=== PATIENT | male | born 1965 | race Caucasian/White ===

== ENCOUNTER → 2018-03-06 | Outpatient (CLI) | payer MEDICARE, MEDICAID ==
--- NOTE | 2018-03-06 10:40 | Diagnostic Imaging Report ---
INDICATION: Cirrhosis, history of hepatitis C. TECHNIQUE: Multiple grayscale sonographic images were obtained of the right upper quadrant of the abdomen. CORRELATION STUDY: None FINDINGS: LIVER: There is heterogeneous echotexture about the liver parenchyma. There are rather nodular, scalloped margins suggested. Imaging features favor probable chronic liver disease. There is normal, hepatopedal direction of flow within the main portal vein. Liver size at 14 cm. There is note made of a TIPS stent within the liver. GALLBLADDER: Appearing somewhat contracted. No definitive shadowing gallstones. There is presence of gallbladder wall thickening at 3-4 mm. COMMON BILE DUCT: Not able to be visualized. Overt bile duct dilatation does not appear be suggested. PANCREAS: Largely obscured. RIGHT KIDNEY: Measures 10.3 cm. No hydronephrosis. AORTA/IVC: Not well visualized. OTHER: None. IMPRESSION: 1. Findings suggestive of chronic liver disease/cirrhosis. Presence of a TIPS. Doppler interrogation/patency not performed. 2. Gallbladder wall thickening without definitive shadowing gallstones. This may be owing to chronic liver disease. Biliary tree unable to visualize but does not appear to be abnormally dilated. Dictated by: Dictated on workstation # [id number]
== END ==
LOC: RAD 08:05
PROVIDERS: ATTEND Internal Medicine
DX: K74.60 Unspecified cirrhosis of liver (principal); K82.8 Other specified diseases of gallbladder; Z86.19 Personal history of other infectious and parasitic diseases; Z96.89 Presence of other specified functional implants
CPT/HCPCS: 76705

== ENCOUNTER 2019-11-28 16:32 | Emergency (ER) | payer MEDICARE, MEDICAID ==
[~2019-11-28] VITALS: Ht 175.3 cm; Wt 83.9 kg
[2019-11-28] MEDS ORDERED: PANTOPRAZOLE 40 MG (PROTONIX) VIAL IV ONE (16:45)
[2019-11-28 16:47] LABS: BASOPHILS % (AUTO) 0 % (0-10); EOSINOPHILS # (AUTO) 0.2 10^3/uL (0.0-0.3); EOSINOPHILS % (AUTO) 4 % (0-10); HEMATOCRIT 35 % (40-54); HEMOGLOBIN 11.7 G/DL (13.3-17.7); LYMPHOCYTES # (AUTO) 1.2 X 10^3 (1.0-4.0); LYMPHOCYTES % (AUTO) 33 % (12-44); MEAN CORPUSCULAR HEMOGLOBIN 31 PG (25-34); MEAN CORPUSCULAR HGB CONC 33 G/DL (32-36); MEAN CORPUSCULAR VOLUME 94 FL (80-99); MEAN PLATELET VOLUME 9.1 FL (7.4-10.4); MONOCYTES # (AUTO) 0.3 X 10^3 (0.0-1.0); MONOCYTES % (AUTO) 8 % (0-12); NEUTROPHILS % (AUTO) 54 % (42-75); PLATELET COUNT 144 10^3/uL (130-400); RED CELL DISTRIBUTION WIDTH 14.6 % (10.0-14.5); WHITE BLOOD COUNT 3.7 10^3/uL (4.3-11.0)
[2019-11-28 16:53] LABS: ALBUMIN 3.4 GM/DL (3.2-4.5)
[2019-11-28 16:54] LABS: CHLORIDE 114 MMOL/L (98-107); POTASSIUM 3.5 MMOL/L (3.6-5.0); SODIUM 145 MMOL/L (135-145)
[2019-11-28 16:55] LABS: CALCIUM 7.9 MG/DL (8.5-10.1)
[2019-11-28 16:56] LABS: GLUCOSE 89 MG/DL (70-105); TOTAL PROTEIN 6.5 GM/DL (6.4-8.2)
[2019-11-28 16:57] LABS: CARBON DIOXIDE 23 MMOL/L (21-32); INR 1.3 (0.8-1.4); PROTHROMBIN TIME PATIENT 16.7 SEC (12.2-14.7)
[2019-11-28 16:58] LABS: BILIRUBIN,TOTAL 0.9 MG/DL (0.1-1.0)
[2019-11-28 16:59] LABS: ALKALINE PHOSPHATASE 111 U/L (40-136)
[2019-11-28 17:00] LABS: CREATININE SERUM 0.79 MG/DL (0.60-1.30); GFR ESTIMATED > 60
[2019-11-28] MEDS ORDERED: ONDANSETRON 4 MG/2 ML (SDV) Z0FRAN IVP ONE (17:00)
[2019-11-28 17:01] LABS: BUN/CREATININE RATIO 10
[2019-11-28 17:03] LABS: ALANINE AMINOTRANSFERASE 17 U/L (0-55)
--- NOTE | 2019-11-28 17:12 | Diagnostic Imaging Report ---
PATIENT HISTORY: Hematemesis. History of esophageal stent. TECHNIQUE: Frontal view of the chest. COMPARISON: None. FINDINGS: The lung volumes are normal. No focal consolidation is seen. No large pleural effusion or pneumothorax is seen. The cardiomediastinal silhouette is normal in size and contour. No acute osseous abnormality is seen. There are hyperdensities in the upper abdomen which are likely from postsurgical changes. No radiopaque stents are seen in the region of the esophagus. IMPRESSION: No acute pulmonary abnormality seen. Dictated by: Dictated on workstation # [id number]
--- NOTE | 2019-11-28 17:20 | ED GI ---
General Chief Complaint: Abdominal/GI Problems Stated Complaint: VOMITING Nursing Triage Note: PT TO ROOM 06 VIA EMS WITH C/O BLOOD TINGED VOMITUS X1 TODAY. PT STATES HE HAS TWO ESOPHAGEAL STENTS. Sepsis Screen: No Definite Risk History of Present Illness Date Seen by Provider: Nov 28, 2019 Time Seen by Provider: 16:45 Initial Comments 54-year-old male presents with vomiting times one today. Patient is by my EMS. Patient came in just because he was concerned. Patient had some slight bluish tinge to his vomit. Patient is concerned because he has liver cirrhosis and esophageal varices. He has to esophageal stents. These were done approximately 3 years ago at . Patient is not nauseated at this time. He does not have any abdominal pain. He does not have any other symptoms. He denies any dark tarry stool or bloody stool. Allergies and Home Medications Allergies Coded Allergies: NSAIDS (Non-Steroidal Anti-Inflamma (Verified Allergy, Unknown, 11/28/19) Home Medications Ondansetron 4 Mg Tab.rapdis, 4 MG PO Q6H PRN for NAUSEA/VOMITING Prescribed by: BRENDAN ELLIS on 11/28/19 1721 Patient Home Medication List Home Medication List Reviewed: Yes Review of Systems Review of Systems Constitutional: No chills, No fever Respiratory: Denies Cough, Denies Shortness of Air Cardiovascular: Denies Chest Pain Gastrointestinal: Denies Blood Streaked Stools, Denies Rectal Bleeding; Vomiting Musculoskeletal: no symptoms reported Skin: no symptoms reported Psychiatric/Neurological: No Symptoms Reported Past Upovmud-Crwhjx-Mdabba Hx Past Med/Social Hx: Reviewed Nursing Past Med/Soc Hx Patient Social History Alcohol Use: Past History Recreational Drug Use: No Smoking Status: Never a Smoker 2nd Hand Smoke Exposure: No Recent Foreign Travel: No Contact w/Someone Who Travel: No Recent Infectious Disease Expo: No Recent Hopitalizations: No Physical Abuse: No Sexual Abuse: No Mistreated: No Fear: No Seasonal Allergies Seasonal Allergies: Yes Past Medical History Surgeries: Yes (R ANKLE, L KNEE, BILAT SHOULDER, ESOPHAGUS) Adenoidectomy, Orthopedic, Tonsillectomy Respiratory: No Cardiac: No Neurological: Yes (SEIZURES DUE TO LIVER DISEASE) Genitourinary: No Gastrointestinal: Yes (HX OF HEP C) Hepatitis Chronic Back Pain, Fractures Endocrine: No HEENT: Yes Loss of Vision: Denies Hearing Impairment: Denies Cancer: No Psychosocial: Yes ADD/ADHD Integumentary: No Blood Disorders: No Physical Exam Vital Signs Vital Signs - First Documented 11/28/19 16:38 Temp 36.7 Pulse 77 Resp 17 B/P (MAP) 141/82 (101) O2 Delivery Room Air Capillary Refill : Less Than 3 Seconds Height/Weight/BMI Height: '" Weight: lbs. oz. 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, no motor/sensory deficits, normal mood/affect, oriented x 3 Skin: normal color, warm/dry Progress/Results/Core Measures Results/Orders Lab Results Laboratory Tests Test 11/28/19 16:37 Range/Units White Blood Count 3.7 L 4.3-11.0 10^3/uL Red Blood Count 3.75 L 4.35-5.85 10^6/uL Hemoglobin 11.7 L 13.3-17.7 G/DL Hematocrit 35 L 40-54 % Mean Corpuscular Volume 94 80-99 FL Mean Corpuscular Hemoglobin 31 25-34 PG Mean Corpuscular Hemoglobin Concent 33 32-36 G/DL Red Cell Distribution Width 14.6 H 10.0-14.5 % Platelet Count 144 130-400 10^3/uL Mean Platelet Volume 9.1 7.4-10.4 FL Neutrophils (%) (Auto) 54 42-75 % Lymphocytes (%) (Auto) 33 12-44 % Monocytes (%) (Auto) 8 0-12 % Eosinophils (%) (Auto) 4 0-10 % Basophils (%) (Auto) 0 0-10 % Neutrophils # (Auto) 2.0 1.8-7.8 X 10^3 Lymphocytes # (Auto) 1.2 1.0-4.0 X 10^3 Monocytes # (Auto) 0.3 0.0-1.0 X 10^3 Eosinophils # (Auto) 0.2 0.0-0.3 10^3/uL Basophils # (Auto) 0.0 0.0-0.1 10^3/uL Prothrombin Time 16.7 H 12.2-14.7 SEC INR Comment 1.3 0.8-1.4 Activated Partial Thromboplast Time 36 H 24-35 SEC Sodium Level 145 135-145 MMOL/L Potassium Level 3.5 L 3.6-5.0 MMOL/L Chloride Level 114 H 98-107 MMOL/L Carbon Dioxide Level 23 21-32 MMOL/L Anion Gap 8 5-14 MMOL/L Blood Urea Nitrogen 8 7-18 MG/DL Creatinine 0.79 0.60-1.30 MG/DL Estimat Glomerular Filtration Rate > 60 BUN/Creatinine Ratio 10 Glucose Level 89 70-105 MG/DL Calcium Level 7.9 L 8.5-10.1 MG/DL Corrected Calcium 8.4 L 8.5-10.1 MG/DL Total Bilirubin 0.9 0.1-1.0 MG/DL Aspartate Amino Transf (AST/SGOT) 35 H 5-34 U/L Alanine Aminotransferase (ALT/SGPT) 17 0-55 U/L Alkaline Phosphatase 111 40-136 U/L Total Protein 6.5 6.4-8.2 GM/DL Albumin 3.4 3.2-4.5 GM/DL My Orders Orders - ELLIS,BRENDAN L DO Pantoprazole Injection (Protonix Injecti (11/28/19 16:45) Cbc With Automated Diff (11/28/19 16:38) Comprehensive Metabolic Panel (11/28/19 16:38) Protime With Inr (11/28/19 16:38) Partial Thromboplastin Time (11/28/19 16:38) Chest 1 View, Ap/Pa Only (11/28/19 16:38) Ondansetron Injection (Zofran Injectio (11/28/19 17:00) Medications Given in ED Current Medications Medications Dose Ordered Sig/Johny Route Start Time Stop Time Status Last Admin Dose Admin Ondansetron HCl 4 mg ONCE ONCE IVP 11/28/19 17:00 11/28/19 17:01 DC 11/28/19 17:02 4 MG Pantoprazole 80 mg ONCE ONCE IV 11/28/19 16:45 11/28/19 16:46 DC 11/28/19 17:02 80 MG Vital Signs/I&O 11/28/19 16:38 Temp 36.7 Pulse 77 Resp 17 B/P (MAP) 141/82 (101) O2 Delivery Room Air Blood Pressure Mean: 101 Progress Progress Note : Time: 17:17 Progress Note Patient with no further episodes of vomiting. He did not have a significant amount of blood in his vomit. Patient's vitals were stable. Patient with no acute findings on lab. It offer to call [facility] for patient to determine if he needs to be transferred. At this time however he felt acutely would rather go home and will return if needed. He will follow-up with his primary care provider tomorrow to help arrange an outpatient visit with a GI specialist. Patient is stable and will be discharged home. Departure Impression Primary Impression: Nausea and vomiting Qualified Codes: R11.2 - Nausea with vomiting, unspecified Disposition: HOME, SELF-CARE Condition: Stable Departure-Patient Inst. Referrals: BEREKET MOSS MD (PCP/Family) Primary Care Physician Patient Instructions: Nausea and Vomiting, Adult Add. Discharge Instructions: Follow-up with your primary care provider tomorrow to arrange an outpatient visit with GI specialist All discharge instructions reviewed with patient and/or family. Voiced understanding. Scripts Ondansetron (Ondansetron Odt) 4 Mg Tab.rapdis 4 MG PO Q6H PRN for NAUSEA/VOMITING, #20 TAB 0 Refills Prov: BRENDAN ELLIS DO 11/28/19 BREDNAN ELLIS DO Nov 28, 2019 17:20
[2019-11-28] MEDS ORDERED: ONDA4TAB11 PO (17:21)
--- NOTE | 2019-11-28 17:50 | NUR ---
[facility]XI SERVICE PROVIDED TO PT HOME PER BUTTON GRADER.
[2019-11-28 17:52] VITALS: BP 135/82
== END 2019-11-28 17:52 | disposition home or self-care (01) ==
LOC: EDUNIT# 16:32 → ER 16:33
DX: R11.2 Nausea with vomiting, unspecified (principal); Z88.6 Allergy status to analgesic agent
CPT/HCPCS: 36415; 71045; 80053; 85025; 85610; 85730

== ENCOUNTER 2021-06-11 01:19 | Emergency (ER) | payer MEDICARE, MEDICAID ==
[~2021-06-11] VITALS: Ht 185.5 cm; Wt 81.6 kg
[~2021-06-11 01:19] MED LIST: BUPR1PAT9 TD; ONDA4TAB11 PO
[2021-06-11] MEDS ORDERED: SUCCINYLCHOLINE INJ 100 MG/5 ML SYR/VIAL INJ ONE (01:21)
[2021-06-11] MEDS ORDERED: ROCURONIUM 10 MG/ML 5 ML SYRINGE IV ONE (01:21)
[2021-06-11] MEDS ORDERED: MIDAZOLAM 5 MG/5 ML (VERSED) VIAL IJ ONE (01:21)
--- OUTSIDE RECORDS SUMMARY | 2021-06-11 01:24 | XMS REPORT | Clinical Summary ---
Author Author [facility] Organization [facility] Address Unknown Phone Unavailable Care Team Providers Care Business Department Chair Name Role Phone Nicole Kumar RN Unavailable Dylan Meyers MD PCP Camelia Lambert MD Unavailable Marialuisa Betancourt Unavailable Unavailable Maximino Correa PHARMD Unavailable Unavailable Dennis Colbert [facility] Unavailable Unavailable Blanca Saleh STOCKLAYER-JEWELRY STORE MANAGER Unavailable Stephanie Emmanuel RN Unavailable Unavailable Grisel Richardson Unavailable Unavailable Mariam Carreno PHARMD Unavailable Unavailable Source Comments Some departments are not documenting in the electronic medical record. If you d o not see the information that you expected, contact Release of Information in [facility] Information Management department at [phone] for further assistan ce in locating additional records.[facility] Allergies Comments Active Allergy Reactions Severity Noted Date Aspirin NAUSEA ONLY, Medium 11/25/2014 SHORTNESS OF BREATH, DIZZINESS Influenza Virus Vaccine VOMITING Low 2016 Qv 2017-18(18 Thru 64 Yrs) Nsaids (Non-Steroidal NAUSEA ONLY, Medium 11/26/19 15 Anti-Inflammatory Drug) SHORTNESS OF BREATH, DIZZINESS Pneumococcal Vaccine VOMITING Low 7 Pt states "it makes me want to kill people." Vilazodone HALLUCINATION High 11/25/2014 S, SEE COMMENTS Medications End Date Status Medication Sig Dispensed Refills Start Date Active omeprazole DR(+) Take 80 mg by 0 (PRILOSEC) 40 mg capsule mouth daily before breakfast. Along with Harvoni Active lactulose 10 gram/15 mL Take 30 g by 0 oral solution mouth three times daily. Active midodrine (PROAMATINE) 5 Take 1 tablet 60 tablet 2 mg tablet by mouth 7 twice daily. Active furosemide (LASIX) 20 mg Take 1 tablet 90 tablet 3 tablet by mouth 7 daily. Active melatonin 3 mg tab Take 1 tablet 0 by mouth at 7 bedtime as needed. Active spironolactone Take 1 tablet 90 tablet 3 (ALDACTONE) 50 mg tablet by mouth 7 daily. Take with food. Active rifAXIMin (XIFAXAN) 550 Take 1 tablet 60 tablet 2 mg tabletIndications: by mouth 7 hepatic encephalopathy twice daily. Indications: HEPATIC ENCEPHALOPATH Y Active Problems Problem Noted Date Hepatic encephalopathy 03/01/2017 Esophageal varices 02/26/2017 History of hepatitis C 02/26/2017 Hypotension 02/26/2017 Cirrhosis 02/26/2017 On mechanically assisted ventilation 02/26/2017 Bradycardia 02/26/2017 GI bleed 02/25/2017 Iron deficiency anemia 12/03/2014 Hep C w/o coma, chronic 11/20/2014 Immunizations Name Administration Dates Next Due Flu Vaccine =>6 Months 03/05/2017 Quadrivalent PF Surgical History Surgery Date Site/Laterality Comments COLONOSCOPY ME ESOPHAGOSCOPY FLEXIBLE TRANSORAL DIAGNOSTIC UPPER GASTROINTESTINAL 02/26/2017 N/A ESOPHAG OGASTRODUODENOSCOPY performed by ANTONIO Singh MD at [facility] Medical History Medical History Date Comments Arthritis Unspecified deficiency anemia Vision problem Stomach problems Back pain Social History Date Tobacco Use Types Packs/Day Years Used Never Smoker Comments Alcohol Use Standard Drinks/Week No 0 (1 standard drink = 0.6 o z pure alcohol) Sex Assigned at Date Recorded Not on file Last Filed Vital Signs Reading Time Taken Comments Vital Sign 94/52 03/11/2017 8:48 AM CDT Blood Pressure 88 03/11/2017 8:41 AM CDT Pulse 37.3 C (99.1 F) 03/11/2017 8:41 AM CDT Temperature 18 11/07/2015 2:22 PM CDT Respiratory Rate 95% 03/11/2017 8:41 AM CDT Oxygen Saturation - - Inhaled Oxygen Concentration 73.7 kg (162 lb 8 oz) 03/11/2017 2:37 AM CDT Weight 175 cm (5' 8.9") 02/28/2017 3:00 PM CDT Per previous vis it ht records Height 24.07 02/28/2017 3:00 PM CDT Body Mass Index Plan of Treatment Health Maintenance Due Date Last Done Comments MEDICARE ANNUAL WELLNESS 1965 VISIT HIV SCREENING 11/23/1978 DTAP/TDAP VACCINES (1 - 11/23/1981 Tdap) PHYSICAL (COMPREHENSIVE) 11/23/1981 EXAM COLORECTAL CANCER 11/23/2013 SCREENING SHINGLES RECOMBINANT 11/23/2013 VACCINE (1 of 2) INFLUENZA VACCINE 01/11/2021 03/05/2017 Implants Device Identifier Shelf Expiration Date Model / Serial / L ot Implanted Type Area Manufactur er [id number] / [id number] / N/A Stent Endoprosthesis 6cm 10mm Liver [employer] [place] [place] [employer] - and [id number] ASSC:MED Implanted: Qty: 1 on 03/01/2017 by PRDT Cade Sandra MD at [facility] [id number] 11/15/2021 [id number] / N/A / [id number] Coil Embolization 14cm 6mm Niecy Liver POT HOLDER BINDER K GRP 7.4 Loop Soft Radiopacity - Sn/A COOK Implanted: Qty: 1 on 03/01/2017 by Cade Sandra MD at [facility] [id number] 01/21/2022 [id number] / N/A / [id number] Coil Embolization 14cm 6mm Niecy Liver POT HOLDER BINDER K GRP 7.4 Loop Soft Radiopacity - Sn/A COOK Implanted: Qty: 1 on 03/01/2017 by Cdae Sandra MD at [facility] [id number] 12/08/2021 [id number] / N/A / [id number] Coil Embolization 14cm 6mm Niecy Liver POT HOLDER BINDER K GRP 7.4 Loop Soft Radiopacity - Sn/A COOK Implanted: Qty: 1 on 03/01/2017 by Cade Sandra MD at [facility] [id number] 12/21/2021 [id number] / N/A / [id number] Coil Embolization 14cm 3mm .018in Liver POT HOLDER BINDER K GRP Niecy 14.9 Loop Soft - Sn/A COOK Implanted: Qty: 1 on 03/01/2017 by Cade Sandra MD at [facility] [id number] 12/15/2021 [id number] / N/A / [id number] Coil Embolization 14cm 3mm .018in Liver POT HOLDER BINDER K GRP Niecy 14.9 Loop Soft - Sn/A COOK Implanted: Qty: 1 on 03/01/2017 by Cade Sandra MD at [facility] [id number] 12/21/2021 [id number] / N/A / [id number] Coil Embolization 14cm 3mm .018in Liver POT HOLDER BINDER K GRP Niecy 14.9 Loop Soft - Sn/A COOK Implanted: Qty: 1 on 03/01/2017 by Cade Sandra MD at [facility] [id number] 01/10/2022 [id number] / N/A / [id number] Coil Embolization 5cm 2mm Niecy 8 Liver [place] GRP Loop Soft Enhanced - Sn/A COOK Implanted: Qty: 1 on 03/01/2017 by Cade Sandra MD at [facility] [id number] 01/13/2022 [id number] / N/A / [id number] Coil Embolization 14cm 4mm Niecy Liver POT HOLDER BINDER K GRP 11.1 Loop Soft Radiopacity - Sn/A COOK Implanted: Qty: 1 on 03/01/2017 by Cade Sandra MD at [facility] [id number] 01/10/2022 [id number] / N/A / [id number] Coil Embolization 5cm 2mm Niecy 8 Liver [place] GRP Loop Soft Enhanced - Sn/A COOK Implanted: Qty: 1 on 03/01/2017 by Cade Sandra MD at [facility] [id number] 12/21/2021 [id number] / N/A / [id number] Coil Embolization 14cm 3mm .018in Liver POT HOLDER BINDER K GRP Niecy 14.9 Loop Soft - Sn/A COOK Implanted: Qty: 1 on 03/01/2017 by Cade Sandra MD at [facility] Results Not on filefrom Last 3 Months Insurance Type Payer Benefit Subscriber ID Effective Phone Address Plan / Dates Group Medicare MEDICARE MEDICARE [id number] 2013- [phone] [address] [place] [address] [place] [id number] 2016-P [phone] PO Saqib x MEDICAID [address] [place] [phone] Advance Directives 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 02/26/2017 5:53 AM Full Code 02/25/2017 11:53 PM Provider has discussed Code Status No, more discussi on w/Patient or Family? needed Care Teams Start Date End Date Business Department Chair Relationship Specialty 11/25/14 Dylan Meyers MD PCP - General Family Medicine 11/20/14 Nicole Kumar, RN 11/25/14 Camelia Lambert MD Transplant [address] [facility] [id number] [place] [address] 03/12/15 Marialuisa Betancourt 03/18/15 Maximino Correa, PHARMD Pharmacist 03/24/15 Dennis Colbert Nilam 07/29/15 Blanca Saleh, STOCKLAYER-JEWELRY STORE MANAGER Maternal and [address] [facility] [address] [place] [address] 07/29/15 Stephanie Emmanuel, RN 12/29/15 Grisel Richardson 01/09/16 Mariam Carreno, PHARMD Pharmacist
[2021-06-11] MEDS ORDERED: ceFAZolin INJECTION 1,000 MG in NS (IVPB) 50 ML IV STA (01:27)
[2021-06-11] MEDS ORDERED: NS IV 1000 ML 1,000 ML IV SCH (01:30)
[2021-06-11] MEDS ORDERED: LACTATED RINGERS 1,000 ML IV ONE ×2 (01:30→05:31)
[2021-06-11] MEDS ORDERED: TETANUS,DIPTH,PERTUSS P/F (BOOSTRIX) 0.5 ML VIAL IM ONE (01:30)
[2021-06-11 01:55] LABS: BASOPHILS % (AUTO) 1 % (0-10); EOSINOPHILS # (AUTO) 0.1 10^3/uL (0.0-0.3); EOSINOPHILS % (AUTO) 2 % (0-10); HEMATOCRIT 40 % (40-54); HEMOGLOBIN 13.4 g/dL (13.3-17.7); LYMPHOCYTES # (AUTO) 1.1 10^3/uL (1.0-4.0); LYMPHOCYTES % (AUTO) 17 % (12-44); MEAN CORPUSCULAR HEMOGLOBIN 31 pg (25-34); MEAN CORPUSCULAR HGB CONC 34 g/dL (32-36); MEAN CORPUSCULAR VOLUME 92 fL (80-99); MEAN PLATELET VOLUME 9.6 fL (9.0-12.2); MONOCYTES # (AUTO) 0.7 10^3/uL (0.0-1.0); MONOCYTES % (AUTO) 11 % (0-12); NEUTROPHILS # (AUTO) 4.4 10^3/uL (1.8-7.8); NEUTROPHILS % (AUTO) 69 % (42-75); PLATELET COUNT 145 10^3/uL (130-400); WHITE BLOOD COUNT 6.4 10^3/uL (4.3-11.0)
[2021-06-11 02:01] LABS: CHLORIDE 110 MMOL/L (98-107); SODIUM 143 MMOL/L (135-145)
[2021-06-11 02:02] LABS: ALBUMIN 3.2 GM/DL (3.2-4.5)
[2021-06-11 02:03] LABS: AMYLASE 65 U/L (25-125); CALCIUM 8.5 MG/DL (8.5-10.1)
[2021-06-11 02:04] LABS: GLUCOSE 130 MG/DL (70-105); TOTAL PROTEIN 6.7 GM/DL (6.4-8.2)
[2021-06-11 02:05] LABS: CARBON DIOXIDE 18 MMOL/L (21-32)
[2021-06-11] MEDS ORDERED: NS (IVPB) 100 ML ONE (02:05)
[2021-06-11] MEDS ORDERED: TRANEXAMIC ACID 100 MG/ML 10 ML INJECTION ONE (02:05)
[2021-06-11 02:06] LABS: BILIRUBIN,TOTAL 1.6 MG/DL (0.1-1.0)
[2021-06-11 02:07] LABS: PHOSPHORUS 3.8 MG/DL (2.3-4.7)
[2021-06-11 02:08] LABS: ALKALINE PHOSPHATASE 108 U/L (40-136); CREATININE SERUM 1.03 MG/DL (0.60-1.30); GFR ESTIMATED 74
[2021-06-11 02:09] LABS: BILIRUBIN,DIRECT 0.7 MG/DL (0.0-0.3); BILIRUBIN,INDIRECT 0.9 MG/DL; BUN/CREATININE RATIO 12
[2021-06-11 02:11] LABS: BILIRUBIN,URINE 1+ (NEGATIVE); CLARITY,URINE CLEAR; COLOR,URINE YELLOW; GLUCOSE, URINE (UA) NEGATIVE (NEGATIVE); KETONES,URINE NEGATIVE (NEGATIVE); LEUKOCYTE ESTERASE ,URINE NEGATIVE (NEGATIVE); NITRITE,URINE NEGATIVE (NEGATIVE); PROTEIN,URINE TRACE (NEGATIVE)
[2021-06-11 02:11] LABS: ALANINE AMINOTRANSFERASE 19 U/L (0-55); MAGNESIUM 2.1 MG/DL (1.6-2.4)
[2021-06-11 02:18] LABS: CREATINE KINASE MB 3.8 NG/ML (<6.6)
[2021-06-11 02:44] LABS: ACETAMINOPHEN < 10 UG/ML (10-30)
[2021-06-11] MEDS ORDERED: MIDAZOLAM 5 MG/5 ML (VERSED) VIAL ONE (02:44)
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
[2021-06-11 03:15] LABS: FIBRIN DEGRADATION PRODUCTS 1.85 UG/ML (0.00-0.49); INR 1.3 (0.8-1.4); PROTHROMBIN TIME PATIENT 16.1 SEC (12.2-14.7)
[2021-06-11 03:16] LABS: BACTERIA,URINE NEGATIVE /HPF; RBC,URINE 0-2 /HPF; SQUAMOUS EPITHELIAL CELL,UR 0-2 /HPF
[2021-06-11 03:17] LABS: AMPHETAMINE SCREEN, URINE POSITIVE (NEGATIVE); BARBITURATE SCREEN URINE NEGATIVE (NEGATIVE); BENZODIAZEPINES SCREEN URINE NEGATIVE (NEGATIVE); CANNABINOID SCREEN, URINE POSITIVE (NEGATIVE); COCAINE SCREEN URINE NEGATIVE (NEGATIVE); METHADONE STAT NEGATIVE (NEGATIVE); METHAMPHETAMINE SCREEN URINE S POSITIVE (NEGATIVE); OPIATE SCREEN URINE NEGATIVE (NEGATIVE); OXYCODONE STAT NEGATIVE (NEGATIVE); PROPOXYPHENE STAT NEGATIVE (NEGATIVE); TRICYCLIC ANTIDEPRESSANTS SCRE NEGATIVE (NEGATIVE)
[2021-06-11 03:30] VITALS: BP 147/100
--- NOTE | 2021-06-11 04:33 | Diagnostic Imaging Report ---
CLINICAL INDICATION: Patient is post intubation and orogastric tube. EXAM: Portable chest x-ray upright view. COMPARISON: Portable chest x-ray dated 11/28/2019. FINDINGS: There is interval placement of ET tube in good position with tip grossly 3.6 cm from the level of the macey. Orogastric feeding tube is seen below the level of the diaphragm, but the distal portion is not completely imaged. Endovascular coils are seen overlying the upper epigastric region. There is interval development of curvilinear opacities and amorphous airspace opacities involving left lung base which may represent lung infiltrate. There is no pleural effusion or pneumothorax. Pulmonary vasculature and cardiac silhouette within normal limits. There are degenerative spurs involving the spine. IMPRESSION: 1: Interval placement of ET tube and feeding tube, as described above. ET tube is in good position. 2: There is interval development of mild left basilar infiltrate. 3: The remainder of this exam shows no significant interval change compared to the prior study of comparison. Dictated by: Dictated on workstation # [id number]
[2021-06-11] MEDS ORDERED: NS IV 1000 ML 1,000 ML ONE (05:31)
== END 2021-06-11 02:49 | disposition short-term general hospital (02) ==
LOC: EDUNIT# 01:19 → ER 01:20
DX: S71.111A Laceration without foreign body, right thigh, initial encounter (principal); T79.4XXA Traumatic shock, initial encounter; G40.909 Epilepsy, unspecified, not intractable, without status epilepticus; F12.90 Cannabis use, unspecified, uncomplicated; F15.90 Other stimulant use, unspecified, uncomplicated; F19.90 Other psychoactive substance use, unspecified, uncomplicated; F10.20 Alcohol dependence, uncomplicated; F17.210 Nicotine dependence, cigarettes, uncomplicated; Z23 Encounter for immunization; Z79.899 Other long term (current) drug therapy; Z20.822 Contact with and (suspected) exposure to COVID-19; Y90.0 Blood alcohol level of less than 20 mg/100 ml; W26.0XXA Contact with knife, initial encounter
CPT/HCPCS: 31500; 71045; 80053; 80306; 81000; 82150; 82248; 82553; 83735; 83874; 84100; 84484; 85025; 85379; 85384; 85610; 85730; 86850; 86900; 86901; 86920; 87636; 90471; 93041; 94002; 96374; 96375; 99291; 99292; G0390; G0480 ×2; P9016; P9035; 36415; 80076; 80320; 80329; 90715

== ENCOUNTER 2021-09-11 05:57 | Emergency (ER) | payer MEDICARE, MEDICAID ==
[~2021-09-11] VITALS: Ht 170 cm; Wt 79.0 kg
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
[2021-09-11 09:46] VITALS: BP 131/67
== END 2021-09-11 09:46 | disposition home or self-care (01) ==
LOC: EDUNIT# 05:57 → ER FS 05:58
DX: S02.2XXA Fracture of nasal bones, initial encounter for closed fracture (principal); S01.111A Laceration without foreign body of right eyelid and periocular area, initial encounter; S01.511A Laceration without foreign body of lip, initial encounter; Y04.2XXA Assault by strike against or bumped into by another person, initial encounter
CPT/HCPCS: 70450; 70486; 72125

== ENCOUNTER 2021-09-23 | Emergency (ER) | payer MEDICARE, MEDICAID ==
[~2021-09-23] VITALS: Ht 176 cm; Wt 77.1 kg
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
[2021-09-23 00:23] LABS: HEMOGLOBIN 9.7 g/dL (13.3-17.7); LYMPHOCYTES # (AUTO) 1.2 10^3/uL (1.0-4.0); MONOCYTES % (AUTO) 11 % (0-12)
[2021-09-23 00:25] LABS: BASOPHILS % (AUTO) 1 % (0-10); EOSINOPHILS # (AUTO) 0.2 10^3/uL (0.0-0.3); EOSINOPHILS % (AUTO) 7 % (0-10); HEMATOCRIT 30 % (40-54); LYMPHOCYTES % (AUTO) 42 % (12-44); MEAN CORPUSCULAR HEMOGLOBIN 27 pg (25-34); MEAN CORPUSCULAR HGB CONC 32 g/dL (32-36); MEAN CORPUSCULAR VOLUME 85 fL (80-99); MEAN PLATELET VOLUME 9.1 fL (9.0-12.2); MONOCYTES # (AUTO) 0.3 10^3/uL (0.0-1.0); NEUTROPHILS # (AUTO) 1.1 10^3/uL (1.8-7.8); NEUTROPHILS % (AUTO) 39 % (42-75); PLATELET COUNT 115 10^3/uL (130-400); WHITE BLOOD COUNT 2.8 10^3/uL (4.3-11.0)
[2021-09-23] MEDS ORDERED: LIDOCAINE/EPI 1%-1:100,000 (XYLOCAINE) 10 ML ONE (00:26)
[2021-09-23 00:27] LABS: ALBUMIN 2.8 GM/DL (3.2-4.5); POTASSIUM 3.9 MMOL/L (3.6-5.0)
[2021-09-23 00:29] LABS: CALCIUM 8.1 MG/DL (8.5-10.1)
[2021-09-23 00:30] LABS: INR 1.4 (0.8-1.4); PROTHROMBIN TIME PATIENT 17.6 SEC (12.2-14.7); TOTAL PROTEIN 5.6 GM/DL (6.4-8.2)
[2021-09-23] MEDS ORDERED: TRANEXAMIC ACID INJECTION 1,000 MG in NS (IVPB) 50 ML IV ONE (00:30)
[2021-09-23 00:32] LABS: BILIRUBIN,TOTAL 1.1 MG/DL (0.1-1.0)
[2021-09-23 00:33] LABS: CREATININE SERUM 0.73 MG/DL (0.60-1.30)
[2021-09-23 01:23] LABS: ANISOCYTOSIS SLIGHT; BAND NEUTROPHILS 1 %; BASOPHILS % (MANUAL) 1 %; EOSINOPHILS % (MANUAL) 5 %; LYMPHOCYTES % (MANUAL) 43 %; MICROCYTOSIS SLIGHT; MONOCYTES % (MANUAL) 10 %; NEUTROPHILS % (MANUAL) 40 %; POLYCHROMASIA SLIGHT
[2021-09-23 01:24] LABS: CRENATED RBC SLIGHT; ELLIPT/OVALOCYTES SLIGHT
[2021-09-23 01:50] VITALS: BP 130/72
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
== END 2021-09-23 01:50 | disposition home or self-care (01) ==
LOC: EDUNIT# → ER 00:02
DX: S01.511A Laceration without foreign body of lip, initial encounter (principal); Y04.0XXA Assault by unarmed brawl or fight, initial encounter
CPT/HCPCS: 36415; 70450; 70486; 72125; 80053; 85007; 85027; 85610; 85730

== ENCOUNTER 2021-09-23 13:53 | Emergency (ER) | payer MEDICARE, MEDICAID ==
[~2021-09-23] VITALS: Ht 176 cm; Wt 77.1 kg
[2021-09-23 14:51] LABS: BASOPHILS % (AUTO) 1 % (0-10); EOSINOPHILS # (AUTO) 0.2 10^3/uL (0.0-0.3); EOSINOPHILS % (AUTO) 7 % (0-10); HEMATOCRIT 29 % (40-54); HEMOGLOBIN 9.4 g/dL (13.3-17.7); LYMPHOCYTES # (AUTO) 1.3 10^3/uL (1.0-4.0); LYMPHOCYTES % (AUTO) 37 % (12-44); MEAN CORPUSCULAR HEMOGLOBIN 27 pg (25-34); MEAN CORPUSCULAR HGB CONC 32 g/dL (32-36); MEAN CORPUSCULAR VOLUME 86 fL (80-99); MEAN PLATELET VOLUME 9.5 fL (9.0-12.2); MONOCYTES # (AUTO) 0.3 10^3/uL (0.0-1.0); MONOCYTES % (AUTO) 10 % (0-12); NEUTROPHILS # (AUTO) 1.6 10^3/uL (1.8-7.8); NEUTROPHILS % (AUTO) 46 % (42-75); PLATELET COUNT 118 10^3/uL (130-400); WHITE BLOOD COUNT 3.4 10^3/uL (4.3-11.0)
[2021-09-23 14:55] LABS: POTASSIUM 3.7 MMOL/L (3.6-5.0)
[2021-09-23 14:57] LABS: CALCIUM 8.1 MG/DL (8.5-10.1)
[2021-09-23 15:01] LABS: CREATININE SERUM 0.72 MG/DL (0.60-1.30)
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
[2021-09-23 15:59] VITALS: BP 116/76
== END 2021-09-23 16:01 | disposition home or self-care (01) ==
LOC: EDUNIT# 13:53 → ER 13:55
DX: S01.511A Laceration without foreign body of lip, initial encounter (principal); R56.9 Unspecified convulsions; Y04.8XXA Assault by other bodily force, initial encounter
CPT/HCPCS: 36415; 80048; 83735; 85025

== ENCOUNTER 2021-12-05 21:47 | Inpatient (IN) | payer MEDICARE, MEDICAID ==
[~2021-12-05] VITALS: Ht 175.3 cm; Wt 79.6 kg
[2021-12-05] MEDS ORDERED: ceFAZolin 2 GM IV Premixed 50 ML IV STA (21:50)
[2021-12-05] MEDS ORDERED: TETANUS,DIPTH,PERTUSS P/F (BOOSTRIX) 0.5 ML VIAL IM ONE (22:00)
[2021-12-05] MEDS ORDERED: LACTATED RINGERS 1,000 ML IV ONE (22:00)
[2021-12-05 22:20] LABS: BASOPHILS % (AUTO) 1 % (0-10); HEMOGLOBIN 8.4 g/dL (13.3-17.7)
[2021-12-05 22:22] LABS: EOSINOPHILS # (AUTO) 0.1 10^3/uL (0.0-0.3); EOSINOPHILS % (AUTO) 2 % (0-10); HEMATOCRIT 27 % (40-54); LYMPHOCYTES % (AUTO) 23 % (12-44); MEAN CORPUSCULAR HEMOGLOBIN 25 pg (25-34); MEAN CORPUSCULAR HGB CONC 31 g/dL (32-36); MEAN CORPUSCULAR VOLUME 81 fL (80-99); MEAN PLATELET VOLUME 9.8 fL (9.0-12.2); MONOCYTES # (AUTO) 0.5 10^3/uL (0.0-1.0); MONOCYTES % (AUTO) 12 % (0-12); NEUTROPHILS # (AUTO) 2.8 10^3/uL (1.8-7.8); NEUTROPHILS % (AUTO) 63 % (42-75); PLATELET COUNT 110 10^3/uL (130-400); WHITE BLOOD COUNT 4.4 10^3/uL (4.3-11.0)
[2021-12-05 22:32] LABS: ALBUMIN 2.9 GM/DL (3.2-4.5); CHLORIDE 106 MMOL/L (98-107); POTASSIUM 3.5 MMOL/L (3.6-5.0); SODIUM 134 MMOL/L (135-145)
[2021-12-05 22:33] LABS: CALCIUM 7.5 MG/DL (8.5-10.1); INR 1.4 (0.8-1.4); PROTHROMBIN TIME PATIENT 17.8 SEC (12.2-14.7)
[2021-12-05 22:35] LABS: GLUCOSE 95 MG/DL (70-105); TOTAL PROTEIN 6.4 GM/DL (6.4-8.2)
[2021-12-05 22:36] LABS: BILIRUBIN,TOTAL 2.7 MG/DL (0.1-1.0); CARBON DIOXIDE 18 MMOL/L (21-32)
[2021-12-05 22:38] LABS: ALKALINE PHOSPHATASE 106 U/L (40-136); CREATININE SERUM 0.85 MG/DL (0.60-1.30)
[2021-12-05 22:39] LABS: GFR ESTIMATED 101
[2021-12-05 22:40] LABS: BUN/CREATININE RATIO 11
[2021-12-05 22:41] LABS: ALANINE AMINOTRANSFERASE 12 U/L (0-55); MAGNESIUM 1.8 MG/DL (1.6-2.4)
[2021-12-05 22:42] LABS: CREATINE KINASE 175 U/L (30-200)
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
[2021-12-05 22:49] LABS: CREATINE KINASE MB 1.1 NG/ML (<6.6)
[2021-12-05 23:12] LABS: ERYTHROCYTE SEDIMENTATION RATE 1 MM/HR (0-30)
[2021-12-06] MEDS ORDERED: LACTATED RINGERS 1,000 ML IV ONE
[2021-12-06] MEDS ORDERED: PIPERACILLIN SODIUM/TAZOBACTAM 4.5 GM in NS (IVPB) 100 ML IV ONE ×2
[2021-12-06 00:01] LABS: BILIRUBIN,URINE NEGATIVE (NEGATIVE); CLARITY,URINE CLEAR; COLOR,URINE ORANGE; GLUCOSE, URINE (UA) NEGATIVE (NEGATIVE); KETONES,URINE NEGATIVE (NEGATIVE); LEUKOCYTE ESTERASE ,URINE 1+ (NEGATIVE); NITRITE,URINE NEGATIVE (NEGATIVE); PH,URINE 7.5 (5-9); PROTEIN,URINE NEGATIVE (NEGATIVE)
[2021-12-06 00:07] LABS: BACTERIA,URINE NEGATIVE /HPF; SQUAMOUS EPITHELIAL CELL,UR 0-2 /HPF
[2021-12-06 00:12] LABS: AMPHETAMINE SCREEN, URINE NEGATIVE (NEGATIVE); BARBITURATE SCREEN URINE NEGATIVE (NEGATIVE); BENZODIAZEPINES SCREEN URINE NEGATIVE (NEGATIVE); CANNABINOID SCREEN, URINE POSITIVE (NEGATIVE); COCAINE SCREEN URINE NEGATIVE (NEGATIVE); METHADONE STAT NEGATIVE (NEGATIVE); OPIATE SCREEN URINE NEGATIVE (NEGATIVE); OXYCODONE STAT NEGATIVE (NEGATIVE); PROPOXYPHENE STAT NEGATIVE (NEGATIVE); TRICYCLIC ANTIDEPRESSANTS SCRE NEGATIVE (NEGATIVE)
[2021-12-06] MEDS: VANCOMYCIN INJECTION 1,000 MG in NS (IVPB) 250 ML IV SCH ×2 (00:52→03:27)
[2021-12-06] MEDS ORDERED: LORazepam 1 MG (ATIVAN) TAB PO PRN ×2 (02:45→03:00)
[2021-12-06] MEDS ORDERED: LORazepam INJ 2 MG/ML (ATIVAN) VIAL IM/IV PRN ×2 (02:45→03:00)
[2021-12-06] MEDS ORDERED: D5 1/2 NS 1000 ML IV SOLUTION 1,000 ML IV PRN ×2 (02:45→03:00)
[2021-12-06] MEDS ORDERED: 1/2 NS IV SOLUTION 1,000 ML IV PRN ×2 (02:45→03:00)
[2021-12-06] MEDS ORDERED: LORazepam INJ 2 MG/ML (ATIVAN) VIAL IV PRN ×2 (02:45→03:00)
[2021-12-06] MEDS ORDERED: ONDANSETRON 4 MG (ZOFRAN) ORAL DISSOLVE TAB SL PRN (03:00)
[2021-12-06] MEDS ORDERED: ONDANSETRON 4 MG/2 ML (SDV) Z0FRAN IV PRN (03:00)
[2021-12-06] MEDS ORDERED: SENNA W/DOCUSATE (SENOKOT S) TABLET PO PRN (03:00)
[2021-12-06] MEDS ORDERED: ANTACID SUSP 30 ML UDC (MYLANTA) PO PRN (03:00)
[2021-12-06 03:15] VITALS: BP 126/73
[2021-12-06 04:00] VITALS: BP 142/63
[2021-12-06 06:04] LABS: BASOPHILS % (AUTO) 1 % (0-10); EOSINOPHILS # (AUTO) 0.1 10^3/uL (0.0-0.3); EOSINOPHILS % (AUTO) 2 % (0-10); HEMATOCRIT 33 % (40-54); HEMOGLOBIN 8.9 g/dL (13.3-17.7); LYMPHOCYTES # (AUTO) 0.8 10^3/uL (1.0-4.0); LYMPHOCYTES % (AUTO) 20 % (12-44); MEAN CORPUSCULAR HEMOGLOBIN 25 pg (25-34); MEAN CORPUSCULAR HGB CONC 27 g/dL (32-36); MEAN CORPUSCULAR VOLUME 93 fL (80-99); MEAN PLATELET VOLUME 11.3 fL (9.0-12.2); MONOCYTES # (AUTO) 0.4 10^3/uL (0.0-1.0); MONOCYTES % (AUTO) 11 % (0-12); NEUTROPHILS # (AUTO) 2.5 10^3/uL (1.8-7.8); NEUTROPHILS % (AUTO) 66 % (42-75); PLATELET COUNT 83 10^3/uL (130-400); WHITE BLOOD COUNT 3.8 10^3/uL (4.3-11.0)
[2021-12-06 06:13] LABS: ALBUMIN 2.6 GM/DL (3.2-4.5); POTASSIUM 3.7 MMOL/L (3.6-5.0)
[2021-12-06 06:15] LABS: CALCIUM 7.3 MG/DL (8.5-10.1)
[2021-12-06 06:18] LABS: BILIRUBIN,TOTAL 2.9 MG/DL (0.1-1.0)
[2021-12-06 06:19] LABS: CREATININE SERUM 0.75 MG/DL (0.60-1.30)
--- NOTE | 2021-12-06 06:37 | Diagnostic Imaging Report ---
PROCEDURE: CT head and CT cervical spine without contrast. TECHNIQUE: Multiple contiguous axial images were obtained through the brain and cervical spine without the use of intravenous contrast. Sagittal and coronal reformations through the cervical spine were then performed. Auto Exposure Controls were utilized during the CT exam to meet ALARA standards for radiation dose reduction. INDICATION: Trauma. COMPARISON: 09/23/2021. FINDINGS: HEAD: Scalp swelling posteriorly near the vertex is present, greater left. The underlying calvarium, however, appears intact. No skull fracture deformity or pneumocephalus. There are no findings of hemo-sinus. No intracranial hemorrhage. There are no abnormal extra-axial collections. There is no intracerebral hemorrhage. No focal or generalized cerebral edema. No evidence for elevated pressures. No mass or mass effect. No hydrocephalus. CT CERVICAL SPINE: Body heights are normal. Alignment is anatomic. There are degenerative changes to the discs, endplates, and facets, greatest at C5-C6 and C6-C7, chronic. No cervical fracture or paraspinal hemorrhage. The thoracic inlet and visualized pulmonary apices are nonacute. The central skull base is intact. IMPRESSION: CT HEAD: Scalp injury but no fracture or intracranial hemorrhage. CT CERVICAL SPINE: Degenerative changes with no fracture or malalignment. Agree with preliminary Dictated by: Dictated on workstation # [id number]
--- NOTE | 2021-12-06 06:55 | Diagnostic Imaging Report ---
INDICATION: Trauma. COMPARISON: Radiographs of 06/11/2021. FINDINGS: The lungs are symmetrically expanded with chronic air trapping. Some prominence of the interstitial lung markings is stable. No focal airspace disease or findings of pulmonary contusion or lung laceration. There is no hemothorax or pneumothorax. The diaphragms are well visualized with no free air beneath the diaphragms evident. The hilar and mediastinal contours are normal. IMPRESSION: No acute or post traumatic sequela is radiographically apparent. Dictated by: Dictated on workstation # [id number]
--- NOTE | 2021-12-06 07:27 | History & Physical-Hospitalist ---
History of Present Illness HPI/Chief Complaint Chief complaint: Scalp infection with maggots History of present illness: This is a 56-year-old known alcoholic with illicit drug use who presents after found down on the ground for unknown amount of time was found to have a scalp infection and noted there were maggots infestation. Ativan given per alcohol withdrawal protocol and he remains sleepy. Dr. Cedillo has been consulted and will take him to surgery tomorrow. Patient did receive 1 banana bag. Patient remains n.p.o. since he is too drowsy to eat. Source: patient Exam Limitations: no limitations Date Seen 12/06/21 Time Seen by a Provider: 11:00 Attending Physician [facility] PCP Admitting Physician: Livier Bettencourt DO Attending Physician: Livier Bettencourt DO Referring Physician Date of Admission Dec 06, 2021 at 01:50 Home Medications & Allergies Home Medications Reviewed patient Home Medication Reconciliation performed by pharmacy medication reconciliations materials technician and/or nursing. Patients Allergies have been reviewed. Allergies Allergies Coded Allergies NSAIDS (Non-Steroidal Anti-Inflamma (Verified Allergy, Unknown, 11/28/19) Past Owjupxa-Zxkoax-Pcrumd Hx Patient Social History Marrital Status: single Employed/Student: unemployed Tobacco Use?: Yes Tobacco type used: Cigarettes Smoking Status: Current Everyday Smoker Use of E-Cig and/or Vaping dev: No Substance use?: Yes Substance type: Methamphetamine, Marijuana Alcohol Use?: Yes Alcohol type: Hard Liquor Alcohol Frequency: Daily Pt feels they are or have been: Unable to obtain Immunizations Up To Date First/Initial COVID19 Vaccinat: Pfizer Second COVID19 Vaccination Christiano: Pfizer Tetanus Booster (TDap): More Than 5 Years Seasonal Allergies Seasonal Allergies: Yes Current Status Advance Directives: Unable to obtain Communicates: Unable To Communicate, Verbally Primary Language: Yemeni Preferred Spoken Language: Yemeni Is interpretation needed?: No Sensory deficits: Other Additional sensory deficits: detox Past Medical History Surgeries: Adenoidectomy, Orthopedic, Tonsillectomy Seizure Disorder Liver Disease/Jaundice, Esophageal Varices, Hepatitis Chronic Back Pain, Fractures Loss of Vision: Denies Hearing Impairment: Denies ADD/ADHD Blood Disorders: No Adverse Reaction/Blood Tranf: No Family Medical History PSH: -ESOPAGEAL VARICES BANDING -ESOPHAGEAL STENTS X 2 -TIPS PROCEDURE -RIGHT ANKLE FX/ORIF -LEFT KNEE SURGERY X 2 -LEFT SHOULDER SURGERY X 1 -RIGHT SHOULDER SURGERY X 2 Review of Systems ROS-Unable to Obtain: lethargy Constitutional: see HPI Physical Exam Physical Exam Vital Signs Vital Signs - First Documented 12/06/21 03:15 O2 Flow Rate 3.00 Capillary Refill : Less Than 3 Seconds Height, Weight, BMI Height: '" Weight: lbs. oz. kg; 25.90 BMI Method: General Appearance: Chronically ill, Other (asleep) Respiratory: Lungs Clear, Normal Breath Sounds Cardiovascular: Regular Rate, Rhythm Neurologic/Psychiatric: Other (asleep) Skin: Other (maggots in scalp wound) Results Results/Procedures Labs Laboratory Tests 12/05/21 22:10 12/06/21 05:54 Patient resulted labs reviewed. Assessment/Plan Admission Diagnosis Assessment: Found down AMS Alcoholism Scalp infection with maggots Seizures Plan: ETOH withdrawal protocol IV meds IV abx Admission Status: Inpatient Order (span 2 midnights) Reason for Inpatient Admission: scalp infection Diagnosis/Problems Diagnosis/Problems (1) Scalp wound (2) Maggot infestation (3) Polysubstance abuse Status: Acute (4) Altered mental status Status: Acute LIVIER BETTENCOURT DO Dec 06, 2021 07:27
[2021-12-06 07:37] VITALS: BP 129/69
[2021-12-06] MEDS: PIPERACILLIN SODIUM/TAZOBACTAM 4.5 GM in NS (IVPB) 100 ML IV SCH ×2 (08:46→15:32)
[2021-12-06] MEDS: THIAMINE INJECTION 100 MG, FOLIC ACID INJECTION 1 MG, MAGNESIUM SULFATE 2 GM, VITAMIN M... IV SCH ×5 (09:14)
[2021-12-06 11:53] VITALS: BP 137/76
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
[2021-12-06] MEDS: VANCOMYCIN 1250 MG/NS 250 ML IVPB IV SCH ×2 (15:32)
[2021-12-06 16:48] VITALS: BP 141/65
[2021-12-06] MEDS: ACETAMINOPHEN 500 MG TAB (TYLENOL) PO PRN (16:53)
[2021-12-06] MEDS: D5 NS 1000 ML IV SOLUTION 1,000 ML IV SCH (17:05)
[2021-12-06 19:48] VITALS: BP 109/60
[2021-12-07] VITALS (14 sets, daily range): BP systolic 108–152; BP diastolic 59–76
[2021-12-07] MEDS: PIPERACILLIN SODIUM/TAZOBACTAM 4.5 GM in NS (IVPB) 100 ML IV SCH ×4 (00:13→23:56)
[2021-12-07] MEDS: ACETAMINOPHEN 500 MG TAB (TYLENOL) PO PRN (03:12)
[2021-12-07] MEDS: VANCOMYCIN 1250 MG/NS 250 ML IVPB IV SCH ×4 (04:25→16:37)
[2021-12-07] MEDS: D5 NS 1000 ML IV SOLUTION 1,000 ML IV SCH ×3 (04:26→23:56)
[2021-12-07 05:56] LABS: BASOPHILS # (AUTO) 0.1 10^3/uL (0.0-0.1); BASOPHILS % (AUTO) 1 % (0-10); EOSINOPHILS # (AUTO) 0.3 10^3/uL (0.0-0.3); EOSINOPHILS % (AUTO) 7 % (0-10); HEMATOCRIT 32 % (40-54); HEMOGLOBIN 9.5 g/dL (13.3-17.7); LYMPHOCYTES # (AUTO) 0.9 10^3/uL (1.0-4.0); LYMPHOCYTES % (AUTO) 21 % (12-44); MEAN CORPUSCULAR HEMOGLOBIN 25 pg (25-34); MEAN CORPUSCULAR HGB CONC 30 g/dL (32-36); MEAN CORPUSCULAR VOLUME 84 fL (80-99); MEAN PLATELET VOLUME 10.4 fL (9.0-12.2); MONOCYTES # (AUTO) 0.4 10^3/uL (0.0-1.0); MONOCYTES % (AUTO) 10 % (0-12); NEUTROPHILS # (AUTO) 2.6 10^3/uL (1.8-7.8); NEUTROPHILS % (AUTO) 61 % (42-75); PLATELET COUNT 112 10^3/uL (130-400); WHITE BLOOD COUNT 4.2 10^3/uL (4.3-11.0)
--- NOTE | 2021-12-07 06:10 | Progress Note - Hospitalist ---
Subjective HPI/CC On Admission Date Seen by Provider: Dec 07, 2021 Time Seen by Provider: 10:00 Chief complaint: Scalp infection with maggots History of present illness: This is a 56-year-old known alcoholic with illicit drug use who presents after found down on the ground for unknown amount of time was found to have a scalp infection and noted there were maggots infestation. Ativan given per alcohol withdrawal protocol and he remains sleepy. Dr. Cedillo has been consulted and will take him to surgery tomorrow. Patient did receive 1 banana bag. Patient remains n.p.o. since he is too drowsy to eat. Subjective/Events-last exam Patient ready for surgery Maggots are causing problems with the scalp discomfort Patient is up and awake No other concerns Labs reviewed Corey catheter still in place IV fluids maintained Review of Systems General: Fatigue, Malaise Neurological: Confusion Focused Exam Lactate Level 12/05/21 22:10: Lactic Acid Level 1.31 Objective Exam Vital Signs Vital Signs Date Time Temp Pulse Resp B/P (MAP) Pulse Ox O2 Delivery O2 Flow Rate FiO2 12/07/21 19:55 36.1 68 22 117/69 (85) 99 Nasal Cannula 3.00 Capillary Refill : Less Than 3 Seconds General Appearance: No Apparent Distress, WD/WN, Chronically ill Respiratory: Lungs Clear, Normal Breath Sounds Cardiovascular: Regular Rate, Rhythm Neurologic/Psychiatric: Alert, Depressed Affect, Disoriented Results/Procedures Lab Laboratory Tests 12/07/21 05:09 Patient resulted labs reviewed. Assessment/Plan Assessment and Plan Assess & Plan/Chief Complaint Assessment: Found down AMS Alcoholism Scalp infection with maggots Seizures Corey cath in place Plan: ETOH withdrawal protocol IV meds IV abx OR today Diagnosis/Problems Diagnosis/Problems (1) Scalp wound (2) Maggot infestation (3) Polysubstance abuse Status: Acute (4) Altered mental status Status: Acute LALI CARBONE DO Dec 07, 2021 06:10
[2021-12-07 06:14] LABS: ALBUMIN 2.5 GM/DL (3.2-4.5); POTASSIUM 3.3 MMOL/L (3.6-5.0)
[2021-12-07 06:15] LABS: CALCIUM 7.5 MG/DL (8.5-10.1)
[2021-12-07 06:16] LABS: TOTAL PROTEIN 5.8 GM/DL (6.4-8.2)
[2021-12-07 06:18] LABS: BILIRUBIN,TOTAL 1.5 MG/DL (0.1-1.0)
[2021-12-07 06:20] LABS: CREATININE SERUM 0.68 MG/DL (0.60-1.30)
[2021-12-07] MEDS ORDERED: LACTATED RINGERS 1,000 ML IV PRN (08:00)
[2021-12-07] MEDS ORDERED: NS IV 500 ML 500 ML IV ONE (09:45)
[2021-12-07] MEDS ORDERED: ACET-2267 PO (10:26)
[2021-12-07] MEDS: POTASSIUM CL 10MEQ/50ML IVPB 50 ML IV SCH ×4 (10:39→13:50)
[2021-12-07] MEDS: THIAMINE INJECTION 100 MG, FOLIC ACID INJECTION 1 MG, MAGNESIUM SULFATE 2 GM, VITAMIN M... IV SCH ×5 (13:23)
[2021-12-07] MEDS ORDERED: LIDOCAINE/EPI 2% 1:200,00 (XYLOCAINE) 20 ML VIAL ONE (13:59)
[2021-12-07] MEDS ORDERED: SEVOFLURANE (ULTANE) 15 ML INHAL SOLN ONE ×2 (14:01→15:24)
[2021-12-07] MEDS ORDERED: MIDAZOLAM 2 MG/2 ML (VERSED) VIAL ONE (14:01)
[2021-12-07] MEDS ORDERED: fentaNYL INJ 100 MCG/2 ML AMP ONE (14:01)
[2021-12-07] MEDS ORDERED: proPOfol 200 MG/20 ML (DIPRIVAN) VIAL IV ONE (14:01)
[2021-12-07] MEDS ORDERED: LIDOCAINE PF 2% 5 ML (XYLOCAINE) VIAL ONE (14:01)
[2021-12-07] MEDS ORDERED: ONDANSETRON 4 MG/2 ML (SDV) Z0FRAN ONE (14:01)
[2021-12-07] MEDS ORDERED: PHENYLEPHRINE 100 MCG/ML 10 ML (ANESTHESIA) SYR ONE (15:18)
[2021-12-07] MEDS ORDERED: ONDANSETRON 4 MG/2 ML (SDV) Z0FRAN IVP PRN (15:45)
[2021-12-07] MEDS ORDERED: morphine INJ 10 MG/ML 1ML (SYR OR VIAL) IVP ONE (15:45)
[2021-12-07] MEDS ORDERED: HYDROmorphone 2 MG/ML VIAL (DILAUDID) IV ONE (15:45)
[2021-12-07] MEDS ORDERED: MEPERIDINE (DEMEROL) INJ 50 MG/ML IVP ONE (15:45)
--- NOTE | 2021-12-07 16:06 | Anesthesia-General Post-Op ---
General Patient Condition Mental Status/LOC: Same as Preop Cardiovascular: Satisfactory Nausea/Vomiting: Absent Respiratory: Satisfactory Pain: Controlled Complications: Absent Post Op Complications Complications None Follow Up Care/Instructions Patient Instructions None needed. Anesthesia/Patient Condition Patient Condition Patient is doing well, no complaints, stable vital signs, no apparent adverse anesthesia problems. No complications reported per nursing. ZEENAT ERWIN CRNA Dec 07, 2021 16:06
--- NOTE | 2021-12-07 16:22 | Progress Note-Post Operative ---
Post-Operative Progess Note Surgeon (s)/Plaster Die Maker (s) Surgeon SHIRLEY VENCES DO Plaster Die Maker: none Pre-Operative Diagnosis Non-healing posterior head wound with maggots Post-Operative Diagnosis same Procedure & Operative Findings Date of Procedure 12/07/21 Procedure Performed/Findings Washout and debridement of posterior head wound with packing Anesthesia Type LMA Estimated Blood Loss Estimated blood loss (mL): less than 20ml Specimens/Packing Specimens Removed none SHIRLEY VENCES DO Dec 07, 2021 16:22
[2021-12-08] MEDS: D5 NS 1000 ML IV SOLUTION 1,000 ML IV SCH ×2 (02:58→18:37)
[2021-12-08] MEDS: VANCOMYCIN 1250 MG/NS 250 ML IVPB IV SCH ×4 (03:27→16:15)
[2021-12-08 03:55] VITALS: BP 107/60
--- NOTE | 2021-12-08 05:53 | Progress Note - Hospitalist ---
Subjective HPI/CC On Admission Date Seen by Provider: Dec 08, 2021 Time Seen by Provider: 09:00 Chief complaint: Scalp infection with maggots History of present illness: This is a 56-year-old known alcoholic with illicit drug use who presents after found down on the ground for unknown amount of time was found to have a scalp infection and noted there were maggots infestation. Ativan given per alcohol withdrawal protocol and he remains sleepy. Dr. Cedillo has been consulted and will take him to surgery tomorrow. Patient did receive 1 banana bag. Patient remains n.p.o. since he is too drowsy to eat. Subjective/Events-last exam Patient doing better Sleeping soundly currently Surgery was a success Wound care will be initiated Regular diet will be ordered Discontinue Corey catheter PT and OT will be ordered Focused Exam Lactate Level 12/05/21 22:10: Lactic Acid Level 1.31 Objective Exam Vital Signs Vital Signs Date Time Temp Pulse Resp B/P (MAP) Pulse Ox O2 Delivery O2 Flow Rate FiO2 12/08/21 20:13 36.5 85 20 101/53 (69) 94 Room Air 12/08/21 11:10 2.00 Capillary Refill : Less Than 3 Seconds General Appearance: No Apparent Distress, WD/WN, Chronically ill Respiratory: Lungs Clear Cardiovascular: Regular Rate, Rhythm Results/Procedures Lab Laboratory Tests 12/08/21 05:50 Patient resulted labs reviewed. Assessment/Plan Assessment and Plan Assess & Plan/Chief Complaint Assessment: Found down AMS Alcoholism Scalp infection with maggots s/p debridement POD # [address] Se[address] in [address] Plan: ETOH withdrawal protocol IV meds IV abx Diagnosis/Problems Diagnosis/Problems (1) Scalp wound (2) Maggot infestation (3) Polysubstance abuse Status: Acute (4) Altered mental status Status: Acute LALI CARBONE DO Dec 08, 2021 05:53
[2021-12-08 06:29] LABS: HEMATOCRIT 32 % (40-54); HEMOGLOBIN 9.4 g/dL (13.3-17.7); MEAN CORPUSCULAR HGB CONC 29 g/dL (32-36)
[2021-12-08 06:31] LABS: BASOPHILS % (AUTO) 0 % (0-10); EOSINOPHILS % (AUTO) 0 % (0-10); LYMPHOCYTES # (AUTO) 0.5 10^3/uL (1.0-4.0); LYMPHOCYTES % (AUTO) 12 % (12-44); MEAN CORPUSCULAR HEMOGLOBIN 25 pg (25-34); MEAN CORPUSCULAR VOLUME 86 fL (80-99); MEAN PLATELET VOLUME 10.5 fL (9.0-12.2); MONOCYTES # (AUTO) 0.2 10^3/uL (0.0-1.0); MONOCYTES % (AUTO) 4 % (0-12); NEUTROPHILS # (AUTO) 3.3 10^3/uL (1.8-7.8); NEUTROPHILS % (AUTO) 83 % (42-75); PLATELET COUNT 101 10^3/uL (130-400)
[2021-12-08 06:38] LABS: ALBUMIN 2.4 GM/DL (3.2-4.5); POTASSIUM 4.4 MMOL/L (3.6-5.0)
[2021-12-08 06:40] LABS: CALCIUM 7.7 MG/DL (8.5-10.1)
[2021-12-08 06:41] LABS: TOTAL PROTEIN 5.7 GM/DL (6.4-8.2)
[2021-12-08 06:43] LABS: BILIRUBIN,TOTAL 0.9 MG/DL (0.1-1.0)
[2021-12-08 06:44] LABS: CREATININE SERUM 0.69 MG/DL (0.60-1.30)
[2021-12-08 07:59] VITALS: BP 117/59
[2021-12-08] MEDS: PIPERACILLIN SODIUM/TAZOBACTAM 4.5 GM in NS (IVPB) 100 ML IV SCH ×3 (08:47→23:28)
[2021-12-08] MEDS: THIAMINE INJECTION 100 MG, FOLIC ACID INJECTION 1 MG, MAGNESIUM SULFATE 2 GM, VITAMIN M... IV SCH ×5 (08:47)
[2021-12-08] MEDS ORDERED: SENNA W/DOCUSATE (SENOKOT S) TABLET PO ONE (09:00)
[2021-12-08] MEDS: SENNA W/DOCUSATE (SENOKOT S) TABLET PO SCH ×2 (09:58→20:04)
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
[2021-12-08 11:10] VITALS: BP 117/60
[2021-12-08] MEDS: ACETAMINOPHEN 500 MG TAB (TYLENOL) PO PRN ×2 (12:12→23:28)
[2021-12-08] MEDS ORDERED: HYPOCHLOROUS ACID/NaCl (VASHE) 250 ML IR SCH (12:45)
--- NOTE | 2021-12-08 14:04 | Physical Therapy Evaluation ---
PT Evaluation-General Medical Diagnosis Admission Date Dec 06, 2021 at 01:50 Medical Diagnosis: chronic wound posterior scalp Onset Date: Dec 06, 2021 Therapy Diagnosis Therapy Diagnosis: debility Precautions Precautions/Isolations: Contact Isolation, Fall Prevention Referral Physician: Rut Reason for Referral: Evaluation/Treatment Medical History Pertinent Medical History: Alcoholism Additional Medical History polysubstance use/seizures/liver disease Current History EMS found on ground/maggots in scalp wound Reviewed History: Yes Prior Prior Level of Function SCALE: Activities may be completed with or without assistive devices. 6-Hkpajuuvza-ltserbx completes the activity by him/herself with no assistance from a helper. 5-Set-up or Clean-up Assistance-helper sets up or cleans up; patient completes activity. [place] assists only prior to or following the activity. 4-Supervision or Touching Assistance-helper provides verbal cues and/or touching/steadying and/or contact guard assistance as patient completes activity. Assistance may be provided throughout the activity or intermittently. 3-Partial/Moderate Assistance-helper does LESS THAN HALF the effort. [place] lifts, holds or supports trunk or limbs, but provides less than half the effort. 2-Substantial/Maximal Assistance-helper does MORE THAN HALF the effort. [place] lifts or holds trunk or limbs and provides more than half the effort. 6-Zsskwuybw-cuetzc does ALL the effort. Patient does none of the effort to complete the activity. Or, the assistance of 2 or more helpers is required for the patient to complete the activity. If activity was not attempted, code reason: 7-Patient Refused. 9-Not Applicable-not attempted and the patient did not perform the activity before the current illness, exacerbation or injury. 10-Not Attempted due to Environmental Limitations-(lack of equipment, weather restraints, etc.). 88-Not Attempted due to Medical Conditions or Safety Concerns. Bed Mobility: 6 Transfers (B,C,W/C): 6 Gait: 6 Stairs: 6 Indoor Mobility (Ambulation): Independent Stairs: Independent Prior Devices Use: None PT Evaluation-Current Subjective Patient very alert and agreeable to participate with PT. Very inappropriate behavior noted. Objective Patient Orientation: Person, Time, Situation Attachments: IV ROM/Strength ROM Lower Extremities bilateral LE WFL Strength Lower Extremities 5/5 grossly bilateral LE Integumentary/Posture Integumentary refer to nursing notes Bowel Incontinence: No Bladder Incontinence: No Posture WFL Neuromuscular (Tone, Coordination, Reflexes) grossly intact Sensory Vision: Functional Hearing: Functional Transfers Lying to Sitting/Side of Bed(Q: 6 Sit to Stand (QC): 6 Chair/Lxn-yf-Clubl Xfer(QC): 6 Gait Mode of Locomotion: Walk Anticipated Mode of Locomotion: Walk Walk 10 feet (QC): 6 Walk 50 ft with 2 Turns(QC): 6 Walk 150 ft (QC): 6 Distance: 500' Gait Assistive Device: None Comments/Gait Description slight WBOS/functional gait sequence Balance Sitting Static: Normal Sitting Dynamic: Normal Standing Static: Normal Standing Dynamic: Normal Picking up an Object (QC): 6 Assessment/Needs Patient is currently at independent [facility] with all gross motor skills and does not require skilled PT intervention. Rehab Potential: Fair PT Plan Treatment/Plan Treatment Plan: Discontinue PT, goals met Treatment Duration: Dec 08, 2021 Frequency: 1 time per week Estimated Hrs Per Day: .25 hour per day Time/GCodes Time In: 1315 Time Out: 1327 Total Billed Treatment Time: 12 Total Billed Treatment 1 visit [facility] 12 min ROCK HINTON PT Dec 08, 2021 14:04
--- NOTE | 2021-12-08 14:21 | Occ Therapy Progress Note ---
Therapy Progress Note OT orders received and chart reviewed. OT talked with pt about purpose/benefit of OT, he verbalized understanding. Pt able to doff/don gripper socks independently, states no concerns with his ability to complete ADLs upon discharging, and IND with PT, 500' no AD. No skilled OT services indicated at this time, as pt is independent with ADLs and functional mobility per pt demonstration and pt report, and pt is at PLOF. D/C from OT. 1, visit 1335 CONCHITA WEBB OT Dec 08, 2021 14:21
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
--- NOTE | 2021-12-08 16:27 | Progress Note - Surgery ---
Subjective Time Seen by a Provider: 11:06 Subjective/Events-last exam Pt seen and examined, no complaints. Review of Systems Pulmonary: No Dyspnea, No Cough Cardiovascular: No: Chest Pain, Palpitations Focused Exam Lactate Level 12/05/21 22:10: Lactic Acid Level 1.31 Objective Exam Vital Signs Date Time Temp Pulse Resp B/P (MAP) Pulse Ox O2 Delivery O2 Flow Rate FiO2 12/08/21 12:38 93 12/08/21 11:10 36.9 92 20 117/60 (79) 95 Nasal Cannula 2.00 12/08/21 10:50 Nasal Cannula 2.00 12/08/21 08:00 Nasal Cannula 2.00 12/08/21 07:59 36.0 78 20 117/59 (78) 90 Nasal Cannula 2.00 12/08/21 06:31 58 12/08/21 03:55 36.7 77 22 107/60 (76) 97 OxyMask 2.00 12/08/21 01:00 75 12/07/21 23:32 36.5 89 22 120/72 (88) 94 Room Air 12/07/21 19:55 36.1 68 22 117/69 (85) 99 Nasal Cannula 3.00 12/07/21 19:45 OxyMask 2.00 12/07/21 19:00 70 12/07/21 16:30 36.4 62 22 125/73 (90) 95 Nasal Cannula 3.00 I & O 12/08/21 06:59 Intake Total 3435.0 ml Output Total 2335 ml Balance 1100.0 ml Capillary Refill : Less Than 3 Seconds General Appearance: No Apparent Distress, Chronically ill Respiratory: Lungs Clear, Normal Breath Sounds Cardiovascular: Regular Rate, Rhythm Neurologic/Psychiatric: Alert, Depressed Affect, Disoriented Skin: Other (scalp wound is wrapped no erythema) Results Lab Laboratory Tests 12/08/21 05:50: White Blood Count 4.0L, Red Blood Count 3.77L, Hemoglobin 9.4L, Hematocrit 32L, Mean Corpuscular Volume 86, Mean Corpuscular Hemoglobin 25, Mean Corpuscular Hemoglobin Concent 29L, Red Cell Distribution Width 16.7H, Platelet Count 101L, Mean Platelet Volume 10.5, Immature Granulocyte % (Auto) 0, Neutrophils (%) (Auto) 83H, Lymphocytes (%) (Auto) 12, Monocytes (%) (Auto) 4, Eosinophils (%) (Auto) 0, Basophils (%) (Auto) 0, Neutrophils # (Auto) 3.3, Lymphocytes # (Auto) 0.5L, Monocytes # (Auto) 0.2, Eosinophils # (Auto) 0.0, Basophils # (Auto) 0.0, Immature Granulocyte # (Auto) 0.0, Percent Immature Platelet Fraction 3.3, Sodium Level 139, Potassium Level 4.4, Chloride Level 107, Carbon Dioxide Level 24, Anion Gap 8, Blood Urea Nitrogen 6L, Creatinine 0.69, Estimat Glomerular Filtration Rate 107, BUN/Creatinine Ratio 9, Glucose Level 124H, Calcium Level 7.7L, Corrected Calcium 9.0, Total Bilirubin 0.9, Aspartate Amino Transf (AST/SGOT) 32, Alanine Aminotransferase (ALT/SGPT) 15, Alkaline Phosphatase 97, Total Protein 5.7L, Albumin 2.4L Microbiology 12/06/21 MRSA Screen - Final, Complete MRSA not isolated 12/06/21 Gram Stain - Final, Resulted 12/06/21 Wound Culture - Preliminary, Resulted Mixed Bacterial Kate Staphylococcus aureus Aeromonas hydrophila complex 12/05/21 Blood Culture - Preliminary, Resulted No growth Assessment/Plan Assessment/Plan Assessment/Plan S/P Washout and debriedement of Non-healing Posterior head wound with maggot infestation Polysubstance abuse Good local wound care, does not need ABX SHIRLEY VENCES DO Dec 08, 2021 16:27
[2021-12-08 16:30] VITALS: BP 107/56
[2021-12-08 20:13] VITALS: BP 101/53
[2021-12-08 23:33] VITALS: BP 107/59
[2021-12-09] MEDS: D5 NS 1000 ML IV SOLUTION 1,000 ML IV SCH (04:05)
[2021-12-09 04:06] VITALS: BP 100/58
--- NOTE | 2021-12-09 05:53 | Progress Note - Hospitalist ---
Subjective HPI/CC On Admission Date Seen by Provider: Dec 09, 2021 Time Seen by Provider: 09:00 Chief complaint: Scalp infection with maggots History of present illness: This is a 56-year-old known alcoholic with illicit drug use who presents after found down on the ground for unknown amount of time was found to have a scalp infection and noted there were maggots infestation. Ativan given per alcohol withdrawal protocol and he remains sleepy. Dr. Cedillo has been consulted and will take him to surgery tomorrow. Patient did receive 1 banana bag. Patient remains n.p.o. since he is too drowsy to eat. Subjective/Events-last exam Pt is about the same Sleeps all the time Will hep lock IV fluid IV antibiotics maintained Reviewed wound culture that is preliminary Review of Systems General: Fatigue, Malaise Objective Exam Vital Signs Vital Signs Date Time Temp Pulse Resp B/P (MAP) Pulse Ox O2 Delivery O2 Flow Rate FiO2 12/09/21 19:00 76 12/09/21 16:00 37.2 16 102/57 (72) 92 Nasal Cannula 3.00 Capillary Refill : Less Than 3 Seconds General Appearance: No Apparent Distress, WD/WN, Chronically ill Respiratory: Lungs Clear, Normal Breath Sounds Cardiovascular: Regular Rate, Rhythm Neurologic/Psychiatric: Alert, Oriented x3, No Motor/Sensory Deficits, Normal Mood/Affect Results/Procedures Lab Laboratory Tests 12/09/21 06:19 Patient resulted labs reviewed. Assessment/Plan Assessment and Plan Assess & Plan/Chief Complaint Assessment: Found down AMS Alcoholism Scalp infection with maggots s/p debridement POD # 2 Seiz[address] in [address] Plan: ETOH withdrawal protocol IV meds IV abx Diagnosis/Problems Diagnosis/Problems (1) Scalp wound (2) Maggot infestation (3) Polysubstance abuse Status: Acute (4) Altered mental status Status: Acute LALI CARBONE DO Dec 09, 2021 05:53
[2021-12-09 06:36] LABS: BASOPHILS % (AUTO) 0 % (0-10); EOSINOPHILS # (AUTO) 0.1 10^3/uL (0.0-0.3); EOSINOPHILS % (AUTO) 2 % (0-10); HEMATOCRIT 29 % (40-54); HEMOGLOBIN 8.5 g/dL (13.3-17.7); LYMPHOCYTES # (AUTO) 1.4 10^3/uL (1.0-4.0); LYMPHOCYTES % (AUTO) 21 % (12-44); MEAN CORPUSCULAR HEMOGLOBIN 25 pg (25-34); MEAN CORPUSCULAR HGB CONC 30 g/dL (32-36); MEAN CORPUSCULAR VOLUME 84 fL (80-99); MEAN PLATELET VOLUME 10.4 fL (9.0-12.2); MONOCYTES # (AUTO) 0.4 10^3/uL (0.0-1.0); MONOCYTES % (AUTO) 7 % (0-12); NEUTROPHILS # (AUTO) 4.7 10^3/uL (1.8-7.8); NEUTROPHILS % (AUTO) 71 % (42-75); PLATELET COUNT 131 10^3/uL (130-400); WHITE BLOOD COUNT 6.7 10^3/uL (4.3-11.0)
[2021-12-09 06:47] LABS: ALBUMIN 2.1 GM/DL (3.2-4.5); POTASSIUM 4.1 MMOL/L (3.6-5.0)
[2021-12-09 06:48] LABS: CALCIUM 7.6 MG/DL (8.5-10.1)
[2021-12-09 06:50] LABS: TOTAL PROTEIN 4.8 GM/DL (6.4-8.2)
[2021-12-09 06:51] LABS: BILIRUBIN,TOTAL 0.6 MG/DL (0.1-1.0)
[2021-12-09 06:53] LABS: CREATININE SERUM 0.67 MG/DL (0.60-1.30)
[2021-12-09 08:31] VITALS: BP 105/55
[2021-12-09] MEDS: PIPERACILLIN SODIUM/TAZOBACTAM 4.5 GM in NS (IVPB) 100 ML IV SCH ×3 (09:02→23:35)
[2021-12-09] MEDS: SENNA W/DOCUSATE (SENOKOT S) TABLET PO SCH ×2 (09:02→19:47)
[2021-12-09 11:33] VITALS: BP 98/52
[2021-12-09 16:00] VITALS: BP 102/57
[2021-12-09] MEDS: ACETAMINOPHEN 500 MG TAB (TYLENOL) PO PRN (16:30)
--- NOTE | 2021-12-09 17:20 | Progress Note - Surgery ---
Subjective Time Seen by a Provider: 13:51 Subjective/Events-last exam Pt seen and examined, no changes and tolerating diet. Review of Systems Pulmonary: No Dyspnea, No Cough Cardiovascular: No: Chest Pain, Palpitations Gastrointestinal: No: Nausea, Vomiting Objective Exam Vital Signs Date Time Temp Pulse Resp B/P (MAP) Pulse Ox O2 Delivery O2 Flow Rate FiO2 12/09/21 16:00 37.2 88 16 102/57 (72) 92 Nasal Cannula 3.00 12/09/21 12:20 66 12/09/21 11:33 36.8 80 18 98/52 (67) 90 Nasal Cannula 3.00 12/09/21 08:31 36.5 72 18 105/55 (72) 94 Nasal Cannula 3.00 12/09/21 07:36 Nasal Cannula 2.00 12/09/21 06:36 65 12/09/21 04:06 37.0 80 16 100/58 (72) 94 Nasal Cannula 3.00 12/09/21 01:00 70 12/08/21 23:33 36.9 83 16 107/59 (75) 95 Nasal Cannula 3.00 12/08/21 20:13 36.5 85 20 101/53 (69) 94 Room Air 12/08/21 20:10 Nasal Cannula 2.00 12/08/21 18:22 62 I & O 12/09/21 06:59 Intake Total 4375.2 ml Output Total 2100 ml Balance 2275.2 ml Capillary Refill : Less Than 3 Seconds General Appearance: No Apparent Distress, WD/WN Respiratory: Lungs Clear, Normal Breath Sounds, No Accessory Muscle Use, No Respiratory Distress Cardiovascular: Regular Rate, Rhythm, No Murmur Neurologic/Psychiatric: Alert Skin: Other (scalp wound is wrapped no erythema) Results Lab Laboratory Tests 12/09/21 06:19: White Blood Count 6.7, Red Blood Count 3.38L, Hemoglobin 8.5L, Hematocrit 29L, Mean Corpuscular Volume 84, Mean Corpuscular Hemoglobin 25, Mean Corpuscular Hemoglobin Concent 30L, Red Cell Distribution Width 17.1H, Platelet Count 131, Mean Platelet Volume 10.4, Immature Granulocyte % (Auto) 0, Neutrophils (%) (Auto) 71, Lymphocytes (%) (Auto) 21, Monocytes (%) (Auto) 7, Eosinophils (%) (Auto) 2, Basophils (%) (Auto) 0, Neutrophils # (Auto) 4.7, Lymphocytes # (Auto) 1.4, Monocytes # (Auto) 0.4, Eosinophils # (Auto) 0.1, Basophils # (Auto) 0.0, Immature Granulocyte # (Auto) 0.0, Sodium Level 141, Potassium Level 4.1, Chloride Level 107, Carbon Dioxide Level 28, Anion Gap 6, Blood Urea Nitrogen 10, Creatinine 0.67, Estimat Glomerular Filtration Rate 108, BUN/Creatinine Ratio 15, Glucose Level 112H, Calcium Level 7.6L, Corrected Calcium 9.1, Total Bilirubin 0.6, Aspartate Amino Transf (AST/SGOT) 25, Alanine Aminotransferase (ALT/SGPT) 14, Alkaline Phosphatase 80, Total Protein 4.8L, Albumin 2.1L Microbiology 12/06/21 MRSA Screen - Final, Complete MRSA not isolated 12/06/21 Gram Stain - Final, Resulted 12/06/21 Wound Culture - Preliminary, Resulted Mixed Bacterial Kate Staphylococcus aureus Aeromonas hydrophila complex 12/05/21 Blood Culture - Preliminary, Resulted No growth Assessment/Plan Assessment/Plan Assessment/Plan S/P Washout and debriedement of Non-healing Posterior head wound with maggot infestation Polysubstance abuse Good local wound care, does not need ABX. Will sign off. SHIRLEY VENCES DO Dec 09, 2021 17:20
[2021-12-09] MEDS ORDERED: morphine INJ 4 MG/ML 1 ML (VIAL/SYRINGE) ONE (19:38)
[2021-12-09 20:00] VITALS: BP 109/54
[2021-12-09] MEDS: morphine INJ 10 MG/ML 1ML (SYR OR VIAL) IVP PRN (23:40)
[2021-12-10] VITALS (7 sets, daily range): BP systolic 98–133; BP diastolic 55–82
[2021-12-10 01:54] LABS: BASOPHILS % (AUTO) 1 % (0-10); EOSINOPHILS # (AUTO) 0.3 10^3/uL (0.0-0.3); EOSINOPHILS % (AUTO) 7 % (0-10); HEMATOCRIT 29 % (40-54); HEMOGLOBIN 8.7 g/dL (13.3-17.7); LYMPHOCYTES # (AUTO) 1.6 10^3/uL (1.0-4.0); LYMPHOCYTES % (AUTO) 32 % (12-44); MEAN CORPUSCULAR HEMOGLOBIN 25 pg (25-34); MEAN CORPUSCULAR HGB CONC 30 g/dL (32-36); MEAN CORPUSCULAR VOLUME 85 fL (80-99); MEAN PLATELET VOLUME 10.4 fL (9.0-12.2); MONOCYTES # (AUTO) 0.5 10^3/uL (0.0-1.0); MONOCYTES % (AUTO) 9 % (0-12); NEUTROPHILS # (AUTO) 2.5 10^3/uL (1.8-7.8); NEUTROPHILS % (AUTO) 51 % (42-75); PLATELET COUNT 148 10^3/uL (130-400); WHITE BLOOD COUNT 4.8 10^3/uL (4.3-11.0)
[2021-12-10 01:58] LABS: ALBUMIN 2.3 GM/DL (3.2-4.5); POTASSIUM 4.6 MMOL/L (3.6-5.0)
[2021-12-10 01:59] LABS: CALCIUM 8.2 MG/DL (8.5-10.1)
[2021-12-10 02:01] LABS: TOTAL PROTEIN 5.1 GM/DL (6.4-8.2)
[2021-12-10 02:02] LABS: BILIRUBIN,TOTAL 0.6 MG/DL (0.1-1.0)
[2021-12-10 02:04] LABS: CREATININE SERUM 0.8 MG/DL (0.60-1.30)
[2021-12-10] MEDS: morphine INJ 10 MG/ML 1ML (SYR OR VIAL) IVP PRN ×2 (04:00→11:35)
--- NOTE | 2021-12-10 05:57 | Progress Note - Hospitalist ---
Subjective HPI/CC On Admission Date Seen by Provider: Dec 10, 2021 Time Seen by Provider: 11:00 Chief complaint: Scalp infection with maggots History of present illness: This is a 56-year-old known alcoholic with illicit drug use who presents after found down on the ground for unknown amount of time was found to have a scalp infection and noted there were maggots infestation. Ativan given per alcohol withdrawal protocol and he remains sleepy. Dr. Cedillo has been consulted and will take him to surgery tomorrow. Patient did receive 1 banana bag. Patient remains n.p.o. since he is too drowsy to eat. Subjective/Events-last exam Pt is doing a lot better PT and OT are working with him Pt is doing much better with ambulation Social work consult for discharge on Tuesday Surgery recommended wound care locally Review of Systems General: Fatigue Objective Exam Vital Signs Vital Signs Date Time Temp Pulse Resp B/P (MAP) Pulse Ox O2 Delivery O2 Flow Rate FiO2 12/10/21 20:15 Nasal Cannula 2.00 12/10/21 19:29 36.8 77 20 133/66 (88) 95 Capillary Refill : Less Than 3 Seconds General Appearance: No Apparent Distress, WD/WN, Chronically ill Respiratory: Lungs Clear, Normal Breath Sounds Cardiovascular: Regular Rate, Rhythm Neurologic/Psychiatric: Alert, Oriented x3, No Motor/Sensory Deficits, Normal Mood/Affect Results/Procedures Lab Laboratory Tests 12/10/21 01:15 Patient resulted labs reviewed. Assessment/Plan Assessment and Plan Assess & Plan/Chief Complaint Assessment: Found down AMS Alcoholism Scalp infection with maggots s/p debridement Seizures Corey cath in place Plan: ETOH withdrawal protocol IV meds IV abx Diagnosis/Problems Diagnosis/Problems (1) Scalp wound (2) Maggot infestation (3) Polysubstance abuse Status: Acute (4) Altered mental status Status: Acute CARBONE,LALI GALLO Dec 10, 2021 05:57
[2021-12-10] MEDS: PIPERACILLIN SODIUM/TAZOBACTAM 4.5 GM in NS (IVPB) 100 ML IV SCH ×3 (08:51→23:25)
[2021-12-10] MEDS: SENNA W/DOCUSATE (SENOKOT S) TABLET PO SCH ×2 (08:51→19:50)
[2021-12-10] MEDS: ACETAMINOPHEN 500 MG TAB (TYLENOL) PO PRN (23:25)
[2021-12-11] MEDS: morphine INJ 10 MG/ML 1ML (SYR OR VIAL) IVP PRN (00:25)
[2021-12-11 03:51] VITALS: BP 104/57
[2021-12-11 06:25] LABS: BASOPHILS % (AUTO) 1 % (0-10); EOSINOPHILS # (AUTO) 0.3 10^3/uL (0.0-0.3); EOSINOPHILS % (AUTO) 9 % (0-10); HEMATOCRIT 26 % (40-54); HEMOGLOBIN 7.6 g/dL (13.3-17.7); LYMPHOCYTES # (AUTO) 0.8 10^3/uL (1.0-4.0); LYMPHOCYTES % (AUTO) 28 % (12-44); MEAN CORPUSCULAR HEMOGLOBIN 25 pg (25-34); MEAN CORPUSCULAR HGB CONC 29 g/dL (32-36); MEAN CORPUSCULAR VOLUME 86 fL (80-99); MEAN PLATELET VOLUME 10.6 fL (9.0-12.2); MONOCYTES # (AUTO) 0.3 10^3/uL (0.0-1.0); MONOCYTES % (AUTO) 11 % (0-12); NEUTROPHILS # (AUTO) 1.5 10^3/uL (1.8-7.8); NEUTROPHILS % (AUTO) 51 % (42-75); PLATELET COUNT 93 10^3/uL (130-400); WHITE BLOOD COUNT 2.9 10^3/uL (4.3-11.0)
[2021-12-11 06:43] LABS: ALBUMIN 2.2 GM/DL (3.2-4.5); POTASSIUM 4.2 MMOL/L (3.6-5.0)
[2021-12-11 06:44] LABS: CALCIUM 7.9 MG/DL (8.5-10.1)
[2021-12-11 06:45] LABS: TOTAL PROTEIN 4.9 GM/DL (6.4-8.2)
[2021-12-11 06:47] LABS: BILIRUBIN,TOTAL 0.6 MG/DL (0.1-1.0)
[2021-12-11 06:49] LABS: CREATININE SERUM 0.72 MG/DL (0.60-1.30)
[2021-12-11] MEDS: PIPERACILLIN SODIUM/TAZOBACTAM 4.5 GM in NS (IVPB) 100 ML IV SCH (07:36)
[2021-12-11] MEDS: SENNA W/DOCUSATE (SENOKOT S) TABLET PO SCH (07:37)
[2021-12-11 08:50] VITALS: BP 105/57
[2021-12-11] MEDS ORDERED: SULF1TAB38 PO (10:45)
[2021-12-11] MEDS ORDERED: ACHD5005 PO (10:45)
--- NOTE | 2021-12-11 10:46 | Discharge Summary ---
Discharge Summary Hospital Course Was the Problem List Reviewed?: Yes Problems/Dx: (1) Scalp wound Qualifiers: Qualified Codes: S01.00XD - Unspecified open wound of scalp, subsequent encounter (2) Maggot infestation (3) Polysubstance abuse Status: Acute (4) Altered mental status Status: Acute Hospital Course Date of Admission: Dec 06, 2021 at 01:50 Admission Diagnosis : Family Physician/Provider: [place] Date of Discharge: 12/11/21 Discharge Diagnosis: [ ] Hospital Course: Pt had an uneventful hospital course after he was admitted for maggot infestation of the scalp wound. He did have surgery. Dr. Cedillo debrided that area. IV antibiotics maintained. Culture reviewed. Bactrim double strength BID will be initiated for outpatient treatment along with outpatient wound care. Home health was ordered also. Pain medication was also sent in. Labs and Pending Lab Test: Laboratory Tests 12/11/21 05:00: White Blood Count 2.9L, Red Blood Count 3.08L, Hemoglobin 7.6L, Hematocrit 26L, Mean Corpuscular Volume 86, Mean Corpuscular Hemoglobin 25, Mean Corpuscular Hemoglobin Concent 29L, Red Cell Distribution Width 17.7H, Platelet Count 93L, Mean Platelet Volume 10.6, Immature Granulocyte % (Auto) 0, Neutrophils (%) (Auto) 51, Lymphocytes (%) (Auto) 28, Monocytes (%) (Auto) 11, Eosinophils (%) (Auto) 9, Basophils (%) (Auto) 1, Neutrophils # (Auto) 1.5L, Lymphocytes # (Auto) 0.8L, Monocytes # (Auto) 0.3, Eosinophils # (Auto) 0.3, Basophils # (Auto) 0.0, Immature Granulocyte # (Auto) 0.0, Sodium Level 138, Potassium Level 4.2, Chloride Level 106, Carbon Dioxide Level 26, Anion Gap 6, Blood Urea Nitrogen 13, Creatinine 0.72, Estimat Glomerular Filtration Rate 106, BUN/Creatinine Ratio 18, Glucose Level 100, Calcium Level 7.9L, Corrected Calcium 9.3, Total Bilirubin 0.6, Aspartate Amino Transf (AST/SGOT) 27, Alanine Aminotransferase (ALT/SGPT) 17, Alkaline Phosphatase 77, Total Protein 4.9L, Albumin 2.2L Microbiology 12/06/21 MRSA Screen - Final, Complete MRSA not isolated 12/06/21 Gram Stain - Final, Complete 12/06/21 Wound Culture - Final, Complete Mixed Bacterial Kate Staphylococcus aureus Aeromonas hydrophila complex 12/05/21 Blood Culture - Preliminary, Resulted No growth Home Meds Active Hydrocodone-Acetamin 5-325 mg (Hydrocodone/Acetaminophen) 5 Mg-325 Mg Tablet 1 Tab PO Q6H PRN Bactrim Ds Tablet (Sulfamethoxazole/Trimethoprim) 1 Each Tablet 1 Each PO BID Reported Tylenol Extra Strength (Acetaminophen) 500 Mg Tablet 2,500 Mg PO Q8H PRN TAKES 5 (500MG) TABS Assessment/Pt Instructions pcp 1week Discharge Planning: <30 minutes discharge planning Discharge Instructions Discharge Diet: No Restrictions Discharge Physical Examination Vital Signs Vital Signs Date Time Temp Pulse Resp B/P (MAP) Pulse Ox O2 Delivery O2 Flow Rate FiO2 12/11/21 08:50 37.6 62 18 105/57 (73) 92 Nasal Cannula 2.00 General Appearance: No Apparent Distress, WD/WN, Chronically ill Allergies: Coded Allergies: NSAIDS (Non-Steroidal Anti-Inflamma (Verified Allergy, Unknown, 11/28/19) Discharge Summary Date of Admission Dec 06, 2021 at 01:50 Date of Discharge Discharge Date: Dec 11, 2021 Admission Diagnosis Assessment: Found down AMS Alcoholism Scalp infection with maggots Seizures Plan: ETOH withdrawal protocol IV meds IV abx Discharge Diagnosis Assessment: Found down AMS Alcoholism Scalp infection with maggots s/p debridement Seizures Corey cath in place Plan: ETOH withdrawal protocol IV meds IV abx (1) Scalp wound Qualifiers: Qualified Codes: S01.00XD - Unspecified open wound of scalp, subsequent encounter (2) Maggot infestation (3) Polysubstance abuse Status: Acute (4) Altered mental status Status: Acute LALI CARBONE DO Dec 11, 2021 10:46
--- NOTE | 2021-12-11 11:39 | D/C HH Face to Face Order ---
D/C Face to Face Orders Reconcile Patient Problems Problems Reviewed?: Yes Instructions for Patient Via [facility] [employer], Patient Instructions/FollowUp: PCP 1 week Wound care appt Physician to follow Patient: [facility] Discharge Diet for Home: No Restrictions Patient Problems: scalp wound Patient Data-Allergies,Ht & Wt Patient Allergies: Coded Allergies: NSAIDS (Non-Steroidal Anti-Inflamma (Verified Allergy, Unknown, 11/28/19) Home Health Need/Face to Face Date of Face to Face: Dec 11, 2021 Clinical Findings: Generalized weakness and fatigue, Wound infection I have seen Pt [id number]: Yes Discharged To: Home Diagnosis/Conditions: Scalp wound Patient is Homebound due to: Cristal fall risk due to instabilty, Muscle weakness Homebound Status Due to the above stated illness, injury or surgical procedure (medical condition or diagnosis) and associated clinical findings, the patient is homebound because of his/her inability to leave home except with aid of a supportive device and/or person AND leaving the home requires a considerable and taxing effort or is medically contraindicated. Pt req the following assistanc: [facility] Nursing Orders Home Health Services Order: Nursing Services, Refinery Operator Light Ends Recovery-Evaluate & Treat, Physical Therapy-Evaluate & Treat Home Health Infusion Therapy Line Start Date: Dec 07, 2021 Certify Stmt I certify that this patient is under my care and that I, a nurse practitioner or a physician; a environmental assistant working with me, had a face to face encounter that - meets the physician face to face encounter requirements with this patient as dated. LALI CARBONE DO Dec 11, 2021 11:39
[2021-12-11 12:00] VITALS: BP 101/57
[2021-12-11 14:15] VITALS: BP 101/57
== END 2021-12-11 14:15 | disposition home health service (06) | DRG 607 ==
LOC: EDUNIT# 21:47 → ER 21:48 → EDLOC 12-06 01:50 → 4TH 12-06 01:50
PROVIDERS: ADMIT Internal Medicine; ATTEND Internal Medicine
PROC: 0HD0XZZ Extraction of Scalp Skin, External Approach (ICD-10-PCS; principal; 2021-12-07 14:22)
DX: B87.1 Wound myiasis (principal); E46 Unspecified protein-calorie malnutrition; D61.818 Other pancytopenia; F17.210 Nicotine dependence, cigarettes, uncomplicated; F15.90 Other stimulant use, unspecified, uncomplicated; F12.90 Cannabis use, unspecified, uncomplicated; G40.909 Epilepsy, unspecified, not intractable, without status epilepticus; G89.29 Other chronic pain; M54.9 Dorsalgia, unspecified; F19.10 Other psychoactive substance abuse, uncomplicated; S01.00XA Unspecified open wound of scalp, initial encounter; R41.82 Altered mental status, unspecified; F10.20 Alcohol dependence, uncomplicated; F90.9 Attention-deficit hyperactivity disorder, unspecified type; D64.9 Anemia, unspecified; Z68.25 Body mass index [BMI] 25.0-25.9, adult
CPT/HCPCS: 36415; 70450; 71045; 72125; 80053; 80306; 80320; 81000; 82550; 82553; 83605; 83735; 83874; 84484; 85025; 85610; 85652; 85730; 86141; 87040; 87070; 87077; 87081; 87186; 87205; 90471; 90715; 93005; 93041; 96374; 96375

== ENCOUNTER 2021-12-16 16:55 | Inpatient (IN) | payer MEDICARE, MEDICAID ==
[~2021-12-16] VITALS: Ht 177 cm; Wt 73.3 kg
[~2021-12-16 16:55] MED LIST changes: +ACET-2267 PO; +ACHD5005 PO; +SULF1TAB38 PO
[2021-12-16] MEDS ORDERED: ONDANSETRON 4 MG/2 ML (SDV) Z0FRAN IVP ONE (17:15)
[2021-12-16] MEDS ORDERED: NS IV 1000 ML 1,000 ML IV SCH ×2 (17:15)
[2021-12-16] MEDS ORDERED: ACETAMINOPHEN 500 MG TAB (TYLENOL) PO PRN (17:15)
--- NOTE | 2021-12-16 17:15 | ED Fever ---
History of Present Illness General Chief Complaint: Exposure Stated Complaint: HEAT EXHAUSTION Nursing Triage Note: PT ARRIVED PER EMS, PT HAD FALL, PT HAS NO A/C, PT HAS WOUND ON BACK OF BED FROM PREVIOUS FALL. PT STATES L LEG GAVE OUT AND FELL. PT CO OF CHEST PAIN 01/20. TEMP 103 FOR EMS Source: patient Exam Limitations: no limitations (JOSE LUIS WHITAKER) History of Present Illness Date Seen by Provider: Dec 16, 2021 Time Seen by Provider: 16:57 Initial Comments Patient to the ER by EMS after having a fall, complaining of 2 to 3 hours of c hest pain substernal nonradiating, fever of 103 and weakness. He was sitting outside in the heat. EMS said Police did check on him several times throughout the day. Apparently does not have AC electricity or even possibly running water in his house. EMS said that his house was in shambles. Patient says he has little nausea but no vomiting. He is not having any shortness of air. He does occasionally use smoked methamphetamines. He does not smoke cigarettes however. He has a history of heart disease. He does not know any of his medications and is overall a fairly poor historian. (JOSE LUIS WHITAKER) Allergies and Home Medications Allergies Coded Allergies: NSAIDS (Non-Steroidal Anti-Inflamma (Verified Allergy, Unknown, 11/28/19) Patient Home Medication List Home Medication List Reviewed: Yes (JOSE LUIS WHITAKER) Acetaminophen (Tylenol Extra Strength) 500 Mg Tablet, 2,500 MG PO Q8H PRN for PAIN-MILD (1-4), (Reported) Entered as Reported by: SHIN MARTEL on 12/07/21 1026 Last Action: Reviewed Discontinued Medications Hydrocodone/Acetaminophen (Hydrocodone-Acetamin 5-325 mg) 5 Mg-325 Mg Tablet, 1 TAB PO Q6H PRN for PAIN-MODERATE (5-7) Discontinued Reason: No Longer Taking Prescribed by: LALI CARBONE on 12/11/21 1045 Last Action: Discontinued Review of Systems Review of Systems Constitutional: No chills, No diaphoresis; dizziness, fever, malaise, weakness EENTM: No ear discharge, No ear pain Respiratory: No cough, No short of breath Cardiovascular: No chest pain, No edema Gastrointestinal: No abdominal pain, No constipation, No nausea Genitourinary: No dysuria, No hematuria Musculoskeletal: back pain; No joint pain (JOSE LUIS WHITAKER) All Other Systems Reviewed Negative Unless Noted: Yes (JOSE LUIS WHITAKER) Past Oirixdn-Symqio-Iyienn Hx Patient Social History Tobacco Use?: No Use of E-Cig and/or Vaping dev: No Substance use?: Yes Substance type: Methamphetamine, Marijuana Substance frequency: Several times a month Alcohol Use?: Yes Alcohol type: Beer Alcohol Frequency: Couple times a week (JOSE LUIS WHITAKER) Immunizations Up To Date First/Initial COVID19 Vaccinat: Pfizer Second COVID19 Vaccination Christiano: Pfizer Third COVID19 Vaccination Date: Pfizer (JOSE LUIS WHITAKER) Seasonal Allergies Seasonal Allergies: Yes (JOSE LUIS WHITAKER) Past Medical History Surgeries: Yes (R ANKLE, L KNEE, BILAT SHOULDER, ESOPHAGEAL BANDING; TIPS;) Abdominal, Adenoidectomy, Orthopedic, Tonsillectomy Respiratory: No Cardiac: No Neurological: Yes (CLAIMS HE HAS SEIZURES DUE TO LIVER DISEASE) Seizure Disorder Genitourinary: No Gastrointestinal: Yes (HX OF HEP C-TREATED; ESOPHAGEAL BANDING & STENTS X 2 ;TIPS PROCEDURE) Liver Disease/Jaundice, Esophageal Varices, Hepatitis Musculoskeletal: Yes Chronic Back Pain, Fractures Endocrine: No HEENT: Yes (POOR DENTITION) Loss of Vision: Denies Hearing Impairment: Denies Cancer: No Psychosocial: Yes (PSYCH ISSUES; POLYSUBSTANCE ABUSE) ADD/ADHD Integumentary: No Blood Disorders: No Adverse Reaction/Blood Tranf: No (JOSE LUIS WHITAKER) Family Medical History Other Conditions/Hx PSH: -ESOPAGEAL VARICES BANDING -ESOPHAGEAL STENTS X 2 -TIPS PROCEDURE -RIGHT ANKLE FX/ORIF -LEFT KNEE SURGERY X 2 -LEFT SHOULDER SURGERY X 1 -RIGHT SHOULDER SURGERY X 2 (JOSE LUIS WHITAKER) Physical Exam Vital Signs - First Documented 12/16/21 16:55 Temp 38.6 Pulse 103 Resp 20 B/P (MAP) 128/69 (88) Pulse Ox 92 O2 Delivery Room Air (EARL WOODWARD APRN) Capillary Refill : (JOSE LUIS WHITAKER) Height: '" Weight: lbs. oz. kg; 25.00 BMI Method: General Appearance: moderate distress, other (Disheveled, chronically ill,) Eyes: Bilateral Eye Normal Inspection, Bilateral Eye PERRL, Bilateral Eye EOMI HEENT: PERRL/EOMI, normal ENT inspection, TMs normal; No pharynx normal (Dry oral mucosa) Neck: full range of motion, supple, normal inspection Respiratory: lungs clear, normal breath sounds, no respiratory distress, no accessory muscle use Cardiovascular: normal peripheral pulses, regular rate, rhythm Gastrointestinal: normal bowel sounds, non tender, soft Neurologic/Psychiatric: alert, normal mood/affect (Twitchy, mumbles), oriented x 3 Skin: normal color, warm/dry, other (Healing wound on the scalp without erythema or induration or significant discharge.) (JOSE LUIS WHITAKER) Focused Exam Lactate Level 12/16/21 17:10: Lactic Acid Level 2.13*H 12/16/21 19:43: Lactic Acid Level 2.19*H (EARL WOODWARD APRN) Lactic Acid Level Laboratory Tests Test 12/16/21 17:10 12/16/21 19:43 Lactic Acid Level 2.13 MMOL/L (0.50-2.00) *H 2.19 MMOL/L (0.50-2.00) *H (EARL WOODWARD APRN) Procedures/Interventions Date of ETT Placement: Jun 11, 2021 Time of ETT Placement: 0152 (JOSE LUIS WHITAKER) Suture Size: 5-0 (JOSE LUIS WHITAKER) Progress/Results/Core Measures Suspected Sepsis SIRS Temperature: Pulse: 103 Respiratory Rate: 20 Laboratory Tests 12/16/21 17:10: White Blood Count 5.5 Blood Pressure 128 /69 Mean: 88 Laboratory Tests 12/16/21 17:10: Creatinine 1.20, INR Comment 1.4, Platelet Count 190, Total Bilirubin 1.5H (JOSE LUIS WHITAKER) Results/Orders Lab Results Laboratory Tests Test 12/16/21 17:10 12/16/21 17:21 12/16/21 18:52 12/16/21 19:43 Range/Units White Blood Count 5.5 4.3-11.0 10^3/uL Red Blood Count 4.05 L 4.30-5.52 10^6/uL Hemoglobin 9.9 #L 13.3-17.7 g/dL Hematocrit 33 L 40-54 % Mean Corpuscular Volume 82 80-99 fL Mean Corpuscular Hemoglobin 24 L 25-34 pg Mean Corpuscular Hemoglobin Concent 30 L 32-36 g/dL Red Cell Distribution Width 17.9 H 10.0-14.5 % Platelet Count 190 130-400 10^3/uL Mean Platelet Volume 9.6 9.0-12.2 fL Immature Granulocyte % (Auto) 0 % Neutrophils (%) (Auto) 66 42-75 % Lymphocytes (%) (Auto) 20 12-44 % Monocytes (%) (Auto) 8 0-12 % Eosinophils (%) (Auto) 4 0-10 % Basophils (%) (Auto) 1 0-10 % Neutrophils # (Auto) 3.6 1.8-7.8 10^3/uL Lymphocytes # (Auto) 1.1 1.0-4.0 10^3/uL Monocytes # (Auto) 0.5 0.0-1.0 10^3/uL Eosinophils # (Auto) 0.2 0.0-0.3 10^3/uL Basophils # (Auto) 0.1 0.0-0.1 10^3/uL Immature Granulocyte # (Auto) 0.0 0.0-0.1 10^3/uL Prothrombin Time 17.1 H 12.2-14.7 SEC INR Comment 1.4 0.8-1.4 Activated Partial Thromboplast Time 32 24-35 SEC D-Dimer 5.79 H 0.00-0.49 UG/ML Sodium Level 147 H 135-145 MMOL/L Potassium Level 3.9 3.6-5.0 MMOL/L Chloride Level 116 H 98-107 MMOL/L Carbon Dioxide Level 18 L 21-32 MMOL/L Anion Gap 13 5-14 MMOL/L Blood Urea Nitrogen 18 7-18 MG/DL Creatinine 1.20 0.60-1.30 MG/DL Estimat Glomerular Filtration Rate 70 BUN/Creatinine Ratio 15 Glucose Level 81 70-105 MG/DL Lactic Acid Level 2.13 *H 2.19 *H 0.50-2.00 MMOL/L Calcium Level 8.6 8.5-10.1 MG/DL Corrected Calcium 9.1 8.5-10.1 MG/DL Total Bilirubin 1.5 H 0.1-1.0 MG/DL Aspartate Amino Transf (AST/SGOT) 34 5-34 U/L Alanine Aminotransferase (ALT/SGPT) 20 0-55 U/L Alkaline Phosphatase 113 40-136 U/L Total Creatine Kinase 127 30-200 U/L Troponin I < 0.028 <0.028 NG/ML C-Reactive Protein High Sensitivity 0.88 H 0.00-0.50 MG/DL Total Protein 7.4 6.4-8.2 GM/DL Albumin 3.4 3.2-4.5 GM/DL Procalcitonin 0.10 H <0.10 NG/ML Serum Alcohol < 10 <10 MG/DL SARS-CoV-2 RNA (RT-PCR) Not Detected Not Detecte Urine Color BROWN H Urine Clarity TURBID Urine pH 6.0 5-9 Urine Specific [place] >=1.030 1.016-1.022 Urine Protein 1+ H NEGATIVE Urine Glucose (UA) NEGATIVE NEGATIVE Urine Ketones TRACE H NEGATIVE Urine Nitrite NEGATIVE NEGATIVE Urine Bilirubin 2+ H NEGATIVE Urine Urobilinogen 4.0 < = 1.0 MG/DL Urine Leukocyte Esterase NEGATIVE NEGATIVE Urine RBC (Auto) NEGATIVE NEGATIVE Urine RBC NONE /HPF Urine WBC 0-2 /HPF Urine Crystals NONE /LPF Urine Bacteria NEGATIVE /HPF Urine Casts PRESENT /LPF Urine Hyaline Casts 5-10 H /LPF Urine Mucus LARGE H /LPF Urine Culture Indicated CULTURE PENDING Urine Opiates Screen NEGATIVE NEGATIVE Urine Oxycodone Screen NEGATIVE NEGATIVE Urine Methadone Screen NEGATIVE NEGATIVE Urine Propoxyphene Screen NEGATIVE NEGATIVE Urine Barbiturates Screen NEGATIVE NEGATIVE Ur Tricyclic Antidepressants Screen NEGATIVE NEGATIVE Urine Phencyclidine Screen NEGATIVE NEGATIVE Urine Amphetamines Screen POSITIVE H NEGATIVE Urine Methamphetamines Screen POSITIVE H NEGATIVE Urine Benzodiazepines Screen NEGATIVE NEGATIVE Urine Cocaine Screen NEGATIVE NEGATIVE Urine Cannabinoids Screen POSITIVE H NEGATIVE (EARL WOODWARD APRN) My Orders Orders - EARL WOODWARD APRN Ns Iv 1000 Ml (Sodium Chloride 0.9%) (12/16/21 20:30) (EARL WOODWARD APRN) Medications Given in ED Current Medications Medications Dose Ordered Sig/Johny Route Start Time Stop Time Status Last Admin Dose Admin Acetaminophen 1,000 mg ONCE PRN PO 12/16/21 17:15 12/16/21 17:26 DC 12/16/21 17:26 1,000 MG Ondansetron HCl 8 mg ONCE ONCE IVP 12/16/21 17:15 12/16/21 17:16 DC 12/16/21 17:25 8 MG (EARL WOODWARD APRN) Vital Signs/I&O 12/16/21 16:55 Temp 38.6 Pulse 103 Resp 20 B/P (MAP) 128/69 (88) Pulse Ox 92 O2 Delivery Room Air (EARL WOODWARD APRN) Vital Signs/I&O Capillary Refill : (JOSE LUIS WHITAKER) Blood Pressure Mean: 88 Progress Note : Time: 17:[address] of the head and C-spine for his fall., Labs, CPK, COVID, septic work-up. We will hold off on antibiotic selection until we actually discover a bacterial source of infection. His fever could also be because he was sitting out in the heat and 101 directly in the sun. We will give him 324 mg of aspirin. (JOSE LUIS WHITAKER) Progress Note : Time: 18:20 Progress Note Care assumed at this time from Dr. Whitaker, pending results of labs and CT head at this time. He is resting in room, no needs identified at this time. (EARL WOODWARD APRN) ECG Initial ECG Impression Date: Dec 16, 2021 Initial ECG Impression Time: 17:20 Initial ECG Rate: 96 Initial ECG Rhythm: Normal Sinus Initial ECG Intervals: Normal Initial ECG Impression: Normal Comment Normal sinus rhythm without clinically relevant ST elevation or depression. (JOSE LUIS WHITAKER) Diagnostic Imaging Diagonstic Imaging: Xray Plain Films/CT/US/NM/MRI: chest Comments [facility] [place], [place] NAME: VIRA RIZO [facility] REC#: [id number] PT STATUS: REG ER : 1965 PHYSICIAN: JOSE LUIS WHITAKER MD ADMIT DATE: 12/16/21/ER Signed Date of Exam:12/16/21 CHEST 1 VIEW, AP/PA ONLY INDICATION: Fever. COMPARISON: 12/05/2009. TECHNIQUE: Single radiograph of the chest dated December 16, 2021. FINDINGS: The cardiac silhouette is within normal limits in size. No significant pulmonary vascular congestion. Postsurgical changes again identified within the upper abdomen. The lungs are clear of focal pulmonary opacity. No pleural effusion. No pneumothorax. No acute osseous abnormality. IMPRESSION: Similar-appearing examination without acute cardiopulmonary abnormality. Dictated by: Dictated on workstation # [id number] Dict: 12/16/211824 Trans: 12/16/211843 [facility] [id number] Interpreted by: FERNANDO CHU MD Electronically signed by: FERNANDO CHU MD 12/16/211843 Reviewed: Reviewed by Me Diagonstic Imaging: CT (JOSE LUIS WHITAKER) Diagonstic Imaging: CT Plain Films/CT/US/NM/MRI: head Comments NAME: VIRA RIZO [facility] REC#: [id number] PT STATUS: REG ER : 1965 PHYSICIAN: JOSE LUIS WHITAKER MD ADMIT DATE: 12/16/21/ER Signed Date of Exam:12/16/21 CT HEAD/CERVICAL SPINE WO PROCEDURE: CT head and CT cervical spine without contrast. TECHNIQUE: Multiple contiguous axial images were obtained through the brain and cervical spine without the use of intravenous contrast. Sagittal and coronal reformations through the cervical spine were then performed. Auto Exposure Controls were utilized during the CT exam to meet ALARA standards for radiation dose reduction. INDICATION: Trauma, pain, fall, hit head. COMPARISON: 12/05/2021. FINDINGS: Mild atrophy. No intracranial hemorrhage. No intracranial mass, mass effect, midline shift, herniation, hydrocephalus or extra-axial fluid collection. No CT evidence of an acute ischemic infarction. A soft tissue injury is identified involving the high left parietal scalp, appearing new from the prior examination. Additional laceration and scalp hematoma involving the posterior left parietal scalp appears improved from the prior examination. The orbits are unremarkable. Background vascular calcifications. The paranasal sinuses are clear. The calvarium is intact. Alignment of the cervical spine is well maintained. Alignment of the atlantooccipital joint is well maintained. Besides endplate degenerative changes, vertebral body heights are well maintained. Moderate disc space height loss at C5/C6 and C6/C7. Significant facet joint degenerative changes at C2/C3, particularly on the right. No acute fracture or dislocation. No destructive osseous process. No apical pneumothorax. IMPRESSION: 1. No acute intracranial abnormality. 2. New high left parietal scalp laceration without underlying calvarial fracture with additional improving left posterior parietal laceration and hematoma. 3. No acute osseous abnormality of the cervical spine with scattered degenerative changes, greatest at C5/C6 and C6/C7. Dictated by: Dictated on workstation # [id number] Dict: 12/16/21 1819 Trans: 12/16/211843 [facility] [id number] Interpreted by: FERNANDO CHU MD Electronically signed by: FERNANDO CHU MD 12/16/21 1844 Reviewed: Reviewed by Me (EARL WOODWARD APRN) Transfer of Care Transfer of Care Time: 18:30 Care transferred to: Gio LIKN (JOSE LUIS WHITAKER) Departure Communication (Admissions) Time/Spoke to Admitting Phy: 17:20 Dr. Myers (EARL WOODWARD APRN) Impression Primary Impression: Sepsis Qualified Codes: A41.9 - Sepsis, unspecified organism Additional Impressions: Heat exhaustion Qualified Codes: T67.5XXA - Heat exhaustion, unspecified, initial encounter Chest pain Qualified Codes: R07.9 - Chest pain, unspecified Disposition: ADMITTED INPATIENT Condition: Stable Admissions Decision to Admit/Date: Dec 16, 2021 Time/Decision to Admit Time: 19:00 (JOSE LUIS WHITAKER) Decision to Admit Reason: Admit from ER (General) (EARL WOODWARD APRN) Departure-Patient Inst. Referrals: [facility] (PCP/Family) Primary Care Physician JOSE LUIS WHITAKER Dec 16, 2021 17:15 EARL WOODWARD APRN Dec 16, 2021 18:50
[2021-12-16 17:25] LABS: BASOPHILS # (AUTO) 0.1 10^3/uL (0.0-0.1); BASOPHILS % (AUTO) 1 % (0-10); EOSINOPHILS # (AUTO) 0.2 10^3/uL (0.0-0.3); EOSINOPHILS % (AUTO) 4 % (0-10); HEMATOCRIT 33 % (40-54); HEMOGLOBIN 9.9 g/dL (13.3-17.7); LYMPHOCYTES # (AUTO) 1.1 10^3/uL (1.0-4.0); LYMPHOCYTES % (AUTO) 20 % (12-44); MEAN CORPUSCULAR HEMOGLOBIN 24 pg (25-34); MEAN CORPUSCULAR HGB CONC 30 g/dL (32-36); MEAN CORPUSCULAR VOLUME 82 fL (80-99); MEAN PLATELET VOLUME 9.6 fL (9.0-12.2); MONOCYTES # (AUTO) 0.5 10^3/uL (0.0-1.0); MONOCYTES % (AUTO) 8 % (0-12); NEUTROPHILS # (AUTO) 3.6 10^3/uL (1.8-7.8); NEUTROPHILS % (AUTO) 66 % (42-75); PLATELET COUNT 190 10^3/uL (130-400); WHITE BLOOD COUNT 5.5 10^3/uL (4.3-11.0)
[2021-12-16 17:43] LABS: ALBUMIN 3.4 GM/DL (3.2-4.5); CHLORIDE 116 MMOL/L (98-107); POTASSIUM 3.9 MMOL/L (3.6-5.0); SODIUM 147 MMOL/L (135-145)
[2021-12-16 17:44] LABS: CALCIUM 8.6 MG/DL (8.5-10.1)
[2021-12-16 17:45] LABS: GLUCOSE 81 MG/DL (70-105); TOTAL PROTEIN 7.4 GM/DL (6.4-8.2)
[2021-12-16 17:46] LABS: CARBON DIOXIDE 18 MMOL/L (21-32)
[2021-12-16 17:47] LABS: BILIRUBIN,TOTAL 1.5 MG/DL (0.1-1.0)
[2021-12-16 17:49] LABS: ALKALINE PHOSPHATASE 113 U/L (40-136); GFR ESTIMATED 70
[2021-12-16 17:50] LABS: BUN/CREATININE RATIO 15; CREATINE KINASE 127 U/L (30-200)
[2021-12-16 17:52] LABS: ALANINE AMINOTRANSFERASE 20 U/L (0-55)
[2021-12-16 18:05] LABS: FIBRIN DEGRADATION PRODUCTS 5.79 UG/ML (0.00-0.49); INR 1.4 (0.8-1.4); PROTHROMBIN TIME PATIENT 17.1 SEC (12.2-14.7)
--- NOTE | 2021-12-16 18:28 | Diagnostic Imaging Report ---
PROCEDURE: CT head and CT cervical spine without contrast. TECHNIQUE: Multiple contiguous axial images were obtained through the brain and cervical spine without the use of intravenous contrast. Sagittal and coronal reformations through the cervical spine were then performed. Auto Exposure Controls were utilized during the CT exam to meet ALARA standards for radiation dose reduction. INDICATION: Trauma, pain, fall, hit head. COMPARISON: 12/05/2021. FINDINGS: Mild atrophy. No intracranial hemorrhage. No intracranial mass, mass effect, midline shift, herniation, hydrocephalus or extra-axial fluid collection. No CT evidence of an acute ischemic infarction. A soft tissue injury is identified involving the high left parietal scalp, appearing new from the prior examination. Additional laceration and scalp hematoma involving the posterior left parietal scalp appears improved from the prior examination. The orbits are unremarkable. Background vascular calcifications. The paranasal sinuses are clear. The calvarium is intact. Alignment of the cervical spine is well maintained. Alignment of the atlantooccipital joint is well maintained. Besides endplate degenerative changes, vertebral body heights are well maintained. Moderate disc space height loss at C5/C6 and C6/C7. Significant facet joint degenerative changes at C2/C3, particularly on the right. No acute fracture or dislocation. No destructive osseous process. No apical pneumothorax. IMPRESSION: 1. No acute intracranial abnormality. 2. New high left parietal scalp laceration without underlying calvarial fracture with additional improving left posterior parietal laceration and hematoma. 3. No acute osseous abnormality of the cervical spine with scattered degenerative changes, greatest at C5/C6 and C6/C7. Dictated by: Dictated on workstation # [id number]
--- NOTE | 2021-12-16 18:30 | Diagnostic Imaging Report ---
INDICATION: Fever. COMPARISON: 12/05/2009. TECHNIQUE: Single radiograph of the chest dated December 16, 2021. FINDINGS: The cardiac silhouette is within normal limits in size. No significant pulmonary vascular congestion. Postsurgical changes again identified within the upper abdomen. The lungs are clear of focal pulmonary opacity. No pleural effusion. No pneumothorax. No acute osseous abnormality. IMPRESSION: Similar-appearing examination without acute cardiopulmonary abnormality. Dictated by: Dictated on workstation # [id number]
[2021-12-16 19:02] LABS: BILIRUBIN,URINE 2+ (NEGATIVE); CLARITY,URINE TURBID; COLOR,URINE BROWN; GLUCOSE, URINE (UA) NEGATIVE (NEGATIVE); KETONES,URINE TRACE (NEGATIVE); LEUKOCYTE ESTERASE ,URINE NEGATIVE (NEGATIVE); NITRITE,URINE NEGATIVE (NEGATIVE); PROTEIN,URINE 1+ (NEGATIVE)
[2021-12-16 19:14] LABS: BACTERIA,URINE NEGATIVE /HPF; WBC,URINE 0-2 /HPF
[2021-12-16 19:22] LABS: AMPHETAMINE SCREEN, URINE POSITIVE (NEGATIVE); BARBITURATE SCREEN URINE NEGATIVE (NEGATIVE); BENZODIAZEPINES SCREEN URINE NEGATIVE (NEGATIVE); CANNABINOID SCREEN, URINE POSITIVE (NEGATIVE); COCAINE SCREEN URINE NEGATIVE (NEGATIVE); METHADONE STAT NEGATIVE (NEGATIVE); OPIATE SCREEN URINE NEGATIVE (NEGATIVE); OXYCODONE STAT NEGATIVE (NEGATIVE); PROPOXYPHENE STAT NEGATIVE (NEGATIVE); TRICYCLIC ANTIDEPRESSANTS SCRE NEGATIVE (NEGATIVE)
[2021-12-16] MEDS ORDERED: CEFEPIME INJECTION 1,000 MG in NS (IVPB) 50 ML IV ONE (20:30)
[2021-12-16] MEDS ORDERED: NS IV 1000 ML 1,000 ML IV ONE (20:30)
[2021-12-16] MEDS ORDERED: NS IV 1000 ML 1,000 ML ONE (22:36)
[2021-12-16 22:44] VITALS: BP 129/69
[2021-12-16] MEDS ORDERED: ONDANSETRON 4 MG/2 ML (SDV) Z0FRAN IV PRN (23:00)
[2021-12-16] MEDS ORDERED: RT-ALBUTEROL SULF 2.5 MG/3 ML PRE-MIX VIAL INH PRN (23:00)
[2021-12-16] MEDS ORDERED: LORazepam INJ 2 MG/ML (ATIVAN) VIAL IV PRN (23:00)
[2021-12-16] MEDS: NS IV 1000 ML 1,000 ML IV SCH (23:24)
[2021-12-17] VITALS (7 sets, daily range): BP systolic 106–121; BP diastolic 57–67
[2021-12-17] MEDS: CEFEPIME 1,000 MG/NS 50 ML IVPB IV SCH ×8 (03:34→20:45)
[2021-12-17] MEDS: NS IV 1000 ML 1,000 ML IV SCH ×3 (06:51→20:44)
[2021-12-17 06:58] LABS: BASOPHILS % (AUTO) 1 % (0-10); MEAN PLATELET VOLUME 9.2 fL (9.0-12.2)
[2021-12-17 07:00] LABS: EOSINOPHILS # (AUTO) 0.2 10^3/uL (0.0-0.3); EOSINOPHILS % (AUTO) 7 % (0-10); HEMATOCRIT 30 % (40-54); HEMOGLOBIN 8.6 g/dL (13.3-17.7); LYMPHOCYTES # (AUTO) 0.9 10^3/uL (1.0-4.0); LYMPHOCYTES % (AUTO) 28 % (12-44); MEAN CORPUSCULAR HEMOGLOBIN 25 pg (25-34); MEAN CORPUSCULAR HGB CONC 29 g/dL (32-36); MEAN CORPUSCULAR VOLUME 86 fL (80-99); MONOCYTES # (AUTO) 0.3 10^3/uL (0.0-1.0); MONOCYTES % (AUTO) 10 % (0-12); NEUTROPHILS # (AUTO) 1.8 10^3/uL (1.8-7.8); NEUTROPHILS % (AUTO) 55 % (42-75); PLATELET COUNT 111 10^3/uL (130-400); WHITE BLOOD COUNT 3.4 10^3/uL (4.3-11.0)
[2021-12-17 07:19] LABS: ALBUMIN 2.8 GM/DL (3.2-4.5); CALCIUM 7.9 MG/DL (8.5-10.1); CREATININE SERUM 0.75 MG/DL (0.60-1.30); POTASSIUM 3.5 MMOL/L (3.6-5.0)
[2021-12-17] MEDS: FAMOTIDINE 20 MG (PEPCID) TABLET PO SCH ×2 (08:53→20:45)
[2021-12-17] MEDS ORDERED: KCL 20 MEQ TAB (K-DUR) PO ONE ×2 (10:28→10:30)
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
[2021-12-17] MEDS: ENOXAPARIN 40 MG/0.4 ML (LOVENOX) SYR SQ SCH (17:09)
[2021-12-17] MEDS: LACTULOSE SYRUP 10GM/15ML (ENULOSE) 30ML UDC PO SCH (20:45)
[2021-12-17] MEDS: ACETAMINOPHEN 325 MG TABLET PO PRN (20:47)
[2021-12-18] MEDS: NS IV 1000 ML 1,000 ML IV SCH ×4 (01:42→19:45)
[2021-12-18] MEDS: CEFEPIME 1,000 MG/NS 50 ML IVPB IV SCH ×8 (02:19→19:44)
[2021-12-18 03:55] VITALS: BP 116/62
[2021-12-18 07:04] LABS: HEMOGLOBIN 7.8 g/dL (13.3-17.7)
[2021-12-18 07:06] LABS: BASOPHILS % (AUTO) 1 % (0-10); EOSINOPHILS # (AUTO) 0.2 10^3/uL (0.0-0.3); EOSINOPHILS % (AUTO) 9 % (0-10); HEMATOCRIT 27 % (40-54); LYMPHOCYTES # (AUTO) 0.9 10^3/uL (1.0-4.0); LYMPHOCYTES % (AUTO) 32 % (12-44); MEAN CORPUSCULAR HEMOGLOBIN 24 pg (25-34); MEAN CORPUSCULAR HGB CONC 29 g/dL (32-36); MEAN CORPUSCULAR VOLUME 84 fL (80-99); MEAN PLATELET VOLUME 10.1 fL (9.0-12.2); MONOCYTES # (AUTO) 0.3 10^3/uL (0.0-1.0); MONOCYTES % (AUTO) 11 % (0-12); NEUTROPHILS # (AUTO) 1.3 10^3/uL (1.8-7.8); NEUTROPHILS % (AUTO) 47 % (42-75); PLATELET COUNT 105 10^3/uL (130-400); WHITE BLOOD COUNT 2.8 10^3/uL (4.3-11.0)
[2021-12-18 07:38] LABS: ALBUMIN 2.3 GM/DL (3.2-4.5); BILIRUBIN,TOTAL 0.6 MG/DL (0.1-1.0); CALCIUM 7.2 MG/DL (8.5-10.1); CREATININE SERUM 0.67 MG/DL (0.60-1.30); POTASSIUM 3.6 MMOL/L (3.6-5.0); TOTAL PROTEIN 4.9 GM/DL (6.4-8.2)
[2021-12-18 07:46] VITALS: BP 113/65
[2021-12-18] MEDS: FAMOTIDINE 20 MG (PEPCID) TABLET PO SCH ×2 (07:56→19:45)
[2021-12-18] MEDS: LACTULOSE SYRUP 10GM/15ML (ENULOSE) 30ML UDC PO SCH ×2 (07:56→19:45)
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
[2021-12-18] MEDS ORDERED: HYPOCHLOROUS ACID/NaCl (VASHE) 250 ML IR SCH (11:00)
[2021-12-18 11:11] VITALS: BP 109/59
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
[2021-12-18 16:24] VITALS: BP 130/70
[2021-12-18] MEDS: ENOXAPARIN 40 MG/0.4 ML (LOVENOX) SYR SQ SCH (16:46)
[2021-12-18 19:24] VITALS: BP 118/64
[2021-12-18] MEDS: ACETAMINOPHEN 325 MG TABLET PO PRN (19:45)
[2021-12-19] VITALS (7 sets, daily range): BP systolic 110–154; BP diastolic 66–81
[2021-12-19] MEDS: CEFEPIME 1,000 MG/NS 50 ML IVPB IV SCH ×4 (02:34→08:39)
[2021-12-19] MEDS: NS IV 1000 ML 1,000 ML IV SCH ×4 (02:34→23:27)
[2021-12-19 06:04] LABS: BASOPHILS % (AUTO) 1 % (0-10); EOSINOPHILS # (AUTO) 0.3 10^3/uL (0.0-0.3); EOSINOPHILS % (AUTO) 8 % (0-10); HEMATOCRIT 29 % (40-54); HEMOGLOBIN 8.6 g/dL (13.3-17.7); LYMPHOCYTES # (AUTO) 1.2 10^3/uL (1.0-4.0); LYMPHOCYTES % (AUTO) 32 % (12-44); MEAN CORPUSCULAR HEMOGLOBIN 25 pg (25-34); MEAN CORPUSCULAR HGB CONC 30 g/dL (32-36); MEAN CORPUSCULAR VOLUME 84 fL (80-99); MEAN PLATELET VOLUME 10.3 fL (9.0-12.2); MONOCYTES # (AUTO) 0.3 10^3/uL (0.0-1.0); MONOCYTES % (AUTO) 9 % (0-12); NEUTROPHILS # (AUTO) 1.9 10^3/uL (1.8-7.8); NEUTROPHILS % (AUTO) 51 % (42-75); PLATELET COUNT 134 10^3/uL (130-400); WHITE BLOOD COUNT 3.7 10^3/uL (4.3-11.0)
[2021-12-19 06:25] LABS: ALBUMIN 2.3 GM/DL (3.2-4.5); POTASSIUM 3.6 MMOL/L (3.6-5.0)
[2021-12-19 06:26] LABS: CALCIUM 7.5 MG/DL (8.5-10.1)
[2021-12-19 06:27] LABS: TOTAL PROTEIN 5.2 GM/DL (6.4-8.2)
[2021-12-19 06:29] LABS: BILIRUBIN,TOTAL 0.7 MG/DL (0.1-1.0)
[2021-12-19 06:31] LABS: CREATININE SERUM 0.58 MG/DL (0.60-1.30)
[2021-12-19] MEDS: FAMOTIDINE 20 MG (PEPCID) TABLET PO SCH ×2 (08:40→20:06)
[2021-12-19] MEDS: LACTULOSE SYRUP 10GM/15ML (ENULOSE) 30ML UDC PO SCH ×2 (08:40→20:06)
[2021-12-19] MEDS ORDERED: RT-ALBUTEROL/IPRATROPIUM 3 ML (DUONEB) VIAL INH PRN (11:00)
--- NOTE | 2021-12-19 13:13 | Progress Note - Hospitalist ---
Subjective HPI/CC On Admission Date Seen by Provider: Dec 19, 2021 Time Seen by Provider: 13:09 Subjective/Events-last exam Patient reports feeling better today still requiring assistance to get out of bed. Denies any body aches or pains tolerating solids and liquids. He denies headache and was pleasant during the interview with no evidence for agitation. Focused Exam Lactate Level 12/16/21 23:31: Lactic Acid Level 2.16*H 12/17/21 06:30: Lactic Acid Level 2.01*H 12/17/21 08:30: Lactic Acid Level 1.69 Objective Exam Vital Signs Vital Signs Date Time Temp Pulse Resp B/P (MAP) Pulse Ox O2 Delivery O2 Flow Rate FiO2 12/19/21 12:12 36.8 82 20 132/76 (94) 90 Nasal Cannula 3.00 12/19/21 09:39 21 Capillary Refill : General Appearance: No Apparent Distress Respiratory: Chest Non Tender, Lungs Clear, Normal Breath Sounds, No Accessory Muscle Use, No Respiratory Distress Cardiovascular: Regular Rate, Rhythm, No Edema, No Gallop, No JVD, No Murmur, Normal Peripheral Pulses Gastrointestinal: Normal Bowel Sounds, No Organomegaly, No Pulsatile Mass, Non Tender, Soft Extremity: Normal Inspection, Normal Range of Motion, Non Tender, No Calf Tenderness, No Pedal Edema Results/Procedures Lab Laboratory Tests 12/19/21 05:41 Patient resulted labs reviewed. Assessment/Plan Assessment and Plan Assess & Plan/Chief Complaint Assessment/Plan Assessment/Plan Admission Status: Observation (1) Chest pain Status: Acute Assessment & Plan: EKG without acute changes, troponin x 2 negative. I do not find any recent cardiac work-up as far as stress, echo, etc. Will consult Cardiology. 12/19 no further chest pain normal systolic and apparent diastolic function with no pulmonary hypertension on echocardiography. Still quite weak from heat exhaustion but acute kidney injury resolved with fluids as well continue to monitor today no evidence for infection will DC cefepime. (2) Heat exhaustion Status: Acute Assessment & Plan: Temperature down to normal this morning. Continue IVF and monitor. Qualifiers: Qualified Codes: T67.5XXA - Heat exhaustion, unspecified, initial encounter (3) Chronic wound of head Assessment & Plan: Wound care consult, does not appear clearly infected. Cefepime started in ER. (4) Cirrhosis Status: Chronic (5) Hypoxic brain injury Status: Chronic Assessment & Plan: History of with esophageal bleed in the past. (6) Hepatic encephalopathy Status: Chronic Assessment & Plan: Check ammonia as he does seem at least mildly confused still, and per clinic records has not been seen in about a year, and does not appear to have been taking lactulose. (7) Schizophrenia Status: Chronic Assessment & Plan: Per clinic record, attempts to connect with Psychiatry have been made multiple times and he has not attended appointments. Last year in clinic was on Rexulti and reported voices were gone. Uncertain if he has been taking medications recently. Qualifiers: Qualified Codes: F20.0 - Paranoid schizophrenia (8) Methamphetamine use Status: Acute (9) History of alcohol abuse Status: Acute Assessment & Plan: EtOH negative on admit, monitor for withdrawal symptoms. (10) Elevated lactic acid level Status: Acute Assessment & Plan: While he did have 2 SIRS criteria in ER- fever and tachycardia, no clear source of infection, I suspect this is related to his hyperthermia. Has normalized. Started on cefepime empirically in ER, anticipate d/c shortly if no culture growth. (11) Pancytopenia Status: Chronic Assessment & Plan: Stable compared to last summer at clinic, suspect secondary to liver disease. (12) DVT prophylaxis Status: Acute Assessment & Plan: Enoxaparin Clinical Quality Measures AMI/AHF: ASA po Prior to arrival: JIMI Jaimes MD Dec 19, 2021 13:13
--- NOTE | 2021-12-19 13:55 | Progress Note - Cardiology ---
Cardiology SOAP Progress Note Subjective: No cp (other than chronic chest discomfort described in Consult note) or palp or syncope No shortness of breath at rest No n/v/d Gen malaise and weakness present Objective: I&O/Vital Signs 12/19/21 12/19/21 12/19/21 12/19/21 03:44 07:00 08:21 08:21 Temp 37.4 36.7 Pulse 65 81 Resp 16 20 B/P (MAP) 121/74 (90) 114/67 (83) Pulse Ox 91 91 87 92 O2 Delivery Nasal Cannula Nasal Cannula Room Air Nasal Cannula O2 Flow Rate 3.00 3.00 0.00 3.00 12/19/21 12/19/21 12/19/21 08:23 09:39 12:12 Temp 36.7 36.8 Pulse 79 82 Resp 20 B/P (MAP) 132/76 (94) Pulse Ox 92 87 90 O2 Delivery Nasal Cannula Nasal Cannula O2 Flow Rate 3.00 3.00 FiO2 21 12/19/21 00:00 Intake Total 2720 ml Output Total 2330 ml Balance 390 ml Constitutional: AAO x 3, well-developed, well-nourished Respiratory: No accessory muscle use, No respiratory distress; chest expansion is symmetric, chest is bilaterally symmetric, lungs clear to auscultation, other (diminished bases with poor inspiratory effort) Cardiovascular: regular rate-rhythm; No JVD; S1 and S2 Gastrointestional: No tender; soft, round; No guarding Extremities: no lower extremity edema bilateral Neurologic/Psychiatric: grossly intact (moves all extremities) Skin: other (wound with packing in it to the occipital region of his head) Results/Procedures: Labs Laboratory Tests 12/19/21 05:41: White Blood Count 3.7L, Red Blood Count 3.49L, Hemoglobin 8.6L, Hematocrit 29L, Mean Corpuscular Volume 84, Mean Corpuscular Hemoglobin 25, Mean Corpuscular Hemoglobin Concent 30L, Red Cell Distribution Width 17.3H, Platelet Count 134, Mean Platelet Volume 10.3, Immature Granulocyte % (Auto) 0, Neutrophils (%) (Auto) 51, Lymphocytes (%) (Auto) 32, Monocytes (%) (Auto) 9, Eosinophils (%) (Auto) 8, Basophils (%) (Auto) 1, Neutrophils # (Auto) 1.9, Lymphocytes # (Auto) 1.2, Monocytes # (Auto) 0.3, Eosinophils # (Auto) 0.3, Basophils # (Auto) 0.0, Immature Granulocyte # (Auto) 0.0, Sodium Level 143, Potassium Level 3.6, Chloride Level 114H, Carbon Dioxide Level 20L, Anion Gap 9, Blood Urea Nitrogen 6L, Creatinine 0.58L, Estimat Glomerular Filtration Rate 113, BUN/Creatinine Ratio 10, Glucose Level 84, Calcium Level 7.5L, Corrected Calcium 8.9, Total Bilirubin 0.7, Aspartate Amino Transf (AST/SGOT) 22, Alanine Aminotransferase (ALT/SGPT) 15, Alkaline Phosphatase 80, Total Protein 5.2L, Albumin 2.3L Microbiology 12/18/21 Gram Stain - Final, Resulted 12/18/21 Wound Culture - Preliminary, Resulted Staph, Coag Neg (LAPIDARIST) 12/16/21 Urine Culture - Final, Complete Mixed Bacterial Kate 12/16/21 Blood Culture - Preliminary, Resulted No growth Laboratory Tests 12/18/21 06:31 12/19/21 05:41 A/P: Assessment: Chest pain, reproducible with palpation, likely musculoskeletal - no evidence of ACS - Echo on 12/18/21: LVEF 60-65%, mildly dilated LA, PASP 30-35 mmHg UTI with sepsis - management per Medical services Wound to his head with dry packing - management per medical services Pancytopenia - management per Medical services Esophageal varicies - reports banding and stenting x 2 at [facility] last year Cirrhosis of the liver - Hep C+ Schizophrenia Anxiety/depression Methamphetamine use - cessation advised - last usage right before admission to hospital per pt report ETOH abuse Plan: * Cardiac status appears clinically stable * Cardiac risk factor mod advised Clinical Quality Measures AMI/AHF: ASA po Prior to arrival: FRANCESCO Ribeiro MD FACP [facility] CCDS Dec 19, 2021 13:55
[2021-12-19] MEDS: ENOXAPARIN 40 MG/0.4 ML (LOVENOX) SYR SQ SCH (17:12)
[2021-12-19] MEDS: RT-ALBUTEROL/IPRATROPIUM 3 ML (DUONEB) VIAL INH SCH (19:44)
[2021-12-19] MEDS: ACETAMINOPHEN 325 MG TABLET PO PRN (20:06)
[2021-12-20 00:30] VITALS: BP 117/61
[2021-12-20 05:38] LABS: BASOPHILS % (AUTO) 1 % (0-10); EOSINOPHILS # (AUTO) 0.2 10^3/uL (0.0-0.3); EOSINOPHILS % (AUTO) 7 % (0-10); HEMATOCRIT 29 % (40-54); HEMOGLOBIN 8.4 g/dL (13.3-17.7); LYMPHOCYTES # (AUTO) 1.2 10^3/uL (1.0-4.0); LYMPHOCYTES % (AUTO) 38 % (12-44); MEAN CORPUSCULAR HEMOGLOBIN 24 pg (25-34); MEAN CORPUSCULAR HGB CONC 29 g/dL (32-36); MEAN CORPUSCULAR VOLUME 83 fL (80-99); MEAN PLATELET VOLUME 10.4 fL (9.0-12.2); MONOCYTES # (AUTO) 0.2 10^3/uL (0.0-1.0); MONOCYTES % (AUTO) 8 % (0-12); NEUTROPHILS # (AUTO) 1.5 10^3/uL (1.8-7.8); NEUTROPHILS % (AUTO) 46 % (42-75); PLATELET COUNT 131 10^3/uL (130-400); WHITE BLOOD COUNT 3.1 10^3/uL (4.3-11.0)
[2021-12-20 05:48] LABS: ALBUMIN 2.3 GM/DL (3.2-4.5); POTASSIUM 3.8 MMOL/L (3.6-5.0)
[2021-12-20 05:49] LABS: CALCIUM 7.6 MG/DL (8.5-10.1)
[2021-12-20 05:50] LABS: TOTAL PROTEIN 5.3 GM/DL (6.4-8.2)
[2021-12-20 05:52] LABS: BILIRUBIN,TOTAL 0.7 MG/DL (0.1-1.0)
[2021-12-20 05:54] LABS: CREATININE SERUM 0.55 MG/DL (0.60-1.30)
[2021-12-20] MEDS: NS IV 1000 ML 1,000 ML IV SCH ×2 (06:14→08:04)
[2021-12-20] MEDS: RT-ALBUTEROL/IPRATROPIUM 3 ML (DUONEB) VIAL INH SCH ×2 (07:35→20:59)
[2021-12-20 08:00] VITALS: BP 119/73
[2021-12-20] MEDS: LACTULOSE SYRUP 10GM/15ML (ENULOSE) 30ML UDC PO SCH ×2 (08:04→20:18)
[2021-12-20] MEDS: FAMOTIDINE 20 MG (PEPCID) TABLET PO SCH ×2 (08:04→20:18)
--- NOTE | 2021-12-20 10:35 | Progress Note - Cardiology ---
Cardiology SOAP Progress Note Subjective: No cp or palp or syncope or shortness of breath at rest No n/v/d Gen malaise and weakness present Objective: I&O/Vital Signs 12/20/21 12/20/21 12/20/21 12/20/21 00:30 07:35 08:00 08:00 Temp 37.4 36.8 Pulse 76 62 Resp 18 20 B/P (MAP) 117/61 (79) 119/73 (88) Pulse Ox 90 92 92 92 O2 Delivery Nasal Cannula Nasal Cannula Nasal Cannula Nasal Cannula O2 Flow Rate 3.00 3.00 3.00 3.00 12/20/21 00:00 Intake Total 2580 ml Output Total 4250 ml Balance -1670 ml Constitutional: AAO x 3, well-developed, well-nourished Respiratory: No accessory muscle use, No respiratory distress; chest expansion is symmetric, chest is bilaterally symmetric, lungs clear to auscultation, other (diminished bases with poor inspiratory effort) Cardiovascular: regular rate-rhythm; No JVD; S1 and S2 Gastrointestional: No tender; soft, round; No guarding Extremities: no lower extremity edema bilateral Neurologic/Psychiatric: grossly intact (moves all extremities) Skin: other (wound with packing in it to the occipital region of his head) Results/Procedures: Labs Laboratory Tests 12/20/21 05:20: White Blood Count 3.1L, Red Blood Count 3.48L, Hemoglobin 8.4L, Hematocrit 29L, Mean Corpuscular Volume 83, Mean Corpuscular Hemoglobin 24L, Mean Corpuscular Hemoglobin Concent 29L, Red Cell Distribution Width 17.3H, Platelet Count 131, Mean Platelet Volume 10.4, Immature Granulocyte % (Auto) 0, Neutrophils (%) (Auto) 46, Lymphocytes (%) (Auto) 38, Monocytes (%) (Auto) 8, Eosinophils (%) (Auto) 7, Basophils (%) (Auto) 1, Neutrophils # (Auto) 1.5L, Lymphocytes # (Auto) 1.2, Monocytes # (Auto) 0.2, Eosinophils # (Auto) 0.2, Basophils # (Auto) 0.0, Immature Granulocyte # (Auto) 0.0, Sodium Level 143, Potassium Level 3.8, Chloride Level 114H, Carbon Dioxide Level 20L, Anion Gap 9, Blood Urea Nitrogen 6L, Creatinine 0.55L, Estimat Glomerular Filtration Rate 115, BUN/Creatinine Ratio 11, Glucose Level 81, Calcium Level 7.6L, Corrected Calcium 9.0, Total Bilirubin 0.7, Aspartate Amino Transf (AST/SGOT) 23, Alanine Aminotransferase (ALT/SGPT) 16, Alkaline Phosphatase 80, Total Protein 5.3L, Albumin 2.3L Microbiology 12/18/21 Gram Stain - Final, Resulted 12/18/21 Wound Culture - Preliminary, Resulted Staph, Coag Neg (CONTRACTING ANALYST) 12/16/21 Urine Culture - Final, Complete Mixed Bacterial Kate 12/16/21 Blood Culture - Preliminary, Resulted No growth Laboratory Tests 12/19/21 05:41 12/20/21 05:20 A/P: Assessment: Chest pain, reproducible with palpation, likely musculoskeletal - no evidence of ACS - Echo on 12/18/21: LVEF 60-65%, mildly dilated LA, PASP 30-35 mmHg UTI with sepsis - management per Medical services Wound to his head with dry packing - management per medical services Pancytopenia - management per Medical services Esophageal varicies - reports banding and stenting x 2 at [facility] last year Cirrhosis of the liver - Hep C+ Schizophrenia Anxiety/depression Methamphetamine use - cessation advised - last usage right before admission to hospital per pt report ETOH abuse Plan: * Cardiac status appears clinically stable * Cardiac risk factor mod advised * Ok to d/c from cardiac standpoint Clinical Quality Measures AMI/AHF: ASA po Prior to arrival: FRANCESCO Ribeiro MD [facility] CCDS Dec 20, 2021 10:35
--- NOTE | 2021-12-20 12:58 | Progress Note - Hospitalist ---
Subjective HPI/CC On Admission Date Seen by Provider: Dec 20, 2021 Time Seen by Provider: 12:57 Subjective/Events-last exam Patient reports feeling well voicing no complaints. Objective Exam Vital Signs Vital Signs Date Time Temp Pulse Resp B/P (MAP) Pulse Ox O2 Delivery O2 Flow Rate FiO2 12/20/21 08:00 92 Nasal Cannula 3.00 12/20/21 08:00 36.8 62 20 119/73 (88) 12/19/21 09:39 21 Capillary Refill : General Appearance: No Apparent Distress Respiratory: Chest Non Tender, Lungs Clear, Normal Breath Sounds, No Accessory Muscle Use, No Respiratory Distress Cardiovascular: Regular Rate, Rhythm, No Edema, No Gallop, No JVD, No Murmur, Normal Peripheral Pulses Results/Procedures Lab Laboratory Tests 12/20/21 05:20 Patient resulted labs reviewed. Assessment/Plan Assessment and Plan Assess & Plan/Chief Complaint Assessment/Plan Assessment/Plan Admission Status: Observation (1) Chest pain Status: Acute Assessment & Plan: EKG without acute changes, troponin x 2 negative. I do not find any recent cardiac work-up as far as stress, echo, etc. Will consult Cardiology. 12/19 no further chest pain normal systolic and apparent diastolic function with no pulmonary hypertension on echocardiography. Still quite weak from heat exhaustion but acute kidney injury resolved with fluids as well continue to monitor today no evidence for infection will DC cefepime. 12/20 after discussion patient amenable to hopeful transfer to [facility] and rehab in the morning that shows her services is in the process of attempting to set up. (2) Heat exhaustion Status: Acute Assessment & Plan: Temperature down to normal this morning. Continue IVF and monitor. Qualifiers: Qualified Codes: T67.5XXA - Heat exhaustion, unspecified, initial encounter (3) Chronic wound of head Assessment & Plan: Wound care consult, does not appear clearly infected. Cefepime started in ER. (4) Cirrhosis Status: Chronic (5) Hypoxic brain injury Status: Chronic Assessment & Plan: History of with esophageal bleed in the past. (6) Hepatic encephalopathy Status: Chronic Assessment & Plan: Check ammonia as he does seem at least mildly confused still, and per clinic records has not been seen in about a year, and does not appear to have been taking lactulose. (7) Schizophrenia Status: Chronic Assessment & Plan: Per clinic record, attempts to connect with Psychiatry have been made multiple times and he has not attended appointments. Last year in clinic was on Rexulti and reported voices were gone. Uncertain if he has been taking medications recently. Qualifiers: Qualified Codes: F20.0 - Paranoid schizophrenia (8) Methamphetamine use Status: Acute (9) History of alcohol abuse Status: Acute Assessment & Plan: EtOH negative on admit, monitor for withdrawal symptoms. (10) Elevated lactic acid level Status: Acute Assessment & Plan: While he did have 2 SIRS criteria in ER- fever and tachycardia, no clear source of infection, I suspect this is related to his hyperthermia. Has normalized. Started on cefepime empirically in ER, anticipate d/c shortly if no culture growth. (11) Pancytopenia Status: Chronic Assessment & Plan: Stable compared to last summer at clinic, suspect secondary to liver disease. (12) DVT prophylaxis Status: Acute Assessment & Plan: Enoxaparin Clinical Quality Measures AMI/AHF: ASA po Prior to arrival: JIMI Jaimes MD Dec 20, 2021 12:58
[2021-12-20 16:23] VITALS: BP 124/72
[2021-12-20] MEDS: ENOXAPARIN 40 MG/0.4 ML (LOVENOX) SYR SQ SCH (17:10)
[2021-12-20] MEDS: ACETAMINOPHEN 325 MG TABLET PO PRN (23:44)
[2021-12-20 23:46] VITALS: BP 106/55
[2021-12-21 05:39] LABS: EOSINOPHILS # (AUTO) 0.3 10^3/uL (0.0-0.3); EOSINOPHILS % (AUTO) 7 % (0-10); HEMOGLOBIN 8.3 g/dL (13.3-17.7); MEAN CORPUSCULAR HEMOGLOBIN 24 pg (25-34)
[2021-12-21 05:41] LABS: BASOPHILS # (AUTO) 0.1 10^3/uL (0.0-0.1); BASOPHILS % (AUTO) 1 % (0-10); HEMATOCRIT 28 % (40-54); LYMPHOCYTES # (AUTO) 1.2 10^3/uL (1.0-4.0); LYMPHOCYTES % (AUTO) 33 % (12-44); MEAN CORPUSCULAR HGB CONC 29 g/dL (32-36); MEAN CORPUSCULAR VOLUME 84 fL (80-99); MONOCYTES # (AUTO) 0.3 10^3/uL (0.0-1.0); MONOCYTES % (AUTO) 9 % (0-12); NEUTROPHILS # (AUTO) 1.9 10^3/uL (1.8-7.8); NEUTROPHILS % (AUTO) 50 % (42-75); PLATELET COUNT 133 10^3/uL (130-400); WHITE BLOOD COUNT 3.8 10^3/uL (4.3-11.0)
[2021-12-21 05:52] LABS: ALBUMIN 2.3 GM/DL (3.2-4.5); POTASSIUM 3.4 MMOL/L (3.6-5.0)
[2021-12-21 05:53] LABS: CALCIUM 7.8 MG/DL (8.5-10.1)
[2021-12-21 05:55] LABS: TOTAL PROTEIN 5.2 GM/DL (6.4-8.2)
[2021-12-21 05:56] LABS: BILIRUBIN,TOTAL 0.6 MG/DL (0.1-1.0)
[2021-12-21 05:58] LABS: CREATININE SERUM 0.61 MG/DL (0.60-1.30)
[2021-12-21] MEDS: RT-ALBUTEROL/IPRATROPIUM 3 ML (DUONEB) VIAL INH SCH ×2 (07:15→18:53)
[2021-12-21 07:30] VITALS: BP 110/58
[2021-12-21] MEDS: LACTULOSE SYRUP 10GM/15ML (ENULOSE) 30ML UDC PO SCH ×2 (08:52→20:26)
[2021-12-21] MEDS: FAMOTIDINE 20 MG (PEPCID) TABLET PO SCH ×2 (08:52→20:26)
--- NOTE | 2021-12-21 13:07 | Progress Note - Cardiology ---
Cardiology SOAP Progress Note Subjective: Lying in bed No c/o CP, SOB or palpitations States he feels good Objective: I&O/Vital Signs 12/22/21 12/22/21 12/22/21 12/22/21 00:00 07:27 08:05 08:18 Temp 36.7 36.5 Pulse 74 75 Resp 18 18 B/P (MAP) 105/58 (74) 126/63 (84) Pulse Ox 92 90 94 O2 Delivery Nasal Cannula Nasal Cannula Nasal Cannula O2 Flow Rate 2.00 2.00 2.00 2.00 12/22/21 00:00 Intake Total 2140 ml Output Total 1700 ml Balance 440 ml Constitutional: AAO x 3, well-developed, well-nourished Respiratory: No accessory muscle use, No respiratory distress; chest expansion is symmetric, chest is bilaterally symmetric, lungs clear to auscultation, other (diminished bases with poor inspiratory effort) Cardiovascular: regular rate-rhythm; No JVD; S1 and S2 Gastrointestional: No tender; soft, round; No guarding Extremities: no lower extremity edema bilateral Neurologic/Psychiatric: grossly intact (moves all extremities) Skin: other (wound with packing in it to the occipital region of his head) Results/Procedures: Labs Laboratory Tests 12/22/21 05:11: White Blood Count 2.9L, Red Blood Count 3.32L, Hemoglobin 8.0L, Hematocrit 28L, Mean Corpuscular Volume 83, Mean Corpuscular Hemoglobin 24L, Mean Corpuscular Hemoglobin Concent 29L, Red Cell Distribution Width 17.2H, Platelet Count 115L, Mean Platelet Volume 10.0, Immature Granulocyte % (Auto) 0, Neutrophils (%) (Auto) 43, Lymphocytes (%) (Auto) 36, Monocytes (%) (Auto) 8, Eosinophils (%) (Auto) 12H, Basophils (%) (Auto) 1, Neutrophils # (Auto) 1.2L, Lymphocytes # (Auto) 1.0, Monocytes # (Auto) 0.2, Eosinophils # (Auto) 0.3, Basophils # (Auto) 0.0, Immature Granulocyte # (Auto) 0.0, Sodium Level 139, Potassium Level 3.7, Chloride Level 110H, Carbon Dioxide Level 23, Anion Gap 6, Blood Urea Nitrogen 7, Creatinine 0.60, Estimat Glomerular Filtration Rate 112, BUN/Creatinine Ratio 12, Glucose Level 86, Calcium Level 7.6L, Corrected Calcium 9.0, Total Bilirubin 0.6, Aspartate Amino Transf (AST/SGOT) 25, Alanine Aminotransferase (ALT/SGPT) 12, Alkaline Phosphatase 88, Total Protein 5.1L, Albumin 2.2L Microbiology 12/18/21 Gram Stain - Final, Complete 12/18/21 Wound Culture - Final, Complete Staphylococcus epidermidis Staphylococcus simulans Staphylococcus capitis Usual Mixed Skin Kate 12/16/21 Urine Culture - Final, Complete Mixed Bacterial Kate 12/16/21 Blood Culture - Preliminary, Resulted No growth A/P: Assessment: Chest pain, reproducible with palpation, likely musculoskeletal - no evidence of ACS - Echo on 12/18/21: LVEF 60-65%, mildly dilated LA, PASP 30-35 mmHg UTI with sepsis - management per Medical services Wound to his head with dry packing - management per medical services Pancytopenia - management per Medical services Esophageal varicies - reports banding and stenting x 2 at [facility] last year Cirrhosis of the liver - Hep C+ Schizophrenia Anxiety/depression Methamphetamine use - cessation advised - last usage right before admission to hospital per pt report ETOH abuse Plan: * Cardiac status appears clinically stable * Cardiac risk factor mod advised * Replace potassium * Ok to d/c from cardiac standpoint Clinical Quality Measures AMI/AHF: ASA po Prior to arrival: SIDDHARTHA Mukherjee Dec 21, 2021 13:07
--- NOTE | 2021-12-21 13:28 | Progress Note - Hospitalist ---
AURELIANO SINGH 12/21/21 1328: Subjective HPI/CC On Admission Date Seen by Provider: Dec 21, 2021 Time Seen by Provider: 11:20 Chest Pain and Heat Exhaustion Subjective/Events-last exam Patient reports feeling well this morning. He denies any acute events overnight. Denies any further episodes of chest pain and no shortness of breath. Review of Systems General: No Chills, No Night Sweats; Fatigue HEENT: Head Aches; No Visual Changes, No Dysphasia, No Sore Throat Pulmonary: No Dyspnea, No Cough, No Pleuritic Chest Pain Cardiovascular: No: Chest Pain, Palpitations Gastrointestinal: No: Nausea, Vomiting, Diarrhea, Constipation Genitourinary: No Dysuria, No Hematuria Musculoskeletal: No: back pain Neurological: Confusion; No: Change in speech Objective Exam Vital Signs Vital Signs Date Time Temp Pulse Resp B/P (MAP) Pulse Ox O2 Delivery O2 Flow Rate FiO2 12/21/21 08:00 Nasal Cannula 2.00 12/21/21 07:30 37.0 70 18 110/58 (75) 90 12/19/21 09:39 21 Capillary Refill : General Appearance: No Apparent Distress HEENT: Normal ENT Inspection; No Scleral Icterus (L), No Scleral Icterus (R) Neck: Full Range of Motion, Non Tender; No JVD Respiratory: Lungs Clear, Normal Breath Sounds, No Respiratory Distress Cardiovascular: Regular Rate, Rhythm, No JVD Gastrointestinal: Normal Bowel Sounds, Non Tender Extremity: Normal Capillary Refill, Non Tender Neurologic/Psychiatric: Alert, No Motor/Sensory Deficits, Normal Mood/Affect Skin: Normal Color, Warm/Dry Results/Procedures Lab Laboratory Tests 12/21/21 05:28 Patient resulted labs reviewed. Assessment/Plan Assessment and Plan Assess & Plan/Chief Complaint Chest pain * EKG without acute changes, troponin x 2 negative. * Echo 12/19: normal systolic and apparent diastolic function with no pulmonary hypertension * Cardiology following appreciate recs. Heat exhaustion * Temperature continues to be normal. * Euvolemic and stable, d/c IVF and monitor. Hypoxemia * O2 sats in the low 90s on 2L NC * Duoneb BID Chronic wound of head * Wound care consult, does not appear clearly infected. Cefepime started in ER but discontinued. Cirrhosis Hypoxic brain injury Hepatic encephalopathy * History of with esophageal bleed in the past. * Continue Lactulose Schizophrenia * Per clinic record, attempts to connect with Psychiatry have been made multiple times and he has not attended appointments. * Last year in clinic was on Rexulti and reported voices were gone. Uncertain if he has been taking medications recently. Methamphetamine use History of alcohol abuse * EtOH negative on admit, monitor for withdrawal symptoms. Pancytopenia * Stable compared to last summer at clinic, suspect secondary to liver disease. DVT prophylaxis * Enoxaparin Dispo: patient amenable to hopeful transfer to [facility] and rehab. in the process of attempting to set up. Clinical Quality Measures AMI/AHF: ASA po Prior to arrival: No LIVIER CARBONE DO 12/22/21 0614: Subjective Subjective/Events-last exam Pt is sleeping Meth use on drug screen Social work consult for [facility] Review of Systems General: Fatigue Objective Exam General Appearance: No Apparent Distress, WD/WN, Chronically ill Respiratory: Lungs Clear, Normal Breath Sounds Cardiovascular: Regular Rate, Rhythm Assessment/Plan Assessment and Plan Assess & Plan/Chief Complaint wvp Supervisory-Addendum Brief Verification & Attestation Participated in pt care: history, MDM, physical Personally performed: exam, history, MDM, supervision of care Care discussed with: Medical Student Procedures: n/a Results interpretation: Verified all documentation Verification and Attestation of Medical Student E/M Service A medical student performed and documented this service in my presence. I reviewed and verified all information documented by the medical student and made modifications to such information, when appropriate. I personally performed the physical exam and medical decision making. Livier Carbone, Dec 22, 2021,06:13 AURELIANO SINGH Dec 21, 2021 13:28 LIVIER CARBONE DO Dec 22, 2021 06:14
[2021-12-21] MEDS: ENOXAPARIN 40 MG/0.4 ML (LOVENOX) SYR SQ SCH (16:09)
[2021-12-21] MEDS: ACETAMINOPHEN 325 MG TABLET PO PRN (16:09)
[2021-12-21 16:25] VITALS: BP 94/56
--- NOTE | 2021-12-21 17:34 | Physician Query Clarification ---
Physician Query-General Query to Physician: The medical record reflects the following clinical scenario: The patient, in the setting of History/Risk factors, Admitted with Heat Exhaustion, UTI, Traumatic head wound chronic, Clinical Findings Admission VS/Labs: HR 103, RR 20, BP 128/69, SpO2 92% sat on room air T 38.6, WBC 5.5, PCT 0.10, Lactic Acid 2.13 the 2.19, Cultures from day of admission: BC with Staph Coag neg, Urine Culture Mixed bacterial Sean (Growth consistent with normal urethral sean and/or colonizing bacteria), Culture from Head wound Staphylococcus epidermidis, Staphylococcus simulans, Staphylococcus, Capitis, Treatment ER: NS 3L, Cefepime IV, Question: Do you agree with the impression of Sepsis per Dr. Duarte Whitaker and Dr. Nabor Wellington? 1. Yes; will document Sepsis in the Progress Notes 2. No; will continue current documentation in the Progress Notes 3. Other; will document explanation of clinical findings 4. Clinically undetermined; no explanation for clinical findings Please clarify and document your clinical opinion in the Progress Notes and Discharge Summary including the definitive and/or presumptive diagnosis, (suspected or probable), related to the above clinical findings. Please include clinical findings supporting your diagnosis. In responding to this query, please exercise your independent professional judgment. The purpose of this communication is to more accurately reflect the complexity of your patients condition. The fact that a question is asked does not imply that any particular answer is desired or expected. Thank you for timely response to this clarification. Kylah Jimenez, MSN, RN Clinical Internet Developer [phone] [email or web address] PHYSICIAN RESPONSE: Based on the clinical findings in the record, please respond to the query above on this document as an addendum. Physician Response: Physician Response 2, no clear findings of infectious source If you have questions please contact: Sleep Tech: Ext: Thank you for your time and cooperation. Clinical Internet Developer/Sleep Tech This is a permanent part of the medical recor d KYLAH JIMENEZ Dec 21, 2021 17:34 JIMI JARQUIN MD Dec 23, 2021 16:05 MALACHI JETER MD Dec 24, 2021 20:16
--- NOTE | 2021-12-21 22:17 | Progress Note - Cardiology ---
Cardiology SOAP Progress Note Subjective: No cp or palp or syncope or shortness of breath at rest Gen weakness and malaise present Objective: I&O/Vital Signs 12/21/21 12/21/21 16:25 18:52 Temp 36.7 Pulse 82 Resp 20 B/P (MAP) 94/56 (69) Pulse Ox 92 90 O2 Delivery Nasal Cannula Nasal Cannula O2 Flow Rate 2.00 2.00 12/21/21 00:00 Intake Total 2140 ml Output Total 4100 ml Balance -1960 ml Constitutional: AAO x 3, well-developed, well-nourished Respiratory: No accessory muscle use, No respiratory distress; chest expansion is symmetric, chest is bilaterally symmetric, lungs clear to auscultation, other (diminished bases with poor inspiratory effort) Cardiovascular: regular rate-rhythm; No JVD; S1 and S2, systolic murmur (soft GISSELLE at card base) Gastrointestional: No tender; soft, round; No guarding Extremities: no lower extremity edema bilateral Neurologic/Psychiatric: other (moves all limbs equally) Skin: other (wound with packing in it to the occipital region of his head) Results/Procedures: Labs Laboratory Tests 12/21/21 05:28: White Blood Count 3.8L, Red Blood Count 3.40L, Hemoglobin 8.3L, Hematocrit 28L, Mean Corpuscular Volume 84, Mean Corpuscular Hemoglobin 24L, Mean Corpuscular Hemoglobin Concent 29L, Red Cell Distribution Width 17.3H, Platelet Count 133, Mean Platelet Volume 10.0, Immature Granulocyte % (Auto) 0, Neutrophils (%) (Auto) 50, Lymphocytes (%) (Auto) 33, Monocytes (%) (Auto) 9, Eosinophils (%) (Auto) 7, Basophils (%) (Auto) 1, Neutrophils # (Auto) 1.9, Lymphocytes # (Auto) 1.2, Monocytes # (Auto) 0.3, Eosinophils # (Auto) 0.3, Basophils # (Auto) 0.1, Immature Granulocyte # (Auto) 0.0, Percent Immature Platelet Fraction 1.8, Sodium Level 141, Potassium Level 3.4L, Chloride Level 112H, Carbon Dioxide Level 21, Anion Gap 8, Blood Urea Nitrogen 6L, Creatinine 0.61, Estimat Glomerular Filtration Rate 111, BUN/Creatinine Ratio 10, Glucose Level 89, Calcium Level 7.8L, Corrected Calcium 9.2, Total Bilirubin 0.6, Aspartate Amino Transf (AST/SGOT) 24, Alanine Aminotransferase (ALT/SGPT) 15, Alkaline Phosphatase 86, Total Protein 5.2L, Albumin 2.3L Microbiology 12/18/21 Gram Stain - Final, Resulted 12/18/21 Wound Culture - Preliminary, Resulted Staphylococcus epidermidis Staphylococcus simulans Staphylococcus capitis Usual Mixed Skin Kate 12/16/21 Urine Culture - Final, Complete Mixed Bacterial Kate 12/16/21 Blood Culture - Preliminary, Resulted No growth A/P: Assessment: Chest pain, reproducible with palpation, likely musculoskeletal - no evidence of ACS - Echo on 12/18/21: LVEF 60-65%, mildly dilated LA, PASP 30-35 mmHg UTI with sepsis - management per Medical services Wound to his head with dry packing - management per medical services Pancytopenia - management per Medical services Esophageal varicies - reports banding and stenting x 2 at [facility] last year Cirrhosis of the liver - Hep C+ Schizophrenia Anxiety/depression Methamphetamine use - cessation advised - last usage right before admission to hospital per pt report ETOH abuse Plan: * Cardiac status appears clinically stable * Cardiac risk factor mod advised * Replace potassium * Ok to d/c from cardiac standpoint Clinical Quality Measures AMI/AHF: ASA po Prior to arrival: FRANCESCO Ribeiro MD FACP [facility] CCDS Dec 21, 2021 22:17
[2021-12-22] VITALS: BP 105/58
[2021-12-22] MEDS: ACETAMINOPHEN 325 MG TABLET PO PRN ×3 (00:03→23:48)
[2021-12-22 05:22] LABS: BASOPHILS % (AUTO) 1 % (0-10); EOSINOPHILS # (AUTO) 0.3 10^3/uL (0.0-0.3); EOSINOPHILS % (AUTO) 12 % (0-10); HEMATOCRIT 28 % (40-54); LYMPHOCYTES % (AUTO) 36 % (12-44); MEAN CORPUSCULAR HEMOGLOBIN 24 pg (25-34); MEAN CORPUSCULAR HGB CONC 29 g/dL (32-36); MEAN CORPUSCULAR VOLUME 83 fL (80-99); MONOCYTES # (AUTO) 0.2 10^3/uL (0.0-1.0); MONOCYTES % (AUTO) 8 % (0-12); NEUTROPHILS # (AUTO) 1.2 10^3/uL (1.8-7.8); NEUTROPHILS % (AUTO) 43 % (42-75); PLATELET COUNT 115 10^3/uL (130-400); WHITE BLOOD COUNT 2.9 10^3/uL (4.3-11.0)
[2021-12-22 05:37] LABS: ALBUMIN 2.2 GM/DL (3.2-4.5); POTASSIUM 3.7 MMOL/L (3.6-5.0)
[2021-12-22 05:39] LABS: CALCIUM 7.6 MG/DL (8.5-10.1)
[2021-12-22 05:40] LABS: TOTAL PROTEIN 5.1 GM/DL (6.4-8.2)
[2021-12-22 05:42] LABS: BILIRUBIN,TOTAL 0.6 MG/DL (0.1-1.0)
[2021-12-22 05:43] LABS: CREATININE SERUM 0.6 MG/DL (0.60-1.30)
[2021-12-22] MEDS: RT-ALBUTEROL/IPRATROPIUM 3 ML (DUONEB) VIAL INH SCH ×2 (07:26→18:32)
[2021-12-22 08:18] VITALS: BP 126/63
[2021-12-22] MEDS: LACTULOSE SYRUP 10GM/15ML (ENULOSE) 30ML UDC PO SCH ×2 (08:46→20:12)
[2021-12-22] MEDS: FAMOTIDINE 20 MG (PEPCID) TABLET PO SCH ×2 (08:46→20:12)
--- NOTE | 2021-12-22 10:59 | Progress Note - Hospitalist ---
Subjective HPI/CC On Admission Date Seen by Provider: Dec 22, 2021 Chest Pain and Heat Exhaustion Subjective/Events-last exam He is now ready for DC to snf facility Pt is doing well No significant issues Still sleeping off his meth use Awaiting [facility] for placement Review of Systems General: Fatigue, Malaise Objective Exam Vital Signs Vital Signs Date Time Temp Pulse Resp B/P (MAP) Pulse Ox O2 Delivery O2 Flow Rate FiO2 12/22/21 23:44 36.6 88 18 108/59 (75) 94 Nasal Cannula 2.00 12/19/21 09:39 21 Capillary Refill : General Appearance: No Apparent Distress, WD/WN, Chronically ill Respiratory: Lungs Clear Cardiovascular: Regular Rate, Rhythm Neurologic/Psychiatric: Alert, Oriented x3 Results/Procedures Lab Patient resulted labs reviewed. Assessment/Plan Assessment and Plan Assess & Plan/Chief Complaint nhp Clinical Quality Measures AMI/AHF: ASA po Prior to arrival: LALI Rich DO Dec 22, 2021 10:59
--- NOTE | 2021-12-22 11:05 | Progress Note - Cardiology ---
Cardiology SOAP Progress Note Subjective: In bed No c/o CP, SOB or palpitations Objective: I&O/Vital Signs 12/22/21 12/23/21 12/23/21 12/23/21 23:44 07:34 08:00 08:06 Temp 36.6 37.1 Pulse 88 63 Resp 18 19 B/P (MAP) 108/59 (75) 120/64 (82) Pulse Ox 94 94 96 O2 Delivery Nasal Cannula Nasal Cannula Nasal Cannula Nasal Cannula O2 Flow Rate 2.00 2.00 2.00 2.00 12/22/21 23:59 Intake Total 2570 ml Output Total 2850 ml Balance -280 ml Constitutional: AAO x 3, well-developed, well-nourished Respiratory: No accessory muscle use, No respiratory distress; chest expansion is symmetric, chest is bilaterally symmetric, lungs clear to auscultation, other (diminished bases with poor inspiratory effort) Cardiovascular: regular rate-rhythm; No JVD; S1 and S2, systolic murmur (soft GISSELLE at card base) Gastrointestional: No tender; soft, round; No guarding Extremities: no lower extremity edema bilateral Neurologic/Psychiatric: other (moves all limbs equally) Skin: other (wound with packing in it to the occipital region of his head) Results/Procedures: Labs Laboratory Tests 12/23/21 05:44: White Blood Count 2.6L, Red Blood Count 3.31L, Hemoglobin 7.9L, Hematocrit 27L, Mean Corpuscular Volume 81, Mean Corpuscular Hemoglobin 24L, Mean Corpuscular Hemoglobin Concent 30L, Red Cell Distribution Width 17.2H, Platelet Count 115L, Mean Platelet Volume 10.7, Immature Granulocyte % (Auto) 0, Neutrophils (%) (Auto) 41L, Lymphocytes (%) (Auto) 38, Monocytes (%) (Auto) 8, Eosinophils (%) (Auto) 13H, Basophils (%) (Auto) 1, Neutrophils # (Auto) 1.1L, Lymphocytes # (Auto) 1.0, Monocytes # (Auto) 0.2, Eosinophils # (Auto) 0.3, Basophils # (Auto) 0.0, Immature Granulocyte # (Auto) 0.0, Percent Immature Platelet Fraction 1.6, Sodium Level 139, Potassium Level 3.5L, Chloride Level 109H, Carbon Dioxide Level 25, Anion Gap 5, Blood Urea Nitrogen 9, Creatinine 0.62, Estimat Glomerular Filtration Rate 111, BUN/Creatinine Ratio 15, Glucose Level 90, Calcium Level 7.9L, Corrected Calcium 9.3, Total Bilirubin 0.5, Aspartate Amino Transf (AST/SGOT) 25, Alanine Aminotransferase (ALT/SGPT) 12, Alkaline Phosphatase 92, Total Protein 5.2L, Albumin 2.3L Microbiology 12/18/21 Gram Stain - Final, Complete 12/18/21 Wound Culture - Final, Complete Staphylococcus epidermidis Staphylococcus simulans Staphylococcus capitis Usual Mixed Skin Kate 12/16/21 Urine Culture - Final, Complete Mixed Bacterial Kate 12/16/21 Blood Culture - Final, Complete No growth A/P: Assessment: Chest pain, reproducible with palpation, likely musculoskeletal - no evidence of ACS - Echo on 12/18/21: LVEF 60-65%, mildly dilated LA, PASP 30-35 mmHg UTI with sepsis - management per Medical services Wound to his head with dry packing - management per medical services Pancytopenia - management per Medical services Esophageal varicies - reports banding and stenting x 2 at [facility] last year Cirrhosis of the liver - Hep C+ Schizophrenia Anxiety/depression Methamphetamine use - cessation advised - last usage right before admission to hospital per pt report ETOH abuse Plan: * Cardiac status appears clinically stable * Cardiac risk factor mod advised * Transfer to LTC/SNF pending * Ok to d/c from cardiac standpoint Clinical Quality Measures AMI/AHF: ASA po Prior to arrival: SIDDHARTHA Mukherjee Dec 22, 2021 11:04
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
[2021-12-22 15:48] VITALS: BP 115/55
[2021-12-22] MEDS: ENOXAPARIN 40 MG/0.4 ML (LOVENOX) SYR SQ SCH (16:20)
[2021-12-22 16:39] VITALS: BP 115/55
--- NOTE | 2021-12-22 19:25 | Progress Note - Cardiology ---
Cardiology SOAP Progress Note Subjective: No cp or palp or syncope or shortness of breath No n/v/d Objective: I&O/Vital Signs 12/22/21 12/22/21 12/22/21 12/22/21 07:27 08:05 08:18 15:48 Temp 36.5 36.8 Pulse 75 80 Resp 18 18 B/P (MAP) 126/63 (84) 115/55 (75) Pulse Ox 90 94 94 O2 Delivery Nasal Cannula Nasal Cannula Nasal Cannula O2 Flow Rate 2.00 2.00 2.00 2.00 12/22/21 12/22/21 16:39 18:32 Temp 36.8 Pulse 80 Pulse Ox 94 91 O2 Delivery Nasal Cannula O2 Flow Rate 2.00 12/22/21 00:00 Intake Total 2140 ml Output Total 1700 ml Balance 440 ml Constitutional: AAO x 3, well-developed, well-nourished Respiratory: No accessory muscle use, No respiratory distress; chest expansion is symmetric, chest is bilaterally symmetric, lungs clear to auscultation, other (diminished bases with poor inspiratory effort) Cardiovascular: regular rate-rhythm; No JVD; S1 and S2, systolic murmur (soft GISSELLE at card base) Gastrointestional: No tender; soft, round; No guarding Extremities: no lower extremity edema bilateral Neurologic/Psychiatric: other (moves all limbs equally) Skin: other (wound with packing in it to the occipital region of his head) Results/Procedures: Labs Laboratory Tests 12/22/21 05:11: White Blood Count 2.9L, Red Blood Count 3.32L, Hemoglobin 8.0L, Hematocrit 28L, Mean Corpuscular Volume 83, Mean Corpuscular Hemoglobin 24L, Mean Corpuscular Hemoglobin Concent 29L, Red Cell Distribution Width 17.2H, Platelet Count 115L, Mean Platelet Volume 10.0, Immature Granulocyte % (Auto) 0, Neutrophils (%) (Auto) 43, Lymphocytes (%) (Auto) 36, Monocytes (%) (Auto) 8, Eosinophils (%) (Auto) 12H, Basophils (%) (Auto) 1, Neutrophils # (Auto) 1.2L, Lymphocytes # (Auto) 1.0, Monocytes # (Auto) 0.2, Eosinophils # (Auto) 0.3, Basophils # (Auto) 0.0, Immature Granulocyte # (Auto) 0.0, Sodium Level 139, Potassium Level 3.7, Chloride Level 110H, Carbon Dioxide Level 23, Anion Gap 6, Blood Urea Nitrogen 7, Creatinine 0.60, Estimat Glomerular Filtration Rate 112, BUN/Creatinine Ratio 12, Glucose Level 86, Calcium Level 7.6L, Corrected Calcium 9.0, Total Bilirubin 0.6, Aspartate Amino Transf (AST/SGOT) 25, Alanine Aminotransferase (ALT/SGPT) 12, Alkaline Phosphatase 88, Total Protein 5.1L, Albumin 2.2L Microbiology 12/18/21 Gram Stain - Final, Complete 12/18/21 Wound Culture - Final, Complete Staphylococcus epidermidis Staphylococcus simulans Staphylococcus capitis Usual Mixed Skin Kate 12/16/21 Urine Culture - Final, Complete Mixed Bacterial Kate 12/16/21 Blood Culture - Final, Complete No growth Laboratory Tests 12/21/21 05:28 12/22/21 05:11 A/P: Assessment: Chest pain, reproducible with palpation, likely musculoskeletal - no evidence of ACS - Echo on 12/18/21: LVEF 60-65%, mildly dilated LA, PASP 30-35 mmHg UTI with sepsis - management per Medical services Wound to his head with dry packing - management per medical services Pancytopenia - management per Medical services Esophageal varicies - reports banding and stenting x 2 at [facility] last year Cirrhosis of the liver - Hep C+ Schizophrenia Anxiety/depression Methamphetamine use - cessation advised - last usage right before admission to hospital per pt report ETOH abuse Plan: * Cardiac status appears clinically stable * Cardiac risk factor mod advised * Transfer to LTC/SNF pending * Ok to d/c from cardiac standpoint Clinical Quality Measures AMI/AHF: ASA po Prior to arrival: FRANCESCO Ribeiro MD FACP [facility] CCDS Dec 22, 2021 19:25
[2021-12-22 23:44] VITALS: BP 108/59
[2021-12-23 05:54] LABS: EOSINOPHILS % (AUTO) 13 % (0-10); HEMOGLOBIN 7.9 g/dL (13.3-17.7)
[2021-12-23 05:56] LABS: BASOPHILS % (AUTO) 1 % (0-10); EOSINOPHILS # (AUTO) 0.3 10^3/uL (0.0-0.3); HEMATOCRIT 27 % (40-54); LYMPHOCYTES % (AUTO) 38 % (12-44); MEAN CORPUSCULAR HEMOGLOBIN 24 pg (25-34); MEAN CORPUSCULAR HGB CONC 30 g/dL (32-36); MEAN CORPUSCULAR VOLUME 81 fL (80-99); MEAN PLATELET VOLUME 10.7 fL (9.0-12.2); MONOCYTES # (AUTO) 0.2 10^3/uL (0.0-1.0); MONOCYTES % (AUTO) 8 % (0-12); NEUTROPHILS # (AUTO) 1.1 10^3/uL (1.8-7.8); NEUTROPHILS % (AUTO) 41 % (42-75); PLATELET COUNT 115 10^3/uL (130-400); WHITE BLOOD COUNT 2.6 10^3/uL (4.3-11.0)
[2021-12-23 06:04] LABS: ALBUMIN 2.3 GM/DL (3.2-4.5); POTASSIUM 3.5 MMOL/L (3.6-5.0)
[2021-12-23 06:05] LABS: CALCIUM 7.9 MG/DL (8.5-10.1)
[2021-12-23 06:07] LABS: TOTAL PROTEIN 5.2 GM/DL (6.4-8.2)
[2021-12-23 06:08] LABS: BILIRUBIN,TOTAL 0.5 MG/DL (0.1-1.0)
[2021-12-23 06:10] LABS: CREATININE SERUM 0.62 MG/DL (0.60-1.30)
[2021-12-23] MEDS: RT-ALBUTEROL/IPRATROPIUM 3 ML (DUONEB) VIAL INH SCH (07:34)
[2021-12-23 08:06] VITALS: BP 120/64
--- NOTE | 2021-12-23 09:33 | Progress Note - Hospitalist ---
Subjective HPI/CC On Admission Date Seen by Provider: Dec 23, 2021 Chest Pain and Heat Exhaustion Objective Exam Vital Signs Vital Signs Date Time Temp Pulse Resp B/P (MAP) Pulse Ox O2 Delivery O2 Flow Rate FiO2 12/23/21 16:08 36.9 79 18 107/62 (77) 91 Nasal Cannula 2.00 12/19/21 09:39 21 Capillary Refill : Results/Procedures Lab Patient resulted labs reviewed. Assessment/Plan Assessment and Plan Assess & Plan/Chief Complaint ksp Clinical Quality Measures AMI/AHF: ASA po Prior to arrival: LALI Rich DO Dec 23, 2021 09:33
[2021-12-23] MEDS: FAMOTIDINE 20 MG (PEPCID) TABLET PO SCH (10:05)
[2021-12-23] MEDS: LACTULOSE SYRUP 10GM/15ML (ENULOSE) 30ML UDC PO SCH (10:05)
[2021-12-23] MEDS: ACETAMINOPHEN 325 MG TABLET PO PRN (10:05)
--- NOTE | 2021-12-23 11:49 | Physical Therapy Daily Note ---
PT Daily Note-Current Subjective Patient in bed pre tx, agrees to PT, has unrated pain in head. Appearance Patient in recliner post tx with nurse call, phone, tray, all needs met. Mental Status Patient Orientation: Person, Place, Situation Attachments: Oxygen Transfers SCALE: Activities may be completed with or without assistive devices. 2-Lapgrpxnbz-omriuce completes the activity by him/herself with no assistance from a helper. 5-Set-up or Clean-up Assistance-helper sets up or cleans up; patient completes activity. [place] assists only prior to or following the activity. 4-Supervision or Touching Assistance-helper provides verbal cues and/or touching/steadying and/or contact guard assistance as patient completes activity. Assistance may be provided throughout the activity or intermittently. 3-Partial/Moderate Assistance-helper does LESS THAN HALF the effort. [place] lifts, holds or supports trunk or limbs, but provides less than half the effort. 2-Substantial/Maximal Assistance-helper does MORE THAN HALF the effort. [place] lifts or holds trunk or limbs and provides more than half the effort. 6-Bksjrwezn-stcphe does ALL the effort. Patient does none of the effort to complete the activity. Or, the assistance of 2 or more helpers is required for the patient to complete the activity. If activity was not attempted, code reason: 7-Patient Refused. 9-Not Applicable-not attempted and the patient did not perform the activity before the current illness, exacerbation or injury. 10-Not Attempted due to Environmental Limitations-(lack of equipment, weather restraints, etc.). 88-Not Attempted due to Medical Conditions or Safety Concerns. Roll Left & Right (QC): 6 Lying to Sitting/Side of Bed(Q: 6 Sit to Stand (QC): 4 Chair/Wdw-ra-Fjgaw Xfer(QC): 4 SBA for transfers Gait Training Does the Patient Walk?: Yes Distance: 800' Walk 10 feet (QC): 4 Walk 50 ft with 2 Turns(QC): 4 Walk 150 ft (QC): 4 Gait Persons Needed: 1 Gait Assistive Device: FWW SBA, brisk ambulation, no LOB Exercises Seated Therapy Exercises: Ankle pumps, Long arc quads Seated Reps: 20 Treatments bed mobility and transfers, ambulation, LE exercise Assessment Current Status: Fair Progress improving endurance PT Charge Hand Goals Snf Goals PT Snf Goals Time Frame: Dec 29, 2021 Roll Left & Right (QC): 6 Sit to Lying (QC): 6 Lying-Sitting on Side/Bed(QC): 6 Sit to Stand (QC): 6 Chair/Ncl-pa-Ceseq Xfer(QC): 6 Walk 10 feet (QC): 6 Walk 50ft with 2 Turns (QC): 6 Walk 150 ft (QC): 6 PT Plan Problem List Problem List: Activity Tolerance, Functional Strength, Safety, Balance, Gait, Transfer, ROM Treatment/Plan Treatment Plan: Continue Plan of Care Treatment Plan: Bed Mobility, Education, Functional Activity Bud, Functional Strength, Gait, Safety, Therapeutic Exercise, Transfers Treatment Duration: Dec 29, 2021 Frequency: 6 times per week Estimated Hrs Per Day: .25 hour per day Patient and/or Family Agrees t: Yes Safety Risks/Education Patient Education: Gait Training, Transfer Techniques, Correct Positioning, Safety Issues Teaching Recipient: Patient Teaching Methods: Demonstration, Discussion Response to Teaching: Reinforcement Needed Time/GCodes Time In: 44 Time Out: 952 Total Billed Treatment Time: 9 Total Billed Treatment 1 visit GT 9' SOLO HEATH PT Dec 23, 2021 11:49
[2021-12-23] MEDS ORDERED: SODI475I IR (14:14)
[2021-12-23] MEDS ORDERED: FAMO20TA5 PO (14:14)
[2021-12-23] MEDS ORDERED: ACET325T49 PO (14:14)
--- NOTE | 2021-12-23 14:15 | Discharge Summary ---
Discharge Summary Hospital Course Was the Problem List Reviewed?: Yes Problems/Dx: (1) Chest pain Status: Acute Qualifiers: Qualified Codes: R07.9 - Chest pain, unspecified (2) Sepsis Status: Acute Qualifiers: Qualified Codes: A41.9 - Sepsis, unspecified organism (3) Heat exhaustion Status: Acute Qualifiers: Qualified Codes: T67.5XXA - Heat exhaustion, unspecified, initial encounter (4) Pancytopenia Status: Chronic Hospital Course Date of Admission: Dec 18, 2021 at 16:52 Admission Diagnosis : Family Physician/Provider: Center/,[facility] Date of Discharge: 12/23/21 Discharge Diagnosis: [ ] Hospital Course: Pt had a lengthy hospital course for 6 days prior before going to [facility] for terminal carman care. He was admitted for sepsis, heat exhaustion, and chest pain. Everything resolved. Wound on scalp was maintained with simple dressings. Pt was deemed stable for [facility]. Overall fci prognosis is poor due to meth use. Labs and Pending Lab Test: Laboratory Tests 12/23/21 05:44: White Blood Count 2.6L, Red Blood Count 3.31L, Hemoglobin 7.9L, Hematocrit 27L, Mean Corpuscular Volume 81, Mean Corpuscular Hemoglobin 24L, Mean Corpuscular Hemoglobin Concent 30L, Red Cell Distribution Width 17.2H, Platelet Count 115L, Mean Platelet Volume 10.7, Immature Granulocyte % (Auto) 0, Neutrophils (%) (Auto) 41L, Lymphocytes (%) (Auto) 38, Monocytes (%) (Auto) 8, Eosinophils (%) (Auto) 13H, Basophils (%) (Auto) 1, Neutrophils # (Auto) 1.1L, Lymphocytes # (Auto) 1.0, Monocytes # (Auto) 0.2, Eosinophils # (Auto) 0.3, Basophils # (Auto) 0.0, Immature Granulocyte # (Auto) 0.0, Percent Immature Platelet Fraction 1.6, Sodium Level 139, Potassium Level 3.5L, Chloride Level 109H, Carbon Dioxide Level 25, Anion Gap 5, Blood Urea Nitrogen 9, Creatinine 0.62, Estimat Glomerular Filtration Rate 111, BUN/Creatinine Ratio 15, Glucose Level 90, Calcium Level 7.9L, Corrected Calcium 9.3, Total Bilirubin 0.5, Aspartate Amino Transf (AST/SGOT) 25, Alanine Aminotransferase (ALT/SGPT) 12, Alkaline Phosphatase 92, Total Protein 5.2L, Albumin 2.3L Microbiology 12/18/21 Gram Stain - Final, Complete 12/18/21 Wound Culture - Final, Complete Staphylococcus epidermidis Staphylococcus simulans Staphylococcus capitis Usual Mixed Skin Kate 12/16/21 Urine Culture - Final, Complete Mixed Bacterial Kate 12/16/21 Blood Culture - Final, Complete No growth Home Meds Active Vashe Wound Therapy Solution (Sodium Chlor/Hypochlorous Acid) 0.033 % Irrig.soln 0 Ml IR UD cleanse wound daily Famotidine 20 Mg Tablet 20 Mg PO BID Acetaminophen 325 Mg Tablet 650 Mg PO Q6H PRN Reported Tylenol Extra Strength (Acetaminophen) 500 Mg Tablet 2,500 Mg PO Q8H PRN TAKES 5 (500MG) TABS Assessment/Pt Instructions pcp 1 week Discharge Planning: <30 minutes discharge planning Discharge Instructions Discharge Diet: No Restrictions Discharge Physical Examination Vital Signs Vital Signs Date Time Temp Pulse Resp B/P (MAP) Pulse Ox O2 Delivery O2 Flow Rate FiO2 12/23/21 08:06 37.1 63 19 120/64 (82) 96 Nasal Cannula 2.00 12/19/21 09:39 21 General Appearance: No Apparent Distress, WD/WN, Chronically ill Allergies: Coded Allergies: NSAIDS (Non-Steroidal Anti-Inflamma (Verified Allergy, Unknown, 11/28/19) Discharge Summary Date of Admission Dec 18, 2021 at 16:52 Date of Discharge Discharge Date: Dec 23, [address] [facility] Clinical Quality Measures AMI/AHF: ASA po Prior to arrival: LALI Rich DO Dec 23, 2021 14:15
[2021-12-23 16:08] VITALS: BP 107/62
[2021-12-23] MEDS: ENOXAPARIN 40 MG/0.4 ML (LOVENOX) SYR SQ SCH (16:42)
== END 2021-12-23 18:00 | DRG 872 ==
LOC: EDUNIT# 16:56 → ER 16:58 → 4TH 20:31 → OBSVTOIN 12-18 16:52
PROVIDERS: ADMIT Family Medicine; ATTEND Internal Medicine
DX: A41.9 Sepsis, unspecified organism (principal); N39.0 Urinary tract infection, site not specified; D61.818 Other pancytopenia; E46 Unspecified protein-calorie malnutrition; F20.0 Paranoid schizophrenia; T67.5XXA Heat exhaustion, unspecified, initial encounter; R07.89 Other chest pain; K72.90 Hepatic failure, unspecified without coma; S01.00XD Unspecified open wound of scalp, subsequent encounter; K70.30 Alcoholic cirrhosis of liver without ascites; G40.909 Epilepsy, unspecified, not intractable, without status epilepticus; F15.10 Other stimulant abuse, uncomplicated; F10.10 Alcohol abuse, uncomplicated; F12.10 Cannabis abuse, uncomplicated; Z91.81 History of falling; Y90.0 Blood alcohol level of less than 20 mg/100 ml; Z68.23 Body mass index [BMI] 23.0-23.9, adult; W19.XXXD Unspecified fall, subsequent encounter; F90.9 Attention-deficit hyperactivity disorder, unspecified type; F32.A Depression, unspecified; Z88.8 Allergy status to other drugs, medicaments and biological substances; Z20.822 Contact with and (suspected) exposure to COVID-19
CPT/HCPCS: 36415; 70450; 71045; 72125; 80053; 80306; 80320; 81000; 82140; 82550; 83605; 84145; 84484; 85025; 85379; 85610; 85730; 86141; 87040; 87070; 87077; 87088; 87205; 87636; 93005; 93306; 94640; 94760; G0378

== ENCOUNTER 2021-12-31 13:48 | Emergency (ER) | payer MEDICARE, MEDICAID ==
[~2021-12-31] VITALS: Ht 175 cm; Wt 84.0 kg
[~2021-12-31 13:48] MED LIST changes: +ACET325T49 PO; +FAMO20TA5 PO; +SODI475I IR
[2021-12-31] MEDS ORDERED: FUROSEMIDE 40 MG/4 ML INJ (LASIX) IVP ONE (14:45)
--- NOTE | 2021-12-31 15:02 | ED Lower Extremity ---
General Chief Complaint: Lower Extremity Stated Complaint: BI LAT LEG SWELLING Nursing Triage Note: PT HAS SWELLING IN THE LOWER EXT STARTED ABOUT 5 DAYS AGO, LT HURTS MORE THAN RT. SOB FOR A COUPLE MONTHS. HX OF LIVER DISEASE. HX OF RECENT HEAD TRAUMA Source: patient Exam Limitations: no limitations History of Present Illness Date Seen by Provider: Dec 31, 2021 Time Seen by Provider: 13:51 Initial Comments 56-year-old male with past medical history of cirrhosis that was recently discharged from the hospital coming in due to lower extremity swelling. He says the swelling has been going on for quite some time but worsening over the past 5 days. It is worse in the left lower extremity compared to the right has more pain on the left side. Denies any history of DVT or PE. Has had chronic shortness of breath for several months which is unchanged. Denies any chest pain, recent surgery, hemoptysis, or any other concerns. He says he supposed to be taking a water pill which she has not been taking because he cannot afford it. He is otherwise denying any other acute complaints Allergies and Home Medications Allergies Coded Allergies: NSAIDS (Non-Steroidal Anti-Inflamma (Verified Allergy, Unknown, 11/28/19) Patient Home Medication List Home Medication List Reviewed: Yes Acetaminophen (Acetaminophen) 325 Mg Tablet, 650 MG PO Q6H PRN for PAIN-MILD (1- 4) Prescribed by: LALI CARBONE on 12/23/211413 Famotidine (Famotidine) 20 Mg Tablet, 20 MG PO BID Prescribed by: LALI CARBONE on 12/23/21 141 Sodium Chlor/Hypochlorous Acid (Vashe Wound Therapy Solution) 0.033 % Irrig.soln, 0 ML IR UD Prescribed by: LALI CARBONE on 12/23/21 141 Review of Systems Constitutional: No fever EENTM: No blurred vision Respiratory: No cough Cardiovascular: No chest pain Gastrointestinal: No abdominal pain Genitourinary: no symptoms reported Musculoskeletal: other (Leg swelling) Skin: no symptoms reported Psychiatric/Neurological: No Symptoms Reported All Other Systems Reviewed Negative Unless Noted: Yes Past Choxfts-Ornngd-Qhlmsl Hx Patient Social History Tobacco Use?: No Substance use?: Yes Substance type: Methamphetamine Alcohol Use?: Yes Alcohol type: Beer Alcohol Frequency: Once in a while Immunizations Up To Date First/Initial COVID19 Vaccinat: Pfizer Second COVID19 Vaccination Christiano: [employer] Third COVID19 Vaccination Date: [employer] Seasonal Allergies Seasonal Allergies: Yes Past Medical History Surgery/Hospitalization HX: LIVER DISEASE, DEGINERATIVE DISK DISEASE, HEART MURMMER, KIDNEY DISEASE Surgeries: Yes (R ANKLE, L KNEE, BILAT SHOULDER, ESOPHAGEAL BANDING; TIPS;) Abdominal, Adenoidectomy, Orthopedic, Tonsillectomy Respiratory: No Cardiac: No Neurological: Yes (CLAIMS HE HAS SEIZURES DUE TO LIVER DISEASE) Seizure Disorder Genitourinary: No Gastrointestinal: Yes (HX OF HEP C-TREATED; ESOPHAGEAL BANDING & STENTS X 2 ;TIPS PROCEDURE) Liver Disease/Jaundice, Esophageal Varices, Hepatitis Musculoskeletal: Yes Chronic Back Pain, Fractures Endocrine: No HEENT: Yes (POOR DENTITION) Loss of Vision: Denies Hearing Impairment: Denies Cancer: No Psychosocial: Yes (PSYCH ISSUES; POLYSUBSTANCE ABUSE) ADD/ADHD Integumentary: No Blood Disorders: No Adverse Reaction/Blood Tranf: No Family Medical History COPD, Other Conditions/Hx Physical Exam Vital Signs Vital Signs - First Documented 12/31/21 14:38 Temp 36.8 Pulse 87 Resp 20 B/P (MAP) 118/69 (85) Pulse Ox 94 O2 Delivery Room Air Capillary Refill : Less Than 3 Seconds Height, Weight, BMI Height: '" Weight: lbs. oz. kg; 27.00 BMI Method: General Appearance: WD/WN, no apparent distress HEENT: PERRL/EOMI, normal ENT inspection, pharynx normal Neck: non-tender, full range of motion, supple, normal inspection Cardiovascular: regular rate, rhythm, no murmur Respiratory: chest non-tender, lungs clear, normal breath sounds, no respiratory distress, no accessory muscle use Gastrointestinal: normal bowel sounds, non tender, soft; No distended, No guarding, No rebound Back: normal inspection, no CVA tenderness Legs: bilateral leg other (Bilateral lower extremity edema that is 2+, left greater than right, no significant redness or concerns for cellulitis) Neurologic/Tendon: normal sensation, normal motor functions Neurologic/Psychiatric: no motor/sensory deficits, alert, normal mood/affect Skin: normal color, warm/dry Lymphatic: no adenopathy Procedures/Interventions Date of ETT Placement: Jun 11, 2021 Time of ETT Placement: 151 Suture Size: 5-0 Progress/Results/Core Measures Results/Orders Lab Results Laboratory Tests Test 12/31/21 14:55 Range/Units White Blood Count 2.9 L 4.3-11.0 10^3/uL Red Blood Count 3.84 L 4.30-5.52 10^6/uL Hemoglobin 9.3 L 13.3-17.7 g/dL Hematocrit 31 L 40-54 % Mean Corpuscular Volume 81 80-99 fL Mean Corpuscular Hemoglobin 24 L 25-34 pg Mean Corpuscular Hemoglobin Concent 30 L 32-36 g/dL Red Cell Distribution Width 18.0 H 10.0-14.5 % Platelet Count 151 130-400 10^3/uL Mean Platelet Volume 9.0 9.0-12.2 fL Immature Granulocyte % (Auto) 0 % Neutrophils (%) (Auto) 44 42-75 % Lymphocytes (%) (Auto) 30 12-44 % Monocytes (%) (Auto) 13 H 0-12 % Eosinophils (%) (Auto) 12 H 0-10 % Basophils (%) (Auto) 1 0-10 % Neutrophils # (Auto) 1.3 L 1.8-7.8 X 10^3 Lymphocytes # (Auto) 0.9 L 1.0-4.0 X 10^3 Monocytes # (Auto) 0.4 0.0-1.0 X 10^3 Eosinophils # (Auto) 0.4 H 0.0-0.3 10^3/uL Basophils # (Auto) 0.0 0.0-0.1 10^3/uL Immature Granulocyte # (Auto) 0.0 0.0-0.1 10^3/uL Prothrombin Time 15.3 H 12.2-14.7 SEC INR Comment 1.2 0.8-1.4 Activated Partial Thromboplast Time 34 24-35 SEC Sodium Level 140 135-145 MMOL/L Potassium Level 3.9 3.6-5.0 MMOL/L Chloride Level 109 H 98-107 MMOL/L Carbon Dioxide Level 21 21-32 MMOL/L Anion Gap 10 5-14 MMOL/L Blood Urea Nitrogen 7 7-18 MG/DL Creatinine 0.70 0.60-1.30 MG/DL Estimat Glomerular Filtration Rate 107 BUN/Creatinine Ratio 10 Glucose Level 96 70-105 MG/DL Calcium Level 8.3 L 8.5-10.1 MG/DL Corrected Calcium 8.9 8.5-10.1 MG/DL Total Bilirubin 0.9 0.1-1.0 MG/DL Aspartate Amino Transf (AST/SGOT) 30 5-34 U/L Alanine Aminotransferase (ALT/SGPT) 15 0-55 U/L Alkaline Phosphatase 111 40-136 U/L Total Protein 7.1 6.4-8.2 GM/DL Albumin 3.3 3.2-4.5 GM/DL My Orders Orders - NAVID VERONICA MD Cbc With Automated Diff (12/31/21 14:45) Comprehensive Metabolic Panel (12/31/21 14:45) Protime With Inr (12/31/21 14:45) Partial Thromboplastin Time (12/31/21 14:45) Furosemide Injection (Lasix Injection) (12/31/21 14:45) Manual Differential (12/31/21 14:55) Medications Given in ED Current Medications Medications Dose Ordered Sig/Johny Route Start Time Stop Time Status Last Admin Dose Admin Furosemide 40 mg ONCE ONCE IVP 12/31/21 14:45 12/31/21 14:47 DC 12/31/21 15:05 40 MG Vital Signs/I&O 12/31/21 14:38 Temp 36.8 Pulse 87 Resp 20 B/P (MAP) 118/69 (85) Pulse Ox 94 O2 Delivery Room Air Blood Pressure Mean: 85 Progress Progress Note : Progress Note 56-year-old male with above history coming in due to lower extremity swelling. ABCs were intact and vitals were stable on presentation. Physical exam with lower extremity swelling, left greater than right. There were no signs of infection on my exam. Ultrasound was obtained and it is negative for any type of DVT. The patient had an echo recently showing no signs of heart failure. His kidney function is normal today. The lower extremity edema is likely dep endent in nature or secondary to his cirrhosis. Give him a dose of Lasix to try to help with that as well as a potassium supplement. The patient says he does not have any money for prescriptions right now. I will recommend he follows up with his doctor to see if they can try to work something out to get medications filled. He was then discharged home in stable condition with strict return precautions Departure Impression Primary Impression: Lower extremity edema Disposition: HOME, SELF-CARE Condition: Stable Departure-Patient Inst. Decision time for Depature: 16:09 Referrals: YESSICA MONTENEGRO MD (PCP/Family) Primary Care Physician Patient Instructions: Swelling Add. Discharge Instructions: I recommend elevating her legs at night. The swelling is either due to gravity or is likely due to your liver disease. Follow-up with your regular doctor to see if he can come up with a plan to try to afford medicines to lower the swelling. If he have significant redness on one side of your legs with a rash with fever then I want you to be seen by a doctor again. Work/School Note: Work Release Form Date Seen in the Emergency Department: Dec 31, 2021 Return to Work: Jan 01, 2022 Restrictions: No Restrictions NAVID VERONICA MD Dec 31, 2021 15:02
[2021-12-31 15:05] LABS: BASOPHILS % (AUTO) 1 % (0-10); EOSINOPHILS # (AUTO) 0.4 10^3/uL (0.0-0.3); EOSINOPHILS % (AUTO) 12 % (0-10); HEMATOCRIT 31 % (40-54); HEMOGLOBIN 9.3 g/dL (13.3-17.7); LYMPHOCYTES # (AUTO) 0.9 X 10^3 (1.0-4.0); LYMPHOCYTES % (AUTO) 30 % (12-44); MEAN CORPUSCULAR HEMOGLOBIN 24 pg (25-34); MEAN CORPUSCULAR HGB CONC 30 g/dL (32-36); MEAN CORPUSCULAR VOLUME 81 fL (80-99); MONOCYTES # (AUTO) 0.4 X 10^3 (0.0-1.0); MONOCYTES % (AUTO) 13 % (0-12); NEUTROPHILS # (AUTO) 1.3 X 10^3 (1.8-7.8); NEUTROPHILS % (AUTO) 44 % (42-75); PLATELET COUNT 151 10^3/uL (130-400); WHITE BLOOD COUNT 2.9 10^3/uL (4.3-11.0)
[2021-12-31 15:18] LABS: ALBUMIN 3.3 GM/DL (3.2-4.5); POTASSIUM 3.9 MMOL/L (3.6-5.0)
[2021-12-31 15:19] LABS: CALCIUM 8.3 MG/DL (8.5-10.1); INR 1.2 (0.8-1.4); PROTHROMBIN TIME PATIENT 15.3 SEC (12.2-14.7)
[2021-12-31 15:20] LABS: TOTAL PROTEIN 7.1 GM/DL (6.4-8.2)
[2021-12-31 15:22] LABS: BILIRUBIN,TOTAL 0.9 MG/DL (0.1-1.0)
[2021-12-31 15:24] LABS: CREATININE SERUM 0.7 MG/DL (0.60-1.30)
[2021-12-31 16:09] LABS: BASOPHILS % (MANUAL) 1 %; EOSINOPHILS % (MANUAL) 14 %; LYMPHOCYTES % (MANUAL) 31 %; MONOCYTES % (MANUAL) 9 %; NEUTROPHILS % (MANUAL) 45 %; RBC MORPH NORMAL
[2021-12-31] MEDS ORDERED: KCL 20 MEQ TAB (K-DUR) PO ONE (16:15)
--- NOTE | 2021-12-31 16:17 | Diagnostic Imaging Report ---
PROCEDURE: US Venous Lower Ext Bautista. INDICATION: Bilateral leg swelling and pain. TECHNIQUE: Multiple real-time grayscale images were obtained over the lower extremities in various projections, bilaterally. Additional duplex Doppler and color Doppler images were also obtained. CORRELATION STUDY: None FINDINGS: Color and grayscale sonographic images demonstrate no intraluminal defect within the visualized portion of the common femoral, superficial femoral and/or popliteal veins to suggest thrombus formation. These vessels demonstrate normal response to compression and augmentation. No soft tissue fluid collection. IMPRESSION: 1. Negative for deep venous thrombosis of either leg. Dictated by: Dictated on workstation # [id number]
[2021-12-31 16:22] VITALS: BP 129/86
== END 2021-12-31 16:22 | disposition home or self-care (01) ==
LOC: EDUNIT# 13:48 → ER 13:50
DX: R60.0 Localized edema (principal); M79.89 Other specified soft tissue disorders; Z28.311 Partially vaccinated for COVID-19
CPT/HCPCS: 36415; 80053; 85007; 85027; 85610; 85730; 93970

== ENCOUNTER 2022-01-30 03:43 | Emergency (ER) | payer MEDICARE, MEDICAID ==
[~2022-01-30] VITALS: Ht 175 cm; Wt 81.6 kg
[2022-01-30] MEDS ORDERED: morphine INJ 10 MG/ML 1ML (SYR OR VIAL) IV STA (03:54)
--- NOTE | 2022-01-30 04:01 | ED Chest Pain ---
General Chief Complaint: Chest Pain Stated Complaint: CP Source: patient Exam Limitations: no limitations History of Present Illness Date Seen by Provider: Jan 30, 2022 Time Seen by Provider: 03:49 Initial Comments Patient to the ER by EMS from home with chief complaint that he has been having chest pain since sometimes yesterday. Last use of methamphetamine was also yesterday. He feels little short of breath but not worse with lying down flat or exertion. No history of coronary disease. He says he has a history of a murmur. Does not follow with a fuller brush man. He is known to Dr. Montenegro at [facility]. He was told a year ago that he was in renal and liver failure and should be contacting his family. He denies drinking. He says he has a history of hepatitis C status posttreatment. He rates the pain now is about a 4 out of 10. He was given nitroglycerin paste which he feels did not help his chest pain at all. He denies a history of heart catheterizations or smoking cigarettes. He denies hypertension hyperlipidemia or diabetes. He says he does not drink alcohol. Pain is nonreproducible and nonradiating. He has a history of cirrhosis. No history of DVTs or PEs. He has not been taking his medications for the past year because he has lost hope feeling he is going to anyways. History of esophageal banding and stents and TIPS proce dure. Echocardiogram 12/18/2021 showed an EF of 60 to 65% with mildly dilated left atrium. History of pancytopenia, schizophrenia, anxiety depression, methamphetamine use. He states earlier today he had a fall and hit his head and passed out momentarily. He is not on blood thinners or any medications at this time. Patient also reports he has a laceration on his almaraz from last week when he walked into something. He had a friend bandage it up for him. He has not ever change the dressing. It has about healed over and does not drain anything. He is not having any redness or significant pain or fever. Allergies and Home Medications Allergies Coded Allergies: NSAIDS (Non-Steroidal Anti-Inflamma (Verified Allergy, Unknown, 11/28/19) Patient Home Medication List Home Medication List Reviewed: Yes Acetaminophen (Acetaminophen) 325 Mg Tablet, 650 MG PO Q6H PRN for PAIN-MILD (1- 4) Prescribed by: LALI CARBONE on 12/23/21 1414 Famotidine (Famotidine) 20 Mg Tablet, 20 MG PO BID Prescribed by: LALI CARBONE on 12/23/21 141 Sodium Chlor/Hypochlorous Acid (Vashe Wound Therapy Solution) 0.033 % I rrig.soln, 0 ML IR UD Prescribed by: LALI CARBONE on 12/23/211413 Review of Systems Review of Systems Constitutional: No chills, No diaphoresis EENTM: No Blurred Vision, No Double Vision Respiratory: Denies Cough, Denies Orthopnea; Shortness of Air; Denies SOA With Exertion Cardiovascular: See HPI, Chest Pain; Denies Edema, Denies Lightheadedness Gastrointestinal: Denies Constipated, Denies Diarrhea, Denies Nausea, Denies Vomiting Genitourinary: Denies Burning, Denies Discharge Musculoskeletal: No back pain, No joint pain Skin: No pruritus, No rash Psychiatric/Neurological: Denies Anxiety, Denies Depressed All Other Systems Reviewed Negative Unless Noted: Yes Past Ertaunl-Tbnhef-Ueeaqv Hx Patient Social History Tobacco Use?: No Use of E-Cig and/or Vaping dev: No Substance use?: Yes Substance type: Methamphetamine Immunizations Up To Date First/Initial COVID19 Vaccinat: Quixby Second COVID19 Vaccination Christiano: Quixby Third COVID19 Vaccination Date: Quixby Seasonal Allergies Seasonal Allergies: Yes Past Medical History Surgery/Hospitalization HX: LIVER DISEASE, DEGINERATIVE DISK DISEASE, HEART MURMMER, KIDNEY DISEASE Surgeries: Yes (R ANKLE, L KNEE, BILAT SHOULDER, ESOPHAGEAL BANDING; TIPS;) Abdominal, Adenoidectomy, Orthopedic, Tonsillectomy Respiratory: No Cardiac: No Neurological: Yes (CLAIMS HE HAS SEIZURES DUE TO LIVER DISEASE) Seizure Disorder Genitourinary: No Gastrointestinal: Yes (HX OF HEP C-TREATED; ESOPHAGEAL BANDING & STENTS X 2 ;TIPS PROCEDURE) Liver Disease/Jaundice, Esophageal Varices, Hepatitis Musculoskeletal: Yes Chronic Back Pain, Fractures Endocrine: No HEENT: Yes (POOR DENTITION) Loss of Vision: Denies Hearing Impairment: Denies Cancer: No Psychosocial: Yes (PSYCH ISSUES; POLYSUBSTANCE ABUSE) ADD/ADHD Integumentary: No Blood Disorders: No Adverse Reaction/Blood Tranf: No Family Medical History COPD, Other Conditions/Hx Physical Exam Vital Signs Vital Signs - First Documented 01/30/22 04:09 Temp 36.9 Pulse 82 Resp 18 B/P (MAP) 132/77 (95) Pulse Ox 96 O2 Delivery Room Air Capillary Refill : Height, Weight, BMI Height: '" Weight: lbs. oz. kg; 27.00 BMI Method: General Appearance: Mild Distress, Other (Disheveled, chronically ill, covered in dirt and shoeless.) HEENT: PERRL/EOMI, Pharynx Normal, Moist Mucous Membranes Neck: Full Range of Motion, Normal Inspection Respiratory: Chest Non Tender, Lungs Clear, Normal Breath Sounds, No Accessory Muscle Use, No Respiratory Distress Cardiovascular: Regular Rate, Rhythm, No Edema, Normal Peripheral Pulses Gastrointestinal: Normal Bowel Sounds, Non Tender, Soft Extremity: Normal Capillary Refill, No Pedal Edema, Other (Left anterior almaraz mid diaphysis has a 3 cm approximated linear laceration that is not open or draining. No fluctuance erythema or induration surrounding it.) Skin: Normal Color, Warm/Dry Procedures/Interventions Date of ETT Placement: Jun 11, 2021 Time of ETT Placement: 015 Suture Size: 5-0 Progress/Results/Core Measures Results/Orders Lab Results Laboratory Tests Test 01/30/22 03:57 Range/Units White Blood Count 4.1 L 4.3-11.0 10^3/uL Red Blood Count 3.87 L 4.30-5.52 10^6/uL Hemoglobin 9.6 L 13.3-17.7 g/dL Hematocrit 31 L 40-54 % Mean Corpuscular Volume 80 80-99 fL Mean Corpuscular Hemoglobin 25 25-34 pg Mean Corpuscular Hemoglobin Concent 31 L 32-36 g/dL Red Cell Distribution Width 20.4 H 10.0-14.5 % Platelet Count 122 L 130-400 10^3/uL Mean Platelet Volume 9.1 9.0-12.2 fL Immature Granulocyte % (Auto) 0 % Neutrophils (%) (Auto) 31 L 42-75 % Lymphocytes (%) (Auto) 32 12-44 % Monocytes (%) (Auto) 14 H 0-12 % Eosinophils (%) (Auto) 21 H 0-10 % Basophils (%) (Auto) 2 0-10 % Neutrophils # (Auto) 1.3 L 1.8-7.8 10^3/uL Lymphocytes # (Auto) 1.3 1.0-4.0 10^3/uL Monocytes # (Auto) 0.6 0.0-1.0 10^3/uL Eosinophils # (Auto) 0.9 H 0.0-0.3 10^3/uL Basophils # (Auto) 0.1 0.0-0.1 10^3/uL Immature Granulocyte # (Auto) 0.0 0.0-0.1 10^3/uL Neutrophils % (Manual) 44 % Lymphocytes % (Manual) 20 % Monocytes % (Manual) 12 % Eosinophils % (Manual) 24 % Percent Immature Platelet Fraction 1.6 0.0-7.6 % Anisocytosis SLIGHT Elliptocytes MODERATE Prothrombin Time 16.3 H 12.2-14.7 SEC INR Comment 1.3 0.8-1.4 Activated Partial Thromboplast Time 35 24-35 SEC Sodium Level 141 135-145 MMOL/L Potassium Level 3.6 3.6-5.0 MMOL/L Chloride Level 109 H 98-107 MMOL/L Carbon Dioxide Level 19 L 21-32 MMOL/L Anion Gap 13 5-14 MMOL/L Blood Urea Nitrogen 14 7-18 MG/DL Creatinine 0.87 0.60-1.30 MG/DL Estimat Glomerular Filtration Rate 100 BUN/Creatinine Ratio 16 Glucose Level 104 70-105 MG/DL Calcium Level 8.4 L 8.5-10.1 MG/DL Corrected Calcium 9.2 8.5-10.1 MG/DL Magnesium Level 1.9 1.6-2.4 MG/DL Total Bilirubin 1.3 H 0.1-1.0 MG/DL Aspartate Amino Transf (AST/SGOT) 54 H 5-34 U/L Alanine Aminotransferase (ALT/SGPT) 32 0-55 U/L Alkaline Phosphatase 108 40-136 U/L Ammonia 54 H 11-32 UMOL/L Myoglobin 102.3 H 10.0-92.0 NG/ML Troponin I < 0.028 <0.028 NG/ML B-Type Natriuretic Peptide 31.3 <100.0 PG/ML Total Protein 6.5 6.4-8.2 GM/DL Albumin 3.0 L 3.2-4.5 GM/DL Influenza Type A (RT-PCR) Not Detected Not Detecte Influenza Type B (RT-PCR) Not Detected Not Detecte SARS-CoV-2 RNA (RT-PCR) Not Detected Not Detecte My Orders Orders - JOSE LUIS WHITAKER J Ekg Tracing (01/30/22 03:45) Cbc With Automated Diff (01/30/22 03:54) Magnesium (01/30/22 03:54) Chest 1 View, Ap/Pa Only (01/30/22 03:54) Comprehensive Metabolic Panel (01/30/22 03:54) Myoglobin Serum (01/30/22 03:54) Protime With Inr (01/30/22 03:54) Partial Thromboplastin Time (01/30/22 03:54) O2 (01/30/22 03:54) Monitor-Rhythm Ecg Trace Only (01/30/22 03:54) Lipid Panel (01/31/22 06:00) Ed Iv/Invasive Line Start (01/30/22 03:54) Bnp Nora (01/30/22 03:54) Troponin I Nora (01/30/22 03:54) Morphine Injection (Morphine Injection (01/30/22 03:54) Covid 19 Inhouse Test (01/30/22 03:54) Ammonia (01/30/22 03:54) Influenza A And B By Pcr (01/30/22 03:54) Ct Head/Cervical Spine Wo (01/30/22 04:03) Manual Differential (01/30/22 03:57) Lactated Ringers (Lr 1000 Ml Iv Solution (01/30/22 06:15) Vital Signs/I&O 01/30/22 04:09 Temp 36.9 Pulse 82 Resp 18 B/P (MAP) 132/77 (95) Pulse Ox 96 O2 Delivery Room Air Progress Progress Note #1: Time: 04:09 Progress Note We can set him up for wound care and put him on some antibiotics for his leg wound. It does not appear to be infected at this time. We will check some labs. We will give him 2 mg of morphine for his chest discomfort and check labs including a BNP, creatinine. If his initial troponin is negative his heart score would be 1 point. Low risk. 0.9-1.7% 30-day MACE. Repeat troponin at 3 hours and if negative, discharge home with outpatient follow-up. CT of the head and C-spine. C-collar not necessary as he is not having any tenderness that he is clinically cleared. His fall yesterday was not preceded by syncope but rather he hit his head and then thinks he passed out because he does not remember much after that. Progress Note #2: Time: 05:46 Progress Note The patient's pancytopenia is at baseline. He has bilateral hematoma so we will discuss transfer to our facility with neurosurgery available. The patient is okay with this. He is still mentating slow, mildly somnolent but easily arousable, GCS 14 and albeit slow he does answer questions Appropriately. His kidney function looks normal. EMS had placed an inch of Nitropaste on him which he says did not help so we will get rid of that. Since he is going to remain n.p.o. till he is seen by neurosurgery we will go ahead and start some IV fluids at 125 milliliters an hour. Initial ECG Impression Date: Jan 30, 2022 Initial ECG Impression Time: 03:52 Initial ECG Rate: 79 Initial ECG Rhythm: Normal Sinus Initial ECG Intervals: Normal Initial ECG Impression: Normal Initial ECG Comparisson: No Previous ECG Available Comment Normal sinus rhythm without clinically relevant ST changes. Diagnostic Imaging Diagonstic Imaging: Xray Plain Films/CT/US/NM/MRI: chest Comments No acute cardiopulmonary process. Stable chest x-ray from previous exam. NAME: VIRA RIZO [facility] REC#: [id number] PT STATUS: REG ER : 1965 PHYSICIAN: JOSE LUIS WHITAKER MD ADMIT DATE: 01/30/22/ER Draft Date of Exam:01/30/22 CHEST 1 VIEW, AP/PA ONLY INDICATION: Chest pain. Comparison is made with the prior study from December 16, 2021. FINDINGS: There are chronic pulmonary interstitial changes present. There is no new consolidation or effusion. There is no pneumothorax. Heart size and mediastinal contours appear stable. Central pulmonary vascularity is appropriate. There are multiple prior embolization coils within the upper abdomen. IMPRESSION: Stable features of underlying interstitial lung disease. There are no findings of a new superimposed cardiopulmonary process. Dictated on workstation # [id number] Dict: 01/30/22 0553 Trans: 01/30/22 0603 ITZEL [id number] Interpreted by: KENNA WALSH MD Electronically signed by: Reviewed: Reviewed by Me Diagonstic Imaging: CT Plain Films/CT/US/NM/MRI: c-spine, head Comments Bilat Subdural Hematomas. Extensive osteoarthritic changes of the neck but no acute cervical spinal fracture or dislocation or malalignment. NAME: VIRA RIZO [facility] REC#: [id number] PT STATUS: REG ER : 1965 PHYSICIAN: JOSE LUIS WHITAKER MD ADMIT DATE: 01/30/22/ER Draft Date of Exam:01/30/22 CT HEAD/CERVICAL SPINE WO PROCEDURE: CT head and CT cervical spine without contrast. TECHNIQUE: Multiple contiguous axial images were obtained through the brain and cervical spine without the use of intravenous contrast. Sagittal and coronal reformations through the cervical spine were then performed. Auto Exposure Controls were utilized during the CT exam to meet ALARA standards for radiation dose reduction. INDICATION: Head and neck pain. Trauma. Comparison is made with a prior study from December 16, 2021. FINDINGS: When compared to the prior examination, there are now small bilateral slightly dense subdural hematomas present. Maximum thickness of each subdural hematoma is approximately 5 mm. There are no findings of subarachnoid hemorrhage or intra-axial hemorrhage. There is no intraventricular hemorrhage. There are no findings of territorial loss of betancourt-white differentiation. There is no midline shift. There is no hydrocephalus. There are no findings of vasogenic edema. The posterior fossa demonstrates no acute process. The mastoid air cells are clear. There is mild mucosal thickening within the left maxillary sinus and within the ethmoids. There is no air-fluid level. There is chronic irregularity of the nasal bones. Orbital contents are unremarkable. No acute calvarial fracture is demonstrated. Cervical spine demonstrates background features of multilevel degenerative disc disease and facet arthropathy. Craniocervical junction relationships are maintained. There are normal relationships of the lateral masses of C1 and C2. The facets are normally aligned. There is no facet joint or disc space widening. The vertebral body heights are preserved. There are advanced degenerative endplate changes at the C5-C6 and C6-C7 levels. These are unchanged from the previous study. There are no findings of an acute cervical spine fracture. The lung apices are clear. The soft tissues of the neck demonstrate no acute process. IMPRESSION: 1. Thin bilateral subdural hematomas measuring up to 5 mm in thickness. There is no associated mass effect. No subarachnoid hemorrhage is demonstrated. 2. No findings of loss of betancourt-white differentiation or vasogenic edema. 3. No hydrocephalus 4. Chronic irregularity of the nasal bones. No acute facial fracture evident. There is no calvarial fracture. 5. Stable degenerative features within the cervical spine without findings of traumatic malalignment or acute cervical spine fracture. Findings of the subdural hematomas were called and discussed with Dr. Whitaker. Dictated on workstation # [id number] Dict: 01/30/22525 Trans: 01/30/22 0601 ITZEL [id number] Interpreted by: KENNA WALSH MD Electronically signed by: Reviewed: Reviewed by Me, Discussed w/Radiologist Departure Impression Primary Impression: Hyperammonemia Additional Impressions: Delirium Chest pain Qualified Codes: R07.9 - Chest pain, unspecified Pancytopenia Bilateral subdural hematomas Fall Qualified Codes: W19.XXXA - Unspecified fall, initial encounter Disposition: XFER SHT-TRM HOSP Condition: Stable Transfer Transfer Reason: Exceeds level of care (No neurosurgery.) Time Spoke to Accepting Phy: 05:53 Transfer Progress Notes 0540: Joel, contacting ER doctor. Dr. Lennon, ER physician accepts the patient to [place] [facility]. 0553 Transfer Facility: [place], [place] Method of Transfer: EMS Departure-Patient Inst. Referrals: YESSICA MONTENEGRO MD (PCP/Family) Primary Care Physician JOSE LUIS WHITAKER Jan 30, 2022 04:01
[2022-01-30 04:07] LABS: EOSINOPHILS # (AUTO) 0.9 10^3/uL (0.0-0.3); HEMOGLOBIN 9.6 g/dL (13.3-17.7); LYMPHOCYTES # (AUTO) 1.3 10^3/uL (1.0-4.0)
[2022-01-30 04:09] LABS: BASOPHILS # (AUTO) 0.1 10^3/uL (0.0-0.1); BASOPHILS % (AUTO) 2 % (0-10); EOSINOPHILS % (AUTO) 21 % (0-10); HEMATOCRIT 31 % (40-54); LYMPHOCYTES % (AUTO) 32 % (12-44); MEAN CORPUSCULAR HEMOGLOBIN 25 pg (25-34); MEAN CORPUSCULAR HGB CONC 31 g/dL (32-36); MEAN CORPUSCULAR VOLUME 80 fL (80-99); MEAN PLATELET VOLUME 9.1 fL (9.0-12.2); MONOCYTES # (AUTO) 0.6 10^3/uL (0.0-1.0); MONOCYTES % (AUTO) 14 % (0-12); NEUTROPHILS # (AUTO) 1.3 10^3/uL (1.8-7.8); NEUTROPHILS % (AUTO) 31 % (42-75); PLATELET COUNT 122 10^3/uL (130-400); WHITE BLOOD COUNT 4.1 10^3/uL (4.3-11.0)
[2022-01-30 04:18] LABS: POTASSIUM 3.6 MMOL/L (3.6-5.0)
[2022-01-30 04:19] LABS: AMMONIA 54 UMOL/L (11-32); CALCIUM 8.4 MG/DL (8.5-10.1)
[2022-01-30 04:20] LABS: INR 1.3 (0.8-1.4); PROTHROMBIN TIME PATIENT 16.3 SEC (12.2-14.7); TOTAL PROTEIN 6.5 GM/DL (6.4-8.2)
[2022-01-30 04:22] LABS: BILIRUBIN,TOTAL 1.3 MG/DL (0.1-1.0)
[2022-01-30 04:24] LABS: CREATININE SERUM 0.87 MG/DL (0.60-1.30)
[2022-01-30 04:27] LABS: MAGNESIUM 1.9 MG/DL (1.6-2.4)
[2022-01-30 04:38] LABS: EOSINOPHILS % (MANUAL) 24 %; LYMPHOCYTES % (MANUAL) 20 %; MONOCYTES % (MANUAL) 12 %; NEUTROPHILS % (MANUAL) 44 %
[2022-01-30 04:39] LABS: ANISOCYTOSIS SLIGHT; ELLIPT/OVALOCYTES MODERATE
--- NOTE | 2022-01-30 06:01 | Diagnostic Imaging Report ---
PROCEDURE: CT head and CT cervical spine without contrast. TECHNIQUE: Multiple contiguous axial images were obtained through the brain and cervical spine without the use of intravenous contrast. Sagittal and coronal reformations through the cervical spine were then performed. Auto Exposure Controls were utilized during the CT exam to meet ALARA standards for radiation dose reduction. INDICATION: Head and neck pain. Trauma. Comparison is made with a prior study from December 16, 2021. FINDINGS: When compared to the prior examination, there are now small bilateral slightly dense subdural hematomas present. Maximum thickness of each subdural hematoma is approximately 5 mm. There are no findings of subarachnoid hemorrhage or intra-axial hemorrhage. There is no intraventricular hemorrhage. There are no findings of territorial loss of betancourt-white differentiation. There is no midline shift. There is no hydrocephalus. There are no findings of vasogenic edema. The posterior fossa demonstrates no acute process. The mastoid air cells are clear. There is mild mucosal thickening within the left maxillary sinus and within the ethmoids. There is no air-fluid level. There is chronic irregularity of the nasal bones. Orbital contents are unremarkable. No acute calvarial fracture is demonstrated. Cervical spine demonstrates background features of multilevel degenerative disc disease and facet arthropathy. Craniocervical junction relationships are maintained. There are normal relationships of the lateral masses of C1 and C2. The facets are normally aligned. There is no facet joint or disc space widening. The vertebral body heights are preserved. There are advanced degenerative endplate changes at the C5-C6 and C6-C7 levels. These are unchanged from the previous study. There are no findings of an acute cervical spine fracture. The lung apices are clear. The soft tissues of the neck demonstrate no acute process. IMPRESSION: 1. Thin bilateral subdural hematomas measuring up to 5 mm in thickness. There is no associated mass effect. No subarachnoid hemorrhage is demonstrated. 2. No findings of loss of betancourt-white differentiation or vasogenic edema. 3. No hydrocephalus 4. Chronic irregularity of the nasal bones. No acute facial fracture evident. There is no calvarial fracture. 5. Stable degenerative features within the cervical spine without findings of traumatic malalignment or acute cervical spine fracture. Findings of the subdural hematomas were called and discussed with Dr. Whitaker. Dictated by: Dictated on workstation # [id number]
--- NOTE | 2022-01-30 06:03 | Diagnostic Imaging Report ---
INDICATION: Chest pain. Comparison is made with the prior study from December 16, 2021. FINDINGS: There are chronic pulmonary interstitial changes present. There is no new consolidation or effusion. There is no pneumothorax. Heart size and mediastinal contours appear stable. Central pulmonary vascularity is appropriate. There are multiple prior embolization coils within the upper abdomen. IMPRESSION: Stable features of underlying interstitial lung disease. There are no findings of a new superimposed cardiopulmonary process. Dictated by: Dictated on workstation # [id number]
[2022-01-30] MEDS ORDERED: LACTATED RINGERS 1,000 ML IV ONE (06:15)
[2022-01-30 06:36] VITALS: BP 134/83
== END 2022-01-30 06:37 | disposition short-term general hospital (02) ==
LOC: EDUNIT# 03:43 → ER 03:44
DX: S81.812A Laceration without foreign body, left lower leg, initial encounter (principal); S06.5X0A Traumatic subdural hemorrhage without loss of consciousness, initial encounter; D61.818 Other pancytopenia; E72.20 Disorder of urea cycle metabolism, unspecified; Z20.822 Contact with and (suspected) exposure to COVID-19; Z28.310 Unvaccinated for COVID-19; X58.XXXA Exposure to other specified factors, initial encounter
CPT/HCPCS: 36415; 70450; 71045; 72125; 80053; 82140; 83735; 83874; 83880; 84484; 85007; 85027; 85610; 85730; 87636; 93005; 93041

== ENCOUNTER 2022-02-06 16:15 | Inpatient (IN) | payer MEDICARE, MEDICAID ==
[~2022-02-06] VITALS: Ht 175 cm; Wt 74.5 kg
[2022-02-06 16:36] LABS: BASOPHILS # (AUTO) 0.1 10^3/uL (0.0-0.1); BASOPHILS % (AUTO) 1 % (0-10); EOSINOPHILS # (AUTO) 0.6 10^3/uL (0.0-0.3); EOSINOPHILS % (AUTO) 18 % (0-10); HEMATOCRIT 28 % (40-54); HEMOGLOBIN 8.9 g/dL (13.3-17.7); LYMPHOCYTES # (AUTO) 1.1 10^3/uL (1.0-4.0); LYMPHOCYTES % (AUTO) 30 % (12-44); MEAN CORPUSCULAR HEMOGLOBIN 25 pg (25-34); MEAN CORPUSCULAR HGB CONC 31 g/dL (32-36); MEAN CORPUSCULAR VOLUME 80 fL (80-99); MEAN PLATELET VOLUME 9.3 fL (9.0-12.2); MONOCYTES # (AUTO) 0.4 10^3/uL (0.0-1.0); MONOCYTES % (AUTO) 12 % (0-12); NEUTROPHILS # (AUTO) 1.4 10^3/uL (1.8-7.8); NEUTROPHILS % (AUTO) 39 % (42-75); PLATELET COUNT 154 10^3/uL (130-400); WHITE BLOOD COUNT 3.6 10^3/uL (4.3-11.0)
[2022-02-06 16:46] LABS: CHLORIDE 117 MMOL/L (98-107); POTASSIUM 3.3 MMOL/L (3.6-5.0); SODIUM 145 MMOL/L (135-145)
[2022-02-06 16:47] LABS: CALCIUM 8.2 MG/DL (8.5-10.1)
[2022-02-06 16:48] LABS: AMMONIA 93 UMOL/L (11-32); INR 1.4 (0.8-1.4); PROTHROMBIN TIME PATIENT 17.3 SEC (12.2-14.7)
[2022-02-06 16:49] LABS: GLUCOSE 79 MG/DL (70-105); TOTAL PROTEIN 6.3 GM/DL (6.4-8.2)
[2022-02-06 16:50] LABS: BILIRUBIN,TOTAL 2.2 MG/DL (0.1-1.0); CARBON DIOXIDE 15 MMOL/L (21-32)
[2022-02-06 16:51] LABS: ELLIPT/OVALOCYTES MODERATE; EOSINOPHILS % (MANUAL) 14 %; LYMPHOCYTES % (MANUAL) 24 %; MONOCYTES % (MANUAL) 11 %; NEUTROPHILS % (MANUAL) 51 %; POLYCHROMASIA MODERATE; TARGET CELLS MODERATE
[2022-02-06 16:52] LABS: ALKALINE PHOSPHATASE 95 U/L (40-136); CREATININE SERUM 0.82 MG/DL (0.60-1.30); GFR ESTIMATED 102; ROULEAUX SLIGHT
[2022-02-06 16:53] LABS: BUN/CREATININE RATIO 22
[2022-02-06 16:55] LABS: ALANINE AMINOTRANSFERASE 21 U/L (0-55)
[2022-02-06 16:56] LABS: CREATINE KINASE 161 U/L (30-200)
[2022-02-06] MEDS ORDERED: LACTATED RINGERS 1,000 ML IV ONE (17:15)
[2022-02-06] MEDS ORDERED: NS 100 ML (IVPB) BAG IV ONE (17:45)
[2022-02-06] MEDS ORDERED: IOHEXOL 350 MG/ML 100 ML (OMNIPAQUE 350) VIAL IV ONE (17:45)
--- NOTE | 2022-02-06 18:01 | ED General ---
General Chief Complaint: General Problems/Pain Stated Complaint: WEAKNESS Nursing Triage Note: Pt has not been eating and drinking regularly d/t food insecurity. He states that he is getting weak and is also worried that his liver is not working. Previous hx of Hep C. Source of Information: Patient, EMS, Old Records Exam Limitations: No Limitations (ALEJANDRO ROBLERO MD) History of Present Illness Date Seen by Provider: Feb 06, 2022 Time Seen by Provider: 16:16 Initial Comments This 56-year-old man is brought to the emergency room via EMS after being [place] staggering [place] a [place]. Law enforcement activated EMS. Patient states he was walking to the hospital to be evaluated for kidney and liver problems. He reports right upper quadrant pain. He is able to answer questions but is somnolent with a dulled cognition. Review of his chart also reveals he was here a week ago. During that evaluation a CT of the head revealed bilateral subdural hematomas for which she was transferred to [place]. Neither EMS nor patient provided any of that history. Patient simply stated he came to have his right upper quadrant pain evaluated and because he knows he has kidney and liver p roblems. Patient appears very dry. He is disheveled with soiled clothes and tattered shoes. He lives in a trailer. EMS reported law enforcement informed them that there may not be electricity or water to his trailer. Patient states he does have water and electricity. Patient has known history of substance abuse and hepatitis C. Patient feels hot to the touch upon arrival, but he was walking in 95 degree heat. His measured temperature was afebrile. (ALEJANDRO ROBLERO MD) Allergies and Home Medications Allergies Coded Allergies: NSAIDS (Non-Steroidal Anti-Inflamma (Verified Allergy, Unknown, 11/28/19) Patient Home Medication List Home Medication List Reviewed: Yes (ALEJANDRO ROBLERO MD) Acetaminophen (Acetaminophen) 325 Mg Tablet, 650 MG PO Q6H PRN for PAIN-MILD (1- 4) Prescribed by: LALI CARBONE on 12/23/21 1414 Famotidine (Famotidine) 20 Mg Tablet, 20 MG PO BID Prescribed by: LALI CARBONE on 12/23/21 1414 Sodium Chlor/Hypochlorous Acid (Vashe Wound Therapy Solution) 0.033 % Irrig.soln, 0 ML IR UD Prescribed by: LALI CARBONE on 12/23/21 1414 Review of Systems Review of Systems Constitutional: see HPI EENTM: see HPI Respiratory: no symptoms reported Cardiovascular: no symptoms reported Gastrointestinal: see HPI Genitourinary: no symptoms reported Musculoskeletal: no symptoms reported Skin: no symptoms reported Psychiatric/Neurological: See HPI (ALEJANDRO ROBLERO MD) Past Sjnelnu-Bepgbp-Gnujte Hx Patient Social History Tobacco Use?: No Use of E-Cig and/or Vaping dev: No Substance use?: No Alcohol Use?: Yes Pt feels they are or have been: No (ALEJANDRO ROBLERO MD) Immunizations Up To Date First/Initial COVID19 Vaccinat: Second Light Second COVID19 Vaccination Christiano: Pfizer Third COVID19 Vaccination Date: Pfizer (ALEJANDRO ROBLERO MD) Seasonal Allergies Seasonal Allergies: Yes (ALEJANDRO ORBLERO MD) Past Medical History Surgery/Hospitalization HX: LIVER DISEASE, DEGINERATIVE DISK DISEASE, HEART MURMMER, KIDNEY DISEASE Surgeries: Yes (R ANKLE, L KNEE, BILAT SHOULDER, ESOPHAGEAL BANDING; TIPS;) Abdominal, Adenoidectomy, Orthopedic, Tonsillectomy Respiratory: No Cardiac: No Neurological: Yes (CLAIMS HE HAS SEIZURES DUE TO LIVER DISEASE, hx bilateral subdural hematoma) Seizure Disorder Genitourinary: No Gastrointestinal: Yes (HX OF HEP C-TREATED; ESOPHAGEAL BANDING & STENTS X 2 ;TIPS PROCEDURE) Liver Disease/Jaundice, Esophageal Varices, Hepatitis Musculoskeletal: Yes Chronic Back Pain, Fractures Endocrine: No HEENT: Yes (POOR DENTITION) Loss of Vision: Denies Hearing Impairment: Denies Cancer: No Psychosocial: Yes (PSYCH ISSUES; POLYSUBSTANCE ABUSE) ADD/ADHD Integumentary: No Blood Disorders: No Adverse Reaction/Blood Tranf: No (ALEJANDRO ROBLERO MD) Family Medical History COPD, Other Conditions/Hx (ALEJANDRO ROBLERO MD) Physical Exam Vital Signs Vital Signs - First Documented 02/06/22 16:15 Temp 36.8 Pulse 76 Resp 16 B/P (MAP) 120/78 (92) Pulse Ox 96 (MAGDALENA,JOSE LUIS J) Vital Signs Capillary Refill : Less Than 3 Seconds (ALEJANDRO ROBLERO MD) Height, Weight, BMI Height: '" Weight: lbs. oz. kg; 25.00 BMI Method: General Appearance: No Apparent Distress, WD/WN HEENT: PERRL/EOMI, Other (Oropharynx extremely dry) Neck: Normal Inspection Respiratory: Lungs Clear, Normal Breath Sounds, No Accessory Muscle Use Cardiovascular: Regular Rate, Rhythm, No Edema, No Murmur Gastrointestinal: Normal Bowel Sounds, Soft; No Distended; Tenderness (Right u pper quadrant) Extremity: Pedal Edema, Other (Chronic skin changes) Neurologic/Psychiatric: Alert, Other (He is alert and answers questions but his cognition is dulled and he is somnolent) Skin: Normal Color, Warm/Dry, Other (Chronic lower extremity skin changes) (ALEJANDRO ROBLERO MD) Procedures/Interventions Date of ETT Placement: Jun 11, 2021 Time of ETT Placement: 0152 (ALEJANDRO ROBLERO MD) Suture Size: 5-0 (ALEJANDRO ROBLERO MD) Progress/Results/Core Measures Suspected Sepsis SIRS Temperature: Pulse: 76 Respiratory Rate: 16 Laboratory Tests 02/06/22 16:29: White Blood Count 3.6L Blood Pressure 120 /78 Mean: 92 Laboratory Tests 02/06/22 16:29: Creatinine 0.82, INR Comment 1.4, Platelet Count 154, Total Bilirubin 2.2H (ALEJANDRO ROBLERO MD) Results/Orders Lab Results Laboratory Tests Test 02/06/22 16:29 02/06/22 19:00 Range/Units White Blood Count 3.6 L 4.3-11.0 10^3/uL Red Blood Count 3.53 L 4.30-5.52 10^6/uL Hemoglobin 8.9 L 13.3-17.7 g/dL Hematocrit 28 L 40-54 % Mean Corpuscular Volume 80 80-99 fL Mean Corpuscular Hemoglobin 25 25-34 pg Mean Corpuscular Hemoglobin Concent 31 L 32-36 g/dL Red Cell Distribution Width 20.6 H 10.0-14.5 % Platelet Count 154 130-400 10^3/uL Mean Platelet Volume 9.3 9.0-12.2 fL Immature Granulocyte % (Auto) 0 % Neutrophils (%) (Auto) 39 L 42-75 % Lymphocytes (%) (Auto) 30 12-44 % Monocytes (%) (Auto) 12 0-12 % Eosinophils (%) (Auto) 18 H 0-10 % Basophils (%) (Auto) 1 0-10 % Neutrophils # (Auto) 1.4 L 1.8-7.8 10^3/uL Lymphocytes # (Auto) 1.1 1.0-4.0 10^3/uL Monocytes # (Auto) 0.4 0.0-1.0 10^3/uL Eosinophils # (Auto) 0.6 H 0.0-0.3 10^3/uL Basophils # (Auto) 0.1 0.0-0.1 10^3/uL Immature Granulocyte # (Auto) 0.0 0.0-0.1 10^3/uL Neutrophils % (Manual) 51 % Lymphocytes % (Manual) 24 % Monocytes % (Manual) 11 % Eosinophils % (Manual) 14 % Polychromasia MODERATE Target Cells MODERATE Elliptocytes MODERATE Rouleau SLIGHT Prothrombin Time 17.3 H 12.2-14.7 SEC INR Comment 1.4 0.8-1.4 Sodium Level 145 135-145 MMOL/L Potassium Level 3.3 L 3.6-5.0 MMOL/L Chloride Level 117 H 98-107 MMOL/L Carbon Dioxide Level 15 L 21-32 MMOL/L Anion Gap 13 5-14 MMOL/L Blood Urea Nitrogen 18 7-18 MG/DL Creatinine 0.82 0.60-1.30 MG/DL Estimat Glomerular Filtration Rate 102 BUN/Creatinine Ratio 22 Glucose Level 79 70-105 MG/DL Calcium Level 8.2 L 8.5-10.1 MG/DL Corrected Calcium 9.0 8.5-10.1 MG/DL Magnesium Level 2.0 1.6-2.4 MG/DL Total Bilirubin 2.2 H 0.1-1.0 MG/DL Aspartate Amino Transf (AST/SGOT) 36 H 5-34 U/L Alanine Aminotransferase (ALT/SGPT) 21 0-55 U/L Alkaline Phosphatase 95 40-136 U/L Ammonia 93 H 11-32 UMOL/L Total Creatine Kinase 161 30-200 U/L C-Reactive Protein High Sensitivity 0.36 0.00-0.50 MG/DL Total Protein 6.3 L 6.4-8.2 GM/DL Albumin 3.0 L 3.2-4.5 GM/DL Lipase 8 8-78 U/L Serum Alcohol < 10 <10 MG/DL Urine Color YELLOW Urine Clarity CLEAR Urine pH 6.0 5-9 Urine Specific C[place]illa 1.015 L 1.016-1.022 Urine Protein NEGATIVE NEGATIVE Urine Glucose (UA) NEGATIVE NEGATIVE Urine Ketones TRACE H NEGATIVE Urine Nitrite NEGATIVE NEGATIVE Urine Bilirubin NEGATIVE NEGATIVE Urine Urobilinogen 1.0 < = 1.0 MG/DL Urine Leukocyte Esterase NEGATIVE NEGATIVE Urine RBC (Auto) NEGATIVE NEGATIVE Urine RBC NONE /HPF Urine WBC 2-5 /HPF Urine Squamous Epithelial Cells NONE /HPF Urine Renal Epithelial Cells NONE /HPF Urine Crystals NONE /LPF Urine Bacteria NEGATIVE /HPF Urine Casts NONE /LPF Urine Mucus LARGE H /LPF Urine Culture Indicated NO Urine Opiates Screen NEGATIVE NEGATIVE Urine Oxycodone Screen NEGATIVE NEGATIVE Urine Methadone Screen NEGATIVE NEGATIVE Urine Propoxyphene Screen NEGATIVE NEGATIVE Urine Barbiturates Screen NEGATIVE NEGATIVE Ur Tricyclic Antidepressants Screen NEGATIVE NEGATIVE Urine Phencyclidine Screen NEGATIVE NEGATIVE Urine Amphetamines Screen POSITIVE H NEGATIVE Urine Methamphetamines Screen POSITIVE H NEGATIVE Urine Benzodiazepines Screen NEGATIVE NEGATIVE Urine Cocaine Screen NEGATIVE NEGATIVE Urine Cannabinoids Screen NEGATIVE NEGATIVE (JOSE LUIS NICHOLS) Medications Given in ED Current Medications Medications Dose Ordered Sig/Johny Route Start Time Stop Time Status Last Admin Dose Admin Iohexol 100 ml ONCE ONCE IV 02/06/22 17:45 02/06/22 17:46 DC 02/06/22 18:07 80 ML Lactated Ringer's 1,000 ml @ 0 mls/hr Q0M ONCE IV 02/06/22 17:15 02/06/22 17:16 DC 02/06/22 17:18 999 MLS/HR Sodium Chloride 100 ml ONCE ONCE IV 02/06/22 17:45 02/06/22 17:46 DC 02/06/22 18:07 78 ML (JOSE LUIS NICHOLS) Vital Signs/I&O 02/06/22 16:15 Temp 36.8 Pulse 76 Resp 16 B/P (MAP) 120/78 (92) Pulse Ox 96 (JOSE LUIS NICHOLS) Vital Signs/I&O Capillary Refill : Less Than 3 Seconds (ALEJANDRO ROBLERO MD) Blood Pressure Mean: 92 Progress Note : Progress Note Patient was seen and interviewed upon arrival with EMS. Review of chart noted his history of bilateral subdural hematomas. He is being sent back to CT for examination for stability of those bleeds. He also has the right upper quadrant pain which will be evaluated with CT of the abdomen and pelvis. He is receiving 2 L of IV fluids. Ammonia level was checked and is notably elevated, even from last visit, which likely explains his demeanor and staggering walk when he was found by law enforcement. (ALEJANDRO ROBLERO MD) Progress Note #1: Time: :52 Progress Note #2: Time: :52 Progress Note Discussed the patient's hyperammonemia and hepatic encephalopathy. He states he was sent home on lactulose twice daily and has been using it. His bowels are absolutely full of stool and there is some suspicion that he may not be participating in his care successfully at home. We offered him an opportunity to stay in the hospital to get started on his lactulose again 4 times daily and he agreed. (JOSE LUIS NICHOLS) Diagnostic Imaging Diagonstic Imaging: CT Plain Films/CT/US/NM/MRI: head Comments [facility] [place] NAME: VIRA RIZO [facility] REC#: [id number] PT STATUS: REG ER : 1965 PHYSICIAN: ALEJANDRO ROBLERO MD ADMIT DATE: 02/06/22/ER Draft Date of Exam:02/06/22 CT HEAD WO PROCEDURE: CT head without contrast. TECHNIQUE: Multiple contiguous axial images were obtained through the brain without the use of intravenous contrast. Auto Exposure Controls were utilized during the CT exam to meet ALARA standards for radiation dose reduction. DATE: February 06, 2022. COMPARISON: CT head and cervical spine January 30, 2022. INDICATION: 56-year-old male, history of subdural hematoma. Follow-up exam. FINDINGS: There is an intermediate attenuation left-sided subdural hematoma measuring 7 mm in thickness which previously measured approximately 5 mm in thickness. This is mildly increased in size since the comparison exam. There is a right-sided intermediate attenuation subdural fluid collection measuring 4 mm in thickness which previously measured up to approximately 4 mm in thickness which is largely unchanged. There is no midline shift. There is no evidence of an acute intraparenchymal hemorrhage. There is no hydrocephalus. IMPRESSION: 1. The left-sided subdural hematoma measures mildly increased in thickness since the comparison study currently a 7 mm in thickness versus 5 mm previously. There is also an intermediate attenuation right-sided subdural fluid collection measuring 4 mm in thickness which is unchanged. 2. No midline shift. 3. No hydrocephalus. Dictated on workstation # [id number] Dict: 02/06/22 1815 Trans: 02/06/22 1820 [facility] [id number] Interpreted by: ANTOINETTE CANNON MD Electronically signed by: Reviewed: Reviewed by Wa Diagonstic Imaging: Xray Plain Films/CT/US/NM/MRI: chest Comments [facility] [place] [place] NAME: VIRA RIZO [facility] REC#: [id number] PT STATUS: REG ER : 1965 PHYSICIAN: ALEJANDRO ROBLERO MD ADMIT DATE: 02/06/22/ER Draft Date of Exam:02/06/22 CHEST 1 VIEW, AP/PA ONLY EXAMINATION: Chest radiograph, portable AP view. DATE: 02/06/2022 6:17 PM INDICATION: 56-year-old male, chest and right upper quadrant abdominal pain. COMPARISON: January 30, 2022. November 28, 2019. FINDINGS: Heart size and mediastinal contours are unchanged. There is no identified pneumothorax. There are streaky opacities in the mid and lower lung zones, bilaterally, which are largely unchanged since November 2019. There is no interval focal airspace consolidation. IMPRESSION: No identified interval acute cardiopulmonary abnormality. Dictated on workstation # [id number] Dict: 02/06/22 1843 Trans: 02/06/22 1846 [facility] [id number] Interpreted by: ANTOINETTE CANNON MD Electronically signed by: Reviewed: Reviewed by Wa Diagonstic Imaging: CT Plain Films/CT/US/NM/MRI: chest, abdomen, pelvis Comments [facility] [place] [place] NAME: VIRA RIZO [facility] REC#: [id number] PT STATUS: REG ER : 1965 PHYSICIAN: ALEJANDRO ROBLERO MD ADMIT DATE: 02/06/22/ER Draft Date of Exam:02/06/22 CT ABDOMEN/PELVIS W PROCEDURE: CT abdomen and pelvis with contrast. TECHNIQUE: Multiple contiguous axial images were obtained through the abdomen and pelvis after administration of intravenous contrast. Auto Exposure Controls were utilized during the CT exam to meet ALARA standards for radiation dose reduction. All CT scans use one or more of the following dose optimizing techniques: automated exposure control, MA and/or KvP adjustment based on patient size and exam type or iterative reconstruction. DATE: February 06, 2022. COMPARISON: None. INDICATION: 56-year-old male, weakness. Abdominal pain. FINDINGS: There are predominantly linear opacities in the lung bases most likely reflecting atelectasis. The heart is not enlarged. There is no pericardial effusion. The patient is status post TIPS procedure. The outer liver contours are mildly nodular. There is no identified focal liver lesion. The gallbladder is unremarkable. The main portal vein is dilated. There is no biliary ductal dilation. Unremarkable appearance of the pancreas. The spleen measures 14 cm in craniocaudal dimension but it does not meet threshold criteria for splenomegaly. The adrenal glands are unremarkable. There is an 8 mm low-attenuation left renal lesion on axial image 53 which is too small to characterize. There is a low-attenuation left renal lesion on axial image 44 which measures 10 mm in size. Internal attenuation is 23 Hounsfield units which is indeterminate. The urinary collecting systems are not distended. There is no identified renal or ureteral stone. There is mild diffuse urinary bladder wall thickening likely relating to cystitis and/or chronic outlet obstruction. There is a nonspecific calcification in the prostate. There is a large volume colonic stool. The appendix is best identified on axial image 115 and adjacent sequential images. There is no evidence of acute appendicitis. There is abnormal wall thickening of the stomach. The intestinal tract is not distended. There is no free intraperitoneal air. There is no drainable fluid collection. There is no sizable free fluid in the abdomen or pelvis. There are atherosclerotic calcifications. There is no identified abnormally enlarged lymph node in the abdomen or pelvis which specifically meets CT size criteria for adenopathy. There are procedural related changes adjacent to the lesser curvature of the stomach. There is no identified acute bony abnormality. There is a nonunited fracture of the left posterior 11th rib with some periosteal reaction present. This may be subacute in age. Recommend correlation. IMPRESSION: CT abdomen and pelvis: 1. Abnormal wall thickening of the stomach which may reflect a nonspecific gastritis or malignancy. Further evaluation with upper endoscopy is recommended. 2. Status post TIP procedure with cirrhosis. No sizable volume ascites. 3. Large volume colonic stool. 4. Diffuse urinary bladder wall thickening which may relate to cystitis and/or chronic outlet obstruction. 5. Mildly displaced left posterior 11th rib fracture which may be subacute in age. Recommend correlation. Dictated on workstation # [id number] Dict: 02/06/22 1829 Trans: 02/06/22 1858 [facility] [id number] Interpreted by: ANTOINETTE CANNON MD Electronically signed by: Reviewed: Reviewed by Me (JOSE LUIS NICHOLS) Departure Communication (Admissions) Time/Spoke to Admitting Phy: 19:55 Discussed the case with Dr. Carbone and she agrees to admit the patient to [facility] for lactulose. She agrees to do queued orders. (JOSE LUIS NICHOLS) Impression Primary Impression: Hyperammonemia Additional Impression: Hepatic encephalopathy Disposition: ADMITTED INPATIENT Condition: Stable Admissions Decision to Admit Reason: Admit from ER (General) Decision to Admit/Date: Feb 06, 2022 Time/Decision to Admit Time: 19:50 (JOSE LUIS NICHOLS) Departure-Patient Inst. Referrals: YESSICA MONTENEGRO MD (PCP/Family) Primary Care Physician ALEJANDRO ROBLERO MD Feb 06, 2022 18:01 JOSE LUIS NICHOLS Feb 06, 2022 19:57
--- NOTE | 2022-02-06 18:21 | Diagnostic Imaging Report ---
PROCEDURE: CT head without contrast. TECHNIQUE: Multiple contiguous axial images were obtained through the brain without the use of intravenous contrast. Auto Exposure Controls were utilized during the CT exam to meet ALARA standards for radiation dose reduction. DATE: February 06, 2022. COMPARISON: CT head and cervical spine January 30, 2022. INDICATION: 56-year-old male, history of subdural hematoma. Follow-up exam. FINDINGS: There is an intermediate attenuation left-sided subdural hematoma measuring 7 mm in thickness which previously measured approximately 5 mm in thickness. This is mildly increased in size since the comparison exam. There is a right-sided intermediate attenuation subdural fluid collection measuring 4 mm in thickness which previously measured up to approximately 4 mm in thickness which is largely unchanged. There is no midline shift. There is no evidence of an acute intraparenchymal hemorrhage. There is no hydrocephalus. IMPRESSION: 1. The left-sided subdural hematoma measures mildly increased in thickness since the comparison study currently a 7 mm in thickness versus 5 mm previously. There is also an intermediate attenuation right-sided subdural fluid collection measuring 4 mm in thickness which is unchanged. 2. No midline shift. 3. No hydrocephalus. Dictated by: Dictated on workstation # [id number]
--- NOTE | 2022-02-06 18:47 | Diagnostic Imaging Report ---
EXAMINATION: Chest radiograph, portable AP view. DATE: 02/06/2022 6:17 PM INDICATION: 56-year-old male, chest and right upper quadrant abdominal pain. COMPARISON: January 30, 2022. November 28, 2019. FINDINGS: Heart size and mediastinal contours are unchanged. There is no identified pneumothorax. There are streaky opacities in the mid and lower lung zones, bilaterally, which are largely unchanged since November 2019. There is no interval focal airspace consolidation. IMPRESSION: No identified interval acute cardiopulmonary abnormality. Dictated by: Dictated on workstation # [id number]
--- NOTE | 2022-02-06 18:59 | Diagnostic Imaging Report ---
PROCEDURE: CT abdomen and pelvis with contrast. TECHNIQUE: Multiple contiguous axial images were obtained through the abdomen and pelvis after administration of intravenous contrast. Auto Exposure Controls were utilized during the CT exam to meet ALARA standards for radiation dose reduction. All CT scans use one or more of the following dose optimizing techniques: automated exposure control, MA and/or KvP adjustment based on patient size and exam type or iterative reconstruction. DATE: February 06, 2022. COMPARISON: None. INDICATION: 56-year-old male, weakness. Abdominal pain. FINDINGS: There are predominantly linear opacities in the lung bases most likely reflecting atelectasis. The heart is not enlarged. There is no pericardial effusion. The patient is status post TIPS procedure. The outer liver contours are mildly nodular. There is no identified focal liver lesion. The gallbladder is unremarkable. The main portal vein is dilated. There is no biliary ductal dilation. Unremarkable appearance of the pancreas. The spleen measures 14 cm in craniocaudal dimension but it does not meet threshold criteria for splenomegaly. The adrenal glands are unremarkable. There is an 8 mm low-attenuation left renal lesion on axial image 53 which is too small to characterize. There is a low-attenuation left renal lesion on axial image 44 which measures 10 mm in size. Internal attenuation is 23 Hounsfield units which is indeterminate. The urinary collecting systems are not distended. There is no identified renal or ureteral stone. There is mild diffuse urinary bladder wall thickening likely relating to cystitis and/or chronic outlet obstruction. There is a nonspecific calcification in the prostate. There is a large volume colonic stool. The appendix is best identified on axial image 115 and adjacent sequential images. There is no evidence of acute appendicitis. There is abnormal wall thickening of the stomach. The intestinal tract is not distended. There is no free intraperitoneal air. There is no drainable fluid collection. There is no sizable free fluid in the abdomen or pelvis. There are atherosclerotic calcifications. There is no identified abnormally enlarged lymph node in the abdomen or pelvis which specifically meets CT size criteria for adenopathy. There are procedural related changes adjacent to the lesser curvature of the stomach. There is no identified acute bony abnormality. There is a nonunited fracture of the left posterior 11th rib with some periosteal reaction present. This may be subacute in age. Recommend correlation. IMPRESSION: CT abdomen and pelvis: 1. Abnormal wall thickening of the stomach which may reflect a nonspecific gastritis or malignancy. Further evaluation with upper endoscopy is recommended. 2. Status post TIP procedure with cirrhosis. No sizable volume ascites. 3. Large volume colonic stool. 4. Diffuse urinary bladder wall thickening which may relate to cystitis and/or chronic outlet obstruction. 5. Mildly displaced left posterior 11th rib fracture which may be subacute in age. Recommend correlation. Dictated by: Dictated on workstation # [id number]
[2022-02-06 19:06] LABS: BILIRUBIN,URINE NEGATIVE (NEGATIVE); CLARITY,URINE CLEAR; COLOR,URINE YELLOW; GLUCOSE, URINE (UA) NEGATIVE (NEGATIVE); KETONES,URINE TRACE (NEGATIVE); LEUKOCYTE ESTERASE ,URINE NEGATIVE (NEGATIVE); NITRITE,URINE NEGATIVE (NEGATIVE); PROTEIN,URINE NEGATIVE (NEGATIVE)
[2022-02-06 19:14] LABS: BACTERIA,URINE NEGATIVE /HPF
[2022-02-06 19:17] LABS: AMPHETAMINE SCREEN, URINE POSITIVE (NEGATIVE); BARBITURATE SCREEN URINE NEGATIVE (NEGATIVE); BENZODIAZEPINES SCREEN URINE NEGATIVE (NEGATIVE); CANNABINOID SCREEN, URINE NEGATIVE (NEGATIVE); COCAINE SCREEN URINE NEGATIVE (NEGATIVE); METHADONE STAT NEGATIVE (NEGATIVE); OPIATE SCREEN URINE NEGATIVE (NEGATIVE); OXYCODONE STAT NEGATIVE (NEGATIVE); PROPOXYPHENE STAT NEGATIVE (NEGATIVE); TRICYCLIC ANTIDEPRESSANTS SCRE NEGATIVE (NEGATIVE)
[2022-02-06] MEDS ORDERED: polyethylene glycoL POWDER 17 GM (MIRALAX) PACK PO PRN (21:00)
[2022-02-06] MEDS ORDERED: ONDANSETRON 4 MG/2 ML (SDV) Z0FRAN IV PRN (21:00)
[2022-02-06] MEDS ORDERED: CALCIUM CARBONATE 500 MG (TUMS) TAB.CHEW PO PRN (21:00)
[2022-02-06] MEDS ORDERED: BISACODYL 10 MG SUPP (DULCOLAX) PR PRN (21:00)
[2022-02-06] MEDS ORDERED: cloNIDine 0.1 MG (CATAPRES) TAB PO PRN (21:00)
[2022-02-06] MEDS ORDERED: ANTACID SUSP 30 ML UDC (MYLANTA) PO PRN (21:00)
[2022-02-06] MEDS ORDERED: ONDANSETRON 4 MG (ZOFRAN) ORAL DISSOLVE TAB PO PRN (21:00)
[2022-02-06] MEDS ORDERED: morphine INJ 4 MG/ML 1 ML (VIAL/SYRINGE) IV PRN (21:00)
[2022-02-06] MEDS ORDERED: ACETAMINOPHEN 325 MG TABLET PO PRN (21:00)
[2022-02-06] MEDS ORDERED: diphenhydrAMINE 50 MG/ML INJ (BENADRYL) IVP PRN (21:00)
[2022-02-06] MEDS ORDERED: diphenhydrAMINE 25 MG TAB (BENADRYL) PO PRN (21:00)
[2022-02-06] MEDS ORDERED: MILK OF MAGNESIA 400 MG/5 ML 30 ML UDC PO PRN (21:00)
[2022-02-06] MEDS ORDERED: HALOPERIDOL 5 MG/ML (HALDOL) VIAL IM PRN (21:00)
[2022-02-06] MEDS ORDERED: LACTULOSE SYRUP 10GM/15ML (ENULOSE) 30ML UDC PO PRN (21:00)
[2022-02-06 21:05] VITALS: BP 145/86
[2022-02-06] MEDS: DOCUSATE SODIUM 100 MG (COLACE) CAP PO SCH (22:35)
[2022-02-06] MEDS: NS IV 1000 ML 1,000 ML IV SCH (22:36)
[2022-02-06] MEDS: SENNOSIDES 8.6 MG (SENOKOT) TAB PO SCH (22:36)
[2022-02-06 23:18] VITALS: BP 119/78
[2022-02-06 23:23] VITALS: BP 120/78
[2022-02-06] MEDS ORDERED: RT-ALBUTEROL SULF 2.5 MG/3 ML PRE-MIX VIAL INH PRN (23:45)
[2022-02-07 03:46] VITALS: BP 105/62
[2022-02-07 05:58] LABS: BASOPHILS % (AUTO) 2 % (0-10); EOSINOPHILS # (AUTO) 0.5 10^3/uL (0.0-0.3); EOSINOPHILS % (AUTO) 18 % (0-10); HEMATOCRIT 28 % (40-54); HEMOGLOBIN 8.8 g/dL (13.3-17.7); LYMPHOCYTES # (AUTO) 0.9 10^3/uL (1.0-4.0); LYMPHOCYTES % (AUTO) 32 % (12-44); MEAN CORPUSCULAR HEMOGLOBIN 26 pg (25-34); MEAN CORPUSCULAR HGB CONC 31 g/dL (32-36); MEAN CORPUSCULAR VOLUME 82 fL (80-99); MEAN PLATELET VOLUME 9.4 fL (9.0-12.2); MONOCYTES # (AUTO) 0.3 10^3/uL (0.0-1.0); MONOCYTES % (AUTO) 12 % (0-12); NEUTROPHILS % (AUTO) 37 % (42-75); PLATELET COUNT 101 10^3/uL (130-400); WHITE BLOOD COUNT 2.7 10^3/uL (4.3-11.0)
[2022-02-07 06:09] LABS: ALBUMIN 2.6 GM/DL (3.2-4.5)
[2022-02-07 06:10] LABS: POTASSIUM 3.5 MMOL/L (3.6-5.0)
[2022-02-07 06:11] LABS: CALCIUM 7.8 MG/DL (8.5-10.1)
[2022-02-07 06:12] LABS: TOTAL PROTEIN 5.5 GM/DL (6.4-8.2)
[2022-02-07 06:14] LABS: BILIRUBIN,TOTAL 1.2 MG/DL (0.1-1.0)
[2022-02-07 06:16] LABS: CREATININE SERUM 0.69 MG/DL (0.60-1.30)
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
[2022-02-07 07:57] VITALS: BP 118/76
[2022-02-07] MEDS: SENNOSIDES 8.6 MG (SENOKOT) TAB PO SCH ×2 (08:55→20:07)
[2022-02-07] MEDS: LACTULOSE SYRUP 10GM/15ML (ENULOSE) 30ML UDC PO SCH ×4 (08:55→20:08)
[2022-02-07] MEDS: DOCUSATE SODIUM 100 MG (COLACE) CAP PO SCH ×2 (08:55→20:07)
[2022-02-07] MEDS: RIFAXIMIN 550 MG TABLET (XIFAXAN) PO SCH ×2 (08:55→20:07)
[2022-02-07] MEDS: NS IV 1000 ML 1,000 ML IV SCH ×2 (10:51→23:24)
[2022-02-07 16:31] VITALS: BP 109/60
[2022-02-07 20:05] VITALS: BP 127/58
[2022-02-07 20:21] VITALS: BP 116/57
[2022-02-08] VITALS (8 sets, daily range): BP systolic 106–130; BP diastolic 60–67
[2022-02-08 05:10] LABS: BASOPHILS % (AUTO) 1 % (0-10); EOSINOPHILS # (AUTO) 0.5 10^3/uL (0.0-0.3); EOSINOPHILS % (AUTO) 16 % (0-10); HEMATOCRIT 29 % (40-54); HEMOGLOBIN 9.3 g/dL (13.3-17.7); LYMPHOCYTES # (AUTO) 0.9 10^3/uL (1.0-4.0); LYMPHOCYTES % (AUTO) 28 % (12-44); MEAN CORPUSCULAR HEMOGLOBIN 26 pg (25-34); MEAN CORPUSCULAR HGB CONC 32 g/dL (32-36); MEAN CORPUSCULAR VOLUME 81 fL (80-99); MEAN PLATELET VOLUME 9.9 fL (9.0-12.2); MONOCYTES # (AUTO) 0.4 10^3/uL (0.0-1.0); MONOCYTES % (AUTO) 12 % (0-12); NEUTROPHILS # (AUTO) 1.5 10^3/uL (1.8-7.8); NEUTROPHILS % (AUTO) 44 % (42-75); PLATELET COUNT 123 10^3/uL (130-400); WHITE BLOOD COUNT 3.3 10^3/uL (4.3-11.0)
[2022-02-08 05:17] LABS: ALBUMIN 2.3 GM/DL (3.2-4.5)
[2022-02-08 05:18] LABS: POTASSIUM 3.7 MMOL/L (3.6-5.0)
[2022-02-08 05:19] LABS: CALCIUM 7.4 MG/DL (8.5-10.1)
[2022-02-08 05:20] LABS: TOTAL PROTEIN 5.1 GM/DL (6.4-8.2)
[2022-02-08 05:22] LABS: BILIRUBIN,TOTAL 0.8 MG/DL (0.1-1.0)
[2022-02-08 05:24] LABS: CREATININE SERUM 0.7 MG/DL (0.60-1.30)
[2022-02-08] MEDS: RIFAXIMIN 550 MG TABLET (XIFAXAN) PO SCH ×2 (07:38→20:17)
[2022-02-08] MEDS: SENNOSIDES 8.6 MG (SENOKOT) TAB PO SCH ×2 (07:38→20:17)
[2022-02-08] MEDS: DOCUSATE SODIUM 100 MG (COLACE) CAP PO SCH ×2 (07:38→20:17)
[2022-02-08] MEDS: LACTULOSE SYRUP 10GM/15ML (ENULOSE) 30ML UDC PO SCH ×5 (07:38→20:40)
[2022-02-08] MEDS ORDERED: GABA300C PO (08:28)
[2022-02-08] MEDS ORDERED: SPIR50TA4 PO (08:28)
[2022-02-08] MEDS ORDERED: FURO20TA4 PO (08:28)
[2022-02-08] MEDS ORDERED: FOLI1TAB33 PO (08:28)
[2022-02-08] MEDS ORDERED: CYAN-41 PO (08:29)
[2022-02-08] MEDS ORDERED: DOCU100T7 PO (08:29)
[2022-02-08] MEDS ORDERED: ACET-2267 PO (08:30)
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
[2022-02-08] MEDS: NS IV 1000 ML 1,000 ML IV SCH ×3 (10:33→23:45)
--- NOTE | 2022-02-08 14:06 | Occupational Therapy Eval ---
OT Evaluation-General/PLF Medical Diagnosis Admission Date Feb 06, 2022 at 20:09 Medical Diagnosis: hepatic encephalopathy Onset Date: Feb 06, 2022 Therapy Diagnosis Therapy Diagnosis: weakness, poor safety Precautions Precautions/Isolations: Seizure, Fall Prevention, Standard Precautions Referral Physician: Rut Daniel Reason: Evaluation/Treatment Medical History Pertinent Medical History: Alcoholism, Smoking Current History Pt found wandering down road. Found to have hepatic encephalopathy. Per patient, he is currently homeless. He reports wanting to get to [place] (where his family lives) however has no idea how he will get there. Pt is a poor historian and often needs simplification with PLOF questions. He reports not using any AD at baseline and was indep with adls. Reviewed History: Yes Social History Home: homeless Current Living Status: Alone ADL-Prior Level of Function SCALE: Activities may be completed with or without assistive devices. 5-Daitdmjnps-hnmbulw completes the activity by him/herself with no assistance from a helper. 5-Set-up or Clean-up Assistance-helper sets up or cleans up; patient completes activity. [place] assists only prior to or following the activity. 4-Supervision or Touching Assistance-helper provides verbal cues and/or touching/steadying and/or contact guard assistance as patient completes activity. Assistance may be provided throughout the activity or intermittently. 3-Partial/Moderate Assistance-helper does LESS THAN HALF the effort. [place] lifts, holds or supports trunk or limbs, but provides less than half the effort. 2-Substantial/Maximal Assistance-helper does MORE THAN HALF the effort. [place] lifts or holds trunk or limbs and provides more than half the effort. 0-Lblqntbum-incgtq does ALL the effort. Patient does none of the effort to complete the activity. Or, the assistance of 2 or more helpers is required for the patient to complete the activity. If activity was not attempted, code reason: 7-Patient Refused. 9-Not Applicable-not attempted and the patient did not perform the activity before the current illness, exacerbation or injury. 10-Not Attempted due to Environmental Limitations-(lack of equipment, weather restraints, etc.). 88-Not Attempted due to Medical Conditions or Safety Concerns. Self Care: Independent Functional Cognition: Unknown OT Current Status Subjective "I can't catch my breath." Appearance Pt returned to supine in bed, all needs within reach at OT departure. Mental Status/Objective Patient Orientation: Person, Place, Situation Attachments: IV, Oxygen (4L) Current Glasses/Contacts: Yes Hearing Aids: No Hand Dominance: Right Upper Extremity ROM WFL Upper Extremity Strength 4/5 grossly ADL-Treatment On/Off Footwear (QC): 4 Supine<>sit: Supervision. Good sitting balance at EOB. Once asked to complete footwear, pt begins to breath heavily and reports inability to catch his breath. He grasps his chest and appears as if he is holding his breath. Pt is able to have a normal conversation when asked questions. Oxygen fluctuating from 82%- 93%. Oxygen remains >90% when talking and when standing. Education provided on PLB and energy conservation such as completing figure 4 vs bending at waist (when donning/doffing socks). No physical assistance required to complete task. He stood independently but reports unsteadiness. He took 2-3 steps toward the HOB with close supervision for safety. Pt appears anxious with all functional activities. Per physical therapy note, pt ambulated ~500 feet independently without device. Education OT Patient Education: Correct positioning, Energy conservation, Modified ADL techniques, Purpose of tx/functional activities, Safety issues, Transfer techniques Teaching Recipient: Patient Teaching Methods: Demonstration, Discussion Response to Teaching: Verbalize Understanding, Return Demonstration, Reinforcement Needed OT Physical Testing Supervisor Goals Fpc Goals Time Frame: Feb 12, 2022 Eating (QC): 6 Oral Hygiene (QC): 6 Toileting Hygiene (QC): 6 Shower/Bathe Self (QC): 5 Upper Body Dressing (QC): 5 Lower Body Dressing (QC): 5 On/Off Footwear (QC): 5 1=Demonstrate adherence to instructed precautions during ADL tasks. 2=Patient will verbalize/demonstrate understanding of assistive devices/modifi cations for ADL. 3=Patient will improve strength/tolerance for activity to enable patient to perform ADL's. OT Education/Plan Problem List/Assessment Assessment: Decreased Activ Tolerance, Decreased Safety Aware, Impaired Cognition, Impaired Funct Balance, Impaired I ADL's, Impaired Self-Care Skills Discharge Recommendations Plan/Recommendations: Continue POC Therapy Discharge Recommendati: Home & Family (pending progress ) Treatment Plan/Plan of Care Treatment,Training & Education: Yes Patient would benefit from OT for education, treatment and training to promote independence in ADL's, mobility, safety and/or upper extremity function for ADL's. Plan of Care: ADL Retraining, Cognitive Retraining, Functional Mobility, Group Exercise/Act as Ind, UE Funct Exercise/Act Treatment Duration: Feb 12, 2022 Frequency: 3 times per week (3-5x/week ) Estimated Hrs Per Day: .25 hour per day Agreement: Yes Rehab Potential: Fair Time/GCodes Start Time: 13:34 Stop Time: 13:46 Total Time Billed (hr/min): 12 Billed Treatment Time 1 visit Phylicia Connors OT Feb 08, 2022 14:06
--- NOTE | 2022-02-08 14:53 | Progress Note ---
Subjective Subjective/Events-last exam Patient states that he got short of breath during walk today. Tolerating PO diet. Having multiple BMs Review of Systems Pulmonary: Dyspnea, Cough Cardiovascular: No: Chest Pain, Palpitations Gastrointestinal: Abdominal Pain Neurological: Weakness, Incoordination Objective Exam Last Set of Vital Signs Vital Signs Date Time Temp Pulse Resp B/P (MAP) Pulse Ox O2 Delivery O2 Flow Rate FiO2 02/08/22 12:31 75 02/08/22 11:37 37.8 18 118/62 (80) 91 Room Air 02/06/22 23:23 21 Capillary Refill : Less Than 3 Seconds I&O Intake and Output 02/08/22 00:00 Intake Total 3084 ml Output Total 1080 ml Balance 2004 ml Intake Oral 2084 ml IV Total 1000 ml Output Urine Total 1080 ml # Bowel Movements 1 General: Alert, Oriented X3, No Acute Distress Lungs: Other (Basilar crackles) Heart: Regular Rate, No Murmurs Abdomen: Normal Bowel Sounds, Soft, No Tenderness, No Masses Extremities: No Edema, No Tenderness/Swelling Neuro: Normal Speech Results/Procedures Lab Laboratory Tests 02/08/22 05:00: White Blood Count 3.3L, Red Blood Count 3.63L, Hemoglobin 9.3L, Hematocrit 29L, Mean Corpuscular Volume 81, Mean Corpuscular Hemoglobin 26, Mean Corpuscular Hemoglobin Concent 32, Red Cell Distribution Width 20.0H, Platelet Count 123L, Mean Platelet Volume 9.9, Immature Granulocyte % (Auto) 0, Neutrophils (%) (Auto) 44, Lymphocytes (%) (Auto) 28, Monocytes (%) (Auto) 12, Eosinophils (%) (Auto) 16H, Basophils (%) (Auto) 1, Neutrophils # (Auto) 1.5L, Lymphocytes # (Auto) 0.9L, Monocytes # (Auto) 0.4, Eosinophils # (Auto) 0.5H, Basophils # (Auto) 0.0, Immature Granulocyte # (Auto) 0.0, Sodium Level 139, Potassium Level 3.7, Chloride Level 111H, Carbon Dioxide Level 19L, Anion Gap 9, Blood Urea Nitrogen 9, Creatinine 0.70, Estimat Glomerular Filtration Rate 107, BUN/Creatinine Ratio 13, Glucose Level 93, Calcium Level 7.4L, Corrected Calcium 8.8, Total Bilirubin 0.8, Aspartate Amino Transf (AST/SGOT) 30, Alanine Aminotransferase (ALT/SGPT) 18, Alkaline Phosphatase 87, Ammonia 70H, Total Protein 5.1L, Albumin 2.3L Assessment/Plan Assessment/Plan (1) Hepatic encephalopathy Status: Chronic Assessment & Plan: 02/08: Seems to be getting close to baseline, Will continue to trend ammonia, continue lactulose (2) Hyperammonemia Status: Acute (3) Hypoxia Status: Acute Assessment & Plan: 02/08: Hypoxic during walk today, placed on PRN oxygen, MAT protocol (4) Alcoholic cirrhosis of liver Status: Chronic Qualifiers: Qualified Codes: K70.30 - Alcoholic cirrhosis of liver without ascites (5) Bilateral subdural hematomas Status: Acute Assessment & Plan: 02/08: From recent fall, stable (6) Fall Status: Acute (7) Methamphetamine use Status: Acute Assessment & Plan: 02/08: Discussed the need for cessation Clinical Quality Measures DVT/VTE Risk/Contraindication: Contraindications-Pharm: Other *list below* Other: cirrhosis EUNICE IVEY MD Feb 08, 2022 14:53
[2022-02-08] MEDS: RT-ALBUTEROL SULF 2.5 MG/3 ML PRE-MIX VIAL INH SCH (20:40)
[2022-02-09 04:02] VITALS: BP 146/70
[2022-02-09 05:50] LABS: BASOPHILS % (AUTO) 1 % (0-10); EOSINOPHILS # (AUTO) 0.6 10^3/uL (0.0-0.3); EOSINOPHILS % (AUTO) 14 % (0-10); HEMATOCRIT 29 % (40-54); HEMOGLOBIN 8.7 g/dL (13.3-17.7); LYMPHOCYTES # (AUTO) 1.1 10^3/uL (1.0-4.0); LYMPHOCYTES % (AUTO) 25 % (12-44); MEAN CORPUSCULAR HEMOGLOBIN 25 pg (25-34); MEAN CORPUSCULAR HGB CONC 30 g/dL (32-36); MEAN CORPUSCULAR VOLUME 82 fL (80-99); MEAN PLATELET VOLUME 9.9 fL (9.0-12.2); MONOCYTES # (AUTO) 0.5 10^3/uL (0.0-1.0); MONOCYTES % (AUTO) 12 % (0-12); NEUTROPHILS # (AUTO) 2.1 10^3/uL (1.8-7.8); NEUTROPHILS % (AUTO) 48 % (42-75); PLATELET COUNT 137 10^3/uL (130-400); WHITE BLOOD COUNT 4.3 10^3/uL (4.3-11.0)
[2022-02-09 06:06] LABS: ALBUMIN 2.3 GM/DL (3.2-4.5)
[2022-02-09 06:08] LABS: CALCIUM 7.5 MG/DL (8.5-10.1)
[2022-02-09 06:09] LABS: TOTAL PROTEIN 5.2 GM/DL (6.4-8.2)
[2022-02-09 06:11] LABS: BILIRUBIN,TOTAL 0.8 MG/DL (0.1-1.0)
[2022-02-09 06:13] LABS: CREATININE SERUM 0.68 MG/DL (0.60-1.30)
[2022-02-09 07:55] VITALS: BP 135/73
[2022-02-09] MEDS: RT-ALBUTEROL SULF 2.5 MG/3 ML PRE-MIX VIAL INH SCH ×2 (08:14→19:35)
[2022-02-09] MEDS: SENNOSIDES 8.6 MG (SENOKOT) TAB PO SCH ×2 (08:53→20:55)
[2022-02-09] MEDS: DOCUSATE SODIUM 100 MG (COLACE) CAP PO SCH ×2 (08:53→20:55)
[2022-02-09] MEDS: LACTULOSE SYRUP 10GM/15ML (ENULOSE) 30ML UDC PO SCH ×4 (08:54→20:56)
[2022-02-09] MEDS: RIFAXIMIN 550 MG TABLET (XIFAXAN) PO SCH ×2 (08:54→20:55)
[2022-02-09 11:57] VITALS: BP 121/70
--- NOTE | 2022-02-09 14:28 | Occ Therapy Progress Note ---
Therapy Progress Note OT visited with pt who reports no concerns with ADLs and he is at PLOF. Pt able to don/doff gripper socks independently, just toileted without assistance. Pt declines further OT services at this time. No further skilled OT services indicated due to pt being at PLOF, d/c from OT. 1, visit CONCHITA WEBB OT Feb 09, 2022 14:27
[2022-02-09 16:26] VITALS: BP 128/69
[2022-02-09 19:41] VITALS: BP 119/63
[2022-02-09] MEDS: MELATONIN 3 MG TABLET PO PRN (20:56)
--- NOTE | 2022-02-09 21:12 | Progress Note ---
Subjective Subjective/Events-last exam Patient states that he is feeling better this AM. Still requiring some oxygen. Tolerating PO diet and ambulation. + soft BMs. Review of Systems General: Fatigue Pulmonary: Dyspnea, Cough Cardiovascular: No: Chest Pain, Palpitations Gastrointestinal: No: Nausea, Vomiting, Abdominal Pain Neurological: Weakness, Incoordination Objective Exam Last Set of Vital Signs Vital Signs Date Time Temp Pulse Resp B/P (MAP) Pulse Ox O2 Delivery O2 Flow Rate FiO2 02/09/22 20:06 Nasal Cannula 2.00 02/09/22 19:41 37.2 79 19 119/63 (81) 93 02/06/22 23:23 21 Capillary Refill : Less Than 3 Seconds I&O Intake and Output 02/09/22 00:00 Intake Total 3934 ml Output Total 2020 ml Balance 1914 ml Intake Oral 1934 ml IV Total 2000 ml Output Urine Total 2020 ml # Bowel Movements 1 General: Alert, Oriented X3, Cooperative, No Acute Distress Lungs: Clear to Auscultation, Normal Air Movement Heart: Regular Rate, No Murmurs Abdomen: Normal Bowel Sounds, Soft, No Tenderness, No Masses Extremities: Other (1+ pitting edema bilaterally) Neuro: Normal Speech Results/Procedures Lab Laboratory Tests 02/09/22 05:39: White Blood Count 4.3, Red Blood Count 3.53L, Hemoglobin 8.7L, Hematocrit 29L, Mean Corpuscular Volume 82, Mean Corpuscular Hemoglobin 25, Mean Corpuscular Hemoglobin Concent 30L, Red Cell Distribution Width 19.9H, Platelet Count 137, Mean Platelet Volume 9.9, Immature Granulocyte % (Auto) 0, Neutrophils (%) (Auto) 48, Lymphocytes (%) (Auto) 25, Monocytes (%) (Auto) 12, Eosinophils (%) (Auto) 14H, Basophils (%) (Auto) 1, Neutrophils # (Auto) 2.1, Lymphocytes # (Auto) 1.1, Monocytes # (Auto) 0.5, Eosinophils # (Auto) 0.6H, Basophils # (Auto) 0.0, Immature Granulocyte # (Auto) 0.0, Sodium Level 139, Potassium Level 4.0, Chloride Level 108H, Carbon Dioxide Level 23, Anion Gap 8, Blood Urea Nitrogen 9, Creatinine 0.68, Estimat Glomerular Filtration Rate 108, BUN/Creatinine Ratio 13, Glucose Level 94, Calcium Level 7.5L, Corrected Calcium 8.9, Total Bilirubin 0.8, Aspartate Amino Transf (AST/SGOT) 28, Alanine Aminotransferase (ALT/SGPT) 16, Alkaline Phosphatase 89, Ammonia 67H, Total Protein 5.2L, Albumin 2.3L Assessment/Plan Assessment/Plan (1) Hepatic encephalopathy Status: Chronic Assessment & Plan: 02/08: Seems to be getting close to baseline, Will continue to trend ammonia, continue lactulose 02/09: At baseline, continue laculose, stop other bowel meds now that he is having soft stools (2) Hyperammonemia Status: Acute (3) Hypoxia Status: Acute Assessment & Plan: 02/08: Hypoxic during walk today, placed on PRN oxygen, MAT protocol 02/09: Home oxygen study ordered (4) Alcoholic cirrhosis of liver Status: Chronic Qualifiers: Qualified Codes: K70.30 - Alcoholic cirrhosis of liver without ascites (5) Bilateral subdural hematomas Status: Acute Assessment & Plan: 02/08: From recent fall, stable (6) Fall Status: Acute (7) Methamphetamine use Status: Acute Assessment & Plan: 02/08: Discussed the need for cessation Clinical Quality Measures DVT/VTE Risk/Contraindication: Contraindications-Pharm: Other *list below* Other: cirrhosis EUNICE IVEY MD Feb 09, 2022 21:12
[2022-02-09 23:26] VITALS: BP 119/60
[2022-02-10] MEDS: NS IV 1000 ML 1,000 ML IV SCH
[2022-02-10 05:14] VITALS: BP 121/64
[2022-02-10 05:55] LABS: BASOPHILS % (AUTO) 1 % (0-10); EOSINOPHILS # (AUTO) 0.6 10^3/uL (0.0-0.3); EOSINOPHILS % (AUTO) 15 % (0-10); HEMATOCRIT 28 % (40-54); HEMOGLOBIN 8.5 g/dL (13.3-17.7); LYMPHOCYTES % (AUTO) 27 % (12-44); MEAN CORPUSCULAR HEMOGLOBIN 25 pg (25-34); MEAN CORPUSCULAR HGB CONC 30 g/dL (32-36); MEAN CORPUSCULAR VOLUME 82 fL (80-99); MEAN PLATELET VOLUME 9.4 fL (9.0-12.2); MONOCYTES # (AUTO) 0.4 10^3/uL (0.0-1.0); MONOCYTES % (AUTO) 11 % (0-12); NEUTROPHILS # (AUTO) 1.8 10^3/uL (1.8-7.8); NEUTROPHILS % (AUTO) 46 % (42-75); PLATELET COUNT 130 10^3/uL (130-400); WHITE BLOOD COUNT 3.9 10^3/uL (4.3-11.0)
[2022-02-10 06:05] LABS: ALBUMIN 2.3 GM/DL (3.2-4.5); POTASSIUM 3.9 MMOL/L (3.6-5.0)
[2022-02-10 06:06] LABS: CALCIUM 7.7 MG/DL (8.5-10.1)
[2022-02-10 06:08] LABS: TOTAL PROTEIN 5.2 GM/DL (6.4-8.2)
[2022-02-10 06:10] LABS: BILIRUBIN,TOTAL 0.7 MG/DL (0.1-1.0)
[2022-02-10 06:11] LABS: CREATININE SERUM 0.62 MG/DL (0.60-1.30)
[2022-02-10] MEDS: RT-ALBUTEROL SULF 2.5 MG/3 ML PRE-MIX VIAL INH SCH ×2 (07:49→19:46)
[2022-02-10 08:13] VITALS: BP 138/76
[2022-02-10] MEDS: LACTULOSE SYRUP 10GM/15ML (ENULOSE) 30ML UDC PO SCH ×4 (08:17→21:04)
[2022-02-10] MEDS: RIFAXIMIN 550 MG TABLET (XIFAXAN) PO SCH ×2 (08:17→20:58)
[2022-02-10] MEDS: GABAPENTIN 300 MG (NEURONTIN) CAP PO SCH ×2 (08:17→20:58)
[2022-02-10] MEDS: DOCUSATE SODIUM 100 MG (COLACE) CAP PO SCH ×2 (08:18→20:58)
[2022-02-10] MEDS: SENNOSIDES 8.6 MG (SENOKOT) TAB PO SCH ×2 (08:18→20:58)
[2022-02-10 11:43] VITALS: BP 120/67
[2022-02-10] MEDS: LORazepam 0.5 MG (ATIVAN) TABLET PO PRN (15:57)
[2022-02-10 16:08] VITALS: BP 119/67
[2022-02-10] MEDS: MELATONIN 3 MG TABLET PO PRN (20:58)
[2022-02-10 21:01] VITALS: BP 131/70
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
[2022-02-11] VITALS (8 sets, daily range): BP systolic 106–144; BP diastolic 55–86
[2022-02-11 06:28] LABS: BASOPHILS % (AUTO) 1 % (0-10); EOSINOPHILS # (AUTO) 0.6 10^3/uL (0.0-0.3); EOSINOPHILS % (AUTO) 17 % (0-10); HEMATOCRIT 29 % (40-54); HEMOGLOBIN 8.8 g/dL (13.3-17.7); LYMPHOCYTES # (AUTO) 0.9 10^3/uL (1.0-4.0); LYMPHOCYTES % (AUTO) 26 % (12-44); MEAN CORPUSCULAR HEMOGLOBIN 25 pg (25-34); MEAN CORPUSCULAR HGB CONC 31 g/dL (32-36); MEAN CORPUSCULAR VOLUME 83 fL (80-99); MEAN PLATELET VOLUME 9.8 fL (9.0-12.2); MONOCYTES # (AUTO) 0.4 10^3/uL (0.0-1.0); MONOCYTES % (AUTO) 11 % (0-12); NEUTROPHILS # (AUTO) 1.6 10^3/uL (1.8-7.8); NEUTROPHILS % (AUTO) 45 % (42-75); PLATELET COUNT 149 10^3/uL (130-400); WHITE BLOOD COUNT 3.5 10^3/uL (4.3-11.0)
[2022-02-11 06:42] LABS: ALBUMIN 2.5 GM/DL (3.2-4.5)
[2022-02-11 06:43] LABS: POTASSIUM 3.7 MMOL/L (3.6-5.0)
[2022-02-11 06:44] LABS: CALCIUM 7.9 MG/DL (8.5-10.1)
[2022-02-11 06:45] LABS: TOTAL PROTEIN 5.5 GM/DL (6.4-8.2)
[2022-02-11 06:47] LABS: BILIRUBIN,TOTAL 0.7 MG/DL (0.1-1.0)
[2022-02-11 06:49] LABS: CREATININE SERUM 0.66 MG/DL (0.60-1.30)
[2022-02-11] MEDS: RT-ALBUTEROL SULF 2.5 MG/3 ML PRE-MIX VIAL INH SCH ×2 (07:24→22:41)
[2022-02-11] MEDS: RIFAXIMIN 550 MG TABLET (XIFAXAN) PO SCH ×2 (08:19→19:59)
[2022-02-11] MEDS: LACTULOSE SYRUP 10GM/15ML (ENULOSE) 30ML UDC PO SCH ×4 (08:19→19:59)
[2022-02-11] MEDS: SENNOSIDES 8.6 MG (SENOKOT) TAB PO SCH ×2 (08:19→21:00)
[2022-02-11] MEDS: DOCUSATE SODIUM 100 MG (COLACE) CAP PO SCH ×2 (08:19→21:00)
[2022-02-11] MEDS: LORazepam 0.5 MG (ATIVAN) TABLET PO PRN (08:19)
[2022-02-11] MEDS: GABAPENTIN 300 MG (NEURONTIN) CAP PO SCH ×2 (08:19→19:58)
[2022-02-11] MEDS: MELATONIN 3 MG TABLET PO PRN (19:59)
--- NOTE | 2022-02-11 21:37 | Progress Note ---
Subjective Subjective/Events-last exam Patient is doing alittle better this AM. States that he still has a HAYDEN. Denies any thoughts of wanting to harm himself today. Review of Systems Pulmonary: Cough Cardiovascular: No: Chest Pain, Palpitations Neurological: Other (HAYDEN) Objective Exam Last Set of Vital Signs Vital Signs Date Time Temp Pulse Resp B/P (MAP) Pulse Ox O2 Delivery O2 Flow Rate FiO2 02/11/22 20:49 Nasal Cannula 2.00 02/11/22 19:31 36.5 88 16 136/73 (94) 93 02/06/22 23:23 21 Capillary Refill : Less Than 3 Seconds I&O Intake and Output 02/11/22 00:00 Intake Total 1470 ml Output Total 3225 ml Balance -1755 ml Intake Oral 1470 ml Output Urine Total 3225 ml General: Alert, No Acute Distress Lungs: Clear to Auscultation, Normal Air Movement Heart: Regular Rate, No Murmurs Abdomen: Normal Bowel Sounds, Soft, No Tenderness Extremities: No Edema, No Tenderness/Swelling Results/Procedures Lab Laboratory Tests 02/11/22 05:19: White Blood Count 3.5L, Red Blood Count 3.47L, Hemoglobin 8.8L, Hematocrit 29L, Mean Corpuscular Volume 83, Mean Corpuscular Hemoglobin 25, Mean Corpuscular Hemoglobin Concent 31L, Red Cell Distribution Width 19.8H, Platelet Count 149, Mean Platelet Volume 9.8, Immature Granulocyte % (Auto) 0, Neutrophils (%) (Auto) 45, Lymphocytes (%) (Auto) 26, Monocytes (%) (Auto) 11, Eosinophils (%) (Auto) 17H, Basophils (%) (Auto) 1, Neutrophils # (Auto) 1.6L, Lymphocytes # (Auto) 0.9L, Monocytes # (Auto) 0.4, Eosinophils # (Auto) 0.6H, Basophils # (Auto) 0.0, Immature Granulocyte # (Auto) 0.0, Sodium Level 140, Potassium Level 3.7, Chloride Level 109H, Carbon Dioxide Level 26, Anion Gap 5, Blood Urea Nitrogen 10, Creatinine 0.66, Estimat Glomerular Filtration Rate 109, BUN/Creatinine Ratio 15, Glucose Level 88, Calcium Level 7.9L, Corrected Calcium 9.1, Total Bilirubin 0.7, Aspartate Amino Transf (AST/SGOT) 28, Alanine Aminotransferase (ALT/SGPT) 15, Alkaline Phosphatase 94, Total Protein 5.5L, Albumin 2.5L Assessment/Plan Assessment/Plan (1) Hepatic encephalopathy Status: Chronic Assessment & Plan: 02/08: Seems to be getting close to baseline, Will continue to trend ammonia, continue lactulose 02/09: At baseline, continue laculose, stop other bowel meds now that he is having soft stools 02/10: Seems to be sleepier today then yesterday, states that his head hurts 02/11: @ baseline (2) Hyperammonemia Status: Acute (3) Hypoxia Status: Acute Assessment & Plan: 02/08: Hypoxic during walk today, placed on PRN oxygen, MAT protocol 02/09: Home oxygen study ordered (4) Alcoholic cirrhosis of liver Status: Chronic Qualifiers: Qualified Codes: K70.30 - Alcoholic cirrhosis of liver without ascites (5) Bilateral subdural hematomas Status: Acute Assessment & Plan: 02/08: From recent fall, stable (6) Fall Status: Acute (7) Methamphetamine use Status: Acute Assessment & Plan: 02/08: Discussed the need for cessation (8) Suicidal behavior Status: Acute Assessment & Plan: 02/10: Placed on suicide watch after aide found him with a cord wrapped around his neck 02/11: referral placed Qualifiers: Qualified Codes: T14.91XA - Suicide attempt, initial encounter Clinical Quality Measures DVT/VTE Risk/Contraindication: Contraindications-Pharm: Other *list below* Other: cirrhosis EUNICE IVEY MD Feb 11, 2022 21:37
[2022-02-12 03:49] VITALS: BP 106/63
[2022-02-12 07:05] LABS: BASOPHILS % (AUTO) 1 % (0-10); EOSINOPHILS # (AUTO) 0.4 10^3/uL (0.0-0.3); EOSINOPHILS % (AUTO) 13 % (0-10); HEMATOCRIT 28 % (40-54); HEMOGLOBIN 8.8 g/dL (13.3-17.7); LYMPHOCYTES % (AUTO) 28 % (12-44); MEAN CORPUSCULAR HEMOGLOBIN 26 pg (25-34); MEAN CORPUSCULAR HGB CONC 31 g/dL (32-36); MEAN CORPUSCULAR VOLUME 83 fL (80-99); MEAN PLATELET VOLUME 9.9 fL (9.0-12.2); MONOCYTES # (AUTO) 0.4 10^3/uL (0.0-1.0); MONOCYTES % (AUTO) 12 % (0-12); NEUTROPHILS # (AUTO) 1.7 10^3/uL (1.8-7.8); NEUTROPHILS % (AUTO) 47 % (42-75); PLATELET COUNT 142 10^3/uL (130-400); WHITE BLOOD COUNT 3.5 10^3/uL (4.3-11.0)
[2022-02-12 07:33] LABS: ALBUMIN 2.5 GM/DL (3.2-4.5); BILIRUBIN,TOTAL 0.9 MG/DL (0.1-1.0); CREATININE SERUM 0.68 MG/DL (0.60-1.30); POTASSIUM 4.1 MMOL/L (3.6-5.0); TOTAL PROTEIN 5.6 GM/DL (6.4-8.2)
[2022-02-12 08:08] VITALS: BP 115/67
[2022-02-12 08:42] LABS: ANISOCYTOSIS SLIGHT; BAND NEUTROPHILS 4 %; BASOPHILS % (MANUAL) 0 %; EOSINOPHILS % (MANUAL) 17 %; HYPOCHROMASIA SLIGHT; LYMPHOCYTES % (MANUAL) 32 %; MONOCYTES % (MANUAL) 7 %; NEUTROPHILS % (MANUAL) 40 %
[2022-02-12 08:43] LABS: ELLIPT/OVALOCYTES SLIGHT
[2022-02-12] MEDS: LACTULOSE SYRUP 10GM/15ML (ENULOSE) 30ML UDC PO SCH ×2 (08:43→13:59)
[2022-02-12] MEDS: GABAPENTIN 300 MG (NEURONTIN) CAP PO SCH (08:44)
[2022-02-12] MEDS: SENNOSIDES 8.6 MG (SENOKOT) TAB PO SCH (08:44)
[2022-02-12] MEDS: DOCUSATE SODIUM 100 MG (COLACE) CAP PO SCH (08:44)
[2022-02-12] MEDS: RIFAXIMIN 550 MG TABLET (XIFAXAN) PO SCH (08:44)
[2022-02-12] MEDS: RT-ALBUTEROL SULF 2.5 MG/3 ML PRE-MIX VIAL INH SCH (09:24)
[2022-02-12 12:00] VITALS: BP 113/54
[2022-02-12] MEDS ORDERED: SPIR50TA4 PO (12:31)
[2022-02-12] MEDS ORDERED: FOLI1TAB33 PO (12:31)
[2022-02-12] MEDS ORDERED: FURO20TA4 PO (12:31)
[2022-02-12] MEDS ORDERED: CYAN-41 PO (12:31)
[2022-02-12] MEDS ORDERED: GABA300C PO (12:31)
[2022-02-12] MEDS ORDERED: ACHD5005 PO (12:31)
[2022-02-12] MEDS ORDERED: LACT20SO2 PO (12:31)
--- NOTE | 2022-02-12 12:31 | Discharge Summary ---
Discharge Summary Hospital Course Was the Problem List Reviewed?: Yes Problems/Dx: (1) Hepatic encephalopathy Status: Chronic (2) Hyperammonemia Status: Acute Hospital Course Date of Admission: Feb 06, 2022 at 20:09 Admission Diagnosis : Family Physician/Provider: Tashia Kahn MD Date of Discharge: 02/12/22 Discharge Diagnosis: [ ] Hospital Course: Kulwant is a 56yo male who was brought to the ER after being found staggering along the rode. He was having RUQ pain on admission and was disoriented. He has a history of substance abuse, hepatitis C and bilateral subdural hematomas that were diagnosed 1 week ago. In the ER he was found to have elevated ammonia and was admitted to the floor. He was diagnosed with hepatic encephalopathy w/o ascites and was treated over the course of the next 6 days with IV fluids & electrolytes, lactulose, rifaximin. He also received Haloperidol for his delirium. He was found by a nurse on 02/10/22 in his hospital room with a cord around his neck and was subsequently placed on suicide watch. Patients mental status began to improve as each day passed and today he was at his baseline. He is ready to leave and has a friend that is giving him a place to stay. He will be sent home with Lactulose. Labs and Pending Lab Test: Laboratory Tests 02/12/22 06:17: White Blood Count 3.5L, Red Blood Count 3.42L, Hemoglobin 8.8L, Hematocrit 28L, Mean Corpuscular Volume 83, Mean Corpuscular Hemoglobin 26, Mean Corpuscular Hemoglobin Concent 31L, Red Cell Distribution Width 20.2H, Platelet Count 142, Mean Platelet Volume 9.9, Immature Granulocyte % (Auto) 0, Neutrophils (%) (Auto) 47, Lymphocytes (%) (Auto) 28, Monocytes (%) (Auto) 12, Eosinophils (%) (Auto) 13H, Basophils (%) (Auto) 1, Neutrophils # (Auto) 1.7L, Lymphocytes # (Auto) 1.0, Monocytes # (Auto) 0.4, Eosinophils # (Auto) 0.4H, Basophils # (Auto) 0.0, Immature Granulocyte # (Auto) 0.0, Neutrophils % (Manual) 40, Lymphocytes % (Manual) 32, Monocytes % (Manual) 7, Eosinophils % (Manual) 17, Basophils % (Manual) 0, Band Neutrophils 4, Hypochromasia SLIGHT, Anisocytosis SLIGHT, Elliptocytes SLIGHT, Sodium Level 138, Potassium Level 4.1, Chloride Level 108H, Carbon Dioxide Level 23, Anion Gap 7, Blood Urea Nitrogen 10, Creatinine 0.68, Estimat Glomerular Filtration Rate 108, BUN/Creatinine Ratio 15, Glucose Level 91, Calcium Level 8.0L, Corrected Calcium 9.2, Total Bilirubin 0.9, Aspartate Amino Transf (AST/SGOT) 29, Alanine Aminotransferase (ALT/SGPT) 15, Alkaline Phosphatase 87, Total Protein 5.6L, Albumin 2.5L Home Meds Active Lactulose 20 Gram/30 Ml Solution 20 Gm PO TID Vitamin B-12 (Cyanocobalamin (Vitamin B-12)) 1,000 Mcg Tablet 1,000 Mcg PO DAILY Neurontin (Gabapentin) 300 Mg Capsule 300 Mg PO BID Furosemide 20 Mg Tablet 20 Mg PO DAILY Spironolactone 50 Mg Tablet 50 Mg PO DAILY Folic Acid 1 Mg Tablet 1 Mg PO DAILY Reported Tylenol Extra Strength (Acetaminophen) 500 Mg Tablet 500 Mg PO QID PRN Stool Softener (Docusate Sodium) 100 Mg Tablet 100 Mg PO DAILY PRN Assessment/Pt Instructions pcp 1 week Discharge Planning: <30 minutes discharge planning Discharge Instructions Discharge Diet: No Restrictions Discharge Physical Examination Vital Signs Vital Signs Date Time Temp Pulse Resp B/P (MAP) Pulse Ox O2 Delivery O2 Flow Rate FiO2 02/12/22 09:24 91 Nasal Cannula 2.00 02/12/22 08:08 37.2 79 12 115/67 (83) 02/06/22 23:23 21 General Appearance: No Apparent Distress, WD/WN, Chronically ill Allergies: Coded Allergies: NSAIDS (Non-Steroidal Anti-Inflamma (Verified Allergy, Unknown, 11/28/19) Discharge Summary Date of Admission Feb 06, 2022 at 20:09 Date of Discharge Discharge Date: Feb 12, 2022 Admission Diagnosis Assessment: Hepatic encephalopathy Poor social situation Recent subdural hematomas after a fall Plan: Lactulose Supportive care Social work for disposition Discharge Diagnosis (1) Hepatic encephalopathy Status: Chronic (2) Hyperammonemia Status: Acute Clinical Quality Measures DVT/VTE Risk/Contraindication: Contraindications-Pharm: Other *list below* Other: cirrhosis LALI CARBONE DO Feb 12, 2022 12:31
--- NOTE | 2022-02-12 12:32 | D/C HH Face to Face Order ---
D/C Face to Face Orders Reconcile Patient Problems Problems Reviewed?: Yes Instructions for Patient Via [facility], Patient Instructions/FollowUp: PCP 1 week Physician to follow Patient: [facility] Discharge Diet for Home: No Restrictions Patient Problems: Cirrhosis Patient Data-Allergies,Ht & Wt Patient Allergies: Coded Allergies: NSAIDS (Non-Steroidal Anti-Inflamma (Verified Allergy, Unknown, 11/28/19) Home Health Need/Face to Face Date of Face to Face: Feb 12, 2022 Clinical Findings: Generalized weakness and fatigue, Instability, Muscle weakness I have seen Pt [id number]: Yes Discharged To: Home Diagnosis/Conditions: debility Patient is Homebound due to: CognItive deficits, Cristal fall risk due to instabilty, Muscle weakness Homebound Status Due to the above stated illness, injury or surgical procedure (medical condition or diagnosis) and associated clinical findings, the patient is homebound because of his/her inability to leave home except with aid of a supportive device and/or person AND leaving the home requires a considerable and taxing effort or is medically contraindicated. Pt req the following assistanc: [facility] Nursing Orders Home Health Services Order: Nursing Services, [facility]-Evaluate & Treat, Physical Therapy-Evaluate & Treat Certify Stmt I certify that this patient is under my care and that I, a nurse practitioner or a physician; a medical office receptionist assistant working with me, had a face to face encounter that - meets the physician face to face encounter requirements with this patient as dated. LALI CARBONE DO Feb 12, 2022 12:32
[2022-02-12 14:30] VITALS: BP 113/54
--- NOTE | 2022-02-12 17:31 | Progress Note ---
DIANE MOSHER 02/12/22 1731: Progress Note Kulwant is a 56yo male who was brought to the ER after being found staggering along the rode. He was having RUQ pain on admission and was disoriented. He has a history of substance abuse, hepatitis C and bilateral subdural hematomas that were diagnosed 1 week ago. In the ER he was found to have elevated ammonia and was admitted to the floor. He was diagnosed with hepatic encephalopathy w/o ascites and was treated over the course of the next 6 days with IV fluids & electrolytes, lactulose, rifaximin. He also received Haloperidol for his delirium. He was found by a nurse on 02/10/22 in his hospital room with a cord around his neck and was subsequently placed on suicide watch. Patients mental status began to improve as each day passed and today he was at his baseline. He is ready to leave and has a friend that is giving him a place to stay. He will be sent home with Lactulose. LIVIER CARBONE DO 02/12/22 2100: Supervisory-Addendum Brief Verification & Attestation Participated in pt care: history, MDM, physical Personally performed: exam, history, MDM, supervision of care Care discussed with: Medical Student Procedures: n/a Results interpretation: Verified all documentation Verification and Attestation of Medical Student E/M Service A medical student performed and documented this service in my presence. I reviewed and verified all information documented by the medical student and made modifications to such information, when appropriate. I personally performed the physical exam and medical decision making. Livier Carbone Feb 12, 2022,21:00 DIANE MOSHER Feb 12, 2022 17:31 LIVIER CARBONE DO Feb 12, 2022 21:00
== END 2022-02-12 14:30 | disposition home or self-care (01) | DRG 434 ==
LOC: EDUNIT# 16:15 → ER 16:16 → 4TH 20:09
PROVIDERS: ADMIT Internal Medicine; ATTEND Internal Medicine
DX: K70.40 Alcoholic hepatic failure without coma (principal); K70.30 Alcoholic cirrhosis of liver without ascites; F17.210 Nicotine dependence, cigarettes, uncomplicated; G40.909 Epilepsy, unspecified, not intractable, without status epilepticus; G89.29 Other chronic pain; M54.9 Dorsalgia, unspecified; F90.9 Attention-deficit hyperactivity disorder, unspecified type; F98.8 Other specified behavioral and emotional disorders with onset usually occurring in childhood and adolescence; F32.A Depression, unspecified; R09.02 Hypoxemia; F15.10 Other stimulant abuse, uncomplicated
CPT/HCPCS: 36415; 70450; 71045; 74177; 80053; 80306; 80320; 81000; 82140; 82550; 83690; 83735; 85007; 85025; 85027; 85610; 86141; 94640; 94760; 94761

== ENCOUNTER 2022-02-12 18:35 | Emergency (ER) | payer MEDICARE, MEDICAID ==
[~2022-02-12] VITALS: Ht 177.8 cm; Wt 83.9 kg
[2022-02-12 18:35] VITALS: BP 93/51
[~2022-02-12 18:35] MED LIST changes: +CYAN-41 PO; +DOCU100T7 PO; +FOLI1TAB33 PO; +FURO20TA4 PO; +GABA300C PO; +LACT20SO2 PO; +SPIR50TA4 PO
--- NOTE | 2022-02-12 18:41 | ED Respiratory ---
General Chief Complaint: Respiratory Problems Stated Complaint: SOA Source: patient, EMS, old records History of Present Illness Date Seen by Provider: Feb 12, 2022 Time Seen by Provider: 18:24 Initial Comments PT ARRIVES VIA EMS PT WAS DISMISSED FROM HOSPITAL TODAY--WAS ADMITTED FOR ELEVATED AMMONIA LEVELS PT IS ON HOME O2 AND IT WAS ARRANGED BY DR. CARBONE FOR PT TO HAVE A HOME O2 CONCENTRATOR PT WENT TO A FRIEND'S HOUSE WHEN HE WAS DISMISSED, BUT FRIEND IS NOT HOME, THEREFORE HE HAS BEEN SITTING OUT ON THE PORCH SINCE THEN, WITHOUT O2 HAS NOT EATEN OR DRANK ANYTHING SINCE HE WAS DISMISSED. PT WALKED TO A NEIGHBOR'S HOUSE AND EMS WAS CALLED, FOR PT C/O SHORTNESS OF BREATH PT STATES HE TALKED TO HIS FRIEND EARLIER TODAY, BEFORE HE WAS DISMISSED FROM THE HOSPITAL AND HE STATES FRIEND KNEW HE WAS BEING DISMISSED. PT HAS NOT ATTEMPTED TO CALL HIS FRIEND AT ANY TIME, STATES HE DOES NOT HAVE A PHONE TO CALL ANYONE. O2 SAT 84% ON EMS ARRIVAL, QUICKLY UP TO 94% ON 2L/NC TEMP WAS 101.8 FOR EMS PT HAS NO OTHER SYMPTOMS AT THIS TIME, AND DOES NOT C/O DYSPNEA AT THIS TIME. PCP: MILKA-JAIMIE Allergies and Home Medications Allergies Coded Allergies: NSAIDS (Non-Steroidal Anti-Inflamma (Verified Allergy, Unknown, 11/28/19) Patient Home Medication List Home Medication List Reviewed: Yes Cyanocobalamin (Vitamin B-12) (Vitamin B-12) 1,000 Mcg Tablet, 1,000 MCG PO DAILY Prescribed by: LALI CARBONE on 02/12/22 1231 Folic Acid (Folic Acid) 1 Mg Tablet, 1 MG PO DAILY Prescribed by: LALI CARBONE on 02/12/22 1231 Furosemide (Furosemide) 20 Mg Tablet, 20 MG PO DAILY Prescribed by: LALI CARBONE on 02/12/22 1231 Gabapentin (Neurontin) 300 Mg Capsule, 300 MG PO BID Prescribed by: LALI CARBONE on 02/12/22 1231 Hydrocodone Bit/Acetaminophen (HYDROcodone/APAP 5 MG/325 MG TAB) 1 Tab Tab, 1 TAB PO BID PRN for PAIN-MODERATE (5-7) Prescribed by: LALI CARBONE on 02/12/22 1231 Lactulose (Lactulose) 20 Gram/30 Ml Solution, 20 GM PO TID Prescribed by: LALI CARBONE on 02/12/22 1231 Spironolactone (Spironolactone) 50 Mg Tablet, 50 MG PO DAILY Prescribed by: LALI CARBONE on 02/12/22 1231 Discontinued Medications Acetaminophen (Tylenol Extra Strength) 500 Mg Tablet, 500 MG PO QID PRN for PAIN-MILD (1-4), (Reported) Entered as Reported by: SHIN MARTEL on 02/08/22 0830 Docusate Sodium (Stool Softener) 100 Mg Tablet, 100 MG PO DAILY PRN for CONSTIPATION-1ST LINE, (Reported) Entered as Reported by: SHIN MARTEL on 02/08/22 0829 Review of Systems Review of Systems Constitutional: see HPI EENTM: no symptoms reported Respiratory: see HPI Cardiovascular: no symptoms reported Gastrointestinal: no symptoms reported Genitourinary: no symptoms reported Musculoskeletal: no symptoms reported Skin: no symptoms reported Psychiatric/Neurological: No Symptoms Reported Hematologic/Lymphatic: No Symptoms Reported Past Lkivsqc-[id number]-Hkaevp Hx Patient Social History Tobacco Use?: Yes Tobacco type used: Cigarettes Smoking Status: Current Everyday Smoker Substance use?: Yes Substance type: Methamphetamine Additional substance use comme: EXTENSIVE IV METH USE Substance frequency: Daily Alcohol Use?: Yes Alcohol type: Beer, Hard Liquor Alcohol Frequency: Daily Immunizations Up To Date First/Initial COVID19 Vaccinat: [employer] Second COVID19 Vaccination Christiano: [employer] Third COVID19 Vaccination Date: [employer] Seasonal Allergies Seasonal Allergies: Yes Past Medical History Surgery/Hospitalization HX: LIVER DISEASE, DEGINERATIVE DISK DISEASE, HEART MURMMER, KIDNEY DISEASE Surgeries: Yes (R ANKLE, L KNEE, BILAT SHOULDER, ESOPHAGEAL BANDING; TIPS;) Abdominal, Adenoidectomy, Orthopedic, Tonsillectomy Respiratory: Yes COPD Cardiac: Yes Chronic Edema/Swelling Neurological: Yes (CLAIMS HE HAS SEIZURES D/T LIVER DISEASE;BILAT SUBDURAL HEMATOMAS 01/30/22) Seizure Disorder Genitourinary: No Gastrointestinal: Yes (HX OF HEP C-TREATED; ESOPHAGEAL BANDING & STENTS X 2 ;TIPS PROCEDURE) Liver Disease/Jaundice, Esophageal Varices, Hepatitis, Cirrhosis Musculoskeletal: Yes Degenerate Disk Disease, Chronic Back Pain, Fractures Endocrine: No HEENT: Yes (POOR DENTITION) Loss of Vision: Denies Hearing Impairment: Denies Cancer: No Psychosocial: Yes (PSYCH ISSUES; POLYSUBSTANCE ABUSE) ADD/ADHD Integumentary: Yes (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 12/06/21) Blood Disorders: No Adverse Reaction/Blood Tranf: No Family Medical History COPD, Other Conditions/Hx SOCIAL HISTORY: -SMOKES 1 PPD -ETOH--HEAVY/DAILY USE -DRUGS--EXTENSIVE IV METH USE PSH: -ESOPAGEAL VARICES BANDING -ESOPHAGEAL STENTS X 2 -TIPS PROCEDURE -RIGHT ANKLE FX/ORIF -LEFT KNEE SURGERY X 2 -LEFT SHOULDER SURGERY X 1 -RIGHT SHOULDER SURGERY X 2 ADMITTED 12/06/21 FOR CHRONIC WOUND TO BACK OF HEAD, WITH MAGGOTS IN THE WOUND HX OF HEPATIC ENCEPHALOPATHY/HYPERAMMONEMIA BILAT SUBDURAL HEMATOMAS DX 01/30/22 AND TX TO [facility]. NO SURGERY Physical Exam Vital Signs - First Documented Capillary Refill : Height: '" Weight: lbs. oz. kg; 24.32 BMI Method: General Appearance: WD/WN, no apparent distress, other (UNKEMPT. 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, no motor/sensory deficits, alert, normal mood/affect, oriented x 3 Skin: normal color, warm/dry Focused Exam Sepsis Stage: Sepsis Possible Source: Pulmonary Lactate Level 02/12/22 18:40: Lactic Acid Level 0.75 Time of Focused Exam: 19:40 Respiratory: Normal Breath Sounds, No Accessory Muscle Use, No Respiratory Dist ress Cardiovascular: Regular Rate, Rhythm Capillary Refill: Less Than 3 Seconds Skin: normal color, warm/dry Lactic Acid Level Laboratory Tests Test 02/12/22 18:40 Lactic Acid Level 0.75 MMOL/L (0.50-2.00) Within 3hrs of presentation: Admin fluids, Admin ABX, Blood cultures prior to ABX's, Focus exam, Lactate level Procedures/Interventions Date of ETT Placement: Jun 11, 2021 Time of ETT Placement: 151 Suture Size: 5-0 Progress/Results/Core Measures Suspected Sepsis SIRS Temperature: Pulse: Respiratory Rate: Laboratory Tests 02/12/22 18:40: White Blood Count 3.6L Blood Pressure / Mean: 02/12/22 18:40: Lactic Acid Level 0.75 Laboratory Tests 02/12/22 18:40: Creatinine 0.70, INR Comment 1.2, Platelet Count 124L, Total Bilirubin 0.9 Results/Orders Lab Results Laboratory Tests Test 02/12/22 18:40 02/12/22 18:48 02/12/22 19:40 Range/Units White Blood Count 3.6 L 4.3-11.0 10^3/uL Red Blood Count 3.17 L 4.30-5.52 10^6/uL Hemoglobin 8.1 L 13.3-17.7 g/dL Hematocrit 26 L 40-54 % Mean Corpuscular Volume 82 80-99 fL Mean Corpuscular Hemoglobin 26 25-34 pg Mean Corpuscular Hemoglobin Concent 31 L 32-36 g/dL Red Cell Distribution Width 20.0 H 10.0-14.5 % Platelet Count 124 L 130-400 10^3/uL Mean Platelet Volume 9.3 9.0-12.2 fL Immature Granulocyte % (Auto) 0 % Neutrophils (%) (Auto) 50 42-75 % Lymphocytes (%) (Auto) 24 12-44 % Monocytes (%) (Auto) 14 H 0-12 % Eosinophils (%) (Auto) 11 H 0-10 % Basophils (%) (Auto) 1 0-10 % Neutrophils # (Auto) 1.8 1.8-7.8 10^3/uL Lymphocytes # (Auto) 0.9 L 1.0-4.0 10^3/uL Monocytes # (Auto) 0.5 0.0-1.0 10^3/uL Eosinophils # (Auto) 0.4 H 0.0-0.3 10^3/uL Basophils # (Auto) 0.0 0.0-0.1 10^3/uL Immature Granulocyte # (Auto) 0.0 0.0-0.1 10^3/uL Erythrocyte Sedimentation Rate 35 H 0-30 MM/HR Prothrombin Time 16.1 H 12.2-14.7 SEC INR Comment 1.2 0.8-1.4 Activated Partial Thromboplast Time 35 24-35 SEC Sodium Level 136 135-145 MMOL/L Potassium Level 4.0 3.6-5.0 MMOL/L Chloride Level 106 98-107 MMOL/L Carbon Dioxide Level 24 21-32 MMOL/L Anion Gap 6 5-14 MMOL/L Blood Urea Nitrogen 13 7-18 MG/DL Creatinine 0.70 0.60-1.30 MG/DL Estimat Glomerular Filtration Rate 107 BUN/Creatinine Ratio 19 Glucose Level 98 70-105 MG/DL Lactic Acid Level 0.75 0.50-2.00 MMOL/L Calcium Level 8.0 L 8.5-10.1 MG/DL Corrected Calcium 9.1 8.5-10.1 MG/DL Magnesium Level 1.6 1.6-2.4 MG/DL Total Bilirubin 0.9 0.1-1.0 MG/DL Aspartate Amino Transf (AST/SGOT) 29 5-34 U/L Alanine Aminotransferase (ALT/SGPT) 17 0-55 U/L Alkaline Phosphatase 89 40-136 U/L Ammonia 79 H 11-32 UMOL/L C-Reactive Protein High Sensitivity 0.15 0.00-0.50 MG/DL B-Type Natriuretic Peptide 64.5 <100.0 PG/ML Total Protein 5.6 L 6.4-8.2 GM/DL Albumin 2.6 L 3.2-4.5 GM/DL Procalcitonin 0.08 <0.10 NG/ML Serum Alcohol < 10 <10 MG/DL Influenza Type A (RT-PCR) Not Detected Not Detecte Influenza Type B (RT-PCR) Not Detected Not Detecte SARS-CoV-2 RNA (RT-PCR) Not Detected Not Detecte Blood Gas Puncture Site L RAD Blood Gas Patient Temperature 37.7 Arterial Blood pH 7.43 7.37-7.43 Arterial Blood Partial Pressure CO2 39 35-45 MMHG Arterial Blood Partial Pressure O2 74 L 79-93 MMHG Arterial Blood HCO3 25 23-27 MMOL/L Arterial Blood Total CO2 26.5 21.0-31.0 MMOL/L Arterial Blood Oxygen Saturation 97 94-100 % Arterial Blood Base Excess 1.6 -2.5-2.5 MMOL/L Aakash Test NA Blood Gas Ventilator Setting NO Blood Gas Inspired Oxygen 4 Urine Color YELLOW Urine Clarity CLEAR Urine pH 6.0 5-9 Urine Specific [place] 1.025 H 1.016-1.022 Urine Protein NEGATIVE NEGATIVE Urine Glucose (UA) NEGATIVE NEGATIVE Urine Ketones TRACE H NEGATIVE Urine Nitrite NEGATIVE NEGATIVE Urine Bilirubin NEGATIVE NEGATIVE Urine Urobilinogen 1.0 < = 1.0 MG/DL Urine Leukocyte Esterase NEGATIVE NEGATIVE Urine RBC (Auto) NEGATIVE NEGATIVE Urine RBC NONE /HPF Urine WBC 2-5 /HPF Urine Squamous Epithelial Cells 5-10 /HPF Urine Crystals NONE /LPF Urine Bacteria TRACE /HPF Urine Casts NONE /LPF Urine Mucus LARGE H /LPF Urine Culture Indicated NO Urine Opiates Screen NEGATIVE NEGATIVE Urine Oxycodone Screen POSITIVE H NEGATIVE Urine Methadone Screen NEGATIVE NEGATIVE Urine Propoxyphene Screen NEGATIVE NEGATIVE Urine Barbiturates Screen NEGATIVE NEGATIVE Ur Tricyclic Antidepressants Screen NEGATIVE NEGATIVE Urine Phencyclidine Screen NEGATIVE NEGATIVE Urine Amphetamines Screen NEGATIVE NEGATIVE Urine Methamphetamines Screen POSITIVE H NEGATIVE Urine Benzodiazepines Screen POSITIVE H NEGATIVE Urine Cocaine Screen NEGATIVE NEGATIVE Urine Cannabinoids Screen NEGATIVE NEGATIVE My Orders Orders - RADHA VITAL DO Ed Iv/Invasive Line Start (02/12/22 18:36) Ekg Tracing (02/12/22 18:36) O2 (02/12/22 18:36) Monitor-Rhythm Ecg Trace Only (02/12/22 18:36) Alcohol (02/12/22 18:36) Ammonia (02/12/22 18:36) Arterial Blood Gas (02/12/22 18:36) Bnp [place] (02/12/22 18:36) Cbc With Automated Diff (02/12/22 18:36) Comprehensive Metabolic Panel (02/12/22 18:36) Drug Screen Stat (Urine) (02/12/22 18:36) Lactic Acid Analyzer (02/12/22 18:36) Magnesium (02/12/22 18:36) Procalcitonin (Pct) (02/12/22 18:36) Ua Culture If Indicated (02/12/22 18:36) Blood Culture (02/12/22 18:36) Hs C Reactive Protein (02/12/22 18:36) Erythrocyte Sedimentation Rate (02/12/22 18:36) Covid 19 Inhouse Test (02/12/22 18:36) Urine Culture (02/12/22 18:36) Protime With Inr (02/12/22 18:36) Partial Thromboplastin Time (02/12/22 18:36) Chest 1 View, Ap/Pa Only (02/12/22 18:36) Acetaminophen Tablet (Tylenol Tablet) (02/12/22 18:45) Ed Iv/Invasive Line Start (02/12/22 18:36) Ed Iv/Invasive Line Start (02/12/22 18:36) Vital Signs Adult Sepsis Patie Q15M (02/12/22 18:36) O2 (02/12/22 18:36) Remove Rings In Anticipation O (02/12/22 18:36) Influenza A And B By Pcr (02/12/22 18:36) Isolation Central Supply Req (02/12/22 18:36) Ed Iv/Invasive Line Start (02/12/22 18:54) Ns Iv 1000 Ml (Sodium Chloride 0.9%) (02/12/22 19:00) Cefepime Injection (Maxipime Injection) (02/12/22 19:45) Albuterol/Ipra Inhalation Soln (Duoneb I (02/12/22 20:00) Dexamethasone Injection (Decadron Injec (02/12/22 20:00) Rt Request For Service (02/12/22 19:49) Methylprednisolone Sod Succ (Solu-Medrol (02/12/22 19:49) Svn Small Volume Nebulizer (02/12/22 19:49) Medications Given in ED Current Medications Medications Dose Ordered Sig/Johny Route Start Time Stop Time Status Last Admin Dose Admin Acetaminophen 1,000 mg ONCE PRN PO 02/12/22 18:45 02/12/22 18:47 DC 02/12/22 18:47 1,000 MG Vital Signs/I&O 02/12/22 02/12/22 02/12/22 18:35 18:35 18:35 Temp 37.7 Pulse 92 Resp 16 B/P (MAP) 93/51 (65) Pulse Ox 94 94 O2 Delivery Nasal Cannula Nasal Cannula Nasal Cannula O2 Flow Rate 4.00 4.00 4.00 02/13/22 00:00 Intake Total 1000 ml Balance 1000 ml Capillary Refill : Progress Note : Progress Note PLACED IN ISOLATION ROOM PPE WORN COVID AND FLU TESTING DONE SEPSIS PROTOCOL INITIATED. GIVEN: -TYLENOL FOR FEVER -IV FLUIDS -IV ANTIBIOTICS PLACED ON O2 AT 4L/NC, THEN OXIMASK AT 6L--NO DYSPNEA, JUST APPEARS TO BE HYPOVENTILATING, SATS DROPPED TO 88% ON 4L/NC. UP TO 94% ON OXIMASK RT FOR NEB TREATMENTS ORDERED, BUT NOT COMPLETED, PT LEFT AMA 2009--PT NOW LEAVING AMA, GIVES NO REASON WHY--JUST WANTS TO LEAVE ECG Initial ECG Impression Date: Feb 12, 2022 Initial ECG Impression Time: 18:51 Initial ECG Rate: 85 Initial ECG Rhythm: Normal Sinus Diagnostic Imaging Comments CXR--PER RADIOLOGIST REPORT AT 1940 FINDINGS: Heart is unremarkable. Pulmonary vasculature congested. There is mild atelectasis or early infiltrate in the right infrahilar region. Remaining lungs clear. No effusions or pneumothorax. IMPRESSION: 1. Pulmonary vascular congestion 2. Questionable atelectasis versus infiltrate in the right infrahilar region. Reviewed: Reviewed by Me Departure Communication (Admissions) 1840--SPOKE WITH DR. CARBONE, WILL CALL HER BACK WHEN ALL TEST RESULTS ARE BACK 2015--SPOKE WITH DR. CARBONE, AND ADVISED HER THAT PT LEFT AMA. Impression Primary Impression: Left against medical advice Additional Impressions: RESPIRATORY FAILURE, UNSP, UNSP W HYPOXIA OR HYPERCAPNIA Hepatic encephalopathy Hyperammonemia History of alcohol abuse Polysubstance abuse Pneumonia Methamphetamine use Marijuana use Sepsis Disposition: 07 AGAINST MEDICAL ADVICE Condition: Against Medical Advice Departure-Patient Inst. Referrals: YESSICA MONTENEGRO MD (PCP/Family) Primary Care Physician RADHA VITAL DO Feb 12, 2022 18:41
[2022-02-12] MEDS ORDERED: ACETAMINOPHEN 500 MG TAB (TYLENOL) PO PRN (18:45)
[2022-02-12 18:54] LABS: BASOPHILS % (AUTO) 1 % (0-10); EOSINOPHILS # (AUTO) 0.4 10^3/uL (0.0-0.3); EOSINOPHILS % (AUTO) 11 % (0-10); HEMATOCRIT 26 % (40-54); HEMOGLOBIN 8.1 g/dL (13.3-17.7); LYMPHOCYTES # (AUTO) 0.9 10^3/uL (1.0-4.0); LYMPHOCYTES % (AUTO) 24 % (12-44); MEAN CORPUSCULAR HEMOGLOBIN 26 pg (25-34); MEAN CORPUSCULAR HGB CONC 31 g/dL (32-36); MEAN CORPUSCULAR VOLUME 82 fL (80-99); MEAN PLATELET VOLUME 9.3 fL (9.0-12.2); MONOCYTES # (AUTO) 0.5 10^3/uL (0.0-1.0); MONOCYTES % (AUTO) 14 % (0-12); NEUTROPHILS # (AUTO) 1.8 10^3/uL (1.8-7.8); NEUTROPHILS % (AUTO) 50 % (42-75); PLATELET COUNT 124 10^3/uL (130-400); WHITE BLOOD COUNT 3.6 10^3/uL (4.3-11.0)
[2022-02-12] MEDS ORDERED: NS IV 1000 ML 1,000 ML IV SCH (19:00)
[2022-02-12 19:05] LABS: ALBUMIN 2.6 GM/DL (3.2-4.5); CHLORIDE 106 MMOL/L (98-107); SODIUM 136 MMOL/L (135-145)
[2022-02-12 19:06] LABS: AMMONIA 79 UMOL/L (11-32)
[2022-02-12 19:08] LABS: GLUCOSE 98 MG/DL (70-105); INR 1.2 (0.8-1.4); PROTHROMBIN TIME PATIENT 16.1 SEC (12.2-14.7); TOTAL PROTEIN 5.6 GM/DL (6.4-8.2)
[2022-02-12 19:09] LABS: BILIRUBIN,TOTAL 0.9 MG/DL (0.1-1.0); CARBON DIOXIDE 24 MMOL/L (21-32)
[2022-02-12 19:11] LABS: ALKALINE PHOSPHATASE 89 U/L (40-136); GFR ESTIMATED 107
[2022-02-12 19:12] LABS: BUN/CREATININE RATIO 19
[2022-02-12 19:14] LABS: ALANINE AMINOTRANSFERASE 17 U/L (0-55); MAGNESIUM 1.6 MG/DL (1.6-2.4)
[2022-02-12 19:17] LABS: ABG BASE EXCESS 1.6 MMOL/L (-2.5-2.5); ABG OXYGEN SATURATION 97 % (94-100); ABG PCO2 39 MMHG (35-45); ABG PH 7.43 (7.37-7.43); ABG PO2 74 MMHG (79-93); ABG TCO2 26.5 MMOL/L (21.0-31.0)
[2022-02-12 19:19] LABS: PATIENT TEMP 37.7
[2022-02-12 19:26] LABS: ERYTHROCYTE SEDIMENTATION RATE 35 MM/HR (0-30)
--- NOTE | 2022-02-12 19:31 | Diagnostic Imaging Report ---
INDICATION: Dyspnea EXAMINATION: Chest 02/12/2022 COMPARISON: 02/06/2022. FINDINGS: Heart is unremarkable. Pulmonary vasculature congested. There is mild atelectasis or early infiltrate in the right infrahilar region. Remaining lungs clear. No effusions or pneumothorax. IMPRESSION: 1. Pulmonary vascular congestion 2. Questionable atelectasis versus infiltrate in the right infrahilar region. Dictated by: Dictated on workstation # [id number]
[2022-02-12] MEDS ORDERED: CEFEPIME INJECTION 1,000 MG in NS (IVPB) 50 ML IV ONE (19:45)
[2022-02-12] MEDS ORDERED: methylPREDNISolone 125 MG (Solu-MEDROL) VIAL IV STA (19:49)
[2022-02-12 19:53] LABS: BILIRUBIN,URINE NEGATIVE (NEGATIVE); CLARITY,URINE CLEAR; COLOR,URINE YELLOW; GLUCOSE, URINE (UA) NEGATIVE (NEGATIVE); KETONES,URINE TRACE (NEGATIVE); LEUKOCYTE ESTERASE ,URINE NEGATIVE (NEGATIVE); NITRITE,URINE NEGATIVE (NEGATIVE); PROTEIN,URINE NEGATIVE (NEGATIVE)
[2022-02-12 19:57] LABS: INSPIRED O2 4; VENTILATOR NO
[2022-02-12] MEDS ORDERED: RT-ALBUTEROL/IPRATROPIUM 3 ML (DUONEB) VIAL INH ONE (20:00)
[2022-02-12 20:10] LABS: BENZODIAZEPINES SCREEN URINE POSITIVE (NEGATIVE)
[2022-02-12 20:11] LABS: AMPHETAMINE SCREEN, URINE NEGATIVE (NEGATIVE); BARBITURATE SCREEN URINE NEGATIVE (NEGATIVE); CANNABINOID SCREEN, URINE NEGATIVE (NEGATIVE); COCAINE SCREEN URINE NEGATIVE (NEGATIVE); METHADONE STAT NEGATIVE (NEGATIVE); OPIATE SCREEN URINE NEGATIVE (NEGATIVE); OXYCODONE STAT POSITIVE (NEGATIVE); PROPOXYPHENE STAT NEGATIVE (NEGATIVE); TRICYCLIC ANTIDEPRESSANTS SCRE NEGATIVE (NEGATIVE)
[2022-02-12 20:21] LABS: BACTERIA,URINE TRACE /HPF
== END 2022-02-12 20:08 | disposition left against medical advice (07) ==
LOC: EDUNIT# 18:35 → ER 18:36
DX: J96.90 Respiratory failure, unspecified, unspecified whether with hypoxia or hypercapnia (principal); K72.90 Hepatic failure, unspecified without coma; E72.20 Disorder of urea cycle metabolism, unspecified; F19.10 Other psychoactive substance abuse, uncomplicated; J18.9 Pneumonia, unspecified organism; F12.90 Cannabis use, unspecified, uncomplicated; F17.210 Nicotine dependence, cigarettes, uncomplicated; Z81.1 Family history of alcohol abuse and dependence; Z20.822 Contact with and (suspected) exposure to COVID-19
CPT/HCPCS: 71045; 80053; 80306; 81000; 82140; 82805; 83605; 83735; 83880; 84145; 85025; 85610; 85652; 85730; 86141; 87040; 87088; 87636; 93041; 99285; G0480; 36415; 80320; 93005

== ENCOUNTER 2022-02-17 07:25 | Emergency (ER) | payer MEDICARE, MEDICAID ==
[~2022-02-17] VITALS: Ht 182 cm; Wt 91.0 kg
--- NOTE | 2022-02-17 07:43 | ED General ---
General Stated Complaint: BACK PAIN Source of Information: Patient, EMS Exam Limitations: Other (poor historian) History of Present Illness Date Seen by Provider: Feb 17, 2022 Time Seen by Provider: 07:24 Initial Comments Patient to the ER by EMS found in somebody's yard laying in the ground. He claims he had a fall from standing. He is accompanied by a 4 posted cane. He says he is having some pain in his left hip and low back bilaterally. He takes oxycodone 5 mg tablets for this pain and his last dose was yesterday. He follows with Yessica Montengero for primary care. He says he just got out of the hospital in [place] where they were giving him some IVs. Patient was here 5 days ago after being dismissed from the hospital for elevated ammonia levels on home O2 concentrator. EMS remarked that he had oxygen saturations 87% on room air when they arrived. He has a history of pack-a-day smoking, heavy daily use of alcohol IV methamphetamines, esophageal varices status post banding and stents. TIPS procedure. Was here in November for a chronic wound to the back of the head with maggots in the wound. His ammonia level 5 days ago was 79 and his drug screen was positive for oxycodone, methamphetamines and benzos. Before the patient could be admitted he left AGAINST MEDICAL ADVICE. He also has a history of bilateral subdural hematomas from 2 weeks ago, hepatitis C. Echocardiogram from January 01 with an EF of 6065% and mildly dilated left atrium. History of pancytopenia, schizophrenia, anxiety, depression. Allergies and Home Medications Allergies Coded Allergies: NSAIDS (Non-Steroidal Anti-Inflamma (Verified Allergy, Unknown, 11/28/19) Patient Home Medication List Home Medication List Reviewed: Yes Cyanocobalamin (Vitamin B-12) (Vitamin B-12) 1,000 Mcg Tablet, 1,000 MCG PO DAILY Prescribed by: LALI CARBONE on 02/12/22 1231 Folic Acid (Folic Acid) 1 Mg Tablet, 1 MG PO DAILY Prescribed by: LALI CARBONE on 02/12/22 1231 Furosemide (Furosemide) 20 Mg Tablet, 20 MG PO DAILY Prescribed by: LALI CARBONE on 02/12/22 1231 Gabapentin (Neurontin) 300 Mg Capsule, 300 MG PO BID Prescribed by: LALI CARBONE on 02/12/22 1231 Hydrocodone Bit/Acetaminophen (HYDROcodone/APAP 5 MG/325 MG TAB) 1 Tab Tab, 1 TAB PO BID PRN for PAIN-MODERATE (5-7) Prescribed by: LALI CARBONE on 02/12/22 1231 Lactulose (Lactulose) 20 Gram/30 Ml Solution, 20 GM PO TID Prescribed by: LALI CARBONE on 02/12/22 1231 Spironolactone (Spironolactone) 50 Mg Tablet, 50 MG PO DAILY Prescribed by: LALI CARBONE on 02/12/22 1231 Discontinued Medications Acetaminophen (Tylenol Extra Strength) 500 Mg Tablet, 500 MG PO QID PRN for PAIN-MILD (1-4), (Reported) Entered as Reported by: SHIN MARTEL on 02/08/22 0830 Docusate Sodium (Stool Softener) 100 Mg Tablet, 100 MG PO DAILY PRN for CONSTIPATION-1ST LINE, (Reported) Entered as Reported by: SHIN MARTEL on 02/08/22 0829 Review of Systems Review of Systems Constitutional: No chills, No diaphoresis EENTM: No ear discharge, No ear pain Respiratory: No cough; short of breath Cardiovascular: No chest pain, No palpitations Gastrointestinal: abdominal pain; No nausea, No vomiting Genitourinary: No discharge, No dysuria Psychiatric/Neurological: Denies Anxiety, Denies Depressed All Other Systems Reviewed Negative Unless Noted: Yes Past Ewhdbew-Qtrxdi-Tahmes Hx Patient Social History Tobacco Use?: Yes Tobacco type used: Cigarettes Smoking Status: Current Everyday Smoker Substance use?: Yes Substance type: Amphetamines, Methamphetamine, Opiates/Opioids, Marijuana Alcohol Use?: Yes Immunizations Up To Date First/Initial COVID19 Vaccinat: [employer] Second COVID19 Vaccination Christiano: [employer] Third COVID19 Vaccination Date: [employer] Seasonal Allergies Seasonal Allergies: Yes Past Medical History Surgery/Hospitalization HX: LIVER DISEASE, DEGINERATIVE DISK DISEASE, HEART MURMMER, KIDNEY DISEASE Surgeries: Yes (R ANKLE, L KNEE, BILAT SHOULDER, ESOPHAGEAL BANDING; TIPS;) Abdominal, Adenoidectomy, Orthopedic, Tonsillectomy Respiratory: Yes COPD Cardiac: Yes Chronic Edema/Swelling Neurological: Yes (CLAIMS HE HAS SEIZURES D/T LIVER DISEASE;BILAT SUBDURAL HEMATOMAS 01/30/22) Seizure Disorder Genitourinary: No Gastrointestinal: Yes (HX OF HEP C-TREATED; ESOPHAGEAL BANDING & STENTS X 2 ;TIPS PROCEDURE) Liver Disease/Jaundice, Esophageal Varices, Hepatitis, Cirrhosis Musculoskeletal: Yes Degenerate Disk Disease, Chronic Back Pain, Fractures Endocrine: No HEENT: Yes (POOR DENTITION) Loss of Vision: Denies Hearing Impairment: Denies Cancer: No Psychosocial: Yes (PSYCH ISSUES; POLYSUBSTANCE ABUSE) ADD/ADHD Integumentary: Yes (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 12/06/21) Blood Disorders: No Adverse Reaction/Blood Tranf: No Family Medical History COPD, Other Conditions/Hx SOCIAL HISTORY: -SMOKES 1 PPD -ETOH--HEAVY/DAILY USE -DRUGS--EXTENSIVE IV METH USE PSH: -ESOPAGEAL VARICES BANDING -ESOPHAGEAL STENTS X 2 -TIPS PROCEDURE -RIGHT ANKLE FX/ORIF -LEFT KNEE SURGERY X 2 -LEFT SHOULDER SURGERY X 1 -RIGHT SHOULDER SURGERY X 2 ADMITTED 12/06/21 FOR CHRONIC WOUND TO BACK OF HEAD, WITH MAGGOTS IN THE WOUND HX OF HEPATIC ENCEPHALOPATHY/HYPERAMMONEMIA BILAT SUBDURAL HEMATOMAS DX 01/30/22 AND TX TO [place]. NO SURGERY Physical Exam Vital Signs Vital Signs - First Documented Capillary Refill : Height, Weight, BMI Height: '" Weight: lbs. oz. kg; 26.00 BMI Method: General Appearance: Mild Distress, Other (Disheveled, covered in Detritus) Eyes: Bilateral Eye Normal Inspection, Bilateral Eye PERRL, Bilateral Eye EOMI HEENT: PERRL/EOMI, TMs Normal, Normal ENT Inspection (3 mm reactive bilateral symmetric), Moist Mucous Membranes, Other (Extensive dental caries) Neck: Full Range of Motion, Normal Inspection Respiratory: Lungs Clear, Normal Breath Sounds, No Accessory Muscle Use, No Respiratory Distress Cardiovascular: Regular Rate, Rhythm, No Edema, Normal Peripheral Pulses Gastrointestinal: Non Tender, Soft Extremity: Normal Capillary Refill, Normal Inspection Neurologic/Psychiatric: Alert, Oriented x3 Skin: Normal Color, Warm/Dry, Ecchymosis Focused Exam Lactate Level 02/17/22 08:50: Lactic Acid Level 2.00 Lactic Acid Level Laboratory Tests Test 02/17/22 08:50 Lactic Acid Level 2.00 MMOL/L (0.50-2.00) Procedures/Interventions Date of ETT Placement: Jun 11, 2021 Time of ETT Placement: 0152 Suture Size: 5-0 Progress/Results/Core Measures Suspected Sepsis SIRS Temperature: Pulse: Respiratory Rate: Laboratory Tests 02/17/22 08:50: White Blood Count 3.0L Blood Pressure / Mean: 02/17/22 08:50: Lactic Acid Level 2.00 Laboratory Tests 02/17/22 08:05: Creatinine 0.58L, Total Bilirubin 1.9H 02/17/22 08:50: INR Comment 1.4, Platelet Count 139 Results/Orders Lab Results Laboratory Tests Test 02/17/22 07:48 02/17/22 08:05 02/17/22 08:50 02/17/22 10:20 Range/Units Bedside Blood Gas pH (LAB) 7.402 7.310-7.410 Bedside Blood Gas pCO2 (LAB) 33.6 L 41.0-51.0 mmHg Bedside Blood Gas pO2 (LAB) 36 *L 80-105 mmHg Bedside Blood Gas HCO3 (LAB) 20.9 L 23.0-28.0 mmol/L POC Blood Gas Total CO2 Calc 22 L 24-29 mmol/L Bedside Bl Gas O2 Saturation (Calc) 69 L 95-98 % Bedside Arterial Blood Base Excess -4 L -2-3 mmol/L Sodium Level 139 135-145 MMOL/L Potassium Level 4.1 3.6-5.0 MMOL/L Chloride Level 110 H 98-107 MMOL/L Carbon Dioxide Level 19 L 21-32 MMOL/L Anion Gap 10 5-14 MMOL/L Blood Urea Nitrogen 10 7-18 MG/DL Creatinine 0.58 L 0.60-1.30 MG/DL Estimat Glomerular Filtration Rate 113 BUN/Creatinine Ratio 17 Glucose Level 93 70-105 MG/DL Calcium Level 7.7 L 8.5-10.1 MG/DL Corrected Calcium 8.7 8.5-10.1 MG/DL Total Bilirubin 1.9 H 0.1-1.0 MG/DL Aspartate Amino Transf (AST/SGOT) 39 H 5-34 U/L Alanine Aminotransferase (ALT/SGPT) 18 0-55 U/L Alkaline Phosphatase 90 40-136 U/L Troponin I < 0.028 <0.028 NG/ML Total Protein 5.9 L 6.4-8.2 GM/DL Albumin 2.8 L 3.2-4.5 GM/DL Lipase 22 8-78 U/L Serum Alcohol < 10 <10 MG/DL White Blood Count 3.0 L 4.3-11.0 10^3/uL Red Blood Count 3.45 L 4.30-5.52 10^6/uL Hemoglobin 8.7 L 13.3-17.7 g/dL Hematocrit 28 L 40-54 % Mean Corpuscular Volume 82 80-99 fL Mean Corpuscular Hemoglobin 25 25-34 pg Mean Corpuscular Hemoglobin Concent 31 L 32-36 g/dL Red Cell Distribution Width 20.0 H 10.0-14.5 % Platelet Count 139 130-400 10^3/uL Mean Platelet Volume 9.7 9.0-12.2 fL Immature Granulocyte % (Auto) 0 % Neutrophils (%) (Auto) 53 42-75 % Lymphocytes (%) (Auto) 23 12-44 % Monocytes (%) (Auto) 14 H 0-12 % Eosinophils (%) (Auto) 9 0-10 % Basophils (%) (Auto) 1 0-10 % Neutrophils # (Auto) 1.6 L 1.8-7.8 10^3/uL Lymphocytes # (Auto) 0.7 L 1.0-4.0 10^3/uL Monocytes # (Auto) 0.4 0.0-1.0 10^3/uL Eosinophils # (Auto) 0.3 0.0-0.3 10^3/uL Basophils # (Auto) 0.0 0.0-0.1 10^3/uL Immature Granulocyte # (Auto) 0.0 0.0-0.1 10^3/uL Prothrombin Time 17.1 H 12.2-14.7 SEC INR Comment 1.4 0.8-1.4 Activated Partial Thromboplast Time 35 24-35 SEC Lactic Acid Level 2.00 0.50-2.00 MMOL/L Ammonia 60 H 11-32 UMOL/L B-Type Natriuretic Peptide 189.6 H <100.0 PG/ML Urine Color YELLOW Urine Clarity CLEAR Urine pH 7.0 5-9 Urine Specific [place] 1.010 L 1.016-1.022 Urine Protein NEGATIVE NEGATIVE Urine Glucose (UA) NEGATIVE NEGATIVE Urine Ketones NEGATIVE NEGATIVE Urine Nitrite NEGATIVE NEGATIVE Urine Bilirubin NEGATIVE NEGATIVE Urine Urobilinogen 1.0 < = 1.0 MG/DL Urine Leukocyte Esterase NEGATIVE NEGATIVE Urine RBC (Auto) NEGATIVE NEGATIVE Urine RBC RARE /HPF Urine WBC RARE /HPF Urine Squamous Epithelial Cells RARE /HPF Urine Crystals NONE /LPF Urine Bacteria NEGATIVE /HPF Urine Casts NONE /LPF Urine Mucus NEGATIVE /LPF Urine Culture Indicated NO Urine Opiates Screen NEGATIVE NEGATIVE Urine Oxycodone Screen NEGATIVE NEGATIVE Urine Methadone Screen NEGATIVE NEGATIVE Urine Propoxyphene Screen NEGATIVE NEGATIVE Urine Barbiturates Screen NEGATIVE NEGATIVE Ur Tricyclic Antidepressants Screen NEGATIVE NEGATIVE Urine Phencyclidine Screen NEGATIVE NEGATIVE Urine Amphetamines Screen POSITIVE H NEGATIVE Urine Methamphetamines Screen POSITIVE H NEGATIVE Urine Benzodiazepines Screen NEGATIVE NEGATIVE Urine Cocaine Screen NEGATIVE NEGATIVE Urine Cannabinoids Screen NEGATIVE NEGATIVE My Orders Orders - JOSE LUIS NICHOLS Ct Head/Cervical Spine Wo (02/17/22 07:33) Cbc With Automated Diff (02/17/22 07:33) Comprehensive Metabolic Panel (02/17/22 07:33) Blood Culture (02/17/22 07:33) Sputum Culture (02/17/22 07:33) Urinalysis (02/17/22 07:33) Urine Culture (02/17/22 07:33) Protime With Inr (02/17/22 07:33) Partial Thromboplastin Time (02/17/22 07:33) Chest 1 View, Ap/Pa Only (02/17/22 07:33) Ed Iv/Invasive Line Start (02/17/22 07:33) Ed Iv/Invasive Line Start (02/17/22 07:33) Ekg Tracing (02/17/22 07:33) Troponin I Henry (02/17/22 07:33) Vital Signs Adult Sepsis Patie Q15M (02/17/22 07:33) O2 (02/17/22 07:33) Remove Rings In Anticipation O (02/17/22 07:33) Lactic Acid Analyzer (02/17/22 07:33) Drug Screen Stat (Urine) (02/17/22 07:33) Pelvis/Naye Hips 5> Views (02/17/22 07:33) Alcohol (02/17/22 07:33) Bnp Henry (02/17/22 07:33) Lipase (02/17/22 07:45) Ct Abdomen/Pelvis W (02/17/22 07:45) Iohexol Injection (Omnipaque 350 Mg/Ml 1 (02/17/22 08:00) Received Contrast (Hold Metformin- Contr (02/17/22 08:00) Ns (Ivpb) (Sodium Chloride 0.9% Ivpb Bag (02/17/22 08:00) Sodium Chloride Flush (Catheter Flush Sy (02/17/22 08:00) Ammonia (02/17/22 07:33) Ed Iv/Invasive Line Start (02/17/22 12:50) Lactated Ringers (Lr 1000 Ml Iv Solution (02/17/22 13:00) Medications Given in ED Current Medications Medications Dose Ordered Sig/Johny Route Start Time Stop Time Status Last Admin Dose Admin Iohexol 100 ml ONCE ONCE IV 02/17/22 08:00 02/17/22 08:08 DC 02/17/22 08:34 80 ML Lactated Ringer's 1,000 ml @ 0 mls/hr Q0M ONCE IV 02/17/22 13:00 02/17/22 13:01 DC 02/17/22 13:11 0 MLS/HR Sodium Chloride 10 ml NEEDED PRN IV 02/17/22 08:00 02/17/22 13:32 DC 02/17/22 08:34 10 ML Sodium Chloride 100 ml ONCE ONCE IV 02/17/22 08:00 02/17/22 08:08 DC 02/17/22 08:34 80 ML Vital Signs/I&O 02/17/22 02/17/22 02/17/22 07:27 07:27 13:26 Temp 36.5 Pulse 56 51 Resp 18 18 B/P (MAP) 92/63 (73) 110/62 Pulse Ox 94 98 98 O2 Delivery Nasal Cannula Nasal Cannula Nasal Cannula O2 Flow Rate 2.00 2.00 2.00 Capillary Refill : Progress Note : Time: 08:10 Progress Note We will check an ammonia level, drug screen, alcohol level, labs and get a CT of his abdomen since he is having some tenderness there. CT of his head and neck since he is complaining of pain in the back of his head and a fall. ECG Initial ECG Impression Date: Feb 17, 2022 Initial ECG Impression Time: 08:10 Initial ECG Rate: 61 Initial ECG Rhythm: Normal Sinus Initial ECG Intervals: QT (507) Initial ECG Impression: Normal Comment normal sinus rhythm without clinically relevant ST elevation or depression. Diagnostic Imaging Diagonstic Imaging: Xray Plain Films/CT/US/NM/MRI: chest Comments [facility]. [place], [place] NAME: VIRA RIZO [facility] REC#: [id number] PT STATUS: REG ER : 1965 PHYSICIAN: JOSE LUIS NICHOLS MD ADMIT DATE: 02/17/22/ER Signed Date of Exam:02/17/22 CHEST 1 VIEW, AP/PA ONLY EXAMINATION: Chest 1 view HISTORY: Altered mental status. COMPARISON: 02/12/2022. FINDINGS: There is continued cardiomegaly with central pulmonary vascular congestion. Patchy opacities are seen throughout both lungs. No focal consolidation. No pleural effusion or pneumothorax. IMPRESSION: 1. Cardiomegaly with central pulmonary vascular congestion and pulmonary edema. Dictated by: Dictated on workstation # [id number] Dict: 02/17/22 0850 Trans: 02/17/22 0855 CV [id number] Interpreted by: ADRIANA LIU DO Electronically signed by: ADRIANA LIU DO 02/17/2255 Reviewed: Reviewed by Ut Diagonstic Imaging: CT Plain Films/CT/US/NM/MRI: abdomen, pelvis Comments [facility], [place], [place] NAME: VIRA RIZO [facility] REC#: [id number] PT STATUS: REG ER : 1965 PHYSICIAN: JOSE LUIS NICHOLS MD ADMIT DATE: 02/17/22/ER Signed Date of Exam:02/17/22 CT ABDOMEN/PELVIS W PROCEDURE: CT abdomen and pelvis with contrast. TECHNIQUE: Multiple contiguous axial images were obtained through the abdomen and pelvis after administration of intravenous contrast. Auto Exposure Controls were utilized during the CT exam to meet ALARA standards for radiation dose reduction. All CT scans use one or more of the following dose optimizing techniques: automated exposure control, MA and/or KvP adjustment based on patient size and exam type or iterative reconstruction. INDICATION: Diffuse abdominal pain COMPARISON: 02/06/2022 FINDINGS: Cirrhotic appearance of liver is stable with intrahepatic stent is again noted. Portal venous dilatation and splenic vein prominence are again noted. There is continued splenomegaly. There is no significant change in gastric mural prominence. Embolic coils are present within the hepatogastric ligament. No definite pancreatic, adrenal gland or new renal abnormality is identified. There are occasional left renal cortical cysts. Small amount of pelvic ascites is noted. There is fluid distention of small bowel with mild to moderate amount of stool throughout the colon. No bladder abnormality is seen. IMPRESSION: Findings are consistent with hepatic cirrhosis and portal venous hypertension. Intrahepatic stent appears to be patent and there is only small amount of ascites present. Otherwise, no acute abnormality or significant change is noted. Dictated by: Dictated on workstation # [id number] Dict: 02/17/2244 Trans: 02/17/2254 [facility] [id number] Interpreted by: PAM MARTINEZ MD Electronically signed by: PAM MARTINEZ MD 02/17/22853 Reviewed: Reviewed by Me Diagonstic Imaging: CT Plain Films/CT/US/NM/MRI: c-spine, head Comments [facility], [place] NAME: VIRA RIZO [facility] REC#: [id number] PT STATUS: REG ER : 1965 PHYSICIAN: JOSE LUIS NICHOLS MD ADMIT DATE: 02/17/22/ER Signed Date of Exam:02/17/22 CT HEAD/CERVICAL SPINE WO PROCEDURE: CT head and CT cervical spine without contrast. TECHNIQUE: Multiple contiguous axial images were obtained through the brain and cervical spine without the use of intravenous contrast. Sagittal and coronal reformations through the cervical spine were then performed. Auto Exposure Controls were utilized during the CT exam to meet ALARA standards for radiation dose reduction. INDICATION: Found down. Drug abuse. Head and neck pain. Difficulty walking. COMPARISON: 02/06/2022. FINDINGS: CT head: There is continued increase in size in the left convexity subdural hematoma containing both acute and subacute components. This measures 0.9 cm in thickness, previously measuring 0.7 cm. There is a small amount of ipse-lk-qdfnw midline shift of approximately 0.2 cm. The right convexity collection has resolved since the prior exam and may have been artifactual. No intraparenchymal hemorrhage is seen. No large acute territorial ischemia. No hydrocephalus or evidence of herniation. The calvarium is intact. Mild mucosal thickening is seen in the paranasal sinuses. The mastoid air cells are clear. CT cervical spine: No acute fracture or dislocation is seen in the cervical spine. No focal osseous lesions. Vertebral body heights are well-maintained. The craniocervical junction is well-maintained. Mild degenerative changes are seen in the cervical spine with disc osteophyte complexes and uncovertebral arthropathy. Soft tissues of the neck are unremarkable. The included lung apices are clear. IMPRESSION: 1. Increase in size in the left convexity subdural hematoma with both acute and subacute components. There is new slight xtvw-so-mimbl midline shift of 0.2 cm. 2. No large acute territorial ischemia. No hydrocephalus or herniation. 3. No acute fracture or dislocation in the cervical spine. Dictated by: Dictated on workstation # [id number] Dict: 02/17/22835 Trans: 02/17/22848 ITZEL [id number] Interpreted by: ADRIANA LIU DO Electronically signed by: ADRIANA LIU DO 02/17/2249 Reviewed: Reviewed by Me Diagonstic Imaging: Xray Plain Films/CT/US/NM/MRI: pelvis, hip Comments [facility], [place] NAME: VIRA RIZO [facility] REC#: [id number] PT STATUS: REG ER : 1965 PHYSICIAN: JOSE LUIS NICHOLS MD ADMIT DATE: 02/17/22/ER Draft Date of Exam:02/17/22 PELVIS/NAYE HIPS 5> VIEWS INDICATION: Pelvic pain EXAMINATION: Pelvis and left hip 02/17/2022. FINDINGS: 5 views of the pelvis demonstrate no evidence for fractures or dislocations. The joint spaces appear maintained. Soft tissues unremarkable. There is contrast within the ureters and bladder. IMPRESSION: 1. No acute osseous abnormality. Dictated on workstation # [id number] Dict: 02/17/22845 Trans: 02/17/22847 HELEN [id number] Interpreted by: ADRIANNA ENCARNACION MD Electronically signed by: Reviewed: Reviewed by Me Departure Impression Primary Impression: Hepatic encephalopathy Additional Impressions: Fall Qualified Codes: W19.XXXA - Unspecified fall, initial encounter Bilateral subdural hematomas Left hip pain Methamphetamine use Disposition: 02 XFER SHT-TRM HOSP Condition: Stable Transfer Transfer Reason: Exceeds level of care (Need for neurosurgery consult) Time Spoke to Accepting Phy: 12:40 Transfer Progress Notes Discussed the case with Dr. Alvarez at [facility] and [place], [place]. The patient is Accepted. Transfer Facility: [facility] Method of Transfer: EMS Departure-Patient Inst. Referrals: YESSICA MONTENEGRO MD (PCP/Family) Primary Care Physician JOSE LUIS NICHOLS Feb 17, 2022 07:43
[2022-02-17] MEDS ORDERED: HOLD METFORMIN - RECEIVED CONTRAST 20 ML VIAL IV SCH (08:00)
[2022-02-17] MEDS ORDERED: NS 100 ML (IVPB) BAG IV ONE (08:00)
[2022-02-17] MEDS ORDERED: CATHETER FLUSH 10 ML SYR IV PRN (08:00)
[2022-02-17] MEDS ORDERED: IOHEXOL 350 MG/ML 100 ML (OMNIPAQUE 350) VIAL IV ONE (08:00)
[2022-02-17 08:41] LABS: ALBUMIN 2.8 GM/DL (3.2-4.5); CHLORIDE 110 MMOL/L (98-107); POTASSIUM 4.1 MMOL/L (3.6-5.0); SODIUM 139 MMOL/L (135-145)
[2022-02-17 08:42] LABS: CALCIUM 7.7 MG/DL (8.5-10.1)
[2022-02-17 08:43] LABS: GLUCOSE 93 MG/DL (70-105); TOTAL PROTEIN 5.9 GM/DL (6.4-8.2)
[2022-02-17 08:44] LABS: CARBON DIOXIDE 19 MMOL/L (21-32)
[2022-02-17 08:45] LABS: BILIRUBIN,TOTAL 1.9 MG/DL (0.1-1.0)
[2022-02-17 08:47] LABS: ALKALINE PHOSPHATASE 90 U/L (40-136); CREATININE SERUM 0.58 MG/DL (0.60-1.30); GFR ESTIMATED 113
--- NOTE | 2022-02-17 08:47 | Diagnostic Imaging Report ---
PROCEDURE: CT head and CT cervical spine without contrast. TECHNIQUE: Multiple contiguous axial images were obtained through the brain and cervical spine without the use of intravenous contrast. Sagittal and coronal reformations through the cervical spine were then performed. Auto Exposure Controls were utilized during the CT exam to meet ALARA standards for radiation dose reduction. INDICATION: Found down. Drug abuse. Head and neck pain. Difficulty walking. COMPARISON: 02/06/2022. FINDINGS: CT head: There is continued increase in size in the left convexity subdural hematoma containing both acute and subacute components. This measures 0.9 cm in thickness, previously measuring 0.7 cm. There is a small amount of umfa-pt-ulnua midline shift of approximately 0.2 cm. The right convexity collection has resolved since the prior exam and may have been artifactual. No intraparenchymal hemorrhage is seen. No large acute territorial ischemia. No hydrocephalus or evidence of herniation. The calvarium is intact. Mild mucosal thickening is seen in the paranasal sinuses. The mastoid air cells are clear. CT cervical spine: No acute fracture or dislocation is seen in the cervical spine. No focal osseous lesions. Vertebral body heights are well-maintained. The craniocervical junction is well-maintained. Mild degenerative changes are seen in the cervical spine with disc osteophyte complexes and uncovertebral arthropathy. Soft tissues of the neck are unremarkable. The included lung apices are clear. IMPRESSION: 1. Increase in size in the left convexity subdural hematoma with both acute and subacute components. There is new slight xxvx-ot-hdaon midline shift of 0.2 cm. 2. No large acute territorial ischemia. No hydrocephalus or herniation. 3. No acute fracture or dislocation in the cervical spine. Dictated by: Dictated on workstation # [id number]
[2022-02-17 08:48] LABS: BUN/CREATININE RATIO 17
--- NOTE | 2022-02-17 08:48 | Diagnostic Imaging Report ---
INDICATION: Pelvic pain EXAMINATION: Pelvis and left hip 02/17/2022. FINDINGS: 5 views of the pelvis demonstrate no evidence for fractures or dislocations. The joint spaces appear maintained. Soft tissues unremarkable. There is contrast within the ureters and bladder. IMPRESSION: 1. No acute osseous abnormality. Dictated by: Dictated on workstation # [id number]
[2022-02-17 08:50] LABS: ALANINE AMINOTRANSFERASE 18 U/L (0-55); LIPASE 22 U/L (8-78)
--- NOTE | 2022-02-17 08:53 | Diagnostic Imaging Report ---
PROCEDURE: CT abdomen and pelvis with contrast. TECHNIQUE: Multiple contiguous axial images were obtained through the abdomen and pelvis after administration of intravenous contrast. Auto Exposure Controls were utilized during the CT exam to meet ALARA standards for radiation dose reduction. All CT scans use one or more of the following dose optimizing techniques: automated exposure control, MA and/or KvP adjustment based on patient size and exam type or iterative reconstruction. INDICATION: Diffuse abdominal pain COMPARISON: 02/06/2022 FINDINGS: Cirrhotic appearance of liver is stable with intrahepatic stent is again noted. Portal venous dilatation and splenic vein prominence are again noted. There is continued splenomegaly. There is no significant change in gastric mural prominence. Embolic coils are present within the hepatogastric ligament. No definite pancreatic, adrenal gland or new renal abnormality is identified. There are occasional left renal cortical cysts. Small amount of pelvic ascites is noted. There is fluid distention of small bowel with mild to moderate amount of stool throughout the colon. No bladder abnormality is seen. IMPRESSION: Findings are consistent with hepatic cirrhosis and portal venous hypertension. Intrahepatic stent appears to be patent and there is only small amount of ascites present. Otherwise, no acute abnormality or significant change is noted. Dictated by: Dictated on workstation # [id number]
--- NOTE | 2022-02-17 08:53 | Diagnostic Imaging Report ---
EXAMINATION: Chest 1 view HISTORY: Altered mental status. COMPARISON: 02/12/2022. FINDINGS: There is continued cardiomegaly with central pulmonary vascular congestion. Patchy opacities are seen throughout both lungs. No focal consolidation. No pleural effusion or pneumothorax. IMPRESSION: 1. Cardiomegaly with central pulmonary vascular congestion and pulmonary edema. Dictated by: Dictated on workstation # [id number]
[2022-02-17 09:00] LABS: BASOPHILS % (AUTO) 1 % (0-10); EOSINOPHILS # (AUTO) 0.3 10^3/uL (0.0-0.3); EOSINOPHILS % (AUTO) 9 % (0-10); HEMATOCRIT 28 % (40-54); HEMOGLOBIN 8.7 g/dL (13.3-17.7); LYMPHOCYTES # (AUTO) 0.7 10^3/uL (1.0-4.0); LYMPHOCYTES % (AUTO) 23 % (12-44); MEAN CORPUSCULAR HEMOGLOBIN 25 pg (25-34); MEAN CORPUSCULAR HGB CONC 31 g/dL (32-36); MEAN CORPUSCULAR VOLUME 82 fL (80-99); MEAN PLATELET VOLUME 9.7 fL (9.0-12.2); MONOCYTES # (AUTO) 0.4 10^3/uL (0.0-1.0); MONOCYTES % (AUTO) 14 % (0-12); NEUTROPHILS # (AUTO) 1.6 10^3/uL (1.8-7.8); NEUTROPHILS % (AUTO) 53 % (42-75); PLATELET COUNT 139 10^3/uL (130-400)
[2022-02-17 09:13] LABS: INR 1.4 (0.8-1.4); PROTHROMBIN TIME PATIENT 17.1 SEC (12.2-14.7)
[2022-02-17 10:27] LABS: BILIRUBIN,URINE NEGATIVE (NEGATIVE); CLARITY,URINE CLEAR; COLOR,URINE YELLOW; GLUCOSE, URINE (UA) NEGATIVE (NEGATIVE); KETONES,URINE NEGATIVE (NEGATIVE); LEUKOCYTE ESTERASE ,URINE NEGATIVE (NEGATIVE); NITRITE,URINE NEGATIVE (NEGATIVE); PROTEIN,URINE NEGATIVE (NEGATIVE)
[2022-02-17 10:39] LABS: AMPHETAMINE SCREEN, URINE POSITIVE (NEGATIVE); BARBITURATE SCREEN URINE NEGATIVE (NEGATIVE); BENZODIAZEPINES SCREEN URINE NEGATIVE (NEGATIVE); CANNABINOID SCREEN, URINE NEGATIVE (NEGATIVE); COCAINE SCREEN URINE NEGATIVE (NEGATIVE); METHADONE STAT NEGATIVE (NEGATIVE); OPIATE SCREEN URINE NEGATIVE (NEGATIVE); OXYCODONE STAT NEGATIVE (NEGATIVE); PROPOXYPHENE STAT NEGATIVE (NEGATIVE); TRICYCLIC ANTIDEPRESSANTS SCRE NEGATIVE (NEGATIVE)
[2022-02-17 10:40] LABS: BACTERIA,URINE NEGATIVE /HPF; RBC,URINE RARE /HPF; SQUAMOUS EPITHELIAL CELL,UR RARE /HPF; WBC,URINE RARE /HPF
[2022-02-17] MEDS ORDERED: LACTATED RINGERS 1,000 ML IV ONE (13:00)
[2022-02-17 13:26] VITALS: BP 110/62
== END 2022-02-17 13:32 | disposition short-term general hospital (02) ==
LOC: EDUNIT# 07:25 → ER 07:26
DX: S06.5X9A Traumatic subdural hemorrhage with loss of consciousness of unspecified duration, initial encounter (principal); M25.552 Pain in left hip; K72.90 Hepatic failure, unspecified without coma; F15.90 Other stimulant use, unspecified, uncomplicated; Z87.891 Personal history of nicotine dependence; W19.XXXA Unspecified fall, initial encounter; Y92.096 Garden or yard of other non-institutional residence as the place of occurrence of the external cause
CPT/HCPCS: 70450; 71045; 72125; 73523; 74177; 80053; 80306; 81000; 82140; 82805; 83605; 83690; 83880; 84484; 85025; 85610; 85730; 87040; 87088; 93005; 99291; G0480; 36415; 80320

== ENCOUNTER 2022-03-14 22:22 | Emergency (ER) | payer MEDICARE, MEDICAID ==
[~2022-03-14] VITALS: Ht 177.8 cm; Wt 79.4 kg
--- NOTE | 2022-03-14 22:26 | ED General ---
General Chief Complaint: Dizziness/Syncope Stated Complaint: DIZZY - SOA Source of Information: Patient (PT IS VERY POOR HISTORIAN WITH POOR MEMORY---THIS IS PT'S NORMAL BASELINE), EMS, Old Records History of Present Illness Date Seen by Provider: Mar 14, 2022 Time Seen by Provider: 22:25 Initial Comments PT ARRIVES VIA EMS FROM [place] PT WAS WALKING OUTSIDE AND REPORTEDLY HE GOT DIZZY AND SHORT OF BREATH--WHICH HE STATES ALWAYS HAPPENS IF HE WALKS VERY FAR. STATES HE WAS WALKING FROM ONE FRIEND'S HOUSE TO ANOTHER FRIEND'S HOUSE TONIGHT--PT STATES HE IS HOMELESS PT STATES HE "FELL DOWN" AND WAS LAYING IN THE STREET IN [place] AND LOCAL POLICE FOUND HIM LAYING IN THE STREET AND CALLED EMS. PT DENIES HITTING HIS HEAD OR HAVING LOSS OF CONSCIOUSNESS AT ANY TIME. PT HAS NO COMPLAINTS OF ANY KIND FOR EMS OR ON ARRIVAL HERE. PT IS WEARING [facility] BRACE[facility]TS DATED 02/22/22--ID BAND, ALLERGY BAND, FALL RISK BAND. PT STATES HE WAS ADMITTED TO [facility] "FOR MY HEAD" --CANNOT ELABORATE. ADDITIONALLY, HE IS STILL WEARING [facility] D[facility] 02/17/22 FROM [facility] ( WAS SEEN HERE THAT DAY AND TRANSFERRED TO [facility] FOR HEPATIC ENCEPHALOPAHTY, AND INCREASED SUBDURAL HEMATOMAS--PREVIOUSLY DX WITH BILATERAL SUBDURAL HEMATOMAS IN JANUARY--NO SURGERY DONE AT ANY TIME ) PT HAS LONGSTANDING HISTORY OF ALCOHOLISM, CHRONIC NON-COMPLIANCE CLAIMS HE HAS NOT HAD ANY ALCOHOL FOR 3 WEEKS PT STATES HE SMOKES METH, DENIES IV USE TODAY, BUT HAS EXTENSIVE HISTORY OF IV METH USE--CAN'T REMEMBER WHEN HE LAST USED METH CLAIMS HE QUIT SMOKING CIGARETTES RECENTLY PT DENIES HUFFING, BUT PALMS AND FINGERS OF BOTH HANDS ARE COMPLETELY COVERED WITH BLACK AND SILVER METALLIC/GLITTER PAINT. PT HAS NOT TAKEN ANY OF HIS MEDICATIONS FOR "A FEW DAYS" --STATES HE "CAN'T EVER REMEMBER TO TAKE THEM" PT DOES NOT KNOW ANY OF HIS MEDICATIONS OR WHAT HE TAKES THEM FOR--STATES HE TAKES "ABOUT 10 DIFFERENT PILLS" PT LATER STATES THAT HE DOES HAVE SEIZURES, AND IS SUPPOSED TO BE TAKING SEIZURE MEDICATION BUT DOESN'T EVER REMEMBER TO TAKE IT AND HAD A SEIZURE 2 DAYS AGO--NO INJURY DENIES HAVING A SEIZURE TODAY PT STATES HE HAS A BUS TICKET TO GO BACK TO [place]--BUS LEAVES TOMORROW STATES SOON HE LEAVES HERE HE IS GOING TO GET A RIDE TO THE BUS STATION--WAS REPORTED BY EMS THAT [place] POLICE ARE SUPPOSED TO BE TAKING HIM TO THE BUS STATION. PT HAS HAD COVID-19 VACCINE X 1--DOES NOT REMEMBER WHEN HE HAD IT. PT WITH MULTITUDE OF VISITS FOR VARIOUS COMPLAINTS, MOST OF WHICH ARE DIRECTLY OR INDIRECTLY RELATED TO ALCOHOL AND DRUG ABUSE. [employer] CALLED AFTER PT'S ARRIVAL, AND REPORTED TO RN THAT THEY WOULD COME AND PICK PT UP WHEN HE IS DISMISSED. PCP: [place]. YESSICA MONTENEGRO, [facility] [place] Home Medications Allergies Coded Allergies: NSAIDS (Non-Steroidal Anti-Inflamma (Verified Allergy, Unknown, 11/28/19) Patient Home Medication List Home Medication List Reviewed: Yes Cyanocobalamin (Vitamin B-12) (Vitamin B-12) 1,000 Mcg Tablet, 1,000 MCG PO DAILY Prescribed by: LALI CARBONE on 02/12/22 1231 Folic Acid (Folic Acid) 1 Mg Tablet, 1 MG PO DAILY Prescribed by: LALI CARBONE on 02/12/22 1231 Furosemide (Furosemide) 20 Mg Tablet, 20 MG PO DAILY Prescribed by: LALI CARBONE on 02/12/22 1231 Gabapentin (Neurontin) 300 Mg Capsule, 300 MG PO BID Prescribed by: LALI CARBONE on 02/12/22 1231 Hydrocodone Bit/Acetaminophen (HYDROcodone/APAP 5 MG/325 MG TAB) 1 Tab Tab, 1 TAB PO BID PRN for PAIN-MODERATE (5-7) Prescribed by: LALI CARBONE on 02/12/22 1231 Lactulose (Lactulose) 20 Gram/30 Ml Solution, 20 GM PO TID Prescribed by: LALI CARBONE on 02/12/22 1231 Spironolactone (Spironolactone) 50 Mg Tablet, 50 MG PO DAILY Prescribed by: LALI CARBONE on 02/12/22 1231 Review of Systems Review of Systems Constitutional: see HPI EENTM: no symptoms reported Respiratory: see HPI Cardiovascular: no symptoms reported Gastrointestinal: no symptoms reported Genitourinary: no symptoms reported Musculoskeletal: no symptoms reported Skin: no symptoms reported Psychiatric/Neurological: No Symptoms Reported Hematologic/Lymphatic: No Symptoms Reported Immunological/Allergic: no symptoms reported Past Pnqlltf-Ueypjd-Kanevn Hx Patient Social History Tobacco Use?: Yes Tobacco type used: Cigarettes Substance use?: Yes Substance type: Methamphetamine, Marijuana Alcohol Use?: Yes Alcohol type: Beer, Hard Liquor Immunizations Up To Date First/Initial COVID19 Vaccinat: Pfizer Second COVID19 Vaccination Christiano: Pfizer Third COVID19 Vaccination Date: [employer] Seasonal Allergies Seasonal Allergies: Yes Past Medical History Surgery/Hospitalization HX: LIVER DISEASE, DEGINERATIVE DISK DISEASE, HEART MURMMER, KIDNEY DISEASE Surgeries: Yes (R ANKLE, L KNEE, BILAT SHOULDER, ESOPHAGEAL BANDING; TIPS;) Abdominal, Adenoidectomy, Orthopedic, Tonsillectomy Respiratory: Yes COPD Cardiac: Yes Chronic Edema/Swelling Neurological: Yes (CLAIMS HE HAS SEIZURES D/T LIVER DISEASE;BILAT SUBDURAL HEMATOMAS 01/30/22) Seizure Disorder, Traumatic Brain Injury Genitourinary: No Gastrointestinal: Yes (HX OF HEP C-TREATED;ESOPHAGEAL BANDING & STENTS X2;TIPS PROCEDURE;ELEV AMMO) Liver Disease/Jaundice, Esophageal Varices, Hepatitis, Cirrhosis Musculoskeletal: Yes (MULTIPLE ORTHOPEDIC PROCEDURES) Degenerate Disk Disease, Chronic Back Pain, Fractures Endocrine: No HEENT: Yes (POOR DENTITION) Loss of Vision: Denies Hearing Impairment: Denies Cancer: No Psychosocial: Yes (PSYCH ISSUES; POLYSUBSTANCE ABUSE) ADD/ADHD Integumentary: Yes (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 12/06/21) Blood Disorders: No Adverse Reaction/Blood Tranf: No Family Medical History COPD, Other Conditions/Hx SOCIAL HISTORY: -SMOKES 1 PPD -ETOH--HEAVY/DAILY USE -DRUGS--EXTENSIVE IV METH USE PSH: -ESOPAGEAL VARICES BANDING -ESOPHAGEAL STENTS X 2 -TIPS PROCEDURE -RIGHT ANKLE FX/ORIF -LEFT KNEE SURGERY X 2 -LEFT SHOULDER SURGERY X 1 -RIGHT SHOULDER SURGERY X 2 ADMITTED 12/06/21 FOR CHRONIC WOUND TO BACK OF HEAD, WITH MAGGOTS IN THE WOUND MULTIPLE ADMITS FOR ELEVATED AMMONIA LEVELS EXTENSIVE HISTORY OF NON-COMPLIANCE HX OF HEPATIC ENCEPHALOPATHY/HYPERAMMONEMIA BILAT SUBDURAL HEMATOMAS DX 01/30/22 AND TX TO [facility]. NO SURGERY Physical Exam Vital Signs Vital Signs - First Documented 03/14/22 22:25 Temp 36.8 Pulse 85 Resp 15 B/P (MAP) 116/74 (88) Pulse Ox 96 O2 Delivery Room Air Capillary Refill : Height, Weight, BMI Height: '" Weight: lbs. oz. kg; 27.00 BMI Method: General Appearance: No Apparent Distress, WD/WN, Other (FILTHY, MALODOROUS, SLIGHTLY SLOW MENTATION AND SLIGHTLY SLOW SPEECH, POOR MEMORY--NORMAL BASELINE FOR PT) HEENT: PERRL/EOMI, Other (NO EXTERNAL EVIDENCE OF TRAUMA TO HEAD, NO TENDERNESS, ETC. ) Neck: Normal Inspection, Non Tender Respiratory: Normal Breath Sounds, No Accessory Muscle Use, No Respiratory Distress Cardiovascular: Regular Rate, Rhythm, No Murmur Gastrointestinal: Non Tender, Soft Back: No CVA Tenderness, No Vertebral Tenderness Extremity: Pedal Edema (2+ EDEMA BILATERALLY), Other (EXTENSIVE OLD TRACK BRISENO AND SCARRING TO BILATERAL AC SPACES. NO OBVIOUS NEW TRACK BRISENO TO THESE AREAS. 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 Norm as Tested Skin: Normal Color, Warm/Dry, Tattoos/Piercings, Other (HANDS COVERED WITH BLACK AND SILVER METALLIC/GLITTER PAINT; NO EXTERNAL EVIDENCE OF TRAUMA ANYWHERE ON EXPOSED AREAS) Procedures/Interventions Date of ETT Placement: Jun 11, 2021 Time of ETT Placement: 0152 Suture Size: 5-0 Progress/Results/Core Measures Suspected Sepsis SIRS Temperature: Pulse: Respiratory Rate: Laboratory Tests 03/14/22 23:40: White Blood Count 3.0L Blood Pressure / Mean: Laboratory Tests 03/14/22 22:35: Creatinine 0.75, INR Comment 1.1, Total Bilirubin 1.2H 03/14/22 23:40: Platelet Count 110L Results/Orders Lab Results Laboratory Tests Test 03/14/22 22:35 03/14/22 22:39 03/14/22 23:40 03/15/22 00:06 Range/Units Prothrombin Time 14.3 12.2-14.7 SEC INR Comment 1.1 0.8-1.4 Activated Partial Thromboplast Time 22 L 24-35 SEC Sodium Level 141 135-145 MMOL/L Potassium Level 3.5 L 3.6-5.0 MMOL/L Chloride Level 111 H 98-107 MMOL/L Carbon Dioxide Level 19 L 21-32 MMOL/L Anion Gap 11 5-14 MMOL/L Blood Urea Nitrogen 10 7-18 MG/DL Creatinine 0.75 0.60-1.30 MG/DL Estimat Glomerular Filtration Rate 105 BUN/Creatinine Ratio 13 Glucose Level 113 H 70-105 MG/DL Calcium Level 8.0 L 8.5-10.1 MG/DL Corrected Calcium 8.7 8.5-10.1 MG/DL Magnesium Level 2.0 1.6-2.4 MG/DL Total Bilirubin 1.2 H 0.1-1.0 MG/DL Aspartate Amino Transf (AST/SGOT) 52 H 5-34 U/L Alanine Aminotransferase (ALT/SGPT) 29 0-55 U/L Alkaline Phosphatase 111 40-136 U/L Ammonia 78 H 11-32 UMOL/L Total Creatine Kinase 201 H 30-200 U/L Creatine Kinase MB 1.4 <6.6 NG/ML Troponin I < 0.028 <0.028 NG/ML Total Protein 6.7 6.4-8.2 GM/DL Albumin 3.1 L 3.2-4.5 GM/DL Amylase Level 57 25-125 U/L Lipase 46 8-78 U/L Acetaminophen Level < 10 L 10-30 UG/ML Serum Alcohol < 10 <10 MG/DL Influenza Type A (RT-PCR) Not Detected Not Detecte Influenza Type B (RT-PCR) Not Detected Not Detecte SARS-CoV-2 RNA (RT-PCR) Not Detected Not Detecte White Blood Count 3.0 L 4.3-11.0 10^3/uL Red Blood Count 3.55 L 4.30-5.52 10^6/uL Hemoglobin 9.8 L 13.3-17.7 g/dL Hematocrit 32 L 40-54 % Mean Corpuscular Volume 89 80-99 fL Mean Corpuscular Hemoglobin 28 25-34 pg Mean Corpuscular Hemoglobin Concent 31 L 32-36 g/dL Red Cell Distribution Width 22.3 H 10.0-14.5 % Platelet Count 110 L 130-400 10^3/uL Mean Platelet Volume 8.7 L 9.0-12.2 fL Immature Granulocyte % (Auto) 0 % Neutrophils (%) (Auto) 48 42-75 % Lymphocytes (%) (Auto) 27 12-44 % Monocytes (%) (Auto) 14 H 0-12 % Eosinophils (%) (Auto) 9 0-10 % Basophils (%) (Auto) 1 0-10 % Neutrophils # (Auto) 1.4 L 1.8-7.8 10^3/uL Lymphocytes # (Auto) 0.8 L 1.0-4.0 10^3/uL Monocytes # (Auto) 0.4 0.0-1.0 10^3/uL Eosinophils # (Auto) 0.3 0.0-0.3 10^3/uL Basophils # (Auto) 0.0 0.0-0.1 10^3/uL Immature Granulocyte # (Auto) 0.0 0.0-0.1 10^3/uL B-Type Natriuretic Peptide 51.0 <100.0 PG/ML Urine Color DARK YELLOW Urine Clarity CLEAR Urine pH 6.5 5-9 Urine Specific [place] 1.025 H 1.016-1.022 Urine Protein NEGATIVE NEGATIVE Urine Glucose (UA) NEGATIVE NEGATIVE Urine Ketones NEGATIVE NEGATIVE Urine Nitrite NEGATIVE NEGATIVE Urine Bilirubin 1+ H NEGATIVE Urine Urobilinogen >=8.0 < = 1.0 MG/DL Urine Leukocyte Esterase NEGATIVE NEGATIVE Urine RBC (Auto) NEGATIVE NEGATIVE Urine RBC NONE /HPF Urine WBC NONE /HPF Urine Crystals NONE /LPF Urine Bacteria NEGATIVE /HPF Urine Casts NONE /LPF Urine Mucus SMALL H /LPF Urine Culture Indicated NO Urine Opiates Screen NEGATIVE NEGATIVE Urine Oxycodone Screen NEGATIVE NEGATIVE Urine Methadone Screen NEGATIVE NEGATIVE Urine Propoxyphene Screen NEGATIVE NEGATIVE Urine Barbiturates Screen NEGATIVE NEGATIVE Ur Tricyclic Antidepressants Screen NEGATIVE NEGATIVE Urine Phencyclidine Screen NEGATIVE NEGATIVE Urine Amphetamines Screen POSITIVE H NEGATIVE Urine Methamphetamines Screen POSITIVE H NEGATIVE Urine Benzodiazepines Screen NEGATIVE NEGATIVE Urine Cocaine Screen NEGATIVE NEGATIVE Urine Cannabinoids Screen NEGATIVE NEGATIVE My Orders Orders - RADHA VITAL DO Ed Iv/Invasive Line Start (03/14/22:27) Ekg Tracing (03/14/22:27) Monitor-Rhythm Ecg Trace Only (03/14/22:) Acetaminophen (03/14/22:27) Alcohol (03/14/22:27) Ammonia (03/14/22:) Amylase (03/14/22:27) Bnp Nora (03/14/22:) Cbc With Automated Diff (03/14/22:) Comprehensive Metabolic Panel (03/14/22:27) Creatine Kinase (03/14/22:) Creatine Kinase Mb (03/14/22:27) Drug Screen Stat (Urine) (03/14/22:) Lipase (03/14/22:) Magnesium (03/14/22) Protime With Inr (03/14/22:) Partial Thromboplastin Time (03/14/22) Ua Culture If Indicated (03/14/22:) Troponin I Nora (03/14/22:) Chest 1 View, Ap/Pa Only (03/14/22:) Covid 19 Inhouse Test (03/14/22) Influenza A And B By Pcr (03/14/22) Isolation Central Supply Req (03/14/22:) Ct Head Wo (03/14/22) Vital Signs/I&O 03/14/22 03/14/22 03/15/22 22:25 22:25 00:41 Temp 36.8 Pulse 85 83 Resp 15 16 B/P (MAP) 116/74 (88) 130/74 Pulse Ox 96 96 O2 Delivery Room Air Room Air Room Air Capillary Refill : Progress Note : Progress Note PPE WORN COVID TESTING DONE PT HAS NO COMPLAINTS OF ANY KIND DURING ENTIRE ER STAY PT REMAINED POLITE AND COOPERATIVE FOR ENTIRE ER STAY VITALS STABLE NO HYPOXIA, NO HYPOTENSION OR HYPTERTENSION, OR IRREGULAR HEART BEATS, NO IRREGULAR HEAR RATES, NO DYSPNEA, NO FEVER. NO DETERIORATION IN PT'S CONDITION DURING ER STAY PT IS ADAMANT THAT HE HAS NOT HIT HIS HEAD SINCE HE WAS LAST SEEN HERE PT DENIES ANY NEUROLOGICAL COMPLAINTS AND IS ANXIOUS TO BE DISMISSED, SO HE WON'T MISS HIS BUS BACK TO [facility]. PT DOES NOT WANT TO WAIT FOR REPEAT CT SCAN OR BE ADMITTED OR TRANSFERRED--AMA PAPERS SIGNED, RISKS/BENEFITS REVIEWED. ADVISED TO GO TO NEAREST ER IF HE BEGINS HAVING ANY NEUROLOGICAL CHANGES STATES ALL OF HIS MEDICATIONS ARE AT A FRIEND'S HOUSE, AND STATES THEY WILL BE GOING THERE TO [place] HIS THINGS AND MEDICATIONS AND THEN GOING TO THE BUS STATION IN [facility] Initial ECG Impression Date: Mar 14, 2022 Initial ECG Impression Time: 22:38 Initial ECG Rate: 80 Initial ECG Rhythm: Normal Sinus Diagnostic Imaging Comments CXR--NO ACUTE PROCESS, PENDING RADIOLOGIST REVIEW CT HEAD--PER [facility] RADIOLOGIST REPORT VIA PHONE AND VIA FAX AT 0010 -LEFT SUBDURAL HEMATOMA IS SMALLER IN SIZE AND NO MIDLINE SHIFT, OVERALL IMPROVED SINCE 02/17/22, BUT THERE MAY BE A SMALL COMPONENT OF ACUTE TO SUBACUTE HEMORRHAGE. Reviewed: Reviewed by Me Departure Communication (Admissions) [id number]--[employer] CALLED, AND REPORT THAT PT'S BUS LEAVES AT 0155 FROM [place], AND ARE ON THEIR WAY TO PICK PT UP AND TAKE HIM THERE. UA AND CT RESULTS ARE PENDING AT THIS TIME. [employer] OFFICERS HERE TO PICK PT UP AT DISMISSAL. Impression Primary Impression: Hyperammonemia Additional Impressions: History of alcohol abuse CHRONIC NON COMPLIANCE IN ALL ASPECTS OF CARE CHRONIC PANCYTOPENIA-MILD/STABLE RESOLVING SUBDURAL HEMATOMA Left against medical advice Methamphetamine use Disposition: AGAINST MEDICAL ADVICE Condition: Against Medical Advice Departure-Patient Inst. Decision time for Depature: 00:25 Referrals: YESSICA MONTENEGRO MD (PCP/Family) Primary Care Physician Patient Instructions: ALCOHOL AND SUBSTANCE ABUSE, Ammonia Blood Test Add. Discharge Instructions: TAKE ALL OF YOUR MEDICATIONS PRESCRIBED--DO NOT MISS DOSES OF YOUR MEDICATIONS!! ESTABLISH WITH A DR IN YOUR NEW TOWN THIS WEEK All discharge instructions reviewed with patient and/or family. Voiced understanding. RADHA VITAL DO Mar 14, 2022 22:26
[2022-03-14 22:57] LABS: ALBUMIN 3.1 GM/DL (3.2-4.5); CHLORIDE 111 MMOL/L (98-107); POTASSIUM 3.5 MMOL/L (3.6-5.0); SODIUM 141 MMOL/L (135-145)
[2022-03-14 22:58] LABS: AMYLASE 57 U/L (25-125)
[2022-03-14 22:59] LABS: AMMONIA 78 UMOL/L (11-32); GLUCOSE 113 MG/DL (70-105)
[2022-03-14 23:00] LABS: CARBON DIOXIDE 19 MMOL/L (21-32); INR 1.1 (0.8-1.4); PROTHROMBIN TIME PATIENT 14.3 SEC (12.2-14.7); TOTAL PROTEIN 6.7 GM/DL (6.4-8.2)
[2022-03-14 23:01] LABS: BILIRUBIN,TOTAL 1.2 MG/DL (0.1-1.0)
[2022-03-14 23:03] LABS: ALKALINE PHOSPHATASE 111 U/L (40-136); CREATININE SERUM 0.75 MG/DL (0.60-1.30); GFR ESTIMATED 105
[2022-03-14 23:04] LABS: BUN/CREATININE RATIO 13
[2022-03-14 23:06] LABS: ALANINE AMINOTRANSFERASE 29 U/L (0-55)
[2022-03-14 23:07] LABS: CREATINE KINASE 201 U/L (30-200); LIPASE 46 U/L (8-78)
[2022-03-14 23:13] LABS: CREATINE KINASE MB 1.4 NG/ML (<6.6)
[2022-03-14 23:30] LABS: ACETAMINOPHEN < 10 UG/ML (10-30)
[2022-03-14 23:45] LABS: BASOPHILS % (AUTO) 1 % (0-10); EOSINOPHILS # (AUTO) 0.3 10^3/uL (0.0-0.3); EOSINOPHILS % (AUTO) 9 % (0-10); HEMATOCRIT 32 % (40-54); HEMOGLOBIN 9.8 g/dL (13.3-17.7); LYMPHOCYTES # (AUTO) 0.8 10^3/uL (1.0-4.0); LYMPHOCYTES % (AUTO) 27 % (12-44); MEAN CORPUSCULAR HEMOGLOBIN 28 pg (25-34); MEAN CORPUSCULAR HGB CONC 31 g/dL (32-36); MEAN CORPUSCULAR VOLUME 89 fL (80-99); MEAN PLATELET VOLUME 8.7 fL (9.0-12.2); MONOCYTES # (AUTO) 0.4 10^3/uL (0.0-1.0); MONOCYTES % (AUTO) 14 % (0-12); NEUTROPHILS # (AUTO) 1.4 10^3/uL (1.8-7.8); NEUTROPHILS % (AUTO) 48 % (42-75); PLATELET COUNT 110 10^3/uL (130-400)
[2022-03-15 00:14] LABS: CLARITY,URINE CLEAR; COLOR,URINE DARK YELLOW; GLUCOSE, URINE (UA) NEGATIVE (NEGATIVE); KETONES,URINE NEGATIVE (NEGATIVE); LEUKOCYTE ESTERASE ,URINE NEGATIVE (NEGATIVE); NITRITE,URINE NEGATIVE (NEGATIVE); PH,URINE 6.5 (5-9); PROTEIN,URINE NEGATIVE (NEGATIVE)
[2022-03-15 00:28] LABS: AMPHETAMINE SCREEN, URINE POSITIVE (NEGATIVE); BACTERIA,URINE NEGATIVE /HPF; BARBITURATE SCREEN URINE NEGATIVE (NEGATIVE); BENZODIAZEPINES SCREEN URINE NEGATIVE (NEGATIVE); BILIRUBIN,URINE 1+ (NEGATIVE); CANNABINOID SCREEN, URINE NEGATIVE (NEGATIVE); COCAINE SCREEN URINE NEGATIVE (NEGATIVE); METHADONE STAT NEGATIVE (NEGATIVE); OPIATE SCREEN URINE NEGATIVE (NEGATIVE); OXYCODONE STAT NEGATIVE (NEGATIVE); PROPOXYPHENE STAT NEGATIVE (NEGATIVE); TRICYCLIC ANTIDEPRESSANTS SCRE NEGATIVE (NEGATIVE)
[2022-03-15 00:41] VITALS: BP 130/74
--- NOTE | 2022-03-15 06:53 | Diagnostic Imaging Report ---
Indication: Neurologic deficit, dizziness and shortness of breath. TECHNIQUE: Multiple contiguous axial images were obtained through the brain without the use of intravenous contrast. Auto Exposure Controls were utilized during the CT exam to meet ALARA standards for radiation dose reduction. Comparison made to 02/17/2022. There are diffuse atrophic changes. There is a left-sided subdural hematoma which is of intermediate density. It measures about 5 mm in maximal diameter, it does appear to be mildly decreased in size compared with 02/17/2022. There are patchy low-density changes in the deep white matter compatible with chronic ischemic change. There is no new intracranial finding. Calvarial windows are normal. IMPRESSION: Compared to 02/17/2022, the left-sided subdural hematoma appears to be slightly smaller. There is a small hyperdense component which may be either acute or residual from the previous. Suggest follow-up study as clinically warranted. There is no significant midline shift. There is diffuse atrophic change and chronic ischemic change in the deep white matter. Dictated by: Dictated on workstation # [id number]
--- NOTE | 2022-03-15 07:12 | Diagnostic Imaging Report ---
Indication: Dyspnea Frontal chest obtained at 1056 p.m. COMPARISON: 02/17/2022 Heart is normal size. There are chronic interstitial changes which are similar to the prior study. There is no new consolidation or pneumothorax or pleural fluid. IMPRESSION: Chronic interstitial changes appear similar to the previous study with no new infiltrate or pleural fluid. Dictated by: Dictated on workstation # [id number]
== END 2022-03-15 00:25 | disposition left against medical advice (07) ==
LOC: ER 22:22 → EDUNIT# 22:22 → ER 03-15 00:25
DX: S06.5XAA Traumatic subdural hemorrhage with loss of consciousness status unknown, initial encounter (principal); E72.20 Disorder of urea cycle metabolism, unspecified; F15.90 Other stimulant use, unspecified, uncomplicated; D61.818 Other pancytopenia; F17.210 Nicotine dependence, cigarettes, uncomplicated; Z86.59 Personal history of other mental and behavioral disorders; Z91.14 Patient's other noncompliance with medication regimen; Z20.822 Contact with and (suspected) exposure to COVID-19; W18.30XA Fall on same level, unspecified, initial encounter
CPT/HCPCS: 70450; 71045; 80053; 80306; 81000; 82140; 82150; 82550; 82553; 83690; 83735; 83880; 84484; 85025; 85610; 85730; 87636; 93005; 93041; 99284; G0480 ×2; 36415; 80320; 80329

== ENCOUNTER 2022-09-15 21:27 | Emergency (ER) | payer MEDICARE, MEDICAID ==
[2022-09-15] MEDS ORDERED: NS IV 1000 ML 1,000 ML IV STA (21:50)
[2022-09-15 21:58] LABS: BASOPHILS % (AUTO) 0 % (0-10); MONOCYTES # (AUTO) 0.4 10^3/uL (0.0-1.0)
[2022-09-15 22:00] LABS: EOSINOPHILS # (AUTO) 0.2 10^3/uL (0.0-0.3); EOSINOPHILS % (AUTO) 7 % (0-10); HEMATOCRIT 36 % (40-54); HEMOGLOBIN 11.9 g/dL (13.3-17.7); LYMPHOCYTES # (AUTO) 0.7 10^3/uL (1.0-4.0); LYMPHOCYTES % (AUTO) 22 % (12-44); MEAN CORPUSCULAR HEMOGLOBIN 30 pg (25-34); MEAN CORPUSCULAR HGB CONC 33 g/dL (32-36); MEAN CORPUSCULAR VOLUME 88 fL (80-99); MEAN PLATELET VOLUME 9.7 fL (9.0-12.2); MONOCYTES % (AUTO) 11 % (0-12); NEUTROPHILS # (AUTO) 1.9 10^3/uL (1.8-7.8); NEUTROPHILS % (AUTO) 61 % (42-75); PLATELET COUNT 124 10^3/uL (130-400); WHITE BLOOD COUNT 3.2 10^3/uL (4.3-11.0)
[2022-09-15] MEDS ORDERED: CEFEPIME INJECTION 1,000 MG in NS (IVPB) 50 ML IV ONE (22:00)
[2022-09-15 22:01] LABS: BILIRUBIN,URINE NEGATIVE (NEGATIVE); CLARITY,URINE SL CLOUDY; COLOR,URINE YELLOW; GLUCOSE, URINE (UA) TRACE (NEGATIVE); KETONES,URINE NEGATIVE (NEGATIVE); LEUKOCYTE ESTERASE ,URINE 1+ (NEGATIVE); NITRITE,URINE NEGATIVE (NEGATIVE); PH,URINE 6.5 (5-9); PROTEIN,URINE NEGATIVE (NEGATIVE)
[2022-09-15 22:04] LABS: INR 1.3 (0.8-1.4); PROTHROMBIN TIME PATIENT 16.8 SEC (12.2-14.7)
[2022-09-15 22:05] LABS: SMEAR SCAN COMMENT YES
[2022-09-15 22:06] LABS: ALBUMIN 3.1 GM/DL (3.2-4.5); POTASSIUM 3.7 MMOL/L (3.6-5.0)
[2022-09-15 22:09] LABS: TOTAL PROTEIN 6.4 GM/DL (6.4-8.2)
[2022-09-15 22:10] LABS: BILIRUBIN,TOTAL 2.2 MG/DL (0.1-1.0)
[2022-09-15 22:12] LABS: CREATININE SERUM 0.92 MG/DL (0.60-1.30)
[2022-09-15] MEDS ORDERED: LACTULOSE SYRUP 10GM/15ML (ENULOSE) 30ML UDC PO ONE (22:15)
--- NOTE | 2022-09-15 22:15 | ED Lower Extremity ---
General Stated Complaint: LEG PAIN Source: patient Exam Limitations: no limitations (NAVID HUSSEIN) History of Present Illness Date Seen by Provider: Sep 15, 2022 Time Seen by Provider: 22:10 Initial Comments Patient is a 56-year-old male who is a poor historian with a history of alcoholism, meth use, liver disease, kidney disease, seizures, esophageal varices, cirrhosis who presents to ED by EMS for left leg pain. Left leg pain with swelling and redness over the past week. States he is currently out of his Lasix, lactulose, spironolactone and medication. Patient denies of any trauma. Patient also reports right upper quad abdominal pain and generalized head pain. He states he has pain daily. States few days ago he had auditory and visual hallucinations. Patient reports smoking meth recently but cannot give me exact date. Denies of any current alcohol. Patient was brought to the ED by EMS. Patient states he recently returned from [place] to see family. Currently staying at a friend's house. Patient denies of any chest pain, shortness of breath, cough abdominal pain vomiting or diarrhea. He reports chronic lower leg swelling but this has gotten worse over the past week more notable in his left leg. Pain is rated 8 out of 10. Pulses noted on arrival. Extensive erythema and swelling. Patient was found to be hypoxic 89% on room air. Patient was placed on 3 L. Patient is supposed to be on oxygen but does not wear oxygen daily. (NAVID HUSSEIN) Allergies and Home Medications Allergies Coded Allergies: NSAIDS (Non-Steroidal Anti-Inflamma (Verified Allergy, Unknown, 11/28/19) Patient Home Medication List Home Medication List Reviewed: Yes (NAVID HUSSEIN) Cephalexin (Cephalexin) 500 Mg Tablet, 500 MG PO QID Prescribed by: VELVET PATINO on 09/15/22 8685 Last Action: New Order Cyanocobalamin (Vitamin B-12) (Vitamin B-12) 1,000 Mcg Tablet, 1,000 MCG PO DAILY Prescribed by: LALI CARBONE on 02/12/22 1231 Doxycycline Monohydrate (Doxycycline Monohydrate) 100 Mg Tablet, 100 MG PO BID Prescribed by: VELVET PATINO on 09/15/22 7036 Last Action: New Order Folic Acid (Folic Acid) 1 Mg Tablet, 1 MG PO DAILY Prescribed by: LALI CARBONE on 02/12/22 123 Furosemide (Furosemide) 20 Mg Tablet, 20 MG PO DAILY Prescribed by: LALI CARBONE on 02/12/22 1231 Furosemide (Lasix) 40 Mg Tablet, 40 MG PO DAILY Prescribed by: VELVET PATINO on 09/15/222334 Last Action: New Order Gabapentin (Neurontin) 300 Mg Capsule, 300 MG PO BID Prescribed by: LALI CARBONE on 02/12/22 1231 Hydrocodone Bit/Acetaminophen (HYDROcodone/APAP 5 MG/325 MG TAB) 1 Tab Tab, 1 TAB PO BID PRN for PAIN-MODERATE (5-7) Prescribed by: LALI CARBONE on 02/12/22 123 Lactulose (Lactulose) 20 Gram/30 Ml Solution, 20 GM PO TID Prescribed by: LALI CARBONE on 02/12/22 123 Lactulose (Lactulose) 20 Gram/30 Ml Solution, 20 GM PO TID Prescribed by: VELVET PATINO on 09/15/222334 Last Action: New Order Rivaroxaban (Xarelto) 15 Mg Tablet, 15 MG PO BID Prescribed by: VELVET PATINO on 09/16/22 0809 Spironolactone (Spironolactone) 50 Mg Tablet, 50 MG PO DAILY Prescribed by: LALI CARBONE on 02/12/22 123 Spironolactone (Spironolactone) 50 Mg Tablet, 50 MG PO DAILY Prescribed by: VELVET PATINO on 09/15/222334 Last Action: New Order Review of Systems Constitutional: No chills, No diaphoresis, No fever, No malaise, No weakness EENTM: No hearing loss, No blurred vision, No double vision, No mouth pain, No mouth swelling Respiratory: No cough, No dyspnea on exertion, No short of breath Cardiovascular: No chest pain Gastrointestinal: No abdominal pain, No nausea, No vomiting Genitourinary: No decreased output, No discharge Musculoskeletal: No back pain, No joint pain Skin: No change in color, No change in hair/nails (NAVID HUSSEIN) All Other Systems Reviewed Negative Unless Noted: Yes (NAVID HUSSEIN) Past Cqadrqf-Gfryob-Ifajpl Hx Immunizations Up To Date First/Initial COVID19 Vaccinat: 2020 Second COVID19 Vaccination Christiano: Pfizer Third COVID19 Vaccination Date: Pfizer (NAVID HUSSEIN) Seasonal Allergies Seasonal Allergies: Yes (NAVID HUSSEIN) Past Medical History Surgery/Hospitalization HX: LIVER DISEASE, DEGINERATIVE DISK DISEASE, HEART MURMMER, KIDNEY DISEASE Surgeries: Yes (R ANKLE, L KNEE, BILAT SHOULDER, ESOPHAGEAL BANDING; TIPS;) Abdominal, Adenoidectomy, Orthopedic, Tonsillectomy Respiratory: Yes COPD Cardiac: Yes Chronic Edema/Swelling Neurological: Yes (CLAIMS HE HAS SEIZURES D/T LIVER DISEASE;BILAT SUBDURAL HEMATOMAS 01/30/22) Seizure Disorder, Traumatic Brain Injury Genitourinary: No Gastrointestinal: Yes (HX OF HEP C-TREATED;ESOPHAGEAL BANDING & STENTS X2;TIPS PROCEDURE;ELEV AMMO) Liver Disease/Jaundice, Esophageal Varices, Hepatitis, Cirrhosis Musculoskeletal: Yes (MULTIPLE ORTHOPEDIC PROCEDURES) Degenerate Disk Disease, Chronic Back Pain, Fractures Endocrine: No HEENT: Yes (POOR DENTITION) Loss of Vision: Denies Hearing Impairment: Denies Cancer: No Psychosocial: Yes (PSYCH ISSUES; POLYSUBSTANCE ABUSE) ADD/ADHD Integumentary: Yes (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 12/06/21) Blood Disorders: No Adverse Reaction/Blood Tranf: No (NAVID HUSSEIN) Family Medical History COPD, Other Conditions/Hx SOCIAL HISTORY: -SMOKES 1 PPD -ETOH--HEAVY/DAILY USE -DRUGS--EXTENSIVE IV METH USE PSH: -ESOPAGEAL VARICES BANDING -ESOPHAGEAL STENTS X 2 -TIPS PROCEDURE -RIGHT ANKLE FX/ORIF -LEFT KNEE SURGERY X 2 -LEFT SHOULDER SURGERY X 1 -RIGHT SHOULDER SURGERY X 2 ADMITTED 12/06/21 FOR CHRONIC WOUND TO BACK OF HEAD, WITH MAGGOTS IN THE WOUND MULTIPLE ADMITS FOR ELEVATED AMMONIA LEVELS EXTENSIVE HISTORY OF NON-COMPLIANCE HX OF HEPATIC ENCEPHALOPATHY/HYPERAMMONEMIA BILAT SUBDURAL HEMATOMAS DX 01/30/22 AND TX TO [place]. NO SURGERY (NAVID HUSSEIN) Physical Exam Vital Signs Vital Signs - First Documented (DEEP RAMIREZ MD) Vital Signs Capillary Refill : (NAVID HUSSEIN) Height, Weight, BMI Height: '" Weight: lbs. oz. kg; 25.00 BMI Method: General Appearance: WD/WN, no apparent distress HEENT: PERRL/EOMI, normal ENT inspection, TMs normal, pharynx normal Cardiovascular: regular rate, rhythm, no edema, no gallop, no JVD Respiratory: chest non-tender, lungs clear, normal breath sounds, no respiratory distress Gastrointestinal: normal bowel sounds, non tender, soft, no organomegaly, no p ulsatile mass Back: normal inspection, no CVA tenderness, no vertebral tenderness Hips: bilateral hip non-tender, bilateral hip normal inspection, bilateral hip no evidence of injury Legs: left leg pain; bilateral leg soft tissue tenderness, bilateral leg swelling; left leg other (Dorsalis pedis pulse +2. Swelling erythema lower extremity. 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 Tenderness to palpate throughout. Swelling and mild redness to right leg) (NAVID HUSSEIN) Procedures/Interventions Date of ETT Placement: Jun 11, 2021 Time of ETT Placement: 0152 (NAVID HUSSEIN) Suture Size: 5-0 (NAVID HUSSEIN) Progress/Results/Core Measures Results/Orders Lab Results Laboratory Tests Test 09/15/22 21:40 09/15/22 23:59 Range/Units White Blood Count 3.2 L 4.3-11.0 10^3/uL Red Blood Count 4.03 L 4.30-5.52 10^6/uL Hemoglobin 11.9 L 13.3-17.7 g/dL Hematocrit 36 L 40-54 % Mean Corpuscular Volume 88 80-99 fL Mean Corpuscular Hemoglobin 30 25-34 pg Mean Corpuscular Hemoglobin Concent 33 32-36 g/dL Red Cell Distribution Width 15.5 H 10.0-14.5 % Platelet Count 124 L 130-400 10^3/uL Mean Platelet Volume 9.7 9.0-12.2 fL Immature Granulocyte % (Auto) 0 % Neutrophils (%) (Auto) 61 42-75 % Lymphocytes (%) (Auto) 22 12-44 % Monocytes (%) (Auto) 11 0-12 % Eosinophils (%) (Auto) 7 0-10 % Basophils (%) (Auto) 0 0-10 % Neutrophils # (Auto) 1.9 1.8-7.8 10^3/uL Lymphocytes # (Auto) 0.7 L 1.0-4.0 10^3/uL Monocytes # (Auto) 0.4 0.0-1.0 10^3/uL Eosinophils # (Auto) 0.2 0.0-0.3 10^3/uL Basophils # (Auto) 0.0 0.0-0.1 10^3/uL Immature Granulocyte # (Auto) 0.0 0.0-0.1 10^3/uL Percent Immature Platelet Fraction 1.9 0.0-7.6 % Prothrombin Time 16.8 H 12.2-14.7 SEC INR Comment 1.3 0.8-1.4 Activated Partial Thromboplast Time 35 24-35 SEC Urine Color YELLOW Urine Clarity SL CLOUDY Urine pH 6.5 5-9 Urine Specific Isabella 1.020 1.016-1.022 Urine Protein NEGATIVE NEGATIVE Urine Glucose (UA) TRACE H NEGATIVE Urine Ketones NEGATIVE NEGATIVE Urine Nitrite NEGATIVE NEGATIVE Urine Bilirubin NEGATIVE NEGATIVE Urine Urobilinogen >=8.0 < = 1.0 MG/DL Urine Leukocyte Esterase 1+ H NEGATIVE Urine RBC (Auto) TRACE-L H NEGATIVE Urine RBC 2-5 H /HPF Urine WBC 5-10 H /HPF Urine Squamous Epithelial Cells 5-10 /HPF Urine Crystals NONE /LPF Urine Bacteria TRACE /HPF Urine Casts NONE /LPF Urine Mucus SMALL H /LPF Urine Culture Indicated CULTURE PENDING Sodium Level 136 135-145 MMOL/L Potassium Level 3.7 3.6-5.0 MMOL/L Chloride Level 107 98-107 MMOL/L Carbon Dioxide Level 20 L 21-32 MMOL/L Anion Gap 9 5-14 MMOL/L Blood Urea Nitrogen 8 7-18 MG/DL Creatinine 0.92 0.60-1.30 MG/DL Estimat Glomerular Filtration Rate 96 BUN/Creatinine Ratio 9 Glucose Level 103 70-105 MG/DL Lactic Acid Level 2.26 *H 1.77 0.50-2.00 MMOL/L Calcium Level 8.0 L 8.5-10.1 MG/DL Corrected Calcium 8.7 8.5-10.1 MG/DL Total Bilirubin 2.2 H 0.1-1.0 MG/DL Aspartate Amino Transf (AST/SGOT) 36 H 5-34 U/L Alanine Aminotransferase (ALT/SGPT) 23 0-55 U/L Alkaline Phosphatase 114 40-136 U/L Ammonia 77 H 11-32 UMOL/L B-Type Natriuretic Peptide 78.7 <100.0 PG/ML Total Protein 6.4 6.4-8.2 GM/DL Albumin 3.1 L 3.2-4.5 GM/DL Lipase 14 8-78 U/L Urine Opiates Screen NEGATIVE NEGATIVE Urine Oxycodone Screen NEGATIVE NEGATIVE Urine Methadone Screen NEGATIVE NEGATIVE Urine Propoxyphene Screen NEGATIVE NEGATIVE Urine Barbiturates Screen NEGATIVE NEGATIVE Ur Tricyclic Antidepressants Screen NEGATIVE NEGATIVE Urine Phencyclidine Screen NEGATIVE NEGATIVE Urine Amphetamines Screen POSITIVE H NEGATIVE Urine Methamphetamines Screen POSITIVE H NEGATIVE Urine Benzodiazepines Screen NEGATIVE NEGATIVE Urine Cocaine Screen NEGATIVE NEGATIVE Urine Cannabinoids Screen NEGATIVE NEGATIVE Serum Alcohol < 10 <10 MG/DL Smear Scan YES (DEEP RAMIREZ MD) My Orders Orders - DEEP RAMIREZ MD Ns Iv 1000 Ml (Sodium Chloride 0.9%) (09/15/22 22:58) Bnp [place] (09/16/22 00:31) Tramadol Tablet (Ultram Tablet) (09/16/22 01:15) (DEEP RAMIREZ MD) Medications Given in ED Current Medications Medications Dose Ordered Sig/Johny Route Start Time Stop Time Status Last Admin Dose Admin Cefepime HCl 1000 mg/Sodium Chloride 50 ml @ 100 mls/hr ONCE ONCE IV 09/15/22 22:00 09/15/22 22:29 DC 09/16/22 00:00 100 MLS/HR Furosemide 40 mg ONCE ONCE IVP 09/15/22 22:45 09/15/22 22:46 DC 09/15/22 23:06 40 MG Lactulose 20 gm ONCE ONCE PO 09/15/22 22:15 09/15/22 22:16 DC 09/15/22 23:17 20 GM (DEEP RAMIREZ MD) Vital Signs/I&O 09/15/22 09/15/22 21:28 21:28 Temp 37.6 Pulse 79 Resp 16 B/P (MAP) 130/78 (95) Pulse Ox 93 O2 Delivery Nasal Cannula Nasal Cannula O2 Flow Rate 3.00 4.00 (DEEP RAMIREZ MD) Progress Progress Note : Time: 01:20 Progress Note Patient care assumed at midnight from mid-level provider. I added a BNP to assess cardiac function in light of increased pulmonary vascular congestion on CXR. This was <100. Patient supplemented on O2 at 2-3L PNC, removed and he drifted down to 86-88%. He is supposed to be on oxygen but does not have it. While awaiting BNP level patient became very agitated, asking for pain medications and wanting to leave. I attempted to give him some PO tramadol however he declined and stated he wanted to leave. Patient would not stay to allow me to further assess him and walked out of the department. (DEEP RAMIREZ MD) Departure Communication (PCP) Reviewed previous ER visits, H&P, lab testing. Recently returned from [place] from his family. Presents to ED with left leg pain swelling redness. Rates pain 8 out of 10. Denies of any trauma. History of alcoholism, meth use, cirrhosis with intrahepatic duct, liver disease, kidney disease, seizures, esophageal varices with banding. Patient is recommended to be wearing 3 L oxygen. Patient has not been wearing oxygen. Patient was 88% on room air by EMS. Patient was placed on 3 L. Improvement to 94%. Currently living at a friend's house. Reports smoking meth two days ago. Patient is a poor historian. Reports hallucinations over the past 2 days. History of elevated ammonia level from reviewing previous visits. On exam he does have some redness and swelling to his left leg with pitting edema +2 bilateral lower extremities. Patient has been out of his spirono lactone, Lasix, lactulose over the past 1 to 2 weeks. Denies of any chest pain or shortness of breath. Patient vital signs were stable. He was afebrile. Dorsalis pedis, posterior tibialis pulse were notified with Doppler bilateral legs. Warm extremities. Does not appear to be ischemic. Concerning for cellulitis versus DVT. Do not have ultrasound at night. Due to concern for cellulitis blood cultures, lactic acid, CBC, CMP, ammonia level was ordered. Initially prescribed IV fluids but canceled secondary to potential fluid overload. Chest x-ray was added. History of CHF. Patient has notable pulmonary vascular congestion on chest x-ray without evidence of consolidation, pleural effusion. Has no abdominal tenderness. X-ray of the left foot rule out potential fracture as he was complaining of left foot pain at the time was negative for any abnormality. Bruising and erythema noted to mid tib-fib. patient denies of any headache or dizziness or any recent falls. History of subdural hematomas. Refused Lovenox injection which I recommended since not able to perform ultrasound. Ammonia level was added and chronically elevated at 71. Patient was given lactulose. No active hallucinations. Patient Was able to keep a conversation in context. CBC showed white blood count 3.2, platelets 124, hemoglobin 11.9. Chronically low. Total bilirubin 2.2. Albumin 3.1. MELD score of 12. Normal kidney function. Lactic acid 2.29 initially. Patient was given a dose of cefepime initially for potential cellulitis. Recommended Zosyn patient refused. Patient refused imaging of his head which was recommended due to hallucinations which is likely more secondary to his ammonia level. Reasoning with his history of subdural hematomas. patient was requesting pain medication. patient became agitated. Recommended admission becasue of elevated lactic acid elevated, IV antibiotics, requiring oxygen with pulmonary congestion would likely benefit with IV diuretics. Patient was given 40 mg of Lasix. Discussed patient with Dr. Carbone hospitalist who felt this is more chronic and did not accept patient. Attempted to transfer elsewhere patient refused. Contacted medical equipment to get oxygen but patient insurance did not qualify. Patient was discussed with Dr. Ramirez who took over care at midnight. Recommended a second dose of Zosyn and continue to persuade admission. If not wanting to be transferred will discharge with antibiotics, diuretic Lasix and spironolactone. We will provide a few days worth of anticoagulants. Patient would rather benefit more of Lovenox secondary to his cirrhosis. Patient refused injections. Provide a few days of Xarelto until outpatient ultrasound. No active bleeding. Patient was being difficult in providing care and treatment. Patient did receive received 20 g of lactulose oral. Concerning for hyperammonia. Patient would likely benefit being evaluated by hepatology. Cellulitis versus DVT of the left leg. Bilateral lower leg edema. Chest x-ray concerning for pulmonary congestion. Concerning for fluid overload. do not have ultrasound at night. Patient will be treated prophylactically for DVT with Xarelto and ordered outpatient ultrasound and will continue taking anticoagulants until negative ultrasound. Prescribe antibiotics for superimposed infection. (NAVID HUSSEIN) Impression Primary Impression: Cellulitis Additional Impressions: Methamphetamine use Hyperammonemia Fluid retention Disposition: AGAINST MEDICAL ADVICE Condition: Unchanged Departure-Patient Inst. Decision time for Depature: 23:32 (NAVID HUSSEIN) Referrals: YESSICA MONTENEGRO MD (PCP/Family) Primary Care Physician Patient Instructions: Cellulitis (Skin Infection), Adult ED Scripts Rivaroxaban (Xarelto) 15 Mg Tablet 15 MG PO BID for 3 Days, #6 TAB Prov: NAVID HUSSEIN 09/16/22 Furosemide (Lasix) 40 Mg Tablet 40 MG PO DAILY, #20 TAB Prov: NAVID HUSSEIN 09/15/22 Lactulose (Lactulose) 20 Gram/30 Ml Solution 20 GM PO TID, #240 ML Prov: NAVID HUSSEIN 09/15/22 Spironolactone (Spironolactone) 50 Mg Tablet 50 MG PO DAILY, #30 TAB Prov: NAVID HUSSEIN 09/15/22 Doxycycline Monohydrate (Doxycycline Monohydrate) 100 Mg Tablet 100 MG PO BID for 10 Days, #20 TAB Prov: NAVID HUSSEIN 09/15/22 Cephalexin (Cephalexin) 500 Mg Tablet 500 MG PO QID for 7 Days, #28 TAB Prov: NAVID HUSSEIN 09/15/22 NAVID HUSSEIN Sep 15, 2022 22:15 DEEP RAMIREZ MD Sep 16, 2022 01:23
[2022-09-15 22:18] LABS: BACTERIA,URINE TRACE /HPF
[2022-09-15 22:22] LABS: AMMONIA 77 UMOL/L (11-32)
[2022-09-15 22:39] LABS: AMPHETAMINE SCREEN, URINE POSITIVE (NEGATIVE); BARBITURATE SCREEN URINE NEGATIVE (NEGATIVE); BENZODIAZEPINES SCREEN URINE NEGATIVE (NEGATIVE); CANNABINOID SCREEN, URINE NEGATIVE (NEGATIVE); COCAINE SCREEN URINE NEGATIVE (NEGATIVE); METHADONE STAT NEGATIVE (NEGATIVE); OPIATE SCREEN URINE NEGATIVE (NEGATIVE); OXYCODONE STAT NEGATIVE (NEGATIVE); PROPOXYPHENE STAT NEGATIVE (NEGATIVE); TRICYCLIC ANTIDEPRESSANTS SCRE NEGATIVE (NEGATIVE)
[2022-09-15] MEDS ORDERED: FUROSEMIDE 40 MG/4 ML INJ (LASIX) IVP ONE (22:45)
[2022-09-15] MEDS ORDERED: NS IV 1000 ML 1,000 ML ONE (22:58)
[2022-09-15] MEDS ORDERED: LACT20SO2 PO (23:35)
[2022-09-15] MEDS ORDERED: SPIR50TA4 PO (23:35)
[2022-09-15] MEDS ORDERED: DOXY100T31 PO (23:35)
[2022-09-15] MEDS ORDERED: CEPH500T PO (23:35)
[2022-09-15] MEDS ORDERED: FURO-124 PO (23:35)
[2022-09-16 01:39] VITALS: BP 120/79
--- NOTE | 2022-09-16 05:35 | Diagnostic Imaging Report ---
INDICATION: Left foot pain 3 views of the left foot show no fracture, dislocation or other acute abnormalities. There is some soft tissue swelling on the dorsum of the metatarsal region. IMPRESSION: Soft tissue swelling Dictated by: Dictated on workstation # [id number]
--- NOTE | 2022-09-16 05:37 | Diagnostic Imaging Report ---
INDICATION: Cough and peripheral edema There is pulmonary vascular congestion. There are no infiltrates, effusions or pneumothoraces. IMPRESSION: Mild pulmonary venous hypertension Dictated by: Dictated on workstation # [id number]
[2022-09-16] MEDS ORDERED: RIVA15TA PO (08:09)
== END 2022-09-16 01:00 | disposition home or self-care (01) ==
LOC: ER 21:27
DX: L03.116 Cellulitis of left lower limb (principal); E72.20 Disorder of urea cycle metabolism, unspecified; F15.90 Other stimulant use, unspecified, uncomplicated; R60.0 Localized edema; F17.210 Nicotine dependence, cigarettes, uncomplicated
CPT/HCPCS: 71045; 73630; 80053; 80306; 81000; 82140; 83605; 83690; 83880; 85025; 85610; 85730; 87040; 87088; 99284; G0480; 36415; 80320

== ENCOUNTER 2022-09-19 17:25 | Inpatient (IN) | payer MEDICARE, MEDICAID ==
[~2022-09-19] VITALS: Ht 177.8 cm; Wt 89.9 kg
[~2022-09-19 17:25] MED LIST changes: +CEPH500T PO; +DOXY100T31 PO; +FURO-124 PO; +RIVA15TA PO
[2022-09-19] MEDS ORDERED: PIPERACILLIN SODIUM/TAZOBACTAM 4.5 GM in NS (IVPB) 100 ML IV ONE (17:45)
[2022-09-19] MEDS ORDERED: NS IV 1000 ML 1,000 ML IV SCH (17:45)
[2022-09-19 17:53] LABS: BASOPHILS % (AUTO) 1 % (0-10); EOSINOPHILS # (AUTO) 0.2 10^3/uL (0.0-0.3); EOSINOPHILS % (AUTO) 5 % (0-10); HEMATOCRIT 33 % (40-54); LYMPHOCYTES % (AUTO) 26 % (12-44); MEAN CORPUSCULAR HEMOGLOBIN 30 pg (25-34); MEAN CORPUSCULAR HGB CONC 33 g/dL (32-36); MEAN CORPUSCULAR VOLUME 91 fL (80-99); MEAN PLATELET VOLUME 9.3 fL (9.0-12.2); MONOCYTES # (AUTO) 0.5 10^3/uL (0.0-1.0); MONOCYTES % (AUTO) 12 % (0-12); NEUTROPHILS # (AUTO) 2.2 10^3/uL (1.8-7.8); NEUTROPHILS % (AUTO) 56 % (42-75); PLATELET COUNT 142 10^3/uL (130-400); WHITE BLOOD COUNT 3.9 10^3/uL (4.3-11.0)
--- NOTE | 2022-09-19 17:55 | ED General ---
General Chief Complaint: Neurological Problems Stated Complaint: SEIZURE Nursing Triage Note: PT PRESENTS TO ED VIA EMS FROM HOME WITH COMPLAINTS OF 3 SEIZURES OVER THE PAST COUPLE DAYS. PT REPORTS HE HAD AN UNWITNESSED SEIZURE WHILE WALKING ON A DIRT RO[address] TO GET TO A FRIENDS HOUSE. EMS REPORTS PT WAS FOUND UNRESPONSIVE ON THE SIDE OF THE ROAD. UPON ARRIVAL TO ED PT IS A/O X 4. PT REPORTS L CALF PAIN/SWELLING THAT HE HAS BEEN SEEN IN THE ED PREVIOUSLY. PT ALSO REPORTS HEAD PAIN. Source of Information: Patient (LIMITED HISTORIAN), Old Records (RADHA ZHENG DO) History of Present Illness Date Seen by Provider: Sep 19, 2022 Time Seen by Provider: 17:29 Initial Comments PT ARRIVES VIA EMS EMS REPORT THAT A PASSERBY FOUND PT LAYING IN A DITCH ON A DIRT ROAD IN [place]. HE WAS ALLEGEDLY WALKING TO A FRIEND'S HOUSE. PT DENIES ANY INJURY TODAY PT HAS HISTORY OF SEIZURES, AND STATES HE HAD 3 SEIZURES OVER THE LAST COUPLE OF DAYS. HE IS PRESCRIBED SEIZURE MEDICATION--DOES NOT KNOW NAME--STATES HE HAS MISSED SOME DOSES. C/O PAIN TO HEAD --THIS IS A CHRONIC COMPLAINT PT WITH PAIN, REDNESS AND SWELLING TO LEFT LOWER LEG--PT STATES IT HAS BEEN THAT WAY "FOR A COUPLE OF WEEKS" PT WAS SEEN HERE 09/15/22 AND PRESCRIBED MULTIPLE MEDICATIONS, AND OUTPATIENT ULTRASOUND WAS ORDERED, AND PT INSTRUCTED TO FOLLOW UP WITH [facility]. PT HAS NOT DONE ANY OF THIS. SEE THAT CHART FOR DETAILS. PT WITH EXTENSIVE HISTORY OF METHAMPHETAMINE USE--STATES HE SMOKES OR SNORTS IT. HE DENIES IV USE. ( PT IS A KNOWN IV METHAMPHETAMINE USER--PT VERY FAMILIAR TO STAFF ) HE THINKS HE LAST USED "A DAY OR TWO AGO" HE ALSO HAS AN EXTENSIVE HISTORY OF ALCOHOL ABUSE WELL. HE CLAIMS NO ALCOHOL USE TODAY. HE HAS HISTORY OF LIVER DISEASE / CIRRHOSIS, WITH HYPER-AMMONEMIA ON MULTIPLE OCCASIONS. HE HAS HISTORY OF BILATERAL SUBDURAL HEMATOMAS 01/30/2022--NO SURGERY PT WITH A MULTITUDE OF VISITS HERE. LONG HISTORY OF EXTREME NON-COMPLIANCE IN ALL ASPECTS OF CARE. (RADHA ZHENG DO) Allergies and Home Medications Allergies Coded Allergies: NSAIDS (Non-Steroidal Anti-Inflamma (Verified Allergy, Unknown, 11/28/19) aspirin (Verified Allergy, Unknown, 09/19/22) Patient Home Medication List Home Medication List Reviewed: Yes (DEEP RAMIREZ MD) Cephalexin (Cephalexin) 250 Mg Capsule, 500 MG PO BID Prescribed by: LALI CARBONE on 09/27/22 110 Hydrocodone/Acetaminophen (Hydrocodone-Acetamin 5-325 mg) 5 Mg-325 Mg Tablet, 2 EA PO TID PRN for PAIN-MODERATE (5-7) Prescribed by: LALI CARBONE on 09/27/22 1102 Lactulose (Lactulose) 20 Gram/30 Ml Solution, 60 GM PO TID Prescribed by: LALI CARBONE on 09/27/22 1101 Levetiracetam (Levetiracetam) 500 Mg Tablet, 500 MG PO BID Prescribed by: LALI CARBONE on 09/27/22 110 Multivitamin/Iron/Folic Acid (Tab-A-Brayan Multivit with Iron) 18 Mg Iron-400 Mcg Tablet, 1 EA PO DAILY@0700 Prescribed by: LALI CARBONE on 09/27/22 110 Potassium Chloride (Potassium Chloride) 8 Meq Capsule.er, 8 MEQ PO DAILY@0700 Prescribed by: LALI CARBONE on 09/27/22 1101 Prednisone (Prednisone) 10 Mg Tab.ds.pk, 10 MG PO DAILY Prescribed by: LALI CARBONE on 09/27/22 110 Discontinued Medications Cephalexin (Cephalexin) 500 Mg Tablet, 500 MG PO QID Discontinued Reason: No Longer Taking Prescribed by: VELVET PATINO on 09/15/222334 Last Action: Discontinued Cyanocobalamin (Vitamin B-12) (Vitamin B-12) 1,000 Mcg Tablet, 1,000 MCG PO DAILY Discontinued Reason: No Longer Taking Prescribed by: LALI CARBONE on 02/12/22 123 Last Action: Discontinued Doxycycline Monohydrate (Doxycycline Monohydrate) 100 Mg Tablet, 100 MG PO BID Discontinued Reason: No Longer Taking Prescribed by: VELVET PATINO on 09/15/222334 Last Action: Discontinued Folic Acid (Folic Acid) 1 Mg Tablet, 1 MG PO DAILY Discontinued Reason: No Longer Taking Prescribed by: LALI CARBONE on 02/12/22 1231 Last Action: Discontinued Furosemide (Furosemide) 20 Mg Tablet, 20 MG PO DAILY Discontinued Reason: No Longer Taking Prescribed by: ALLI CARBONE on 02/12/221230 Last Action: Discontinued Furosemide (Lasix) 40 Mg Tablet, 40 MG PO DAILY Discontinued Reason: No Longer Taking Prescribed by: VELVET PATINO on 09/15/222334 Last Action: Discontinued Gabapentin (Neurontin) 300 Mg Capsule, 300 MG PO BID Discontinued Reason: No Longer Taking Prescribed by: LALI CARBONE on 02/12/221230 Last Action: Discontinued Hydrocodone Bit/Acetaminophen (HYDROcodone/APAP 5 MG/325 MG TAB) 1 Tab Tab, 1 TAB PO BID PRN for PAIN-MODERATE (5-7) Discontinued Reason: No Longer Taking Prescribed by: LALI CARBONE on 02/12/221230 Last Action: Discontinued Lactulose (Lactulose) 20 Gram/30 Ml Solution, 20 GM PO TID Discontinued Reason: No Longer Taking Prescribed by: LALI CARBONE on 02/12/221230 Last Action: Discontinued Lactulose (Lactulose) 20 Gram/30 Ml Solution, 20 GM PO TID Discontinued Reason: No Longer Taking Prescribed by: VELVET PATINO on 09/15/222334 Last Action: Discontinued Rivaroxaban (Xarelto) 15 Mg Tablet, 15 MG PO BID Discontinued Reason: No Longer Taking Prescribed by: VELVET PATINO on 09/16/22 0809 Last Action: Discontinued Spironolactone (Spironolactone) 50 Mg Tablet, 50 MG PO DAILY Discontinued Reason: No Longer Taking Prescribed by: LALI CARBONE on 02/12/221230 Last Action: Discontinued Spironolactone (Spironolactone) 50 Mg Tablet, 50 MG PO DAILY Discontinued Reason: No Longer Taking Prescribed by: VELVET PATINO on 09/15/222334 Last Action: Discontinued Review of Systems Review of Systems Constitutional: no symptoms reported EENTM: see HPI Respiratory: no symptoms reported Cardiovascular: no symptoms reported Gastrointestinal: no symptoms reported Genitourinary: no symptoms reported Musculoskeletal: see HPI Skin: see HPI Psychiatric/Neurological: See HPI Hematologic/Lymphatic: No Symptoms Reported Immunological/Allergic: no symptoms reported (RADHA ZHENG DO) Past Hjatqpt-[place] Hx Patient Social History Tobacco Use?: Yes Tobacco type used: Cigarettes Smoking Status: Current Everyday Smoker Substance use?: Yes Substance type: Methamphetamine Substance frequency: Daily Alcohol Use?: Yes Alcohol type: Beer, Hard Liquor Alcohol Frequency: Daily Pt feels they are or have been: No (RADHA ZHENG DO) Immunizations Up To Date First/Initial COVID19 Vaccinat: 2020 Second COVID19 Vaccination Christiano: 2020 Third COVID19 Vaccination Date: 2020 (RADHA ZHENG DO) Seasonal Allergies Seasonal Allergies: Yes (RADHA ZHENG DO) Past Medical History Surgery/Hospitalization HX: LIVER DISEASE, DEGINERATIVE DISK DISEASE, HEART MURMMER, KIDNEY DISEASE, SIEZURE DISORDER Surgeries: Yes (R ANKLE, L KNEE, BILAT SHOULDER, ESOPHAGEAL BANDING; TIPS;) Abdominal, Adenoidectomy, Orthopedic, Tonsillectomy Respiratory: Yes COPD Cardiac: Yes Chronic Edema/Swelling Neurological: Yes (CLAIMS HE HAS SEIZURES D/T LIVER DISEASE;BILAT SUBDURAL HEMATOMAS 01/30/22) Seizure Disorder, Traumatic Brain Injury Genitourinary: No Gastrointestinal: Yes (HX OF HEP C-TREATED;ESOPHAGEAL BANDING & STENTS X2;TIPS PROCEDURE;ELEV AMMO) Liver Disease/Jaundice, Esophageal Varices, Hepatitis, Cirrhosis Musculoskeletal: Yes (MULTIPLE ORTHOPEDIC PROCEDURES) Degenerate Disk Disease, Chronic Back Pain, Fractures Endocrine: No HEENT: Yes (POOR DENTITION) Loss of Vision: Denies Hearing Impairment: Denies Cancer: No Psychosocial: Yes (PSYCH ISSUES; POLYSUBSTANCE ABUSE) ADD/ADHD Integumentary: Yes (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 12/06/21) Blood Disorders: No Adverse Reaction/Blood Tranf: No (RADHA ZHENG DO) Family Medical History COPD, Other Conditions/Hx SOCIAL HISTORY: -SMOKES 1 PPD -ETOH--HEAVY/DAILY USE -DRUGS--EXTENSIVE IV METH USE PSH: -ESOPAGEAL VARICES BANDING -ESOPHAGEAL STENTS X 2 -TIPS PROCEDURE -RIGHT ANKLE FX/ORIF -LEFT KNEE SURGERY X 2 -LEFT SHOULDER SURGERY X 1 -RIGHT SHOULDER SURGERY X 2 ADMITTED 12/06/21 FOR CHRONIC WOUND TO BACK OF HEAD, WITH MAGGOTS IN THE WOUND MULTIPLE ADMITS FOR ELEVATED AMMONIA LEVELS EXTENSIVE HISTORY OF NON-COMPLIANCE HX OF HEPATIC ENCEPHALOPATHY/HYPERAMMONEMIA BILAT SUBDURAL HEMATOMAS DX 01/30/22 AND TX TO [facility]. NO SURGERY (RADHA ZHENG DO) Physical Exam Vital Signs Vital Signs - First Documented 09/19/22 17:31 Temp 37.7 Pulse 94 Resp 11 B/P (MAP) 113/64 (80) Pulse Ox 93 O2 Delivery Nasal Cannula O2 Flow Rate 2.00 Capillary Refill : Less Than 3 Seconds Height, Weight, BMI Height: '" Weight: lbs. oz. kg; 25.00 BMI Method: General Appearance: Other (FILTHY, EXTREMELY MALODOROUS, VERY UNKEMPT. SLIGHTLY SLOW MENTATION. ) HEENT: PERRL/EOMI, Other (EXTENSIVE DENTAL DECAY--ALL TEETH DECAYED DOWN TO GUMS) Respiratory: Chest Non Tender, Normal Breath Sounds, No Accessory Muscle Use, No Respiratory Distress Cardiovascular: Regular Rate, Rhythm, No Murmur Gastrointestinal: Non Tender, Soft Extremity: Other (LEFT LEG WITH SIGNFICANT SWELLING, WARMTH, ERYTHEMA AND TENDERNESS. ) Neurologic/Psychiatric: Alert, Oriented x3 (BUT SLOW MENTATION, AND POOR MEMORY--THIS IS PT'S BASELINE. ), No Motor/Sensory Deficits Skin: Warm/Dry, Other ( ABOVE. ) (RADHA ZHENG DO) Vital Signs Vital Signs - First Documented 09/19/22 17:31 Temp 37.7 Pulse 94 Resp 11 B/P (MAP) 113/64 (80) Pulse Ox 93 O2 Delivery Nasal Cannula O2 Flow Rate 2.00 (DEEP RAMIREZ MD) Focused Exam Lactate Level 09/19/22 17:43: Lactic Acid Level 1.45 (DEEP RAMIREZ MD) Lactic Acid Level Laboratory Tests Test 09/19/22 17:43 Lactic Acid Level 1.45 MMOL/L (0.50-2.00) (DEEP RAMIREZ MD) Procedures/Interventions Suture Size: 5-0 (RADHA ZHENG DO) Progress/Results/Core Measures Suspected Sepsis SIRS Temperature: Pulse: 94 Respiratory Rate: 11 Blood Pressure 113 /64 Mean: 80 (RADHA ZHENG DO) SIRS Laboratory Tests 09/19/22 17:43: White Blood Count 3.9L 09/19/22 17:43: Lactic Acid Level 1.45 Laboratory Tests 09/19/22 17:43: Creatinine 0.80, INR Comment 1.4, Platelet Count 142, Total Bilirubin 2.2H (DEPE RAMIREZ MD) Results/Orders My Orders Orders - RADHA ZHENG DO Ed Iv/Invasive Line Start (09/19/22 17:37) Ekg Tracing (09/19/22 17:37) O2 (09/19/22 17:37) Monitor-Rhythm Ecg Trace Only (09/19/22 17:37) Acetaminophen (09/19/22 17:37) Alcohol (09/19/22 17:37) Ammonia (09/19/22 17:37) Amylase (09/19/22 17:37) Arterial Blood Gas (09/19/22 17:37) Bnp Swain (09/19/22 17:37) Cbc With Automated Diff (09/19/22:37) Comprehensive Metabolic Panel (09/19/22 17:37) Creatine Kinase (09/19/22 17:37) Creatine Kinase Mb (09/19/22 17:37) Hs C Reactive Protein (09/19/22 17:37) Fibrin Degradation Products (09/19/22 17:37) Drug Screen Stat (Urine) (09/19/22 17:37) Lactic Acid Analyzer (09/19/22 17:37) Lipase (09/19/22 17:37) Magnesium (09/19/22 17:37) Protime With Inr (09/19/22 17:37) Partial Thromboplastin Time (09/19/22 17:37) Thyroid Analyzer (09/19/22 17:37) Ua Culture If Indicated (09/19/22 17:37) Erythrocyte Sedimentation Rate (09/19/22 17:37) Myoglobin Serum (09/19/22 17:37) Troponin I Swain (09/19/22 17:37) Ct Head Wo-R/O Stroke (09/19/22 17:37) Chest 1 View, Ap/Pa Only (09/19/22 17:37) Ed Iv/Invasive Line Start (09/19/22 17:37) Ns Iv 1000 Ml (Sodium Chloride 0.9%) (09/19/22 17:45) Covid 19 Inhouse Test (09/19/22 17:37) Blood Culture (09/19/22 17:37) Sputum Culture (09/19/22 17:37) Urine Culture (09/19/22 17:37) Ed Iv/Invasive Line Start (09/19/22 17:37) Ed Iv/Invasive Line Start (09/19/22 17:37) Vital Signs Adult Sepsis Patie Q15M (09/19/22 17:37) O2 (09/19/22 17:37) Remove Rings In Anticipation O (09/19/22 17:37) Zosyn 4.5 Gm Iv (09/19/22 17:45) Vancomycin 2,000mg Iv (09/19/22 17:45) Influenza A And B By Pcr (09/19/22 17:37) Isolation Central Supply Req (09/19/22 17:37) Vital Signs/I&O 09/19/22 17:31 Temp 37.7 Pulse 94 Resp 11 B/P (MAP) 113/64 (80) Pulse Ox 93 O2 Delivery Nasal Cannula O2 Flow Rate 2.00 Capillary Refill : Less Than 3 Seconds Blood Pressure Mean: 80 (AMANUEL,RADHA K DO) Lab Results Laboratory Tests Test 09/19/22 17:43 09/19/22 17:58 09/19/22 18:14 Range/Units White Blood Count 3.9 L 4.3-11.0 10^3/uL Red Blood Count 3.68 L 4.30-5.52 10^6/uL Hemoglobin 11.0 L 13.3-17.7 g/dL Hematocrit 33 L 40-54 % Mean Corpuscular Volume 91 80-99 fL Mean Corpuscular Hemoglobin 30 25-34 pg Mean Corpuscular Hemoglobin Concent 33 32-36 g/dL Red Cell Distribution Width 15.7 H 10.0-14.5 % Platelet Count 142 130-400 10^3/uL Mean Platelet Volume 9.3 9.0-12.2 fL Immature Granulocyte % (Auto) 0 % Neutrophils (%) (Auto) 56 42-75 % Lymphocytes (%) (Auto) 26 12-44 % Monocytes (%) (Auto) 12 0-12 % Eosinophils (%) (Auto) 5 0-10 % Basophils (%) (Auto) 1 0-10 % Neutrophils # (Auto) 2.2 1.8-7.8 10^3/uL Lymphocytes # (Auto) 1.0 1.0-4.0 10^3/uL Monocytes # (Auto) 0.5 0.0-1.0 10^3/uL Eosinophils # (Auto) 0.2 0.0-0.3 10^3/uL Basophils # (Auto) 0.0 0.0-0.1 10^3/uL Immature Granulocyte # (Auto) 0.0 0.0-0.1 10^3/uL Erythrocyte Sedimentation Rate 30 0-30 MM/HR Prothrombin Time 17.8 H 12.2-14.7 SEC INR Comment 1.4 0.8-1.4 Activated Partial Thromboplast Time 35 24-35 SEC D-Dimer 2.23 H 0.00-0.49 UG/ML Sodium Level 140 135-145 MMOL/L Potassium Level 3.9 3.6-5.0 MMOL/L Chloride Level 109 H 98-107 MMOL/L Carbon Dioxide Level 21 21-32 MMOL/L Anion Gap 10 5-14 MMOL/L Blood Urea Nitrogen 11 7-18 MG/DL Creatinine 0.80 0.60-1.30 MG/DL Estimat Glomerular Filtration Rate 103 BUN/Creatinine Ratio 14 Glucose Level 87 70-105 MG/DL Lactic Acid Level 1.45 0.50-2.00 MMOL/L Calcium Level 7.9 L 8.5-10.1 MG/DL Corrected Calcium 8.7 8.5-10.1 MG/DL Magnesium Level 1.9 1.6-2.4 MG/DL Total Bilirubin 2.2 H 0.1-1.0 MG/DL Aspartate Amino Transf (AST/SGOT) 30 5-34 U/L Alanine Aminotransferase (ALT/SGPT) 22 0-55 U/L Alkaline Phosphatase 110 40-136 U/L Ammonia 68 H 11-32 UMOL/L Total Creatine Kinase 151 30-200 U/L Creatine Kinase MB 2.6 <6.6 NG/ML Myoglobin 105.0 H 10.0-92.0 NG/ML Troponin I < 0.028 <0.028 NG/ML C-Reactive Protein High Sensitivity 1.98 H 0.00-0.50 MG/DL B-Type Natriuretic Peptide 62.7 <100.0 PG/ML Total Protein 6.3 L 6.4-8.2 GM/DL Albumin 3.0 L 3.2-4.5 GM/DL Amylase Level 46 25-125 U/L Lipase 14 8-78 U/L TSH Meigs Testing 1.59 0.35-4.94 UIU/ML Acetaminophen Level < 10 L 10-30 UG/ML Serum Alcohol < 10 <10 MG/DL Influenza Type A (RT-PCR) Not Detected Not Detecte Influenza Type B (RT-PCR) Not Detected Not Detecte SARS-CoV-2 RNA (RT-PCR) Not Detected Not Detecte Blood Gas Puncture Site LEFT RADIAL Blood Gas Patient Temperature 37.7 Arterial Blood pH 7.43 7.37-7.43 Arterial Blood Partial Pressure CO2 33 L 35-45 MMHG Arterial Blood Partial Pressure O2 60 L 79-93 MMHG Arterial Blood HCO3 21 L 23-27 MMOL/L Arterial Blood Total CO2 22.3 21.0-31.0 MMOL/L Arterial Blood Oxygen Saturation 92 L 94-100 % Arterial Blood Base Excess -2.2 -2.5-2.5 MMOL/L Aakash Test YES-POS Blood Gas Ventilator Setting NO Blood Gas Inspired Oxygen 2 Medications Given in ED Current Medications Medications Dose Ordered Sig/Johny Route Start Time Stop Time Status Last Admin Dose Admin Piperacillin Sod/ Tazobactam Sod 4.5 gm/Sodium Chloride 100 ml @ 200 mls/hr ONCE ONCE IV 09/19/22 17:45 09/19/22 18:14 DC 09/19/22 18:56 200 MLS/HR Vital Signs/I&O 09/19/22 17:31 Temp 37.7 Pulse 94 Resp 11 B/P (MAP) 113/64 (80) Pulse Ox 93 O2 Delivery Nasal Cannula O2 Flow Rate 2.00 (DEEP RAMIREZ MD) Progress Note : Progress Note PPE WORN COVID AND FLU TESTING DONE SEPSIS PROTOCOL INITIATED GIVEN: -IV FLUIDS -ANTIBIOTICS 1800--CARE TURNED OVER TO DR. RAMIREZ, ALL STUDIES PENDING (RADHA ZHENG DO) Progress Note #1: Time: 18:16 Progress Note Patient care assumed at shift change from Dr Zheng with work up pending Progress Note #2: Time: 19:22 Progress Note Patient seen and examined by me, 56-year-old found [place] a roadside ditch. Questionable history of seizure disorder. Initially seen by Dr. ZHENG and work- up initiated to include CBC, blood cultures, lactic acid, Chem-12, toxicology aspirin urine drug screen, urinalysis, BNP, troponin, D-dimer, coags, ammonia level. Chest x-ray and CT head without contrast as well as EKG. Pertinent physical exam findings, disheveled unkempt 56-year-old male in no acute distress. Pleasant, not aggressive. Low-grade fever at 99.8. Heart is regular, lungs with scattered scant expiratory wheezes and coarse lower breath sounds. Abdomen is soft. Skin feels hot. Left lower extremity significantly edematous. Patient exhibits extreme discomfort with range of motion at the left hip and left knee. He has what appears to be a developing abscess left lateral lower leg. There is some dried blood at this area. Minimal amount of fluctuance approximately 2 cm in diameter. Not really pointing. Tender to palpation. Patient is alert and oriented to self and location. Disoriented to recent events. Hypoxic, PO2 on 2 L 60. Saturations 90% on my exam Differential diagnosis based on history and physical exam, sepsis secondary to cellulitis, DVT with possible pulmonary embolism. Congestive heart failure versus pneumonia. Labs reviewed. Patient has slightly low total white blood cell count at 3, no left shift. Chemistry reveals slightly elevated total bilirubin otherwise unremarkable. BNP is less than 100. Lactic acid is less than 2. Troponin undetectable. Alcohol negative. Acetaminophen negative. D-dimer elevated at greater than 2. PT slightly elevated. Ammonia level in the 60s. Chest x-ray independent interpretation by me increased pulmonary vascular congestion without infiltrate. CT head per radiology interpretation no acute findings. EKG normal sinus rhythm without ectopy or ST segment change. Patient is treated in the emergency department for cellulitis with 4.5 g of Zosyn and 1 g of vancomycin. He did receive 1 L of normal saline. We will add Tylenol for fever. Case is discussed with Dr. Carbone on for [facility] hospitalist service. Suspect sepsis due to cellulitis, poor immune response due to chronic illness. Also suspect DVT, ultrasound will be ordered for tomorrow. Patient records reviewed by me. He did have an echocardiogram done in December 2021 with an EF of 60 to 65%. Low clinical suspicion for pneumonia. Patient will be placed on cardiac stepdown. (DEEP RAMIREZ MD) ECG Initial ECG Impression Date: Sep 19, 2022 Initial ECG Impression Time: 17:49 Initial ECG Rate: 78 Initial ECG Rhythm: Normal Sinus Initial ECG Intervals OK 150 QRS 93 QT/QTC 412/470 (RADHA ZHENG DO) Diagnostic Imaging Diagonstic Imaging: [facility] [place] [place] NAME: [facility]A RIZO [facility] REC#: [id number] PT STATUS: REG ER : 1965 PHYSICIAN: RADHA ZHENG DO ADMIT DATE: 09/19/22/ER Draft Date of Exam:09/19/22 CHEST 1 VIEW, AP/PA ONLY INDICATION: Altered mental status. EXAMINATION: Single AP view of the chest was obtained. COMPARISON: Study of 09/15/2022. FINDINGS: Heart size and pulmonary vascularity are at the upper limits of normal. There may be mild perihilar edema or pneumonitis. There is no evidence of pneumothorax or significant pleural fluid. Embolic coils are seen in the epigastrium. IMPRESSION: Cardiomegaly and pulmonary venous congestion which may be related to mild congestive heart failure. Dictated on workstation # [id number] Dict: 09/19/22 1836 Trans: 09/19/22 1838 [facility] [id number] Interpreted by: PAM MARTINEZ MD Electronically signed by: Diagonstic Imaging: CT Comments [facility] [place] [place] NAME: VIRA RIZO [facility] REC#: [id number] PT STATUS: REG ER : 1965 PHYSICIAN: RADHA ZHENG DO ADMIT DATE: 09/19/22/ER Draft Date of Exam:09/19/22 CT HEAD WO-R/O STROKE PROCEDURE: CT head w/o r/o stroke. TECHNIQUE: Multiple contiguous axial images were obtained through the brain without the use of intravenous contrast. Auto Exposure Controls were utilized during the CT exam to meet ALARA standards for radiation dose reduction. INDICATION: Neurologic deficit. COMPARISON: 03/14/2022. FINDINGS: Ventricles and sulci remain diffusely prominent with mild low-density in the cerebral white matter. There is no evidence of geographic low density to indicate a territorial infarct. No hemorrhage is identified. There is no abnormal mass effect or shift of midline structures. Calvarium is intact and the visualized paranasal sinuses are clear. IMPRESSION: Stable CT scan of the head without acute abnormality detected. Dictated on workstation # [id number] Dict: 09/19/221831 Trans: 09/19/221833 [facility] [id number] Interpreted by: PAM MARTINEZ MD Electronically signed by: (DEEP RAMIREZ MD) Departure Communication (Admissions) Time/Spoke to Admitting Phy: 19:[address] Carbone who accepts patient for admission; obs to Cardiac Step down (DEEP RAMIREZ MD) Impression Primary Impression: Cellulitis of left lower extremity Additional Impressions: Left leg swelling Chronic liver disease Methamphetamine dependence Medically noncompliant Disposition: ADMITTED INPATIENT Condition: Stable Admissions Decision to Admit Reason: Admit from ER (General) Decision to Admit/Date: Sep 19, 2022 Time/Decision to Admit Time: 19:20 (DEEP RAMIERZ MD) Departure-Patient Inst. Referrals: YESSICA MONTENEGRO MD (PCP/Family) Primary Care Physician Scripts Lactulose (Lactulose) 20 Gram/30 Ml Solution 60 GM PO TID, #480 ML Prov: LALI CARBONE DO 09/27/22 Prednisone (Prednisone) 10 Mg Tab.ds.pk 10 MG PO DAILY, #6 EA Take 2 tabs(20mg)daily,decrease by 1 tab(10MG) every other day Prov: LALI CARBONE DO 09/27/22 Multivitamin/Iron/Folic Acid (Tab-A-Brayan Multivit with Iron) 18 Mg Iron-400 Mcg Tablet 1 EA PO DAILY@0700, #30 TAB Prov: LALI CARBONE DO 09/27/22 Potassium Chloride (Potassium Chloride) 8 Meq Capsule.er 8 MEQ PO DAILY@0700, #30 CAP Prov: LALI CARBONE DO 09/27/22 Levetiracetam (Levetiracetam) 500 Mg Tablet 500 MG PO BID, #60 TAB Prov: LALI CARBONE DO 09/27/22 Hydrocodone/Acetaminophen (Hydrocodone-Acetamin 5-325 mg) 5 Mg-325 Mg Tablet 2 EA PO TID PRN for PAIN-MODERATE (5-7), #30 TAB Prov: LALI CARBONE DO 09/27/22 Cephalexin (Cephalexin) 250 Mg Capsule 500 MG PO BID, #12 CAP Prov: LALI CARBONE DO 09/27/22 Copy Copies To 1: YESSICA MONTENEGRO MD, LISA K DO Sep 19, 2022 17:55 DEEP RAMIREZ MD Sep 19, 2022 18:16
[2022-09-19 18:05] LABS: CHLORIDE 109 MMOL/L (98-107); POTASSIUM 3.9 MMOL/L (3.6-5.0); SODIUM 140 MMOL/L (135-145)
[2022-09-19 18:06] LABS: CALCIUM 7.9 MG/DL (8.5-10.1)
[2022-09-19 18:07] LABS: AMYLASE 46 U/L (25-125)
[2022-09-19 18:08] LABS: AMMONIA 68 UMOL/L (11-32); GLUCOSE 87 MG/DL (70-105); TOTAL PROTEIN 6.3 GM/DL (6.4-8.2)
[2022-09-19 18:09] LABS: BILIRUBIN,TOTAL 2.2 MG/DL (0.1-1.0); CARBON DIOXIDE 21 MMOL/L (21-32); FIBRIN DEGRADATION PRODUCTS 2.23 UG/ML (0.00-0.49); INR 1.4 (0.8-1.4); PROTHROMBIN TIME PATIENT 17.8 SEC (12.2-14.7)
[2022-09-19 18:11] LABS: ALKALINE PHOSPHATASE 110 U/L (40-136); GFR ESTIMATED 103
[2022-09-19 18:12] LABS: BUN/CREATININE RATIO 14
[2022-09-19 18:14] LABS: ALANINE AMINOTRANSFERASE 22 U/L (0-55); MAGNESIUM 1.9 MG/DL (1.6-2.4)
[2022-09-19 18:16] LABS: CREATINE KINASE 151 U/L (30-200); ERYTHROCYTE SEDIMENTATION RATE 30 MM/HR (0-30); LIPASE 14 U/L (8-78)
[2022-09-19 18:21] LABS: ABG BASE EXCESS -2.2 MMOL/L (-2.5-2.5); ABG OXYGEN SATURATION 92 % (94-100); ABG PCO2 33 MMHG (35-45); ABG PH 7.43 (7.37-7.43); ABG PO2 60 MMHG (79-93); ABG TCO2 22.3 MMOL/L (21.0-31.0); ALLENS TEST YES-POS; INSPIRED O2 2; VENTILATOR NO
[2022-09-19 18:22] LABS: PATIENT TEMP 37.7
[2022-09-19 18:24] LABS: CREATINE KINASE MB 2.6 NG/ML (<6.6)
--- NOTE | 2022-09-19 18:35 | Diagnostic Imaging Report ---
PROCEDURE: CT head w/o r/o stroke. TECHNIQUE: Multiple contiguous axial images were obtained through the brain without the use of intravenous contrast. Auto Exposure Controls were utilized during the CT exam to meet ALARA standards for radiation dose reduction. INDICATION: Neurologic deficit. COMPARISON: 03/14/2022. FINDINGS: Ventricles and sulci remain diffusely prominent with mild low-density in the cerebral white matter. There is no evidence of geographic low density to indicate a territorial infarct. No hemorrhage is identified. There is no abnormal mass effect or shift of midline structures. Calvarium is intact and the visualized paranasal sinuses are clear. IMPRESSION: Stable CT scan of the head without acute abnormality detected. Dictated by: Dictated on workstation # [id number]
[2022-09-19 18:36] LABS: TSH (THYROID ANALYZER) 1.59 UIU/ML (0.35-4.94)
--- NOTE | 2022-09-19 18:39 | Diagnostic Imaging Report ---
INDICATION: Altered mental status. EXAMINATION: Single AP view of the chest was obtained. COMPARISON: Study of 09/15/2022. FINDINGS: Heart size and pulmonary vascularity are at the upper limits of normal. There may be mild perihilar edema or pneumonitis. There is no evidence of pneumothorax or significant pleural fluid. Embolic coils are seen in the epigastrium. IMPRESSION: Cardiomegaly and pulmonary venous congestion which may be related to mild congestive heart failure. Dictated by: Dictated on workstation # [id number]
[2022-09-19 19:19] LABS: BILIRUBIN,URINE NEGATIVE (NEGATIVE); CLARITY,URINE CLEAR; COLOR,URINE YELLOW; GLUCOSE, URINE (UA) NEGATIVE (NEGATIVE); KETONES,URINE TRACE (NEGATIVE); LEUKOCYTE ESTERASE ,URINE TRACE (NEGATIVE); NITRITE,URINE NEGATIVE (NEGATIVE); PH,URINE 7.5 (5-9); PROTEIN,URINE NEGATIVE (NEGATIVE)
[2022-09-19] MEDS ORDERED: ACETAMINOPHEN 500 MG TAB (TYLENOL) PO ONE (19:30)
[2022-09-19 19:31] LABS: BACTERIA,URINE TRACE /HPF
[2022-09-19 19:34] LABS: AMPHETAMINE SCREEN, URINE POSITIVE (NEGATIVE); BARBITURATE SCREEN URINE NEGATIVE (NEGATIVE); BENZODIAZEPINES SCREEN URINE NEGATIVE (NEGATIVE); CANNABINOID SCREEN, URINE NEGATIVE (NEGATIVE); COCAINE SCREEN URINE NEGATIVE (NEGATIVE); METHADONE STAT NEGATIVE (NEGATIVE); OPIATE SCREEN URINE NEGATIVE (NEGATIVE); OXYCODONE STAT NEGATIVE (NEGATIVE); PROPOXYPHENE STAT NEGATIVE (NEGATIVE); TRICYCLIC ANTIDEPRESSANTS SCRE NEGATIVE (NEGATIVE)
[2022-09-19] MEDS ORDERED: NS 100 ML (IVPB) BAG IV ONE (19:45)
[2022-09-19] MEDS ORDERED: HOLD METFORMIN - RECEIVED CONTRAST 20 ML VIAL IV SCH (19:45)
[2022-09-19] MEDS ORDERED: IOHEXOL 350 MG/ML 100 ML (OMNIPAQUE 350) VIAL IV ONE (19:45)
--- NOTE | 2022-09-19 20:35 | Diagnostic Imaging Report ---
INDICATION: Hypoxia, left leg swelling and sepsis. TECHNIQUE: CTA of the thorax was performed after bolus intravenous administration of iodinated contrast. 3D reformatted images were produced. Automatic exposure controls were utilized to keep dose as low as reasonably achievable. FINDINGS: There is adequate opacification of pulmonary arteries without intraluminal filling defect seen to indicate embolism. Thoracic aorta is of normal caliber. There is crowding of pulmonary markings with dependent atelectasis in both lungs. No significant pleural or pericardial fluid is identified. There is no evidence of consolidation. There is azygous distention. Note is made of nodular surface contour to the liver with TIPS stent in place. There is also splenomegaly. IMPRESSION: No CTA evidence of pulmonary embolism or other acute abnormality in the thorax apart from atelectasis. There is evidence of portal venous hypertension with TIPS stent in place. Dictated by: Dictated on workstation # [id number]
[2022-09-19] MEDS: VANCOMYCIN INJECTION 1,000 MG in NS (IVPB) 250 ML IV SCH ×2 (20:46→22:25)
[2022-09-19 21:22] VITALS: BP 105/59
[2022-09-19] MEDS ORDERED: LORazepam INJ 2 MG/ML (ATIVAN) VIAL IM/IV PRN (21:30)
[2022-09-19] MEDS ORDERED: SENNA W/DOCUSATE (SENOKOT S) TABLET PO PRN (21:30)
[2022-09-19] MEDS ORDERED: BISACODYL 10 MG SUPP (DULCOLAX) PR PRN (21:30)
[2022-09-19] MEDS ORDERED: ANTACID SUSP 30 ML UDC (MYLANTA) PO PRN (21:30)
[2022-09-19] MEDS ORDERED: D5 1/2 NS 1000 ML IV SOLUTION 1,000 ML IV PRN (21:30)
[2022-09-19] MEDS ORDERED: polyethylene glycoL POWDER 17 GM (MIRALAX) PACK PO PRN (21:30)
[2022-09-19] MEDS ORDERED: ONDANSETRON 4 MG/2 ML (SDV) Z0FRAN IV PRN ×2 (21:30)
[2022-09-19] MEDS ORDERED: NALOXONE 0.4 MG/ML 1 ML (NARCAN) VIAL IV PRN (21:30)
[2022-09-19] MEDS ORDERED: HYDROmorphone 2 MG/ML VIAL (DILAUDID) IV PRN (21:30)
[2022-09-19] MEDS ORDERED: MILK OF MAGNESIA 400 MG/5 ML 30 ML UDC PO PRN (21:30)
[2022-09-19] MEDS ORDERED: ONDANSETRON 4 MG (ZOFRAN) ORAL DISSOLVE TAB PO PRN (21:30)
[2022-09-19] MEDS ORDERED: VANCOMYCIN INJECTION 0.1 MG in NS (IVPB) 250 ML IV SCH (21:30)
[2022-09-19] MEDS ORDERED: LACTULOSE SYRUP 10GM/15ML (ENULOSE) 30ML UDC PO PRN (21:30)
[2022-09-19] MEDS ORDERED: LORazepam 1 MG (ATIVAN) TAB PO PRN (21:30)
[2022-09-19] MEDS ORDERED: 1/2 NS IV SOLUTION 1,000 ML IV PRN (21:30)
[2022-09-19] MEDS ORDERED: LORazepam INJ 2 MG/ML (ATIVAN) VIAL IV PRN (21:30)
[2022-09-19] MEDS ORDERED: HALOPERIDOL 5 MG/ML (HALDOL) VIAL IM PRN (21:30)
[2022-09-19] MEDS ORDERED: diphenhydrAMINE 25 MG TAB (BENADRYL) PO PRN (21:30)
[2022-09-19] MEDS ORDERED: CALCIUM CARBONATE 500 MG (TUMS) TAB.CHEW PO PRN (21:30)
[2022-09-19] MEDS ORDERED: ONDANSETRON 4 MG (ZOFRAN) ORAL DISSOLVE TAB SL PRN (21:30)
[2022-09-19] MEDS ORDERED: NS (IVPB) 250 ML ONE (22:21)
[2022-09-19] MEDS ORDERED: VANCOMYCIN 1000 MG/VIAL ONE (22:21)
[2022-09-19] MEDS: ENOXAPARIN 100 MG/1 ML (LOVENOX) SYR SC SCH (22:24)
[2022-09-19 23:12] VITALS: BP 113/64
[2022-09-19] MEDS ORDERED: RT-ALBUTEROL/IPRATROPIUM 3 ML (DUONEB) VIAL INH PRN (23:30)
[2022-09-19] MEDS: PIPERACILLIN SODIUM/TAZOBACTAM 4.5 GM in NS (IVPB) 100 ML IV SCH (23:48)
[2022-09-20] VITALS: BP 97/47
[2022-09-20 04:00] VITALS: BP 97/55
[2022-09-20 05:19] LABS: BASOPHILS % (AUTO) 1 % (0-10); EOSINOPHILS # (AUTO) 0.2 10^3/uL (0.0-0.3); EOSINOPHILS % (AUTO) 6 % (0-10); HEMATOCRIT 32 % (40-54); HEMOGLOBIN 10.6 g/dL (13.3-17.7); LYMPHOCYTES # (AUTO) 0.7 10^3/uL (1.0-4.0); LYMPHOCYTES % (AUTO) 21 % (12-44); MEAN CORPUSCULAR HEMOGLOBIN 30 pg (25-34); MEAN CORPUSCULAR HGB CONC 33 g/dL (32-36); MEAN CORPUSCULAR VOLUME 91 fL (80-99); MEAN PLATELET VOLUME 9.3 fL (9.0-12.2); MONOCYTES # (AUTO) 0.3 10^3/uL (0.0-1.0); MONOCYTES % (AUTO) 8 % (0-12); NEUTROPHILS # (AUTO) 2.2 10^3/uL (1.8-7.8); NEUTROPHILS % (AUTO) 63 % (42-75); PLATELET COUNT 121 10^3/uL (130-400); WHITE BLOOD COUNT 3.4 10^3/uL (4.3-11.0)
[2022-09-20 05:26] LABS: ALBUMIN 2.4 GM/DL (3.2-4.5); POTASSIUM 3.6 MMOL/L (3.6-5.0)
[2022-09-20 05:27] LABS: CALCIUM 7.6 MG/DL (8.5-10.1)
[2022-09-20 05:28] LABS: TOTAL PROTEIN 5.2 GM/DL (6.4-8.2)
[2022-09-20 05:30] LABS: BILIRUBIN,TOTAL 2.5 MG/DL (0.1-1.0)
[2022-09-20 05:32] LABS: CREATININE SERUM 0.74 MG/DL (0.60-1.30)
[2022-09-20] MEDS: MULTIVIT W/MINERALS TAB (THERAGRAN M) PO SCH (06:11)
[2022-09-20] MEDS: THIAMINE 100 MG (VITAMIN B-1) TAB PO SCH (06:11)
[2022-09-20] MEDS: SENNOSIDES 8.6 MG (SENOKOT) TAB PO SCH ×2 (08:32→20:11)
[2022-09-20] MEDS: MAGNESIUM OXIDE (MAG-OX)400 MG TAB PO SCH ×2 (08:32→20:09)
[2022-09-20] MEDS: FOLIC ACID 1 MG TAB PO SCH (08:32)
[2022-09-20] MEDS: ACETAMINOPHEN 325 MG TABLET PO PRN (08:33)
[2022-09-20] MEDS: DOCUSATE SODIUM 100 MG (COLACE) CAP PO SCH ×2 (08:33→20:10)
[2022-09-20] MEDS: ENOXAPARIN 100 MG/1 ML (LOVENOX) SYR SC SCH ×2 (08:34→22:17)
[2022-09-20] MEDS: PIPERACILLIN SODIUM/TAZOBACTAM 4.5 GM in NS (IVPB) 100 ML IV SCH ×2 (08:34→16:06)
[2022-09-20] MEDS: diphenhydrAMINE 50 MG/ML INJ (BENADRYL) IVP PRN ×2 (08:39→22:17)
--- NOTE | 2022-09-20 08:49 | Diagnostic Imaging Report ---
INDICATION: Lower extremity cellulitis, edema TECHNIQUE: Multiple real-time grayscale images were obtained over the left lower extremity in various projections. Additional duplex Doppler and color Doppler images were also obtained. CORRELATION STUDY: None FINDINGS: Color and grayscale sonographic images demonstrate no intraluminal defect within the visualized portion of the common femoral, superficial femoral and/or popliteal veins to suggest thrombus formation. These vessels demonstrate normal response to compression and augmentation. Subcutaneous edema is present in keeping with cellulitis. IMPRESSION: 1. Negative for deep venous thrombosis of the left leg. Dictated by: Dictated on workstation # [id number]
[2022-09-20] MEDS ORDERED: NS (IVPB) 250 ML ONE (10:33)
[2022-09-20] MEDS: VANCOMYCIN 1250MG/250ML PREMIX 250 ML IV SCH ×2 (10:43→22:16)
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
[2022-09-20 20:00] VITALS: BP 117/68
[2022-09-20] MEDS: LACTULOSE SYRUP 10GM/15ML (ENULOSE) 30ML UDC PO SCH (20:09)
[2022-09-20] MEDS: ANTACID SUSP 30 ML UDC (MYLANTA) PO PRN (22:19)
[2022-09-21] VITALS: BP 118/76
[2022-09-21] MEDS: PIPERACILLIN SODIUM/TAZOBACTAM 4.5 GM in NS (IVPB) 100 ML IV SCH ×3 (00:06→17:10)
[2022-09-21 03:55] VITALS: BP 115/70
[2022-09-21] MEDS: THIAMINE 100 MG (VITAMIN B-1) TAB PO SCH (05:14)
[2022-09-21] MEDS: MULTIVIT W/MINERALS TAB (THERAGRAN M) PO SCH (05:14)
[2022-09-21] MEDS: diphenhydrAMINE 50 MG/ML INJ (BENADRYL) IVP PRN (05:15)
[2022-09-21 05:25] LABS: HEMOGLOBIN 11.1 g/dL (13.3-17.7); MEAN CORPUSCULAR VOLUME 91 fL (80-99)
[2022-09-21 05:27] LABS: BASOPHILS % (AUTO) 1 % (0-10); EOSINOPHILS # (AUTO) 0.3 10^3/uL (0.0-0.3); EOSINOPHILS % (AUTO) 12 % (0-10); HEMATOCRIT 34 % (40-54); LYMPHOCYTES # (AUTO) 0.7 10^3/uL (1.0-4.0); LYMPHOCYTES % (AUTO) 30 % (12-44); MEAN CORPUSCULAR HEMOGLOBIN 30 pg (25-34); MEAN CORPUSCULAR HGB CONC 33 g/dL (32-36); MEAN PLATELET VOLUME 9.6 fL (9.0-12.2); MONOCYTES # (AUTO) 0.2 10^3/uL (0.0-1.0); MONOCYTES % (AUTO) 10 % (0-12); NEUTROPHILS # (AUTO) 1.1 10^3/uL (1.8-7.8); NEUTROPHILS % (AUTO) 47 % (42-75); PLATELET COUNT 123 10^3/uL (130-400); WHITE BLOOD COUNT 2.4 10^3/uL (4.3-11.0)
[2022-09-21 05:42] LABS: ALBUMIN 2.4 GM/DL (3.2-4.5); BILIRUBIN,TOTAL 1.1 MG/DL (0.1-1.0); CALCIUM 7.6 MG/DL (8.5-10.1); CREATININE SERUM 0.73 MG/DL (0.60-1.30); POTASSIUM 3.6 MMOL/L (3.6-5.0); TOTAL PROTEIN 5.4 GM/DL (6.4-8.2)
[2022-09-21 07:53] VITALS: BP 123/75
[2022-09-21] MEDS ORDERED: TROUGH ORDER-PHARMACY XX ONE (09:00)
[2022-09-21] MEDS: DOCUSATE SODIUM 100 MG (COLACE) CAP PO SCH ×2 (09:15→20:51)
[2022-09-21] MEDS: ENOXAPARIN 100 MG/1 ML (LOVENOX) SYR SC SCH ×2 (09:15→20:51)
[2022-09-21] MEDS: LACTULOSE SYRUP 10GM/15ML (ENULOSE) 30ML UDC PO SCH ×2 (09:15→20:56)
[2022-09-21] MEDS: SENNOSIDES 8.6 MG (SENOKOT) TAB PO SCH ×2 (09:16→20:51)
[2022-09-21] MEDS: FOLIC ACID 1 MG TAB PO SCH (09:16)
[2022-09-21] MEDS: MAGNESIUM OXIDE (MAG-OX)400 MG TAB PO SCH ×2 (09:16→20:46)
[2022-09-21] MEDS: VANCOMYCIN 1250MG/250ML PREMIX 250 ML IV SCH ×2 (11:03→21:31)
[2022-09-21] MEDS ORDERED: FUROSEMIDE 40 MG/4 ML INJ (LASIX) IVP NR (11:30)
[2022-09-21 12:00] VITALS: BP 117/86
--- NOTE | 2022-09-21 12:07 | Consultation - Surgery ---
[facility] 09/21/22 1207: History of Present Illness History of Present Illness Patient Consulted On(goyo/time) 09/21/22 11:55 Date Seen by Provider: Sep 21, 2022 Time Seen by Provider: 11:55 History of Present Illness Pt presented to the ED on 09/19 with AMS after reportedly having a seizure and falling into a ditch, he was found on the side of the road by EMS. Pt was seen 09/15 in the ED and a LLE wound was noted at that time. He was prescribed antibiotics but did not take them. After his ER trip he had a friend poke the wound with a needle but said it did not drain much. Today he reports he has had the LLE wound for about 2 weeks and it is increasingly painful, red and warm. Notes pain at a 10/10, only thing to improve pain is Dilaudid and moving makes it worse. Notes he has had wounds similar to this in the past but never this bad or painful. He reports he will not go to a facility for health aid, he will only accept home health per social media content specialist. Last methamphetamine use was a couple days ago, pt not sure. Denies chills, fevers, CP, SOB, nausea, vomiting. Allergies and Home Medications Allergies Coded Allergies: NSAIDS (Non-Steroidal Anti-Inflamma (Verified Allergy, Unknown, 11/28/19) aspirin (Verified Allergy, Unknown, 09/19/22) Patient Home Medication List Home Medication List Reviewed: Yes No Active Prescriptions or Reported Meds Past Kqqzjjj-Xidjcj-Chgehp Hx Patient Social History Smoking Status: Current Everyday Smoker 2nd Hand Smoke Exposure: No Recent Hopitalizations: No Alcohol Use?: Yes Substance type: Amphetamines, Methamphetamine Have you traveled recently?: No Seasonal Allergies Seasonal Allergies: Yes Surgeries History of Surgeries: Yes (R ANKLE, L KNEE, BILAT SHOULDER, ESOPHAGEAL BANDING; TIPS;) Surgeries: Abdominal, Adenoidectomy, Orthopedic, Tonsillectomy Respiratory History of Respiratory Disorde: Yes Respiratory Disorders: COPD Cardiovascular History of Cardiac Disorders: Yes Cardiac Disorders: Chronic Edema/Swelling Neurological History of Neurological Disord: Yes (CLAIMS HE HAS SEIZURES D/T LIVER DISEASE;BILAT SUBDURAL HEMATOMAS 01/30/22) Neurological Disorders: Seizure Disorder, Traumatic Brain Injury Genitourinary History of Genitourinary Disor: No Gastrointestinal History of Gastrointestinal Di: Yes (HX OF HEP C-TREATED;ESOPHAGEAL BANDING & STENTS X2;TIPS PROCEDURE;ELEV AMMO) Gastrointestinal Disorders: Liver Disease/Jaundice, Esophageal Varices, Hepatitis, Cirrhosis Musculoskeletal History of Musculoskeletal Dis: Yes (MULTIPLE ORTHOPEDIC PROCEDURES) Musculoskeletal Disorders: Degenerate Disk Disease, Chronic Back Pain, Fractures Endocrine History of Endocrine Disorders: No HEENT History of HEENT Disorders: Yes (POOR DENTITION) Loss of Vision: Denies Hearing Impairment: Denies Cancer History of Cancer: No Psychosocial History of Psychiatric Problem: Yes (PSYCH ISSUES; POLYSUBSTANCE ABUSE) Behavioral Health Disorders: ADD/ADHD Integumentary History of Skin or Integumenta: Yes (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 12/06/21) Blood Transfusions History of Blood Disorders: No Adverse Reaction to a Blood Tr: No Family Medical History Significant Family History: COPD, Other Conditions/Hx Review of Systems-General Constitutional: No chills, No fever EENTM: No hearing loss, No blurred vision Respiratory: No cough, No dyspnea on exertion; short of breath (chronic- normal for him) Cardiovascular: No chest pain, No palpitations Gastrointestinal: No abdominal pain, No nausea, No vomiting Genitourinary: No decreased output, No dysuria Musculoskeletal: No back pain, No neck pain Skin: lesions (LLE) Psychiatric/Neurological: Denies Headache; Seizure All Other Systems Reviewed Negative Unless Noted: Yes (Negative excepted noted.) Physical Exam-General Problems Physical Exam Vital Signs Vital Signs - First Documented 09/19/22 17:31 Temp 37.7 Pulse 94 Resp 11 B/P (MAP) 113/64 (80) Pulse Ox 93 O2 Delivery Nasal Cannula O2 Flow Rate 2.00 Capillary Refill : Less Than 3 Seconds General Appearance: no apparent distress, other (appears older than stated age) HEENT: PERRL/EOMI, pharynx normal Neck: non-tender, supple Respiratory: chest non-tender, no respiratory distress, no accessory muscle use Cardiovascular: normal peripheral pulses, no JVD Peripheral Pulses: 2+ Dorsalis Pedis (R), 2+ Left Dors-Pedis (L), 2+ Radial Pulses (R), 2+ Radial Pulses (L) Gastrointestinal: non tender, soft Back: normal inspection, no CVA tenderness Extremities: normal capillary refill, swelling (left ankle) Neurologic/Psychiatric: alert, oriented x 3 Skin: warm/dry, other (erythema and warmth from left midfoot to midcalf region, wound on lateral LLE above malleolus with small scab and no drainage, area of fluctuance 3cm x 2cm with extreme tenderness) Lymphatic: no adenopathy Data Review Labs Laboratory Tests 09/21/22 05:08: White Blood Count 2.4L, Red Blood Count 3.72L, Hemoglobin 11.1L, Hematocrit 34L, Mean Corpuscular Volume 91, Mean Corpuscular Hemoglobin 30, Mean Corpuscular Hemoglobin Concent 33, Red Cell Distribution Width 15.1H, Platelet Count 123L, Mean Platelet Volume 9.6, Immature Granulocyte % (Auto) 0, Neutrophils (%) (Auto) 47, Lymphocytes (%) (Auto) 30, Monocytes (%) (Auto) 10, Eosinophils (%) (Auto) 12H, Basophils (%) (Auto) 1, Neutrophils # (Auto) 1.1L, Lymphocytes # (Auto) 0.7L, Monocytes # (Auto) 0.2, Eosinophils # (Auto) 0.3, Basophils # (Auto) 0.0, Immature Granulocyte # (Auto) 0.0, Percent Immature Platelet Fraction 1.6, Sodium Level 137, Potassium Level 3.6, Chloride Level 109H, Carbon Dioxide Level 21, Anion Gap 7, Blood Urea Nitrogen 8, Creatinine 0.73, Estimat Glomerular Filtration Rate 105, BUN/Creatinine Ratio 11, Glucose Level 96, Calcium Level 7.6L, Corrected Calcium 8.9, Total Bilirubin 1.1H, Aspartate Amino Transf (AST/SGOT) 30, Alanine Aminotransferase (ALT/SGPT) 20, Alkaline Phosphatase 92, Total Protein 5.4L, Albumin 2.4L 09/21/22 10:15: Vancomycin Level Trough 12.3 Microbiology 09/19/22 MRSA Screen - Final, Complete MRSA not isolated 09/19/22 Urine Culture - Final, Complete NO GROWTH 09/19/22 Blood Culture - Preliminary, Resulted No growth Assessment/Plan Assessment/Plan Assessment/Plan Cellulitis of LLE Abscess LLE Sepsis Methamphetamine use Continue IV abx Plan I&D with culture of wound Clinical Quality Measures DVT/VTE Risk/Contraindication: Contraindications-Mechi: Other *list below* Other: presumed DVT with cellulitis in legs JOSUÉ CEDILLO DO 4/11/23 1631: History of Present Illness History of Present Illness Time Seen by Provider: 16:02 History of Present Illness Surgery asked to consult regarding left leg abscess. HPI per ER: PT ARRIVES VIA EMS, EMS REPORT THAT A PASSERBY FOUND PT LAYING IN A DITCH ON A DIRT ROAD IN [place]. HE WAS ALLEGEDLY WALKING TO A FRIEND'S HOUSE. PT DENIES ANY INJURY TODAY. PT HAS HISTORY OF SEIZURES, AND STATES HE HAD 3 SEIZURES OVER THE LAST COUPLE OF DAYS. HE IS PRESCRIBED SEIZURE MEDICATION--DOES NOT KNOW NAME--STATES HE HAS MISSED SOME DOSES. C/O PAIN TO HEAD --THIS IS A CHRONIC COMPLAINT, PT WITH PAIN, REDNESS AND SWELLING TO LEFT LOWER LEG--PT STATES IT HAS BEEN THAT WAY "FOR A COUPLE OF WEEKS", PT WAS SEEN HERE 09/15/22 AND PRESCRIBED MULTIPLE MEDICATIONS, AND OUTPATIENT ULTRASOUND WAS ORDERED, AND PT INSTRUCTED TO FOLLOW UP WITH [facility]. PT HAS NOT DONE ANY OF THIS. When I saw pt he was laying in bed asleep, but easily arousable. He states pain is minimal. He has had previous drainages performed. Allergies and Home Medications Allergies Coded Allergies: NSAIDS (Non-Steroidal Anti-Inflamma (Verified Allergy, Unknown, 11/28/19) aspirin (Verified Allergy, Unknown, 09/19/22) Patient Home Medication List Home Medication List Reviewed: Yes No Active Prescriptions or Reported Meds Past Tvfwqcr-Ycjbzs-Ltwzqs Hx Patient Social History Smoking Status: Current Everyday Smoker Substance type: Methamphetamine Surgeries History of Surgeries: Yes Surgeries: Abdominal, Adenoidectomy, Orthopedic, Tonsillectomy Respiratory History of Respiratory Disorde: Yes Respiratory Disorders: COPD Cardiovascular History of Cardiac Disorders: Yes Cardiac Disorders: Chronic Edema/Swelling Neurological History of Neurological Disord: Yes Neurological Disorders: Seizure Disorder, Traumatic Brain Injury Genitourinary History of Genitourinary Disor: No Gastrointestinal History of Gastrointestinal Di: Yes Gastrointestinal Disorders: Liver Disease/Jaundice, Esophageal Varices, Hepatitis, Cirrhosis Musculoskeletal History of Musculoskeletal Dis: Yes Musculoskeletal Disorders: Degenerate Disk Disease, Chronic Back Pain, Fractures Endocrine History of Endocrine Disorders: No HEENT History of HEENT Disorders: Yes Loss of Vision: Denies Hearing Impairment: Denies Cancer History of Cancer: No Psychosocial History of Psychiatric Problem: Yes Behavioral Health Disorders: ADD/ADHD Integumentary History of Skin or Integumenta: Yes Family Medical History Significant Family History: COPD Review of Systems-General Constitutional: No chills, No fever; weakness EENTM: No hearing loss, No blurred vision Respiratory: No cough, No dyspnea on exertion; short of breath (chronic- normal for him) Cardiovascular: No chest pain, No palpitations Gastrointestinal: No abdominal pain, No nausea, No vomiting Genitourinary: No decreased output, No dysuria Musculoskeletal: No back pain, No neck pain Skin: lesions (LLE) Psychiatric/Neurological: Denies Headache; Seizure Physical Exam-General Problems Physical Exam General Appearance: no apparent distress, other (appears older than stated age) Eyes: Bilateral Eye PERRL, Bilateral Eye EOMI HEENT: pharynx normal; No scleral icterus (R), No scleral icterus (L) Neck: non-tender, supple Respiratory: chest non-tender, lungs clear, normal breath sounds, no respiratory distress, no accessory muscle use Cardiovascular: regular rate, rhythm, no murmur Gastrointestinal: non tender, soft, no organomegaly Extremities: swelling (left ankle) Neurologic/Psychiatric: alert, oriented x 3 Skin: warm/dry, other (erythema and warmth from left midfoot to midcalf region, wound on lateral LLE above malleolus with small scab and no drainage, area of fluctuance 3cm x 2cm with extreme tenderness) Lymphatic: no adenopathy (neck, axilla) Assessment/Plan Assessment/Plan Assessment/Plan Cellulitis/Abscess LLE Sepsis Methamphetamine use Continue IV abx, Pain control, anti-emetics as needed. Pt ate today, will make NPO and plan for I&D with culture of wound tomorrow with possible debridement. Will get consent Supervisory-Addendum Brief Verification & Attestation Participated in pt care: history, MDM, physical Personally performed: exam, history, MDM, supervision of care Care discussed with: Medical Student Procedures: n/a Verification and Attestation of Medical Student E/M Service A medical student performed and documented this service. I then reviewed and verified all information documented by the medical student and made mo difications to such information, when appropriate. I personally performed a physical exam, medical decision making and then discussed any differences between the notes and made revisions as necessary to create one note. Josué Cedillo , 09/21/22 , 16:35 CARRINGTON ARGUELLES Sep 21, 2022 12:07 JOSUÉ CEDILLO DO Sep 21, 2022 16:31
--- NOTE | 2022-09-21 14:43 | Physical Therapy Progress Note ---
Therapy Progress Note Attempted to see patient for PT evaluation. Patient refused due to left leg pain. Nurse in the room at time of PT arrival, reports he is a surgical consult. Will attempt Eval again tomorrow and progress per patient tolerance. DAVID OSBORN PT Sep 21, 2022 14:43
[2022-09-21 16:00] VITALS: BP 109/66
--- NOTE | 2022-09-21 17:46 | Progress Note ---
Subjective Subjective/Events-last exam Patient more awake this AM. Still having significant pain to LLE with palpation. Redness improving but more fluctuance. Tolerating PO diet. Has not been up out of bed. Review of Systems General: Fatigue, Malaise Pulmonary: Dyspnea Cardiovascular: Edema; No: Chest Pain, Palpitations Gastrointestinal: No: Nausea, Vomiting, Abdominal Pain, Diarrhea, Constipation Musculoskeletal: leg pain Neurological: Weakness, Incoordination Focused Exam Lactate Level 09/19/22 17:43: Lactic Acid Level 1.45 Objective Exam Last Set of Vital Signs Vital Signs Date Time Temp Pulse Resp B/P (MAP) Pulse Ox O2 Delivery O2 Flow Rate FiO2 09/21/22 16:00 36.5 81 14 109/66 (80) 92 Nasal Cannula 7.00 Capillary Refill : Less Than 3 Seconds I&O Intake and Output 09/21/22 00:00 Intake Total 1780 ml Output Total 1385 ml Balance 395 ml Intake Oral 1020 ml IV Total 760 ml Output Urine Total 1385 ml General: Alert, Oriented X3, Mild Distress (when palpating LE) Lungs: Clear to Auscultation, Normal Air Movement Heart: Regular Rate, No Murmurs Abdomen: Normal Bowel Sounds, Soft, No Tenderness, No Masses Extremities: Other (LLE erythema and 1+ pitting edema, abscess area with more fluctuance) Results/Procedures Lab Laboratory Tests 09/21/22 05:08: White Blood Count 2.4L, Red Blood Count 3.72L, Hemoglobin 11.1L, Hematocrit 34L, Mean Corpuscular Volume 91, Mean Corpuscular Hemoglobin 30, Mean Corpuscular Hemoglobin Concent 33, Red Cell Distribution Width 15.1H, Platelet Count 123L, Mean Platelet Volume 9.6, Immature Granulocyte % (Auto) 0, Neutrophils (%) (Aut o) 47, Lymphocytes (%) (Auto) 30, Monocytes (%) (Auto) 10, Eosinophils (%) (Auto) 12H, Basophils (%) (Auto) 1, Neutrophils # (Auto) 1.1L, Lymphocytes # (Auto) 0.7L, Monocytes # (Auto) 0.2, Eosinophils # (Auto) 0.3, Basophils # (Auto) 0.0, Immature Granulocyte # (Auto) 0.0, Percent Immature Platelet Fraction 1.6, Sodium Level 137, Potassium Level 3.6, Chloride Level 109H, Carbon Dioxide Level 21, Anion Gap 7, Blood Urea Nitrogen 8, Creatinine 0.73, Estimat Glomerular Filtration Rate 105, BUN/Creatinine Ratio 11, Glucose Level 96, Calcium Level 7.6L, Corrected Calcium 8.9, Total Bilirubin 1.1H, Aspartate Amino Transf (AST/SGOT) 30, Alanine Aminotransferase (ALT/SGPT) 20, Alkaline Phosphatase 92, Total Protein 5.4L, Albumin 2.4L 09/21/22 10:15: Vancomycin Level Trough 12.3 Microbiology 09/19/22 MRSA Screen - Final, Complete MRSA not isolated 09/19/22 Urine Culture - Final, Complete NO GROWTH 09/19/22 Blood Culture - Preliminary, Resulted No growth Assessment/Plan Assessment/Plan (1) Altered mental status Status: Resolved Assessment & Plan: - Infection vs polysubstance abuse vs hepatic encephalo marco, restart home lactulose as ammonia is elevated, continue IV antibiotics and IV hydration and continue to monitor for improvement 09/21: Seems to be at baseline Qualifiers: Qualified Codes: R41.0 - Disorientation, unspecified (2) Cellulitis of left lower extremity Status: Acute Assessment & Plan: 09/21: Consulted to Gen Surg for I&D, continue antibiotics (3) Normocytic anemia Status: Acute Assessment & Plan: - No signs of acute bleeding, patient does have h/o esophageal varices requiring banding (4) Hyperammonemia Status: Acute (5) Alcoholic cirrhosis of liver Status: Chronic Qualifiers: Qualified Codes: K70.30 - Alcoholic cirrhosis of liver without ascites (6) Hypoxic brain injury Status: Chronic Assessment & Plan: - Possible h/o seizures, med list does not list any sz meds, will f.u with PCP (7) Methamphetamine use Status: Acute Clinical Quality Measures DVT/VTE Risk/Contraindication: Contraindications-Mechi: Other *list below* Other: presumed DVT with cellulitis in legs EUNICE IVEY MD Sep 21, 2022 17:46
[2022-09-21 20:18] VITALS: BP 132/80
[2022-09-21] MEDS: ANTACID SUSP 30 ML UDC (MYLANTA) PO PRN (22:33)
[2022-09-22] VITALS (22 sets, daily range): BP systolic 92–117; BP diastolic 48–71
[2022-09-22] MEDS: PIPERACILLIN SODIUM/TAZOBACTAM 4.5 GM in NS (IVPB) 100 ML IV SCH ×3 (01:06→17:09)
[2022-09-22 04:31] LABS: BASOPHILS % (AUTO) 1 % (0-10); EOSINOPHILS # (AUTO) 0.4 10^3/uL (0.0-0.3); EOSINOPHILS % (AUTO) 10 % (0-10); HEMATOCRIT 36 % (40-54); HEMOGLOBIN 11.9 g/dL (13.3-17.7); LYMPHOCYTES # (AUTO) 0.7 10^3/uL (1.0-4.0); LYMPHOCYTES % (AUTO) 21 % (12-44); MEAN CORPUSCULAR HEMOGLOBIN 30 pg (25-34); MEAN CORPUSCULAR HGB CONC 33 g/dL (32-36); MEAN CORPUSCULAR VOLUME 90 fL (80-99); MEAN PLATELET VOLUME 9.3 fL (9.0-12.2); MONOCYTES # (AUTO) 0.4 10^3/uL (0.0-1.0); MONOCYTES % (AUTO) 10 % (0-12); NEUTROPHILS # (AUTO) 2.1 10^3/uL (1.8-7.8); NEUTROPHILS % (AUTO) 59 % (42-75); PLATELET COUNT 152 10^3/uL (130-400); WHITE BLOOD COUNT 3.6 10^3/uL (4.3-11.0)
[2022-09-22 04:42] LABS: ALBUMIN 2.6 GM/DL (3.2-4.5)
[2022-09-22 04:43] LABS: POTASSIUM 4.1 MMOL/L (3.6-5.0)
[2022-09-22 04:44] LABS: CALCIUM 7.9 MG/DL (8.5-10.1)
[2022-09-22 04:45] LABS: TOTAL PROTEIN 5.7 GM/DL (6.4-8.2)
[2022-09-22 04:47] LABS: BILIRUBIN,TOTAL 1.2 MG/DL (0.1-1.0)
[2022-09-22 04:49] LABS: CREATININE SERUM 0.7 MG/DL (0.60-1.30)
[2022-09-22] MEDS: THIAMINE 100 MG (VITAMIN B-1) TAB PO SCH (06:18)
[2022-09-22] MEDS: MULTIVIT W/MINERALS TAB (THERAGRAN M) PO SCH (06:18)
--- NOTE | 2022-09-22 08:09 | Progress Note - Surgery ---
[facility] 09/22/22 0809: Subjective Date Seen by a Provider: Sep 22, 2022 Time Seen by a Provider: 07:30 Subjective/Events-last exam Patient is seen asleep in bed, easily arousable. The patient states that the pain in his left lower extremity is largely unchanged from yesterday and the current pain medications have managed his symptoms well. The patient has been NPO since midnight in preparation for incision and drainage of the left lower extremity today. Patient has no new complaints. Review of Systems General: No Chills, No Night Sweats HEENT: No Visual Changes, No Eye Pain Pulmonary: No Cough Cardiovascular: No: Chest Pain, Palpitations Gastrointestinal: No: Nausea, Vomiting Genitourinary: No Dysuria, No Hematuria Musculoskeletal: No: neck pain, back pain Neurological: No: Weakness, Numbness Focused Exam Lactate Level 09/19/22 17:43: Lactic Acid Level 1.45 Objective Exam Vital Signs Date Time Temp Pulse Resp B/P (MAP) Pulse Ox O2 Delivery O2 Flow Rate FiO2 09/22/22 07:07 79 09/22/22 04:00 36.8 85 117/71 (86) 85 High Flow N/C 8.00 09/22/22 01:00 86 09/22/22 00:06 36.6 82 13 92/54 (67) 95 High Flow N/C 8.00 09/21/22 22:57 High Flow N/C 8.00 09/21/22 21:20 37.2 09/21/22 20:18 37.2 78 19 132/80 (97) 91 High Flow N/C 7.00 09/21/22 20:00 91 High Flow N/C 7.00 09/21/22 19:00 73 09/21/22 16:00 36.5 81 14 109/66 (80) 92 Nasal Cannula 7.00 09/21/22 13:09 78 09/21/22 12:00 36.4 76 18 117/86 (96) High Flow N/C 7.00 I & O 09/22/22 07:00 Intake Total 2205 ml Output Total 5650 ml Balance -3445 ml Capillary Refill : Less Than 3 Seconds General Appearance: No Apparent Distress, WD/WN HEENT: PERRL/EOMI, Other (EXTENSIVE DENTAL DECAY--ALL TEETH DECAYED DOWN TO GUMS) Neck: Non Tender, Supple Respiratory: Chest Non Tender, Normal Breath Sounds, No Accessory Muscle Use, No Respiratory Distress Cardiovascular: Regular Rate, Rhythm, No Murmur, Normal Peripheral Pulses Peripheral Pulses: 2+ Dorsalis Pedis (R), 2+ Left Dors-Pedis (L), 2+ Radial Pulses (R), 2+ Radial Pulses (L) Gastrointestinal: non tender, soft, no organomegaly Extremity: Other (Left lower extremity with area of erythema, swelling, lateral) Neurologic/Psychiatric: Alert, Oriented x3 Skin: Warm/Dry, Other (Area of erythema and swelling on the lateral left lower extremity) Lymphatic: No Adenopathy (cervical) Results Lab Laboratory Tests 09/21/22 10:15: Vancomycin Level Trough 12.3 09/22/22 04:11: White Blood Count 3.6L, Red Blood Count 4.02L, Hemoglobin 11.9L, Hematocrit 36L, Mean Corpuscular Volume 90, Mean Corpuscular Hemoglobin 30, Mean Corpuscular Hemoglobin Concent 33, Red Cell Distribution Width 15.0H, Platelet Count 152, Mean Platelet Volume 9.3, Immature Granulocyte % (Auto) 0, Neutrophils (%) (Auto) 59, Lymphocytes (%) (Auto) 21, Monocytes (%) (Auto) 10, Eosinophils (%) (Auto) 10, Basophils (%) (Auto) 1, Neutrophils # (Auto) 2.1, Lymphocytes # (Auto) 0.7L, Monocytes # (Auto) 0.4, Eosinophils # (Auto) 0.4H, Basophils # (Auto) 0.0, Immature Granulocyte # (Auto) 0.0, Sodium Level 138, Potassium Level 4.1, Chloride Level 105, Carbon Dioxide Level 25, Anion Gap 8, Blood Urea Nitrogen 8, Creatinine 0.70, Estimat Glomerular Filtration Rate 107, BUN/Creatinine Ratio 11, Glucose Level 87, Calcium Level 7.9L, Corrected Calcium 9.0, Total Bilirubin 1.2H, Aspartate Amino Transf (AST/SGOT) 31, Alanine Aminotransferase (ALT/SGPT) 21, Alkaline Phosphatase 103, Total Protein 5.7L, Albumin 2.6L Microbiology 09/19/22 MRSA Screen - Final, Complete MRSA not isolated 09/19/22 Urine Culture - Final, Complete NO GROWTH 09/19/22 Blood Culture - Preliminary, Resulted No growth Assessment/Plan Assessment/Plan Assessment/Plan Cellulitis/Abscess LLE Sepsis Methamphetamine use Continue IV abx Pain control I and D today, NPO until after surgery Advise stopping methamphetamine use Clinical Quality Measures DVT/VTE Risk/Contraindication: Contraindications-Mechi: Other *list below* Other: presumed DVT with cellulitis in legs JOSUÉ CEDILLO DO 09/22/22 0837: Subjective Time Seen by a Provider: 08:21 Subjective/Events-last exam Pt seen and examined, no new changes. Review of Systems General: No Chills, No Night Sweats Pulmonary: No Dyspnea, No Cough Cardiovascular: No: Chest Pain, Palpitations Gastrointestinal: No: Nausea, Vomiting Objective Exam General Appearance: No Apparent Distress, WD/WN HEENT: PERRL/EOMI, Other (EXTENSIVE DENTAL DECAY--ALL TEETH DECAYED DOWN TO GUMS) Respiratory: Chest Non Tender, Lungs Clear, Normal Breath Sounds, No Accessory Muscle Use, No Respiratory Distress Cardiovascular: No Murmur Gastrointestinal: non tender, soft, no organomegaly Extremity: Other (Left lower extremity with area of erythema, swelling, lateral. Still fluctuant, appx 4cm in diameter, erythema extends 5-6 cm past this in both directions) Neurologic/Psychiatric: Alert, Oriented x3 Assessment/Plan Assessment/Plan Assessment/Plan Cellulitis/Abscess LLE Sepsis Methamphetamine use Continue IV abx Pain control I & D today, NPO until after surgery Supervisory-Addendum Brief Verification & Attestation Participated in pt care: history, MDM, physical Personally performed: exam, history, MDM, supervision of care Care discussed with: Medical Student Procedures: n/a Verification and Attestation of Medical Student E/M Service A medical student performed and documented this service. I then reviewed and verified all information documented by the medical student and made modifications to such information, when appropriate. I personally performed a physical exam, medical decision making and then discussed any differences between the notes and made revisions as necessary to create one note. Josué Cedillo , 09/22/22 , 08:37 [facility] Sep 22, 2022 08:09 JOSUÉ CEDILLO DO Sep 22, 2022 08:37
[2022-09-22] MEDS ORDERED: MIDAZOLAM 2 MG/2 ML (VERSED) VIAL ONE (08:41)
[2022-09-22] MEDS ORDERED: SEVOFLURANE (ULTANE) 15 ML INHAL SOLN ONE ×2 (08:41→09:17)
[2022-09-22] MEDS ORDERED: LIDOCAINE PF 2% 5 ML (XYLOCAINE) VIAL ONE (08:41)
[2022-09-22] MEDS ORDERED: fentaNYL INJ 100 MCG/2 ML AMP ONE (08:41)
[2022-09-22] MEDS ORDERED: ONDANSETRON 4 MG/2 ML (SDV) Z0FRAN ONE (08:41)
[2022-09-22] MEDS ORDERED: proPOfol 200 MG/20 ML (DIPRIVAN) VIAL IV ONE (08:41)
[2022-09-22] MEDS ORDERED: BUP/EPI 0.5% 1:200,000 (SENSORCAINE) 30 ML VIAL ONE (08:45)
[2022-09-22] MEDS ORDERED: LACTATED RINGERS 1,000 ML IV PRN (09:15)
[2022-09-22] MEDS ORDERED: PHENYLEPHRINE 100 MCG/ML 10 ML (ANESTHESIA) SYR ONE (09:20)
--- NOTE | 2022-09-22 09:23 | Progress Note-Post Operative ---
Post-Operative Progess Note Surgeon (s)/Middleware Developer (s) Surgeon SHIRLEY VENCES DO Middleware Developer: TONYA Banks Pre-Operative Diagnosis Left leg abscess/cellulitis Post-Operative Diagnosis Left leg cellulitis with hematoma Procedure & Operative Findings Date of Procedure 09/22/22 Procedure Performed/Findings I&D Left leg Anesthesia Type LMA Estimated Blood Loss Estimated blood loss (mL): scant Specimens/Packing Specimens Removed none SHIRLEY VENCES DO Sep 22, 2022 09:23
[2022-09-22] MEDS ORDERED: MEPERIDINE (DEMEROL) INJ 50 MG/ML IVP ONE (09:45)
[2022-09-22] MEDS ORDERED: fentaNYL INJ 100 MCG/2 ML AMP IVP ONE (09:45)
[2022-09-22] MEDS ORDERED: ONDANSETRON 4 MG/2 ML (SDV) Z0FRAN IVP PRN (09:45)
[2022-09-22] MEDS ORDERED: morphine INJ 10 MG/ML 1ML (SYR OR VIAL) IVP ONE (09:45)
[2022-09-22] MEDS: DOCUSATE SODIUM 100 MG (COLACE) CAP PO SCH ×2 (11:00→20:14)
[2022-09-22] MEDS: MAGNESIUM OXIDE (MAG-OX)400 MG TAB PO SCH ×2 (11:01→20:14)
[2022-09-22] MEDS: FOLIC ACID 1 MG TAB PO SCH (11:01)
[2022-09-22] MEDS: LACTULOSE SYRUP 10GM/15ML (ENULOSE) 30ML UDC PO SCH ×2 (11:01→20:14)
[2022-09-22] MEDS: SENNOSIDES 8.6 MG (SENOKOT) TAB PO SCH ×2 (11:01→20:14)
[2022-09-22] MEDS: ENOXAPARIN 100 MG/1 ML (LOVENOX) SYR SC SCH ×2 (11:01→20:14)
--- NOTE | 2022-09-22 13:55 | OPERATIVE REPORT ---
DATE OF SERVICE: 09/22/2022 PREOPERATIVE DIAGNOSIS: Left leg abscess [ ]/cellulitis. POSTOPERATIVE DIAGNOSIS: Left leg cellulitis with hematoma. PROCEDURE: Incision and drainage of left leg. SURGEON: Josué Cedillo DO OIL FIELD LABORER: Jax Acuna MS3. SPECIMENS: None. ESTIMATED BLOOD LOSS: Scant. FLUIDS: Per Anesthesia. ANESTHESIA: LMA. INDICATIONS FOR PROCEDURE: The patient is a 56-year-old male who had cellulitis with a fluctuant area on his left leg, thought to be abscess. FINDINGS: The patient had a hematoma. PROCEDURE NOTE: After informed consent was obtained, the patient was brought to the operating room and placed on the table in supine position, sterilely prepped and draped in normal fashion. An incision was made over the fluctuant area with a #15 blade, carried down through skin into subcutaneous tissue, immediately got out old hematoma, dark purplish jelly-like material, able to express this out, increased incision superiorly and inferiorly with the Bovie electrocautery and then copiously irrigated with normal saline, suctioned this out, roughly debrided with a sponge and then elected to pack with 1-inch iodoform packing. Area was cleaned and dried. Dressing placed. The patient tolerated the procedure. Sponge and needle count correct at the end of the case. Job ID: [id number] DocumentID: [id number] Dictated Date: 09/22/2022 09:27:03 Graining Press Operator Date: 09/22/2022 13:53:00 Dictated By: JOSUÉ CEDILLO DO
[2022-09-22] MEDS: VANCOMYCIN 1250MG/250ML PREMIX 250 ML IV SCH ×2 (14:22→21:07)
--- NOTE | 2022-09-22 15:43 | Physical Therapy Progress Note ---
Therapy Progress Note PT attempted to see patient for PT evaluation. Upon arrival patient had just vomitted all over and was unable to participate. Call light activated and PT went to find nurse. PT informed nurse of situation. Will attempt evaluation again at a later date. DAVID OSBORN PT Sep 22, 2022 15:43
[2022-09-22] MEDS: MELATONIN 3 MG TABLET PO PRN (20:14)
[2022-09-23] VITALS: BP 98/63
[2022-09-23] MEDS: PIPERACILLIN SODIUM/TAZOBACTAM 4.5 GM in NS (IVPB) 100 ML IV SCH ×3 (00:53→18:04)
[2022-09-23] MEDS: ACETAMINOPHEN 325 MG TABLET PO PRN (03:55)
[2022-09-23 04:00] VITALS: BP 100/52
[2022-09-23 05:38] LABS: BASOPHILS % (AUTO) 1 % (0-10); EOSINOPHILS # (AUTO) 0.3 10^3/uL (0.0-0.3); EOSINOPHILS % (AUTO) 8 % (0-10); HEMATOCRIT 33 % (40-54); HEMOGLOBIN 10.8 g/dL (13.3-17.7); LYMPHOCYTES # (AUTO) 0.9 10^3/uL (1.0-4.0); LYMPHOCYTES % (AUTO) 26 % (12-44); MEAN CORPUSCULAR HEMOGLOBIN 29 pg (25-34); MEAN CORPUSCULAR HGB CONC 32 g/dL (32-36); MEAN CORPUSCULAR VOLUME 91 fL (80-99); MEAN PLATELET VOLUME 9.7 fL (9.0-12.2); MONOCYTES # (AUTO) 0.4 10^3/uL (0.0-1.0); MONOCYTES % (AUTO) 13 % (0-12); NEUTROPHILS # (AUTO) 1.8 10^3/uL (1.8-7.8); NEUTROPHILS % (AUTO) 53 % (42-75); PLATELET COUNT 143 10^3/uL (130-400); WHITE BLOOD COUNT 3.4 10^3/uL (4.3-11.0)
[2022-09-23 06:02] LABS: ALBUMIN 2.4 GM/DL (3.2-4.5); BILIRUBIN,TOTAL 0.9 MG/DL (0.1-1.0); CALCIUM 7.8 MG/DL (8.5-10.1); CREATININE SERUM 0.78 MG/DL (0.60-1.30); POTASSIUM 4.3 MMOL/L (3.6-5.0); TOTAL PROTEIN 5.3 GM/DL (6.4-8.2)
[2022-09-23] MEDS: MULTIVIT W/MINERALS TAB (THERAGRAN M) PO SCH (06:19)
--- NOTE | 2022-09-23 07:49 | Progress Note - Surgery ---
CB YEUNG 09/23/22 0749: Subjective Date Seen by a Provider: Sep 23, 2022 Time Seen by a Provider: 07:00 Subjective/Events-last exam Patient is awake and alert eating breakfast this morning, no family at bedside. Patient reports that he is still experiencing some pain in his left lower extremity, but that it seems to be improving and is only slightly tender to palpation today. The patient has not tried ambulating today or last night, states he is apprehensive about the pain. The patient's incision is packed and a new dressing was applied while in the room, there is a small amount of bloody drainage from the incision and on the old dressing. The erythema and swelling of the left lower extremity has improved from yesterday. Today, the patient's main complaint is reflux, which he states started this morning and did have a small amount of emesis just before being seen by PT. Patient has no other complaints. Review of Systems General: No Chills, No Night Sweats HEENT: No Head Aches, No Visual Changes Pulmonary: No Dyspnea, No Cough Cardiovascular: No: Chest Pain, Palpitations Gastrointestinal: Nausea (states due to reflux), Vomiting (states due to reflux); No: Abdominal Pain Genitourinary: No Dysuria, No Frequency Musculoskeletal: No: neck pain, back pain Neurological: No: Weakness, Numbness Objective Exam Vital Signs Date Time Temp Pulse Resp B/P (MAP) Pulse Ox O2 Delivery O2 Flow Rate FiO2 09/23/22 04:33 37.0 09/23/22 03:55 37.7 09/23/22 01:00 84 09/23/22 00:00 36.4 83 14 98/63 (75) 95 High Flow N/C 7.00 09/22/22 20:00 94 High Flow N/C 7.00 09/22/22 20:00 80 12 107/63 (78) 100 High Flow N/C 8.00 09/22/22 19:00 81 09/22/22 15:35 36.3 75 12 117/65 (82) 100 High Flow N/C 8.00 09/22/22 14:30 82 12 109/54 (72) 98 High Flow N/C 8.00 09/22/22 13:30 75 13 99/52 (68) 99 High Flow N/C 8.00 09/22/22 12:30 36.4 70 10 103/52 (69) 91 High Flow N/C 8.00 09/22/22 12:00 78 12 94/54 (67) 90 High Flow N/C 8.00 09/22/22 11:30 90 22 102/53 (69) 94 High Flow N/C 7.00 09/22/22 11:15 85 25 108/61 (77) 98 High Flow N/C 6.00 09/22/22 11:00 76 20 112/50 (70) 100 High Flow N/C 7.00 09/22/22 10:45 70 20 108/60 (76) 100 High Flow N/C 10.00 09/22/22 10:36 36.6 80 94 09/22/22 10:30 70 22 108/60 (76) 90 High Flow N/C 10.00 09/22/22 10:25 Nasal Cannula 5.00 09/22/22 10:25 36.5 68 20 98/63 (75) 90 High Flow N/C 10.00 09/22/22 10:20 36.6 20 101/60 (74) 94 Nasal Cannula 6.00 09/22/22 10:15 Nasal Cannula 6.00 09/22/22 10:10 20 101/60 (74) 94 Nasal Cannula 6.00 09/22/22 10:00 OxyMask 8.00 09/22/22 10:00 20 105/61 (76) 97 OxyMask 8.00 09/22/22 09:50 20 106/61 (76) 97 OxyMask 10.00 09/22/22 09:45 OxyMask 10.00 09/22/22 09:40 20 98/55 (69) 97 OxyMask 10.00 09/22/22 09:30 OxyMask 10.00 09/22/22 09:30 36.6 20 97/48 (64) 96 OxyMask 10.00 09/22/22 08:00 93 High Flow N/C 8.00 09/22/22 08:00 37.5 80 11 112/56 (74) 93 High Flow N/C 8.00 I & O 09/23/22 06:59 Intake Total 1427 ml Output Total 1750 ml Balance -323 ml Capillary Refill : Less Than 3 SecondsLess Than 3 Seconds General Appearance: No Apparent Distress, WD/WN HEENT: PERRL/EOMI, Other (Poor dentition) Neck: Non Tender, Supple Respiratory: Chest Non Tender, Lungs Clear, Normal Breath Sounds, No Accessory Muscle Use, No Respiratory Distress Cardiovascular: Regular Rate, Rhythm, No Murmur, Normal Peripheral Pulses Peripheral Pulses: 2+ Dorsalis Pedis (R), 2+ Left Dors-Pedis (L), 2+ Radial Pulses (R), 2+ Radial Pulses (L) Gastrointestinal: non tender, soft, no organomegaly Extremity: Other (Incision on left lateral leg packed and dressed, small amount of bloody drainage seen, erythema and edema surrounding this area improved from yesterday) Neurologic/Psychiatric: Alert, Oriented x3 Skin: Warm/Dry, Other (Area of erythema and swelling on the lateral left lower extremity around incision, improvijng from yesterday) Lymphatic: No Adenopathy (cervical) Results Lab Laboratory Tests 09/23/22 04:49: White Blood Count 3.4L, Red Blood Count 3.67L, Hemoglobin 10.8L, Hematocrit 33L, Mean Corpuscular Volume 91, Mean Corpuscular Hemoglobin 29, Mean Corpuscular Hemoglobin Concent 32, Red Cell Distribution Width 14.9H, Platelet Count 143, Mean Platelet Volume 9.7, Immature Granulocyte % (Auto) 0, Neutrophils (%) (Auto) 53, Lymphocytes (%) (Auto) 26, Monocytes (%) (Auto) 13H, Eosinophils (%) (Auto) 8, Basophils (%) (Auto) 1, Neutrophils # (Auto) 1.8, Lymphocytes # (Auto) 0.9L, Monocytes # (Auto) 0.4, Eosinophils # (Auto) 0.3, Basophils # (Auto) 0.0, Immature Granulocyte # (Auto) 0.0, Sodium Level 137, Potassium Level 4.3, Chloride Level 106, Carbon Dioxide Level 24, Anion Gap 7, Blood Urea Nitrogen 11, Creatinine 0.78, Estimat Glomerular Filtration Rate 103, BUN/Creatinine Ratio 14, Glucose Level 93, Calcium Level 7.8L, Corrected Calcium 9.1, Total Bilirubin 0.9, Aspartate Amino Transf (AST/SGOT) 30, Alanine Aminotransferase (A LT/SGPT) 19, Alkaline Phosphatase 105, Total Protein 5.3L, Albumin 2.4L Microbiology 09/19/22 MRSA Screen - Final, Complete MRSA not isolated 09/19/22 Urine Culture - Final, Complete NO GROWTH 09/19/22 Blood Culture - Preliminary, Resulted No growth Assessment/Plan Assessment/Plan Assessment/Plan S/P I&D POD 1 Sepsis Methamphetamine use Reflux Continue IV abx Pain control Encourage patient to work with PT Dressing changed this morning, packing in place Consult Wound care Provide patient with wound care instructions Antacids as needed Clinical Quality Measures DVT/VTE Risk/Contraindication: Contraindications-Mechi: Other *list below* Other: presumed DVT with cellulitis in legs JOSUÉ CEDILLO DO 09/23/22 0939: Subjective Time Seen by a Provider: 09:24 Subjective/Events-last exam Pt seen and examined, no new changes. He has pain but it is basically controlled. Review of Systems Pulmonary: No Dyspnea, No Cough Cardiovascular: No: Chest Pain, Palpitations Gastrointestinal: Nausea (states due to reflux), Vomiting (states due to reflux); No: Abdominal Pain Objective Exam General Appearance: No Apparent Distress, WD/WN HEENT: PERRL/EOMI, Other (Poor dentition) Respiratory: Lungs Clear, Normal Breath Sounds, No Accessory Muscle Use, No Respiratory Distress Cardiovascular: Regular Rate, Rhythm, No Murmur Extremity: Other (Incision on left lateral leg packed and dressed, small amount of bloody drainage seen, erythema and edema surrounding this area improved from yesterday) Assessment/Plan Assessment/Plan Assessment/Plan S/P I&D POD 1 Sepsis Methamphetamine use Reflux Continue IV abx can switch to PO, Pain control, Encourage patient to work with PT Recommend dressing change daily and Consult Wound care Will sign off and can resee if necessary. Supervisory-Addendum Brief Verification & Attestation Participated in pt care: history, MDM, physical Personally performed: exam, history, MDM, supervision of care Care discussed with: Medical Student Procedures: n/a Verification and Attestation of Medical Student E/M Service A medical student performed and documented this service. I then reviewed and verified all information documented by the medical student and made modifications to such information, when appropriate. I personally performed a physical exam, medical decision making and then discussed any differences between the notes and made revisions as necessary to create one note. Josué Cedillo , 4/13/23 , 09:39 CB YEUNG Sep 23, 2022 07:49 JOSUÉ CEDILLO DO Sep 23, 2022 09:39
[2022-09-23 08:00] VITALS: BP 112/63
[2022-09-23] MEDS ORDERED: FUROSEMIDE 40 MG/4 ML INJ (LASIX) IVP NR (09:00)
[2022-09-23] MEDS: FOLIC ACID 1 MG TAB PO SCH (09:24)
[2022-09-23] MEDS: DOCUSATE SODIUM 100 MG (COLACE) CAP PO SCH ×2 (09:27→20:11)
[2022-09-23] MEDS: LACTULOSE SYRUP 10GM/15ML (ENULOSE) 30ML UDC PO SCH ×2 (09:27→20:11)
[2022-09-23] MEDS: SENNOSIDES 8.6 MG (SENOKOT) TAB PO SCH ×2 (09:27→20:11)
[2022-09-23] MEDS: ENOXAPARIN 100 MG/1 ML (LOVENOX) SYR SC SCH ×2 (09:32→20:11)
--- NOTE | 2022-09-23 10:20 | Anesthesia-General Post-Op ---
General Patient Condition Mental Status/LOC: Same as Preop Cardiovascular: Satisfactory Nausea/Vomiting: Absent Respiratory: Satisfactory Pain: Controlled Complications: Absent Post Op Complications Complications None Follow Up Care/Instructions Patient Instructions None needed. Anesthesia/Patient Condition Patient Condition Patient is doing well, no complaints, stable vital signs, no apparent adverse anesthesia problems. No complications reported per nursing. KAE GONZALEZ CRNA Sep 23, 2022 10:20
--- NOTE | 2022-09-23 10:33 | Progress Note ---
Subjective Subjective/Events-last exam Patient doing better this AM. States that his leg is sore. Tolerating PO diet. Has not participated with PT since arriving and discussed that he needs to start getting up with PT to get ready to go home. Review of Systems Pulmonary: No Dyspnea, No Cough Cardiovascular: No: Chest Pain, Palpitations Gastrointestinal: No: Nausea, Vomiting, Abdominal Pain Musculoskeletal: leg pain Neurological: Weakness, Incoordination Objective Exam Last Set of Vital Signs Vital Signs Date Time Temp Pulse Resp B/P (MAP) Pulse Ox O2 Delivery O2 Flow Rate FiO2 09/23/22 08:00 36.7 93 Room Air 09/23/22 08:00 70 11 112/63 (79) 7.00 Capillary Refill : Less Than 3 SecondsLess Than 3 Seconds I&O Intake and Output 09/22/22 23:59 Intake Total 1227 ml Output Total 2100 ml Balance -873 ml Intake Oral 1022 ml IV Total 205 ml Output Urine Total 2100 ml # Bowel Movements 1 General: Alert, Oriented X3, No Acute Distress Lungs: Other (Diffuse wheezing, normal work of breathing at rest) Heart: Regular Rate, No Murmurs Abdomen: Normal Bowel Sounds, Soft, No Tenderness, No Masses Extremities: Other (LLE: Swelling, erythema improving, moderat ttp) Neuro: Normal Speech Results/Procedures Lab Laboratory Tests 09/23/22 04:49: White Blood Count 3.4L, Red Blood Count 3.67L, Hemoglobin 10.8L, Hematocrit 33L, Mean Corpuscular Volume 91, Mean Corpuscular Hemoglobin 29, Mean Corpuscular Hemoglobin Concent 32, Red Cell Distribution Width 14.9H, Platelet Count 143, Mean Platelet Volume 9.7, Immature Granulocyte % (Auto) 0, Neutrophils (%) (Auto) 53, Lymphocytes (%) (Auto) 26, Monocytes (%) (Auto) 13H, Eosinophils (%) (Auto) 8, Basophils (%) (Auto) 1, Neutrophils # (Auto) 1.8, Lymphocytes # (Auto) 0.9L, Monocytes # (Auto) 0.4, Eosinophils # (Auto) 0.3, Basophils # (Auto) 0.0, Immature Granulocyte # (Auto) 0.0, Sodium Level 137, Potassium Level 4.3, Chloride Level 106, Carbon Dioxide Level 24, Anion Gap 7, Blood Urea Nitrogen 11, Creatinine 0.78, Estimat Glomerular Filtration Rate 103, BUN/Creatinine Ratio 14, Glucose Level 93, Calcium Level 7.8L, Corrected Calcium 9.1, Total Bilirubin 0.9, Aspartate Amino Transf (AST/SGOT) 30, Alanine Aminotransferase (ALT/SGPT) 19, Alkaline Phosphatase 105, Total Protein 5.3L, Albumin 2.4L Microbiology 09/19/22 MRSA Screen - Final, Complete MRSA not isolated 09/19/22 Urine Culture - Final, Complete NO GROWTH 09/19/22 Blood Culture - Preliminary, Resulted No growth Assessment/Plan Assessment/Plan (1) Cellulitis of left lower extremity Status: Acute Assessment & Plan: 09/21: Consulted to Gen Surg for I&D, continue antibiotics 09/23: POD#1, redness and swelling improving, Discussed the importance of getting up with PT, will transfer to 4th floor (2) Normocytic anemia Status: Acute Assessment & Plan: - No signs of acute bleeding, patient does have h/o esophageal varices requiring banding 09/23: Stable (3) Hyperammonemia Status: Acute (4) Alcoholic cirrhosis of liver Status: Chronic Qualifiers: Qualified Codes: K70.30 - Alcoholic cirrhosis of liver without ascites (5) Hypoxic brain injury Status: Chronic Assessment & Plan: - Possible h/o seizures, med list does not list any sz meds, will f.u with PCP (6) Methamphetamine use Status: Acute (7) Altered mental status Status: Resolved Assessment & Plan: - Infection vs polysubstance abuse vs hepatic encephalopathy, restart home lactulose as ammonia is elevated, continue IV antibiotics and IV hydration and continue to monitor for improvement 09/21: Seems to be at baseline Qualifiers: Qualified Codes: R41.0 - Disorientation, unspecified Clinical Quality Measures DVT/VTE Risk/Contraindication: Contraindications-Mechi: Other *list below* Other: presumed DVT with cellulitis in legs EUNICE IVEY MD Sep 23, 2022 10:33
[2022-09-23] MEDS: VANCOMYCIN 1250MG/250ML PREMIX 250 ML IV SCH ×2 (10:57→22:03)
--- NOTE | 2022-09-23 11:34 | Physical Therapy Evaluation ---
PT Evaluation-General Medical Diagnosis Admission Date Sep 19, 2022 at 21:13 Medical Diagnosis: cellulitis/respiratory failure/hyperammonia Onset Date: Sep 19, 2022 Therapy Diagnosis Therapy Diagnosis: debility Precautions Precautions/Isolations: Seizure, Fall Prevention, Standard Precautions Referral Physician: Sachin Reason for Referral: Evaluation/Treatment Medical History Pertinent Medical History: Alcoholism, Smoking Additional Medical History seizures/polysubstance use Current History EMS secondary to being found in a ditch (seizure activity) Reviewed History: Yes Social History Home: Single Level Prior Prior Level of Function SCALE: Activities may be completed with or without assistive devices. 3-Bbxvtuamdf-yvcpckh completes the activity by him/herself with no assistance from a helper. 5-Set-up or Clean-up Assistance-helper sets up or cleans up; patient completes activity. [place] assists only prior to or following the activity. 4-Supervision or Touching Assistance-helper provides verbal cues and/or touching/steadying and/or contact guard assistance as patient completes activity. Assistance may be provided throughout the activity or intermittently. 3-Partial/Moderate Assistance-helper does LESS THAN HALF the effort. [place] lifts, holds or supports trunk or limbs, but provides less than half the effort. 2-Substantial/Maximal Assistance-helper does MORE THAN HALF the effort. [place] lifts or holds trunk or limbs and provides more than half the effort. 9-Wgzhhtqvi-fkkemr does ALL the effort. Patient does none of the effort to complete the activity. Or, the assistance of 2 or more helpers is required for the patient to complete the activity. If activity was not attempted, code reason: 7-Patient Refused. 9-Not Applicable-not attempted and the patient did not perform the activity before the current illness, exacerbation or injury. 10-Not Attempted due to Environmental Limitations-(lack of equipment, weather restraints, etc.). 88-Not Attempted due to Medical Conditions or Safety Concerns. Bed Mobility: 6 Transfers (B,C,W/C): 6 Gait: 6 Stairs: 6 Indoor Mobility (Ambulation): Independent Stairs: Independent Prior Devices Use: None PT Evaluation-Current Subjective Patient reluctantly agrees to PT. Objective Patient Orientation: Normal For Age ROM/Strength ROM Lower Extremities bilateral LE WFL Strength Lower Extremities 4/5 grossly bilateral LE all planes Integumentary/Posture Bowel Incontinence: No Bladder Incontinence: No Posture WFL Neuromuscular (Tone, Coordination, Reflexes) grossly intact Sensory Vision: Functional Hearing: Functional Transfers Lying to Sitting/Side of Bed(Q: 6 Sit to Stand (QC): 6 Chair/Mlu-xe-Rgmxr Xfer(QC): 6 Gait Mode of Locomotion: Walk Anticipated Mode of Locomotion: Walk Walk 10 feet (QC): 6 Walk 50 ft with 2 Turns(QC): 6 Walk 150 ft (QC): 6 Distance: 250' Gait Assistive Device: FWW Comments/Gait Description functional gait sequence Balance Sitting Static: Normal Sitting Dynamic: Normal Standing Static: Normal Standing Dynamic: Normal Assessment/Needs Patient will be seen x 2 sessions to ensure patient maintains independent LOF with all gross motor skills. Rehab Potential: Fair PT Short Term Goals Short Term Goals Time Frame: Sep 24, 2022 Roll Left & Right: 6 Sit to lyin Lying to sitting on side of be: 6 Sit to stand: 6 Chair/beq-nt-jjnlw transfer: 6 Toilet transfer: 6 Walk 10 feet: 6 Walk 50 feet with two turns: 6 Walk 150 feet: 6 PT Plan Treatment/Plan Treatment Plan: Continue Plan of Care Treatment Plan: Education, Functional Activity Bud, Gait Treatment Duration: Sep 24, 2022 Frequency: 2 times per week Estimated Hrs Per Day: .25 hour per day Patient and/or Family Agrees t: Yes Time Time In: 1055 Time Out: 1108 DATE: Sep 23, 2022 Total Billed Treatment Time: 13 Total Billed Treatment 1 visit EVModC 13 min ROCK HINTON PT Sep 23, 2022 11:34
[2022-09-23 11:55] VITALS: BP 107/61
[2022-09-23 16:20] VITALS: BP 107/63
[2022-09-23 19:34] VITALS: BP 109/62
[2022-09-23] MEDS: MELATONIN 3 MG TABLET PO PRN (20:12)
[2022-09-24 00:53] VITALS: BP 110/65
[2022-09-24 04:59] VITALS: BP 115/69
[2022-09-24 05:57] LABS: BASOPHILS % (AUTO) 1 % (0-10); EOSINOPHILS # (AUTO) 0.2 10^3/uL (0.0-0.3); EOSINOPHILS % (AUTO) 7 % (0-10); HEMATOCRIT 34 % (40-54); HEMOGLOBIN 11.2 g/dL (13.3-17.7); LYMPHOCYTES # (AUTO) 0.7 10^3/uL (1.0-4.0); LYMPHOCYTES % (AUTO) 21 % (12-44); MEAN CORPUSCULAR HEMOGLOBIN 30 pg (25-34); MEAN CORPUSCULAR HGB CONC 33 g/dL (32-36); MEAN CORPUSCULAR VOLUME 90 fL (80-99); MEAN PLATELET VOLUME 9.2 fL (9.0-12.2); MONOCYTES # (AUTO) 0.4 10^3/uL (0.0-1.0); MONOCYTES % (AUTO) 12 % (0-12); NEUTROPHILS # (AUTO) 2.1 10^3/uL (1.8-7.8); NEUTROPHILS % (AUTO) 60 % (42-75); PLATELET COUNT 124 10^3/uL (130-400); WHITE BLOOD COUNT 3.5 10^3/uL (4.3-11.0)
[2022-09-24 06:23] LABS: ALBUMIN 2.5 GM/DL (3.2-4.5); BILIRUBIN,TOTAL 1.3 MG/DL (0.1-1.0); CREATININE SERUM 0.65 MG/DL (0.60-1.30); TOTAL PROTEIN 5.8 GM/DL (6.4-8.2)
[2022-09-24] MEDS: predniSONE 20 MG TAB PO SCH (06:39)
[2022-09-24] MEDS: MULTIVIT W/MINERALS TAB (THERAGRAN M) PO SCH (06:39)
[2022-09-24 07:52] VITALS: BP 117/62
[2022-09-24] MEDS: ENOXAPARIN 100 MG/1 ML (LOVENOX) SYR SC SCH ×2 (09:30→21:26)
[2022-09-24] MEDS: LACTULOSE SYRUP 10GM/15ML (ENULOSE) 30ML UDC PO SCH ×2 (09:30→21:21)
[2022-09-24] MEDS: VANCOMYCIN 1250MG/250ML PREMIX 250 ML IV SCH (09:30)
[2022-09-24] MEDS: PIPERACILLIN SODIUM/TAZOBACTAM 4.5 GM in NS (IVPB) 100 ML IV SCH ×2 (09:30→17:35)
[2022-09-24] MEDS: SENNOSIDES 8.6 MG (SENOKOT) TAB PO SCH ×2 (09:30→21:21)
[2022-09-24] MEDS: FOLIC ACID 1 MG TAB PO SCH (09:30)
[2022-09-24] MEDS: DOCUSATE SODIUM 100 MG (COLACE) CAP PO SCH ×2 (09:30→21:21)
--- NOTE | 2022-09-24 10:13 | Physical Therapy Daily Note ---
PT Daily Note-Current Subjective Patient is very agreeable to participate with PT. Pain Section J - Health Conditions 1. Rarely or not at all 2. Occasionally 3. Frequently 4. Almost constantly 8. Unable to answer Pain Effect on Sleep: 2 Pain Interference with Therapy: 2 Pain Interference w/Day-to-Day: 2 Mental Status Patient Orientation: Normal For Age Attachments: Oxygen, IV Transfers SCALE: Activities may be completed with or without assistive devices. 5-Flxppbkrxi-aafxncp completes the activity by him/herself with no assistance from a helper. 5-Set-up or Clean-up Assistance-helper sets up or cleans up; patient completes activity. [place] assists only prior to or following the activity. 4-Supervision or Touching Assistance-helper provides verbal cues and/or touching/steadying and/or contact guard assistance as patient completes activity. Assistance may be provided throughout the activity or intermittently. 3-Partial/Moderate Assistance-helper does LESS THAN HALF the effort. [place] lifts, holds or supports trunk or limbs, but provides less than half the effort. 2-Substantial/Maximal Assistance-helper does MORE THAN HALF the effort. [place] lifts or holds trunk or limbs and provides more than half the effort. 2-Jbxajblze-ojmwau does ALL the effort. Patient does none of the effort to complete the activity. Or, the assistance of 2 or more helpers is required for the patient to complete the activity. If activity was not attempted, code reason: 7-Patient Refused. 9-Not Applicable-not attempted and the patient did not perform the activity befo re the current illness, exacerbation or injury. 10-Not Attempted due to Environmental Limitations-(lack of equipment, weather re straints, etc.). 88-Not Attempted due to Medical Conditions or Safety Concerns. Lying to Sitting/Side of Bed(Q: 6 Sit to Stand (QC): 6 Chair/Kpy-dg-Kafcw Xfer(QC): 6 Gait Training Distance: 300' Walk 10 feet (QC): 6 Walk 50 ft with 2 Turns(QC): 6 Walk 150 ft (QC): 6 Gait Assistive Device: FWW safe and functional with no deviation Assessment Patient and nursing staff have been instructed to ambulate in hallway PRN. Both voice understanding. PT to dismiss patient from services at this time. PT Short Term Goals Short Term Goals Time Frame: Sep 24, 2022 Roll Left & Right: 6 Sit to lyin Lying to sitting on side of be: 6 Sit to stand: 6 Chair/ygy-ph-cdngt transfer: 6 Toilet transfer: 6 Walk 10 feet: 6 Walk 50 feet with two turns: 6 Walk 150 feet: 6 PT Plan Treatment/Plan Treatment Plan: Discontinue PT, goals met Treatment Plan: Education, Functional Activity Bud, Gait Treatment Duration: Sep 24, 2022 Frequency: 2 times per week Estimated Hrs Per Day: .25 hour per day Patient and/or Family Agrees t: Yes Time Time In: 945 Time Out: 958 DATE: Sep 24, 2022 Total Billed Treatment Time: 14 Total Billed Treatment 1 visit FA 14 min ROCK HINTON PT Sep 24, 2022 10:13
[2022-09-24 11:03] VITALS: BP 117/58
--- NOTE | 2022-09-24 11:41 | Progress Note ---
Subjective Subjective/Events-last exam Patient feeling better. Has not been participating in PT. Tolerating PO diet. Review of Systems General: Fatigue, Malaise Pulmonary: Dyspnea; No Cough Cardiovascular: Edema; No: Chest Pain, Palpitations Gastrointestinal: No: Nausea, Vomiting, Abdominal Pain, Diarrhea, Constipation Neurological: Weakness, Incoordination Objective Exam Last Set of Vital Signs Vital Signs Date Time Temp Pulse Resp B/P (MAP) Pulse Ox O2 Delivery O2 Flow Rate FiO2 09/24/22 11:03 36.8 75 18 117/58 (77) 96 Nasal Cannula 5.00 Capillary Refill : Less Than 3 SecondsLess Than 3 Seconds I&O Intake and Output 09/24/22 00:00 Intake Total 2534 ml Output Total 4200 ml Balance -1666 ml Intake Oral 2184 ml IV Total 350 ml Output Urine Total 4200 ml General: Alert, Oriented X3, No Acute Distress Lungs: Other (Diffuse wheezing, normal work of breathing) Heart: Regular Rate, No Murmurs Abdomen: Normal Bowel Sounds, Soft, No Tenderness, No Masses Extremities: Other (swelling, erythema and ttp around abscess) Results/Procedures Lab Laboratory Tests 09/24/22 05:50: White Blood Count 3.5L, Red Blood Count 3.76L, Hemoglobin 11.2L, Hematocrit 34L, Mean Corpuscular Volume 90, Mean Corpuscular Hemoglobin 30, Mean Corpuscular Hemoglobin Concent 33, Red Cell Distribution Width 14.6H, Platelet Count 124L, Mean Platelet Volume 9.2, Immature Granulocyte % (Auto) 0, Neutrophils (%) (Auto) 60, Lymphocytes (%) (Auto) 21, Monocytes (%) (Auto) 12, Eosinophils (%) (Auto) 7, Basophils (%) (Auto) 1, Neutrophils # (Auto) 2.1, Lymphocytes # (Auto) 0.7L, Monocytes # (Auto) 0.4, Eosinophils # (Auto) 0.2, Basophils # (Auto) 0.0, Immature Granulocyte # (Auto) 0.0, Sodium Level 136, Potassium Level 4.0, Chloride Level 108H, Carbon Dioxide Level 20L, Anion Gap 8, Blood Urea Nitrogen 9, Creatinine 0.65, Estimat Glomerular Filtration Rate 109, BUN/Creatinine Ratio 14, Glucose Level 94, Calcium Level 8.0L, Corrected Calcium 9.2, Total Bilirubin 1.3H, Aspartate Amino Transf (AST/SGOT) 31, Alanine Aminotransferase (ALT/SGPT) 20, Alkaline Phosphatase 112, Total Protein 5.8L, Albumin 2.5L Microbiology 09/19/22 MRSA Screen - Final, Complete MRSA not isolated 09/19/22 Urine Culture - Final, Complete NO GROWTH 09/19/22 Blood Culture - Preliminary, Resulted No growth Assessment/Plan Assessment/Plan (1) Cellulitis of left lower extremity Status: Acute Assessment & Plan: 09/21: Consulted to Gen Surg for I&D, continue antibiotics 09/23: POD#1, redness and swelling improving, Discussed the importance of getting up with PT, will transfer to 4th floor 09/24: Having Pain in LE, encouraged ambulation (2) Normocytic anemia Status: Acute Assessment & Plan: - No signs of acute bleeding, patient does have h/o esophageal varices requiring banding 09/23: Stable (3) Hyperammonemia Status: Acute (4) Alcoholic cirrhosis of liver Status: Chronic Qualifiers: Qualified Codes: K70.30 - Alcoholic cirrhosis of liver without ascites (5) Hypoxic brain injury Status: Chronic Assessment & Plan: - Possible h/o seizures, med list does not list any sz meds, will f.u with PCP (6) Methamphetamine use Status: Acute (7) Altered mental status Status: Resolved Assessment & Plan: - Infection vs polysubstance abuse vs hepatic encep halopathy, restart home lactulose as ammonia is elevated, continue IV antibiotics and IV hydration and continue to monitor for improvement 09/21: Seems to be at baseline Qualifiers: Qualified Codes: R41.0 - Disorientation, unspecified Clinical Quality Measures DVT/VTE Risk/Contraindication: Contraindications-Mechi: Other *list below* Other: presumed DVT with cellulitis in legs EUNICE IVEY MD Sep 24, 2022 11:41
[2022-09-24 15:45] VITALS: BP 108/63
[2022-09-24 19:50] VITALS: BP 96/56
[2022-09-24] MEDS: CEPHALEXIN 250 MG (KEFLEX) CAP PO SCH (21:21)
[2022-09-25] VITALS: BP 104/52
[2022-09-25] MEDS: PIPERACILLIN SODIUM/TAZOBACTAM 4.5 GM in NS (IVPB) 100 ML IV SCH (00:53)
[2022-09-25 04:00] VITALS: BP 105/55
[2022-09-25 06:06] LABS: BASOPHILS % (AUTO) 1 % (0-10); LYMPHOCYTES % (AUTO) 28 % (12-44)
[2022-09-25 06:08] LABS: EOSINOPHILS # (AUTO) 0.2 10^3/uL (0.0-0.3); EOSINOPHILS % (AUTO) 6 % (0-10); HEMATOCRIT 32 % (40-54); HEMOGLOBIN 10.7 g/dL (13.3-17.7); MEAN CORPUSCULAR HEMOGLOBIN 30 pg (25-34); MEAN CORPUSCULAR HGB CONC 33 g/dL (32-36); MEAN CORPUSCULAR VOLUME 89 fL (80-99); MEAN PLATELET VOLUME 9.8 fL (9.0-12.2); MONOCYTES # (AUTO) 0.4 10^3/uL (0.0-1.0); MONOCYTES % (AUTO) 12 % (0-12); NEUTROPHILS # (AUTO) 1.9 10^3/uL (1.8-7.8); NEUTROPHILS % (AUTO) 54 % (42-75); PLATELET COUNT 133 10^3/uL (130-400); WHITE BLOOD COUNT 3.6 10^3/uL (4.3-11.0)
[2022-09-25] MEDS: MULTIVIT W/MINERALS TAB (THERAGRAN M) PO SCH (06:17)
[2022-09-25] MEDS: predniSONE 20 MG TAB PO SCH (06:17)
[2022-09-25 06:27] LABS: ALBUMIN 2.4 GM/DL (3.2-4.5); BILIRUBIN,TOTAL 0.7 MG/DL (0.1-1.0); CALCIUM 7.9 MG/DL (8.5-10.1); CREATININE SERUM 0.64 MG/DL (0.60-1.30); POTASSIUM 3.3 MMOL/L (3.6-5.0); TOTAL PROTEIN 5.5 GM/DL (6.4-8.2)
[2022-09-25 07:53] VITALS: BP 113/66
[2022-09-25] MEDS: LACTULOSE SYRUP 10GM/15ML (ENULOSE) 30ML UDC PO SCH ×2 (09:00→21:15)
[2022-09-25] MEDS: FOLIC ACID 1 MG TAB PO SCH (09:01)
[2022-09-25] MEDS: DOCUSATE SODIUM 100 MG (COLACE) CAP PO SCH ×2 (09:01→21:15)
[2022-09-25] MEDS: CEPHALEXIN 250 MG (KEFLEX) CAP PO SCH ×2 (09:01→21:16)
[2022-09-25] MEDS: SENNOSIDES 8.6 MG (SENOKOT) TAB PO SCH ×2 (09:01→21:15)
[2022-09-25] MEDS: ENOXAPARIN 100 MG/1 ML (LOVENOX) SYR SC SCH ×2 (09:01→21:16)
[2022-09-25 11:48] VITALS: BP 107/62
--- NOTE | 2022-09-25 12:06 | Progress Note - Hospitalist ---
Subjective HPI/CC On Admission Date Seen by Provider: Sep 25, 2022 Time Seen by Provider: 14:00 Subjective/Events-last exam Patient reports some intermittent generalized headache pain without photophobia or phonophobia. He asked for an MRI of the brain as he was concerned that he still had evidence for blood in the brain from trauma that had occurred roughly a year ago he denied numbness tingling or any change in strength. Staff reported that he had not mentioned any of this to them. He has had no night sweats chills fever still having leg pain and requesting pain medication for it although it is admittedly getting better. Objective Exam Vital Signs Vital Signs Date Time Temp Pulse Resp B/P (MAP) Pulse Ox O2 Delivery O2 Flow Rate FiO2 09/26/22 07:51 36.7 82 20 148/71 (96) 95 Nasal Cannula 4.00 Capillary Refill : Less Than 3 SecondsLess Than 3 Seconds General Appearance: No Apparent Distress, Anxious HEENT: PERRL/EOMI Neck: Full Range of Motion, Normal Inspection, Non Tender Respiratory: Chest Non Tender, Lungs Clear, Normal Breath Sounds, No Accessory Muscle Use, No Respiratory Distress Cardiovascular: Regular Rate, Rhythm, No Edema, No Gallop, No JVD, No Murmur Gastrointestinal: Normal Bowel Sounds, No Organomegaly, No Pulsatile Mass, Non Tender, Soft Extremity: Other (Left lower extremity bandaged no abnormalities noted above the bandaging no significant edema no erythema.) Neurologic/Psychiatric: Alert, Oriented x3, No Motor/Sensory Deficits, Normal Mood/Affect ( Other than being a little anxious) Results/Procedures Lab Laboratory Tests 09/26/22 05:27 Patient resulted labs reviewed. 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 Patient had been quite concerned that he still had complications of a subdural hematoma from trauma over a year ago. He did have CT head Done on the ninth of this month in the emergency room revealed no evidence for stroke intracranial hemorrhage subdural or mass effect. his chest is clear so we will initiate prednisone taper decreased to 30 mg from current 50 mg dose. (2) Normocytic anemia Status: Acute Assessment & Plan: - No signs of acute bleeding, patient does have h/o esophageal varices requiring banding 09/23: Stable (3) Hyperammonemia Status: Acute (4) Alcoholic cirrhosis of liver Status: Chronic Qualifiers: Qualified Codes: K70.30 - Alcoholic cirrhosis of liver without ascites (5) Hypoxic brain injury Status: Chronic Assessment & Plan: - Possible h/o seizures, med list does not list any sz meds, will f.u with PCP (6) Methamphetamine use Status: Acute (7) Altered mental status Status: Resolved Assessment & Plan: - Infection vs polysubstance abuse vs hepatic encephalopathy, restart home lactulose as ammonia is elevated, continue IV antibiotics and IV hydration and continue to monitor for improvement 09/21: Seems to be at baseline Qualifiers: Qualified Codes: R41.0 - Disorientation, unspecifie Clinical Quality Measures DVT/VTE Risk/Contraindication: Contraindications-Mechi: Other *list below* Other: presumed DVT with cellulitis in legs JIMI JARQUIN MD Sep 25, 2022 12:06
[2022-09-25] MEDS ORDERED: KCL 8 MEQ (MICRO K) TABLET PO ONE (12:15)
[2022-09-25 16:25] VITALS: BP 131/70
[2022-09-25 20:29] VITALS: BP 122/71
[2022-09-26 00:38] VITALS: BP 107/64
[2022-09-26 04:16] VITALS: BP 115/67
[2022-09-26] MEDS: KCL 8 MEQ (MICRO K) TABLET PO SCH (05:21)
[2022-09-26] MEDS: MULTIVIT W/MINERALS TAB (THERAGRAN M) PO SCH (05:21)
[2022-09-26 05:44] LABS: BASOPHILS % (AUTO) 1 % (0-10); EOSINOPHILS # (AUTO) 0.1 10^3/uL (0.0-0.3); EOSINOPHILS % (AUTO) 3 % (0-10); HEMATOCRIT 33 % (40-54); HEMOGLOBIN 10.7 g/dL (13.3-17.7); LYMPHOCYTES # (AUTO) 1.3 10^3/uL (1.0-4.0); LYMPHOCYTES % (AUTO) 29 % (12-44); MEAN CORPUSCULAR HEMOGLOBIN 30 pg (25-34); MEAN CORPUSCULAR HGB CONC 33 g/dL (32-36); MEAN CORPUSCULAR VOLUME 90 fL (80-99); MEAN PLATELET VOLUME 9.6 fL (9.0-12.2); MONOCYTES # (AUTO) 0.5 10^3/uL (0.0-1.0); MONOCYTES % (AUTO) 11 % (0-12); NEUTROPHILS # (AUTO) 2.6 10^3/uL (1.8-7.8); NEUTROPHILS % (AUTO) 57 % (42-75); PLATELET COUNT 150 10^3/uL (130-400); WHITE BLOOD COUNT 4.6 10^3/uL (4.3-11.0)
[2022-09-26 05:50] LABS: ALBUMIN 2.5 GM/DL (3.2-4.5); POTASSIUM 3.6 MMOL/L (3.6-5.0)
[2022-09-26 05:51] LABS: CALCIUM 7.9 MG/DL (8.5-10.1)
[2022-09-26 05:53] LABS: TOTAL PROTEIN 5.7 GM/DL (6.4-8.2)
[2022-09-26 05:54] LABS: BILIRUBIN,TOTAL 0.6 MG/DL (0.1-1.0)
[2022-09-26 05:56] LABS: CREATININE SERUM 0.62 MG/DL (0.60-1.30)
[2022-09-26] MEDS ORDERED: predniSONE 10 MG TAB PO SCH (07:00)
[2022-09-26 07:51] VITALS: BP 148/71
[2022-09-26] MEDS: CEPHALEXIN 250 MG (KEFLEX) CAP PO SCH ×2 (09:33→21:20)
[2022-09-26] MEDS: LACTULOSE SYRUP 10GM/15ML (ENULOSE) 30ML UDC PO SCH ×2 (09:33→21:20)
[2022-09-26] MEDS: SENNOSIDES 8.6 MG (SENOKOT) TAB PO SCH ×2 (09:34→21:20)
[2022-09-26] MEDS: FOLIC ACID 1 MG TAB PO SCH (09:34)
[2022-09-26] MEDS: DOCUSATE SODIUM 100 MG (COLACE) CAP PO SCH ×2 (09:34→21:20)
[2022-09-26] MEDS: ENOXAPARIN 100 MG/1 ML (LOVENOX) SYR SC SCH (09:36)
--- NOTE | 2022-09-26 10:50 | Progress Note - Hospitalist ---
Subjective HPI/CC On Admission Date Seen by Provider: Sep 26, 2022 Time Seen by Provider: 14:00 Subjective/Events-last exam Patient sleeping soundly was arousable mildly sedated without evidence for confusion. He was reassured about negative CT findings on admission. In discussion with staff about an hour before I came in he had been given oxycodone for leg pain with no other potentially sedating medication. He voiced no complaints. Objective Exam Vital Signs Vital Signs Date Time Temp Pulse Resp B/P (MAP) Pulse Ox O2 Delivery O2 Flow Rate FiO2 09/28/22 15:54 36.9 91 18 98/57 92 Nasal Cannula 4.00 Capillary Refill : Less Than 3 SecondsLess Than 3 Seconds General Appearance: No Apparent Distress Respiratory: Chest Non Tender, Lungs Clear, Normal Breath Sounds, No Accessory Muscle Use, No Respiratory Distress Cardiovascular: Regular Rate, Rhythm, No Edema, No Gallop, No JVD, No Murmur, Normal Peripheral Pulses Gastrointestinal: Normal Bowel Sounds, No Organomegaly, No Pulsatile Mass, Non Tender, Soft Extremity: Other ( Left lower extremity unremarkable above dressing unchanged from yesterday.) Results/Procedures Lab Patient resulted labs reviewed. 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 Patient had been quite concerned that he still had complications of a subdural hematoma from trauma over a year ago. He did have CT head Done on the th of this month in the emergency room revealed no evidence for stroke in tracranial hemorrhage subdural or mass effect. his chest is clear so we will initiate prednisone taper decreased to 30 mg from current 50 mg dose. 09/26 cellulitis improving social media marketer looking into [facility]dc placement continue antibiotics for now and continued prednisone taper for apparent acute COPD exacerbation.The patient has been on full dose Lovenox apparently for co ncerns over DVT however venogram was normal and CTA of the chest revealed no evidence for pulmonary embolism considering alcoholic liver disease with esophageal varices requiring banding in the past will discontinue full dose Lovenox replacing 40 mg every morning starting in the morning. (2) Normocytic anemia Status: Acute Assessment & Plan: - No signs of acute bleeding, patient does have h/o esophageal varices requiring banding 09/23: Stable (3) Hyperammonemia Status: Acute (4) Alcoholic cirrhosis of liver Status: Chronic Qualifiers: Qualified Codes: K70.30 - Alcoholic cirrhosis of liver without ascites (5) Hypoxic brain injury Status: Chronic Assessment & Plan: - Possible h/o seizures, med list does not list any sz meds, will f.u with PCP (6) Methamphetamine use Status: Acute (7) Altered mental status Status: Resolved Assessment & Plan: - Infection vs polysubstance abuse vs hepatic encephalopathy, restart home lactulose as ammonia is elevated, continue IV antibiotics and IV hydration and continue to monitor for improvement 09/21: Seems to be at baseline Qualifiers: Qualified Codes: R41.0 - Disorientation, unspecifie Clinical Quality Measures DVT/VTE Risk/Contraindication: Contraindications-Mechi: Other *list below* Other: presumed DVT with cellulitis in legs JIMI JARQUIN MD Sep 26, 2022 10:50
[2022-09-26 11:47] VITALS: BP 135/77
[2022-09-26] MEDS: HYDROcodone/APAP 5 MG/325 MG (LORTAB) TAB PO PRN ×3 (13:57→21:29)
[2022-09-26 16:56] VITALS: BP 131/56
[2022-09-26 19:30] VITALS: BP 115/69
[2022-09-27] VITALS (7 sets, daily range): BP systolic 100–127; BP diastolic 54–75
[2022-09-27 06:15] LABS: BASOPHILS % (AUTO) 1 % (0-10); EOSINOPHILS # (AUTO) 0.2 10^3/uL (0.0-0.3); EOSINOPHILS % (AUTO) 7 % (0-10); HEMATOCRIT 34 % (40-54); HEMOGLOBIN 11.1 g/dL (13.3-17.7); LYMPHOCYTES % (AUTO) 30 % (12-44); MEAN CORPUSCULAR HEMOGLOBIN 30 pg (25-34); MEAN CORPUSCULAR HGB CONC 33 g/dL (32-36); MEAN CORPUSCULAR VOLUME 91 fL (80-99); MEAN PLATELET VOLUME 9.7 fL (9.0-12.2); MONOCYTES # (AUTO) 0.5 10^3/uL (0.0-1.0); MONOCYTES % (AUTO) 15 % (0-12); NEUTROPHILS # (AUTO) 1.5 10^3/uL (1.8-7.8); NEUTROPHILS % (AUTO) 48 % (42-75); PLATELET COUNT 133 10^3/uL (130-400); WHITE BLOOD COUNT 3.2 10^3/uL (4.3-11.0)
[2022-09-27 06:23] LABS: ALBUMIN 2.5 GM/DL (3.2-4.5); POTASSIUM 3.6 MMOL/L (3.6-5.0)
[2022-09-27 06:24] LABS: CALCIUM 7.9 MG/DL (8.5-10.1)
[2022-09-27 06:26] LABS: TOTAL PROTEIN 5.6 GM/DL (6.4-8.2)
[2022-09-27 06:28] LABS: BILIRUBIN,TOTAL 0.5 MG/DL (0.1-1.0)
[2022-09-27 06:29] LABS: CREATININE SERUM 0.6 MG/DL (0.60-1.30)
[2022-09-27] MEDS: MULTIVIT W/MINERALS TAB (THERAGRAN M) PO SCH (06:43)
[2022-09-27] MEDS: KCL 8 MEQ (MICRO K) TABLET PO SCH (06:43)
[2022-09-27] MEDS: predniSONE 20 MG TAB PO SCH (06:43)
[2022-09-27] MEDS: HYDROcodone/APAP 5 MG/325 MG (LORTAB) TAB PO PRN ×2 (06:44→18:32)
[2022-09-27] MEDS ORDERED: HYPOCHLOROUS ACID/NaCl (VASHE) 250 ML IR PRN (10:00)
[2022-09-27] MEDS: DOCUSATE SODIUM 100 MG (COLACE) CAP PO SCH ×2 (10:17→22:15)
[2022-09-27] MEDS: CEPHALEXIN 250 MG (KEFLEX) CAP PO SCH ×2 (10:18→22:15)
[2022-09-27] MEDS: SENNOSIDES 8.6 MG (SENOKOT) TAB PO SCH ×2 (10:18→22:14)
[2022-09-27] MEDS: ENOXAPARIN 40 MG/0.4 ML (LOVENOX) SYR SC SCH (10:19)
[2022-09-27] MEDS: LACTULOSE SYRUP 10GM/15ML (ENULOSE) 30ML UDC PO SCH ×3 (10:20→22:07)
[2022-09-27] MEDS: FOLIC ACID 1 MG TAB PO SCH (10:28)
[2022-09-27] MEDS ORDERED: MULT-1137 PO (11:01)
[2022-09-27] MEDS ORDERED: POTA8CAP20 PO (11:01)
[2022-09-27] MEDS ORDERED: LACT20SO2 PO (11:01)
[2022-09-27] MEDS ORDERED: PRED10TA22 PO (11:01)
[2022-09-27] MEDS ORDERED: LEVE500T6 PO (11:01)
[2022-09-27] MEDS ORDERED: CEPH250C PO (11:01)
[2022-09-27] MEDS ORDERED: ACHD5005 PO (11:01)
--- NOTE | 2022-09-27 11:03 | D/C HH Face to Face Order ---
D/C Face to Face Orders Reconcile Patient Problems Problems Reviewed?: Yes Instructions for Patient Via [facility], Patient Instructions/FollowUp: PCP 1 week Physician to follow Patient: [facility] Discharge Diet for Home: No Restrictions Patient Problems: Leg wound Patient Data-Allergies,Ht & Wt Patient Allergies: Coded Allergies: NSAIDS (Non-Steroidal Anti-Inflamma (Verified Allergy, Unknown, 11/28/19) aspirin (Verified Allergy, Unknown, 09/19/22) Home Health Need/Face to Face Date of Face to Face: Sep 27, 2022 Clinical Findings: Generalized weakness and fatigue, Instability, Muscle weakness, Non-healing wound I have seen Pt [id number]: Yes Discharged To: Home Diagnosis/Conditions: Leg wound Patient is Homebound due to: Muscle weakness Homebound Status Due to the above stated illness, injury or surgical procedure (medical condition or diagnosis) and associated clinical findings, the patient is homebound because of his/her inability to leave home except with aid of a supportive device and/or person AND leaving the home requires a considerable and taxing effort or is medically contraindicated. Pt req the following assistanc: [facility] Nursing Orders Home Health Services Order: Nursing Services, Foreign Language Interpreter-Evaluate & Treat, Physical Therapy-Evaluate & Treat Home Health Infusion Therapy Line Start Date: Sep 20, 2022 Certify Stmt I certify that this patient is under my care and that I, a nurse practitioner or a physician; a assistant professor of theater working with me, had a face to face encounter that - meets the physician face to face encounter requirements with this patient as dated. ALLI CARBONE DO Sep 27, 2022 11:03
--- NOTE | 2022-09-27 11:03 | Discharge Summary ---
Discharge Summary Hospital Course Was the Problem List Reviewed?: Yes Problems/Dx: (1) Cellulitis of left lower extremity Status: Acute (2) Altered mental status Status: Resolved Qualifiers: Qualified Codes: R41.0 - Disorientation, unspecified (3) Methamphetamine dependence Status: Acute (4) Chronic liver disease Status: Acute Hospital Course Date of Admission: Sep 19, 2022 at 21:13 Admission Diagnosis : Family Physician/Provider: Tashia Kahn MD Date of Discharge: 09/27/22 Discharge Diagnosis: [ ] Hospital Course: Hospital Course: Mr. Norris is a 56 yo male admitted from 09/19-09/27 for cellulitis of left lower extremity. In ED patient was assessed after being found in a ditch and he was unsure of possible seizure. Upon admission patient had AMS. Infection vs polysubstance abuse vs hepatic encephalopathy. Pts home lactulose was started as his ammonia was elevated. Continued IV antibiotics and IV hydration. Pts mental status improved. During hospital stay incision and drainage of left lower extremity was performed. Post op showed improvement of redness and swelling. Pt continued to improve during hospital stay. Discharge to residential placement with continued antibiotics and prednisone taper for acute on chronic COPD exacerbation. On admission patient also had anemia with no signs of acute bleeding. Imagin/9 - CXR - Cardiomegaly and pulmonary venous congestion which may be related to mild congestive heart failure. Head CT - Stable CT scan of the head without acute abnormality detected. Chest/Thorax CTA - No CTA evidence of pulmonary embolism or other acute abnormality in the thorax apart from atelectasis. There isevidence of portal venous hypertension with TIPS stent in place. 09/20 - Venous Doppler study - Negative for deep venous thrombosis of the left leg. MATT PANTOJA Labs and Pending Lab Test: Laboratory Tests 09/27/22 05:53: White Blood Count 3.2L, Red Blood Count 3.68L, Hemoglobin 11.1L, Hematocrit 34L, Mean Corpuscular Volume 91, Mean Corpuscular Hemoglobin 30, Mean Corpuscular Hemoglobin Concent 33, Red Cell Distribution Width 14.4, Platelet Count 133, Mean Platelet Volume 9.7, Immature Granulocyte % (Auto) 0, Neutrophils (%) (Auto) 48, Lymphocytes (%) (Auto) 30, Monocytes (%) (Auto) 15H, Eosinophils (%) (Auto) 7, Basophils (%) (Auto) 1, Neutrophils # (Auto) 1.5L, Lymphocytes # (Auto) 1.0, Monocytes # (Auto) 0.5, Eosinophils # (Auto) 0.2, Basophils # (Auto) 0.0, Immature Granulocyte # (Auto) 0.0, Sodium Level 143, Potassium Level 3.6, Chloride Level 114H, Carbon Dioxide Level 22, Anion Gap 7, Blood Urea Nitrogen 8, Creatinine 0.60, Estimat Glomerular Filtration Rate 112, BUN/Creatinine Ratio 13, Glucose Level 93, Calcium Level 7.9L, Corrected Calcium 9.1, Total Bilirubin 0.5, Aspartate Amino Transf (AST/SGOT) 35H, Alanine Aminotransferase (ALT/SGPT) 25, Alkaline Phosphatase 108, Total Protein 5.6L, Albumin 2.5L Microbiology 09/19/22 MRSA Screen - Final, Complete MRSA not isolated 09/19/22 Urine Culture - Final, Complete NO GROWTH 09/19/22 Blood Culture - Final, Complete No growth Home Meds Active Lactulose 20 Gram/30 Ml Solution 60 Gm PO TID Prednisone 10 Mg Tab.ds.pk 10 Mg PO DAILY Take 2 tabs(20mg)daily,decrease by 1 tab(10MG) every other day Tab-A-Brayan Multivit with Iron (Multivitamin/Iron/Folic Acid) 18 Mg Iron-400 Mcg Tablet 1 Ea PO DAILY@0700 Potassium Chloride 8 Meq Capsule.er 8 Meq PO DAILY@0700 Levetiracetam 500 Mg Tablet 500 Mg PO BID Hydrocodone-Acetamin 5-325 mg (Hydrocodone/Acetaminophen) 5 Mg-325 Mg Tablet 2 Ea PO TID PRN Cephalexin 250 Mg Capsule 500 Mg PO BID Assessment/Pt Instructions PCP 1 week Discharge Planning: <30 minutes discharge planning Discharge Instructions Discharge Diet: No Restrictions Discharge Physical Examination Vital Signs Vital Signs Date Time Temp Pulse Resp B/P (MAP) Pulse Ox O2 Delivery O2 Flow Rate FiO2 09/27/22 08:49 92 Nasal Cannula 4.00 09/27/22 07:50 37.2 84 19 119/75 (90) General Appearance: No Apparent Distress, WD/WN, Chronically ill Respiratory: Lungs Clear, Normal Breath Sounds Cardiovascular: Regular Rate, Rhythm Skin: Rash (improved lower extremity cellulitis) Allergies: Coded Allergies: NSAIDS (Non-Steroidal Anti-Inflamma (Verified Allergy, Unknown, 11/28/19) aspirin (Verified Allergy, Unknown, 09/19/22) Discharge Summary Date of Admission Sep 19, 2022 at 21:13 Date of Discharge Discharge Date: Sep 27, 2022 Clinical Quality Measures DVT/VTE Risk/Contraindication: Contraindications-Mechi: Other *list below* Other: presumed DVT with cellulitis in legs LALI CARBONE DO Sep 27, 2022 11:03
--- NOTE | 2022-09-27 13:21 | Progress Note ---
MATT PANTOJA 09/27/22 1321: Progress Note Hospital Course: Mr. Norris is a 56 yo male admitted from 09/19-09/27 for cellulitis of left lower extremity. In ED patient was assessed after being found in a ditch and he was unsure of possible seizure. Upon admission patient had AMS. Infection vs polysubstance abuse vs hepatic encephalopathy. Pts home lactulose was started as his ammonia was elevated. Continued IV antibiotics and IV hydration. Pts mental status improved. During hospital stay incision and drainage of left lower extremity was performed. Post op showed improvement of redness and swelling. Pt continued to improve during hospital stay. Discharge to alf placement with continued antibiotics and prednisone taper for acute on chronic COPD exacerbation. On admission patient also had anemia with no signs of acute bleeding. Imagin/9 - CXR - Cardiomegaly and pulmonary venous congestion which may be related to mild congestive heart failure. Head CT - Stable CT scan of the head without acute abnormality detected. Chest/Thorax CTA - No CTA evidence of pulmonary embolism or other acute abnormality in the thorax apart from atelectasis. There isevidence of portal venous hypertension with TIPS stent in place. 09/20 - Venous Doppler study - Negative for deep venous thrombosis of the left leg. LIVIER CARBONE DO 09/28/22 0459: Supervisory-Addendum Brief Verification & Attestation Participated in pt care: history, MDM, physical Personally performed: exam, history, MDM, supervision of care Care discussed with: Medical Student Procedures: n/a Results interpretation: Verified all documentation Verification and Attestation of Medical Student E/M Service A medical student performed and documented this service in my presence. I reviewed and verified all information documented by the medical student and made modifications to such information, when appropriate. I personally performed the physical exam and medical decision making. Livier Carbone Sep 28, 2022,04:59 MATT PANTOJA Sep 27, 2022 13:21 LIVIER CARBONE DO Sep 28, 2022 04:59
[2022-09-28] MEDS: HYDROcodone/APAP 5 MG/325 MG (LORTAB) TAB PO PRN ×3 (00:10→14:41)
[2022-09-28 03:26] VITALS: BP 117/61
--- NOTE | 2022-09-28 05:02 | Discharge Summary ---
Discharge Summary Hospital Course Was the Problem List Reviewed?: Yes Problems/Dx: (1) Cellulitis of left lower extremity Status: Acute (2) Altered mental status Status: Resolved Qualifiers: Qualified Codes: R41.0 - Disorientation, unspecified (3) Methamphetamine dependence Status: Acute (4) Chronic liver disease Status: Acute Hospital Course Date of Admission: Sep 19, 2022 at 21:13 Admission Diagnosis : Family Physician/Provider: Tashia Kahn MD Date of Discharge: 09/28/22 Discharge Diagnosis: [ ] Hospital Course: Hospital Course: Hospital Course: Mr. Norris is a 56 yo male admitted from 09/19-09/27 for cellulitis of left lower extremity. In ED patient was assessed after being found in a ditch and he was unsure of possible seizure. Upon admission patient had AMS. Infection vs polysubstance abuse vs hepatic encephalopathy. Pts home lactulose was started as his ammonia was elevated. Continued IV antibiotics and IV hydration. Pts mental status improved. During hospital stay incision and drainage of left lower extremity was performed. Post op showed improvement of redness and swelling. Pt continued to improve during hospital stay. Discharge to shelter placement with continued antibiotics and prednisone taper for acute on chronic COPD exacerbation. On admission patient also had anemia with no signs of acute bleeding. Imagin/9 - CXR - Cardiomegaly and pulmonary venous congestion which may be related to mild congestive heart failure. Head CT - Stable CT scan of the head without acute abnormality detected. Chest/Thorax CTA - No CTA evidence of pulmonary embolism or other acute abnormality in the thorax apart from atelectasis. There isevidence of portal venous hypertension with TIPS stent in place. 09/20 - Venous Doppler study - Negative for deep venous thrombosis of the left leg. DC delayed by 1 day due to lack of transportation Labs and Pending Lab Test: Laboratory Tests 09/27/22 05:53: White Blood Count 3.2L, Red Blood Count 3.68L, Hemoglobin 11.1L, Hematocrit 34L, Mean Corpuscular Volume 91, Mean Corpuscular Hemoglobin 30, Mean Corpuscular Hemoglobin Concent 33, Red Cell Distribution Width 14.4, Platelet Count 133, Mean Platelet Volume 9.7, Immature Granulocyte % (Auto) 0, Neutrophils (%) (Auto) 48, Lymphocytes (%) (Auto) 30, Monocytes (%) (Auto) 15H, Eosinophils (%) (Auto) 7, Basophils (%) (Auto) 1, Neutrophils # (Auto) 1.5L, Lymphocytes # (Auto) 1.0, Monocytes # (Auto) 0.5, Eosinophils # (Auto) 0.2, Basophils # (Auto) 0.0, Immature Granulocyte # (Auto) 0.0, Sodium Level 143, Potassium Level 3.6, Chloride Level 114H, Carbon Dioxide Level 22, Anion Gap 7, Blood Urea Nitrogen 8, Creatinine 0.60, Estimat Glomerular Filtration Rate 112, BUN/Creatinine Ratio 13, Glucose Level 93, Calcium Level 7.9L, Corrected Calcium 9.1, Total Bilirubin 0.5, Aspartate Amino Transf (AST/SGOT) 35H, Alanine Aminotransferase (ALT/SGPT) 25, Alkaline Phosphatase 108, Total Protein 5.6L, Albumin 2.5L Microbiology 09/19/22 MRSA Screen - Final, Complete MRSA not isolated 09/19/22 Urine Culture - Final, Complete NO GROWTH 09/19/22 Blood Culture - Final, Complete No growth Home Meds Active Lactulose 20 Gram/30 Ml Solution 60 Gm PO TID Prednisone 10 Mg Tab.ds.pk 10 Mg PO DAILY Take 2 tabs(20mg)daily,decrease by 1 tab(10MG) every other day Tab-A-Brayan Multivit with Iron (Multivitamin/Iron/Folic Acid) 18 Mg Iron-400 Mcg Tablet 1 Ea PO DAILY@0700 Potassium Chloride 8 Meq Capsule.er 8 Meq PO DAILY@0700 Levetiracetam 500 Mg Tablet 500 Mg PO BID Hydrocodone-Acetamin 5-325 mg (Hydrocodone/Acetaminophen) 5 Mg-325 Mg Tablet 2 Ea PO TID PRN Cephalexin 250 Mg Capsule 500 Mg PO BID Assessment/Pt Instructions pcp 1 week Discharge Planning: <30 minutes discharge planning Discharge Instructions Discharge Diet: No Restrictions Discharge Physical Examination Vital Signs Vital Signs Date Time Temp Pulse Resp B/P (MAP) Pulse Ox O2 Delivery O2 Flow Rate FiO2 09/28/22 03:26 36.8 82 18 117/61 (79) 92 Nasal Cannula 4.00 4.00 Allergies: Coded Allergies: NSAIDS (Non-Steroidal Anti-Inflamma (Verified Allergy, Unknown, 11/28/19) aspirin (Verified Allergy, Unknown, 09/19/22) Discharge Summary Date of Admission Sep 19, 2022 at 21:13 Date of Discharge Discharge Date: Sep 27, 2022 Discharge Diagnosis (1) Cellulitis of left lower extremity Status: Acute (2) Altered mental status Status: Resolved Qualifiers: Qualified Codes: R41.0 - Disorientation, unspecified (3) Methamphetamine dependence Status: Acute (4) Chronic liver disease Status: Acute Clinical Quality Measures DVT/VTE Risk/Contraindication: Contraindications-Mechi: Other *list below* Other: presumed DVT with cellulitis in legs LALI CARBONE DO Sep 28, 2022 05:02
[2022-09-28] MEDS: predniSONE 20 MG TAB PO SCH (05:40)
[2022-09-28] MEDS: KCL 8 MEQ (MICRO K) TABLET PO SCH (05:40)
[2022-09-28] MEDS: MULTIVIT W/MINERALS TAB (THERAGRAN M) PO SCH (05:40)
[2022-09-28 05:54] LABS: BASOPHILS % (AUTO) 1 % (0-10); HEMOGLOBIN 11.3 g/dL (13.3-17.7); MONOCYTES # (AUTO) 0.3 10^3/uL (0.0-1.0)
[2022-09-28 05:55] LABS: EOSINOPHILS # (AUTO) 0.2 10^3/uL (0.0-0.3); EOSINOPHILS % (AUTO) 8 % (0-10); HEMATOCRIT 35 % (40-54); LYMPHOCYTES # (AUTO) 0.8 10^3/uL (1.0-4.0); LYMPHOCYTES % (AUTO) 35 % (12-44); MEAN CORPUSCULAR HEMOGLOBIN 29 pg (25-34); MEAN CORPUSCULAR HGB CONC 33 g/dL (32-36); MEAN CORPUSCULAR VOLUME 90 fL (80-99); MONOCYTES % (AUTO) 15 % (0-12); NEUTROPHILS % (AUTO) 42 % (42-75); PLATELET COUNT 135 10^3/uL (130-400); WHITE BLOOD COUNT 2.3 10^3/uL (4.3-11.0)
[2022-09-28 06:57] LABS: ALBUMIN 2.6 GM/DL (3.2-4.5); BILIRUBIN,TOTAL 0.8 MG/DL (0.1-1.0); CALCIUM 7.9 MG/DL (8.5-10.1); CREATININE SERUM 0.6 MG/DL (0.60-1.30); POTASSIUM 3.6 MMOL/L (3.6-5.0); TOTAL PROTEIN 5.8 GM/DL (6.4-8.2)
[2022-09-28 07:25] VITALS: BP 127/64
[2022-09-28] MEDS: LACTULOSE SYRUP 10GM/15ML (ENULOSE) 30ML UDC PO SCH ×3 (09:00→14:41)
[2022-09-28] MEDS: CEPHALEXIN 250 MG (KEFLEX) CAP PO SCH ×2 (09:00→09:43)
[2022-09-28] MEDS: DOCUSATE SODIUM 100 MG (COLACE) CAP PO SCH ×2 (09:00→09:43)
[2022-09-28] MEDS: SENNOSIDES 8.6 MG (SENOKOT) TAB PO SCH ×2 (09:42→12:11)
[2022-09-28] MEDS: FOLIC ACID 1 MG TAB PO SCH ×2 (09:42→12:10)
[2022-09-28] MEDS: ENOXAPARIN 40 MG/0.4 ML (LOVENOX) SYR SC SCH ×2 (09:42→12:11)
[2022-09-28 11:07] VITALS: BP 98/57
[2022-09-28 15:54] VITALS: BP 98/57
== END 2022-09-28 15:35 | disposition home health service (06) | DRG 872 ==
LOC: EDUNIT# 17:25 → ER 17:26 → OBSVTOIN 21:13 → CSD 21:13 → 4TH 09-23 15:37
PROVIDERS: ADMIT Internal Medicine; ATTEND Internal Medicine
PROC: 0J9R0ZZ Drainage of Left Foot Subcutaneous Tissue and Fascia, Open Approach (ICD-10-PCS; principal; 2022-09-22 08:59)
DX: A41.9 Sepsis, unspecified organism (principal); L03.116 Cellulitis of left lower limb; F15.20 Other stimulant dependence, uncomplicated; J44.1 Chronic obstructive pulmonary disease with (acute) exacerbation; E72.20 Disorder of urea cycle metabolism, unspecified; G93.1 Anoxic brain damage, not elsewhere classified; L02.416 Cutaneous abscess of left lower limb; D64.9 Anemia, unspecified; K70.30 Alcoholic cirrhosis of liver without ascites; F17.210 Nicotine dependence, cigarettes, uncomplicated; Z20.822 Contact with and (suspected) exposure to COVID-19; G40.909 Epilepsy, unspecified, not intractable, without status epilepticus; G89.29 Other chronic pain; M54.9 Dorsalgia, unspecified; F90.9 Attention-deficit hyperactivity disorder, unspecified type; Z91.148 Patient's other noncompliance with medication regimen for other reason
CPT/HCPCS: 36415; 36600; 70450; 71045; 71275; 80053; 80202; 80306; 80320; 80329; 81000; 82140; 82150; 82550; 82553; 82805; 83605; 83690; 83735; 83874; 83880; 84443; 84484; 85025; 85379; 85610; 85652; 85730; 86141; 87040; 87081; 87088; 87636; 93005; 93041; 94760; 94761; 96365; 96367

== ENCOUNTER 2022-10-29 16:47 | Inpatient (IN) | payer MEDICAID, MEDICARE ==
[~2022-10-29] VITALS: Ht 177.8 cm; Wt 79.5 kg
[~2022-10-29 16:47] MED LIST changes: +CEPH250C PO; +LEVE500T6 PO; +MULT-1137 PO; +POTA8CAP20 PO; +PRED10TA22 PO
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
[2022-10-29 17:29] LABS: BASOPHILS % (AUTO) 1 % (0-10); EOSINOPHILS # (AUTO) 0.2 10^3/uL (0.0-0.3); EOSINOPHILS % (AUTO) 6 % (0-10); HEMATOCRIT 36 % (40-54); HEMOGLOBIN 11.7 g/dL (13.3-17.7); LYMPHOCYTES # (AUTO) 0.9 10^3/uL (1.0-4.0); LYMPHOCYTES % (AUTO) 30 % (12-44); MEAN CORPUSCULAR HEMOGLOBIN 29 pg (25-34); MEAN CORPUSCULAR HGB CONC 33 g/dL (32-36); MEAN CORPUSCULAR VOLUME 89 fL (80-99); MEAN PLATELET VOLUME 9.4 fL (9.0-12.2); MONOCYTES # (AUTO) 0.4 10^3/uL (0.0-1.0); MONOCYTES % (AUTO) 12 % (0-12); NEUTROPHILS # (AUTO) 1.6 10^3/uL (1.8-7.8); NEUTROPHILS % (AUTO) 51 % (42-75); PLATELET COUNT 110 10^3/uL (130-400); WHITE BLOOD COUNT 3.1 10^3/uL (4.3-11.0)
[2022-10-29 17:30] LABS: BILIRUBIN,URINE NEGATIVE (NEGATIVE); CLARITY,URINE CLEAR; COLOR,URINE YELLOW; GLUCOSE, URINE (UA) NEGATIVE (NEGATIVE); KETONES,URINE NEGATIVE (NEGATIVE); LEUKOCYTE ESTERASE ,URINE NEGATIVE (NEGATIVE); NITRITE,URINE NEGATIVE (NEGATIVE); PH,URINE 7.5 (5-9); PROTEIN,URINE NEGATIVE (NEGATIVE)
[2022-10-29 17:35] LABS: INR 1.3 (0.8-1.4); PROTHROMBIN TIME PATIENT 16.3 SEC (12.2-14.7)
[2022-10-29 17:36] LABS: ALBUMIN 2.9 GM/DL (3.2-4.5); POTASSIUM 3.6 MMOL/L (3.6-5.0)
[2022-10-29 17:37] LABS: CALCIUM 7.8 MG/DL (8.5-10.1)
[2022-10-29 17:39] LABS: TOTAL PROTEIN 6.7 GM/DL (6.4-8.2)
[2022-10-29 17:42] LABS: CREATININE SERUM 0.69 MG/DL (0.60-1.30)
[2022-10-29 17:51] LABS: AMORPHOUS SEDIMENT,UR MOD AMOR PHOSPHATE /LPF; BACTERIA,URINE NEGATIVE /HPF; SQUAMOUS EPITHELIAL CELL,UR RARE /HPF; WBC,URINE 0-2 /HPF
[2022-10-29] MEDS ORDERED: NS IV 1000 ML 1,000 ML IV STA (17:54)
--- NOTE | 2022-10-29 18:01 | Diagnostic Imaging Report ---
INDICATION: Shortness of breath. COMPARISON: 09/19/2022. TECHNIQUE: Single radiograph of the chest dated 10/29/2022. FINDINGS: The cardiac silhouette is enlarged. Central pulmonary vascular congestion is present, increased since the prior examination. Diffuse prominence of the pulmonary interstitium without additional focal consolidation. No significant pleural effusion. No pneumothorax. No acute osseous abnormality. IMPRESSION: Constellation of findings likely related to congestive heart failure with associated interstitial edema. Dictated by: Dictated on workstation # [id number]
[2022-10-29] MEDS ORDERED: LACTATED RINGERS 1,000 ML IV ONE (18:30)
[2022-10-29 18:44] LABS: AMPHETAMINE SCREEN, URINE NEGATIVE (NEGATIVE); BARBITURATE SCREEN URINE NEGATIVE (NEGATIVE); BENZODIAZEPINES SCREEN URINE NEGATIVE (NEGATIVE); CANNABINOID SCREEN, URINE NEGATIVE (NEGATIVE); COCAINE SCREEN URINE NEGATIVE (NEGATIVE); METHADONE STAT NEGATIVE (NEGATIVE); OPIATE SCREEN URINE NEGATIVE (NEGATIVE); OXYCODONE STAT NEGATIVE (NEGATIVE); PROPOXYPHENE STAT NEGATIVE (NEGATIVE); TRICYCLIC ANTIDEPRESSANTS SCRE NEGATIVE (NEGATIVE)
[2022-10-29] MEDS ORDERED: HOLD METFORMIN - RECEIVED CONTRAST 20 ML VIAL IV SCH (19:00)
[2022-10-29] MEDS ORDERED: NS 100 ML (IVPB) BAG IV ONE (19:00)
[2022-10-29] MEDS ORDERED: IOHEXOL 350 MG/ML 100 ML (OMNIPAQUE 350) VIAL IV ONE (19:00)
--- NOTE | 2022-10-29 20:04 | Diagnostic Imaging Report ---
INDICATION: Homeless patient. Low O2 saturation. Rash along the torso. Wound left lower extremity. EXAMINATION: CTA of the chest with contrast 10/29/2022 COMPARISON: 09/19/2022 FINDINGS: There is somewhat poor opacification of the pulmonary arteries especially the more peripheral vessels. No central pulmonary embolus is appreciated. No proximal segmental pulmonary emboli appreciated with the peripheral vessels poorly evaluated due to poor opacification. There is mild atherosclerotic disease along the visualized aorta with no acute abnormality appreciated. There are a few prominent lymph nodes within the AP window and precarinal region. A likely prominent lymph node is seen in the sub-carinal region measuring approximately 2.4 cm in greatest dimension. There is mild wall thickening throughout the course of the esophagus which could be due to under distention with esophagitis not excluded. There is no pericardial effusion. No significant pleural effusions. Within the lungs, diffuse bilateral posterior lower lobe areas of atelectasis or scarring noted. Diffusely coarsened interstitial markings seen throughout both lungs suspicious for pulmonary edema. A nodule in the superior segment of the right lower lobe seen on image #58 measures 6.5 mm. Multiple small subpleural nodule seen throughout the lateral aspect of the right upper lobe. Similar findings to a lesser degree in the left upper lobe. Visualized upper abdomen demonstrates a stent in the right upper quadrant possibly due to prior TIPS; correlate with history. Mild lobularity of the liver suggests the possible underlying history of cirrhosis. There is splenomegaly. There is marked dilatation of the main portal vein poorly evaluated due to poor opacification in the venous phase. Pancreas somewhat obscured by the prominent vasculature in the region. Nonspecific prominent lymph nodes noted in the left aspect of the visualized retroperitoneum. There is a hypodensity in the left kidney presumably a cyst but slightly increased in size from previous imaging. This could be followed non-emergently with sonography or CT imaging. There is no acute osseous abnormality. IMPRESSION: 1. No central or proximal segmental pulmonary emboli with the peripheral vessels poorly evaluated due to poor opacification. 2. Nonspecific mediastinal and retroperitoneal adenopathy; follow-up recommended to assure resolution. 3. Findings within the lungs suspicious for edema or atypical viral type infection. Scattered bibasilar atelectasis with early infiltrates less likely. 4. Lung nodules described above which should be followed at a six-month interval to assure stability. 5. Findings in the upper abdomen as discussed above. Dictated by: Dictated on workstation # [id number]
[2022-10-29] MEDS ORDERED: CEFEPIME INJECTION 1,000 MG in NS (IVPB) 50 ML IV ONE (20:15)
[2022-10-29] MEDS ORDERED: FUROSEMIDE 40 MG/4 ML INJ (LASIX) IVP ONE (20:15)
[2022-10-29] MEDS ORDERED: KCL 10 MEQ TAB (MICRO K) PO ONE (20:15)
[2022-10-29 20:31] LABS: AMMONIA 97 UMOL/L (11-32); MAGNESIUM 1.6 MG/DL (1.6-2.4)
[2022-10-29 21:40] VITALS: BP 139/78
[2022-10-29 21:59] VITALS: BP 135/87
[2022-10-29] MEDS ORDERED: RT-ALBUTEROL SULF 2.5 MG/3 ML PRE-MIX VIAL INH PRN (22:00)
[2022-10-29 23:04] VITALS: BP 119/63
[2022-10-30] MEDS: 1/2 NS IV SOLUTION 1,000 ML IV SCH ×2 (02:10→13:09)
[2022-10-30 04:02] VITALS: BP 134/60
[2022-10-30 06:16] LABS: BASOPHILS % (AUTO) 1 % (0-10); NEUTROPHILS # (AUTO) 1.1 10^3/uL (1.8-7.8)
[2022-10-30 06:18] LABS: EOSINOPHILS % (AUTO) 0 % (0-10); HEMATOCRIT 37 % (40-54); HEMOGLOBIN 12.4 g/dL (13.3-17.7); LYMPHOCYTES # (AUTO) 0.5 10^3/uL (1.0-4.0); LYMPHOCYTES % (AUTO) 30 % (12-44); MEAN CORPUSCULAR HEMOGLOBIN 29 pg (25-34); MEAN CORPUSCULAR HGB CONC 33 g/dL (32-36); MEAN CORPUSCULAR VOLUME 88 fL (80-99); MEAN PLATELET VOLUME 9.8 fL (9.0-12.2); MONOCYTES # (AUTO) 0.1 10^3/uL (0.0-1.0); MONOCYTES % (AUTO) 4 % (0-12); NEUTROPHILS % (AUTO) 66 % (42-75); PLATELET COUNT 116 10^3/uL (130-400); WHITE BLOOD COUNT 1.7 10^3/uL (4.3-11.0)
[2022-10-30 06:58] LABS: POTASSIUM 3.7 MMOL/L (3.6-5.0)
[2022-10-30 06:59] LABS: CALCIUM 7.9 MG/DL (8.5-10.1)
[2022-10-30 07:03] LABS: CREATININE SERUM 0.63 MG/DL (0.60-1.30)
[2022-10-30 07:05] LABS: LYMPHOCYTES % (MANUAL) 23 %; MONOCYTES % (MANUAL) 15 %; NEUTROPHILS % (MANUAL) 62 %; PLATELET ESTIMATE DECREASED
[2022-10-30 07:06] LABS: RBC MORPH NORMAL
--- NOTE | 2022-10-30 08:06 | Diagnostic Imaging Report ---
INDICATION: Respiratory failure. Comparison is made with prior exam of 10/29/2022. FINDINGS: The heart size is normal. There are bibasilar pulmonary infiltrates. There is some venous congestion. There is no pleural effusion or pneumothorax. The mediastinum is unremarkable. IMPRESSION: Patchy bibasilar pulmonary infiltrates with some mild central pulmonary venous congestion. Dictated by: Dictated on workstation # [id number]
[2022-10-30 08:21] VITALS: BP 122/69
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
[2022-10-30 11:47] VITALS: BP 125/71
[2022-10-30] MEDS: ACETAMINOPHEN 500 MG TAB (TYLENOL) PO PRN (13:09)
[2022-10-30 16:00] VITALS: BP 129/67
[2022-10-30] MEDS: fentaNYL INJ 100 MCG/2 ML AMP IV PRN ×2 (16:21→21:10)
[2022-10-30 20:00] VITALS: BP 103/64
[2022-10-31] VITALS (7 sets, daily range): BP systolic 112–143; BP diastolic 56–79
[2022-10-31] MEDS: fentaNYL INJ 100 MCG/2 ML AMP IV PRN ×3 (06:40→20:10)
[2022-10-31] MEDS: 1/2 NS IV SOLUTION 1,000 ML IV SCH (09:42)
[2022-10-31] MEDS ORDERED: LACTULOSE SYRUP 10GM/15ML (ENULOSE) 30ML UDC PO SCH (11:15)
[2022-10-31] MEDS: HYPOCHLOROUS ACID/NaCl (VASHE) 250 ML IR PRN (12:31)
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
[2022-10-31] MEDS ORDERED: LACTULOSE SYRUP 10GM/15ML (ENULOSE) 30ML UDC PO NR (13:30)
[2022-10-31] MEDS: ONDANSETRON 4 MG/2 ML (SDV) Z0FRAN IV PRN ×2 (16:26→20:10)
[2022-10-31] MEDS ORDERED: APIXABAN 5 MG (ELIQUIS) TABLET PO ONE (20:00)
[2022-10-31] MEDS ORDERED: MILK OF MAGNESIA 400 MG/5 ML 30 ML UDC PO PRN (20:00)
[2022-10-31] MEDS ORDERED: MILK OF MAGNESIA 400 MG/5 ML 30 ML UDC ONE (20:07)
[2022-10-31] MEDS ORDERED: APIXABAN 5 MG (ELIQUIS) TABLET ONE (20:08)
[2022-10-31] MEDS: NEO/POLY/BAC (NEOSPORIN) OINT 15 GM TUBE TOP SCH (20:20)
[2022-10-31] MEDS ORDERED: APIXABAN 5 MG (ELIQUIS) TABLET PO SCH (21:00)
[2022-10-31] MEDS: LACTULOSE SYRUP 10GM/15ML (ENULOSE) 30ML UDC PO SCH (22:28)
[2022-11-01] MEDS: MILK OF MAGNESIA 400 MG/5 ML 30 ML UDC PO PRN ×2 (01:34→19:45)
[2022-11-01 04:49] VITALS: BP 124/62
[2022-11-01] MEDS: fentaNYL INJ 100 MCG/2 ML AMP IV PRN ×3 (08:11→19:49)
[2022-11-01] MEDS: LACTULOSE SYRUP 10GM/15ML (ENULOSE) 30ML UDC PO SCH ×3 (08:11→19:46)
[2022-11-01] MEDS: NEO/POLY/BAC (NEOSPORIN) OINT 15 GM TUBE TOP SCH ×2 (08:12→19:46)
[2022-11-01] MEDS: HYPOCHLOROUS ACID/NaCl (VASHE) 250 ML IR PRN (08:12)
[2022-11-01 08:13] VITALS: BP 119/76
[2022-11-01] MEDS ORDERED: APIXABAN 5 MG (ELIQUIS) TABLET PO ONE (09:00)
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
--- NOTE | 2022-11-01 10:38 | Physical Therapy Evaluation ---
PT Evaluation-General Medical Diagnosis Admission Date October 29, 2022 at 20:58 Medical Diagnosis: respiratory failure Onset Date: October 29, 2022 Therapy Diagnosis Therapy Diagnosis: debility Precautions Precautions/Isolations: Fall Prevention, Standard Precautions Referral Physician: Louis Reason for Referral: Evaluation/Treatment Medical History Pertinent Medical History: Alcoholism, COPD, Smoking, TBI Additional Medical History seizure disorder/polysubstance use Current History EMS secondary to SOA and decreased SAO2 Reviewed History: Yes Social History Current Living Status: Homeless Prior Prior Level of Function SCALE: Activities may be completed with or without assistive devices. 7-Zucaufkmdk-iwftaoh completes the activity by him/herself with no assistance from a helper. 5-Set-up or Clean-up Assistance-helper sets up or cleans up; patient completes activity. [place] assists only prior to or following the activity. 4-Supervision or Touching Assistance-helper provides verbal cues and/or touching/steadying and/or contact guard assistance as patient completes activity. Assistance may be provided throughout the activity or intermittently. 3-Partial/Moderate Assistance-helper does LESS THAN HALF the effort. [place] lifts, holds or supports trunk or limbs, but provides less than half the effort. 2-Substantial/Maximal Assistance-helper does MORE THAN HALF the effort. [place] l ifts or holds trunk or limbs and provides more than half the effort. 2-Pltxtnuuk-zwptir does ALL the effort. Patient does none of the effort to complete the activity. Or, the assistance of 2 or more helpers is required for the patient to complete the activity. If activity was not attempted, code reason: 7-Patient Refused. 9-Not Applicable-not attempted and the patient did not perform the activity before the current illness, exacerbation or injury. 10-Not Attempted due to Environmental Limitations-(lack of equipment, weather restraints, etc.). 88-Not Attempted due to Medical Conditions or Safety Concerns. Bed Mobility: 6 Transfers (B,C,W/C): 6 Gait: 6 Indoor Mobility (Ambulation): Independent Prior Devices Use: Walker (4WW occasionally) PT Evaluation-Current Subjective Patient agrees to PT. Objective Patient Orientation: Person, Time, Situation Attachments: Oxygen ROM/Strength ROM Lower Extremities bilateral LE WFL Strength Lower Extremities 4/5 grossly bilateral LE all planes Integumentary/Posture Integumentary refer to nursing notes Bowel Incontinence: No Bladder Incontinence: No Posture WFL Neuromuscular (Tone, Coordination, Reflexes) grossly intact Sensory Vision: Functional Hearing: Functional Transfers Lying to Sitting/Side of Bed(Q: 6 Sit to Stand (QC): 5 Chair/Oue-rs-Ojrcg Xfer(QC): 5 Gait Mode of Locomotion: Walk Anticipated Mode of Locomotion: Walk Walk 10 feet (QC): 5 Walk 50 ft with 2 Turns(QC): 5 Walk 150 ft (QC): 5 Distance: >400' Gait Assistive Device: FWW Comments/Gait Description PT assist for O2 tank only/safe and functional gait sequence Balance Sitting Static: Normal Sitting Dynamic: Normal Standing Static: Normal Standing Dynamic: Normal Assessment/Needs Patient is currently at [facility] with all gross motor skills and does not require skilled PT intervention at this time. Rehab Potential: Fair PT Plan Treatment/Plan Treatment Plan: Discontinue PT Treatment Duration: November 01, 2022 Frequency: 1 time per week Estimated Hrs Per Day: .25 hour per day Patient and/or Family Agrees t: Yes Time Time In: 1015 Time Out: 1030 DATE: November 01, 2022 Total Billed Treatment Time: 15 Total Billed Treatment 1 visit [facility] 15 min ROCK HINTON PT November 01, 2022 10:38
--- NOTE | 2022-11-01 11:02 | Wound Care Assessment ---
Wound Care Assessment Date Seen by Provider: November 01, 2022 Time Seen by Provider: 09:30 Chief Complaint L. calf ulcer HPI This 56 year old gentleman presents to the hospital with COPD exacerbation, methamphetamine use and L. calf ulcer. Kulwant is homeless. He smokes 1ppd, heavily abuses ETOH and was positive for methamphetamines. As a result, he has cirrhotic liver disease, pancytopenia, PEM and COPD. He is currently on 4L O2. The etiology of his ulcer on his L. calf is uncertain but I suspect it was initially traumatic (he has a h/o head wounds as well and it is linear in nature). He could have underlying vascular disease due to his smoking and meth usage. It has been present for at least 1 month (by last hospitalization). Kulwant's life expectancy is quite grim with his current lifestyle choices. He will likely not be in the hospital long but unless he changes his lifestyle dramatically, his health will continue to decline. I did certified drug counselor him on this at length and encouraged him to consider healthy choices for a better quality of life. COPD, PEM, pancytopenia from liver disease/cirrhosis, ETOH abuse, tobaccoism, methamphetamine abuse, homelessness Smoking Status: Current Everyday Smoker (1ppd) Recreational Drug Use: Yes (positive for methamphetamines on UDS) Alcohol Use: Regular Use (heavy daily use) Exam Vital Signs Date Time Temp Pulse Resp B/P (MAP) Pulse Ox O2 Delivery O2 Flow Rate FiO2 11/01/22 08:13 37.0 73 19 119/76 (90) 91 Nasal Cannula 4.00 10/29/22 21:40 32 Capillary Refill : Less Than 3 Seconds General Appearance: WD/WN, no apparent distress, other (slow to speak) HEENT: other (normal hearing) Neck: full range of motion Cardiovascular: no edema Respiratory: no respiratory distress, no accessory muscle use Extremities: normal range of motion Neurologic/Psychiatric: alert, normal mood/affect, oriented x 3 Skin: normal color, warm/dry Wound assessment: 7x1x0.3cm. The epithelialization is small. There is no tunneling or undermining. Drainage is large and serosanguinous. Granulation is small and pink. Necrotic is large and slough. The margins show epibole. Results Laboratory Tests 10/31/22 13:50: D-Dimer 1.78H Microbiology 10/29/22 Blood Culture - Preliminary, Resulted No growth 10/29/22 Urine Culture - Final, Complete Staphylococcus aureus Assessment/Plan/Dx Assessment: 1. Nonpressure ulcer left lateral calf 2. Tobaccoism-1ppd 3. Methamphetamine use 4. Heavy alcohol use 5. COPD 6. Pancytopenia 7. Homelessness Plan 1. Cleanse daily with vashe. Apply silver alginate HF to wound bed and secure daily with bordered foam dressing. Change daily 2. Counseled at length on cessation 3. Counseled at length on cessation 4. Counseled at lengthon cessation 5. Defer to PCP 6. Defer to PCP 7. Defer to PCP 8. At risk patient. Defer to social work ANNIA STEWART MD November 01, 2022 11:02
[2022-11-01] MEDS ORDERED: LACT10SO3 PO (11:08)
[2022-11-01] MEDS ORDERED: POTA8CAP20 PO (11:08)
[2022-11-01] MEDS ORDERED: LEVE500T6 PO (11:09)
[2022-11-01] MEDS ORDERED: MULT400T15 PO (11:12)
[2022-11-01 12:15] VITALS: BP 120/65
--- NOTE | 2022-11-01 15:23 | Diagnostic Imaging Report ---
PROCEDURE: US right lower extremity venous. TECHNIQUE: Multiple real-time grayscale images were obtained over the right lower extremity in various projections. Additional spectral analysis and color Doppler duplex images were also obtained. INDICATION: Right calf pain. There is no evidence of right lower extremity DVT. Right lower extremity deep venous system shows normal compressibility with normal response to augmentation and Valsalva. No fluid collection or mass is detected. IMPRESSION: No evidence of right lower extremity DVT. Dictated by: Dictated on workstation # [id number]
[2022-11-01 16:46] VITALS: BP 128/76
[2022-11-01 20:05] VITALS: BP 136/80
[2022-11-01 23:05] VITALS: BP 142/73
[2022-11-02] MEDS: predniSONE 20 MG TAB PO SCH (05:25)
[2022-11-02 05:47] LABS: HEMATOCRIT 39 % (40-54); HEMOGLOBIN 12.8 g/dL (13.3-17.7); MEAN CORPUSCULAR HEMOGLOBIN 29 pg (25-34); MEAN CORPUSCULAR HGB CONC 33 g/dL (32-36); MEAN CORPUSCULAR VOLUME 88 fL (80-99); MEAN PLATELET VOLUME 10.1 fL (9.0-12.2); PLATELET COUNT 125 10^3/uL (130-400); WHITE BLOOD COUNT 6.6 10^3/uL (4.3-11.0)
[2022-11-02 06:08] LABS: ALBUMIN 2.3 GM/DL (3.2-4.5); BILIRUBIN,TOTAL 0.7 MG/DL (0.1-1.0); CALCIUM 7.6 MG/DL (8.5-10.1); CREATININE SERUM 0.67 MG/DL (0.60-1.30); POTASSIUM 4.5 MMOL/L (3.6-5.0); TOTAL PROTEIN 5.7 GM/DL (6.4-8.2)
[2022-11-02 07:07] VITALS: BP 122/67
[2022-11-02] MEDS: LACTULOSE SYRUP 10GM/15ML (ENULOSE) 30ML UDC PO SCH ×3 (07:54→21:17)
[2022-11-02] MEDS: MILK OF MAGNESIA 400 MG/5 ML 30 ML UDC PO PRN ×2 (07:54→19:23)
[2022-11-02] MEDS: fentaNYL INJ 100 MCG/2 ML AMP IV PRN (07:55)
[2022-11-02] MEDS: NEO/POLY/BAC (NEOSPORIN) OINT 15 GM TUBE TOP SCH ×2 (09:30→19:12)
--- NOTE | 2022-11-02 09:43 | Progress Note ---
Subjective Subjective/Events-last exam Pt is sleepy and mumbling this morning. Says he was having belly trouble but it is better. Focused Exam Time of Focused Exam: 18:15 Objective Exam Last Set of Vital Signs Vital Signs Date Time Temp Pulse Resp B/P (MAP) Pulse Ox O2 Delivery O2 Flow Rate FiO2 11/02/22 08:00 Nasal Cannula 4.00 11/02/22 07:07 36.9 76 20 122/67 (85) 92 10/29/22 21:40 32 Capillary Refill : Less Than 3 Seconds I&O Intake and Output 11/02/22 00:00 Intake Total 2460 ml Output Total 2730 ml Balance -270 ml Intake Oral 2460 ml Output Urine Total 2730 ml # Bowel Movements 2 General: Oriented X3, Other (drowsy but arousable, very sleepy appearing) Lungs: Clear to Auscultation Abdomen: Normal Bowel Sounds, Other (mild distension, diffuse ttp) Extremities: No Edema Psych/Mental Status: Mental Status NL Results/Procedures Lab Laboratory Tests 11/02/22 05:28: White Blood Count 6.6, Red Blood Count 4.48, Hemoglobin 12.8L, Hematocrit 39L, Mean Corpuscular Volume 88, Mean Corpuscular Hemoglobin 29, Mean Corpuscular Hemoglobin Concent 33, Red Cell Distribution Width 15.1H, Platelet Count 125L, Mean Platelet Volume 10.1, Sodium Level 136, Potassium Level 4.5, Chloride Level 107, Carbon Dioxide Level 24, Anion Gap 5, Blood Urea Nitrogen 11, Creatinine 0.67, Estimat Glomerular Filtration Rate 108, BUN/Creatinine Ratio 16, Glucose Level 105, Calcium Level 7.6L, Corrected Calcium 9.0, Total Bilirubin 0.7, Aspartate Amino Transf (AST/SGOT) 58H, Alanine Aminotransferase (ALT/SGPT) 30, Alkaline Phosphatase 104, Total Protein 5.7L, Albumin 2.3L Microbiology 10/29/22 Blood Culture - Preliminary, Resulted No growth 10/29/22 Urine Culture - Final, Complete Staphylococcus aureus Assessment/Plan Assessment/Plan (1) COPD exacerbation Status: Acute Assessment & Plan: Improving, changed to oral prednisone. Likely to need supplemental oxygen on d/c based on history, will need stable location to deliver. (2) Elevated lactic acid level Status: Resolved Assessment & Plan: No clear evidence of bacterial infection, resolved on repeat. (3) Pancytopenia Status: Chronic Assessment & Plan: Suspect secondary to liver disease, monitor. (4) Alcoholic cirrhosis of liver Status: Chronic Assessment & Plan: With history of TIPS. Continue lactulose. (5) Hypoxic brain injury Status: Chronic Assessment & Plan: History of, difficult to obtain thorough history. (6) CHRONIC LEG WOUND Status: Chronic Assessment & Plan: Appreciate wound care recommendations. (7) Hyperammonemia Status: Acute Assessment & Plan: With known liver disease, resumed lactulose. Mental status good 11/01 11/02 very drowsy this morning, nursing report he has had good mental status prior, suspect due to dilaudid, will hold. (8) Acute and chronic respiratory failure Status: Acute Assessment & Plan: Previously requiring home supplemental oxygen, wean as tolerated and anticipate need for chronic supplementation. (9) Homelessness Status: Acute Assessment & Plan: environmental services floor tech consult. (10) Methamphetamine addiction Status: Acute Assessment & Plan: environmental services floor tech consult. (11) DVT prophylaxis Status: Acute Assessment & Plan: Received Eliquis last night and this morning due to patient report of feeling in his right leg similar to what he had in left when he had a blood clot. Right venous ultrasound negative for DVT. Enoxaparin prophylaxis. MALACHI JETER MD November 02, 2022 09:43
[2022-11-02 16:50] VITALS: BP 114/69
[2022-11-02] MEDS: ENOXAPARIN 40 MG/0.4 ML (LOVENOX) SYR SC SCH (21:17)
[2022-11-02 23:46] VITALS: BP 131/72
[2022-11-03] MEDS: predniSONE 20 MG TAB PO SCH (05:29)
[2022-11-03 05:32] LABS: HEMOGLOBIN 13.8 g/dL (13.3-17.7); MEAN PLATELET VOLUME 10.1 fL (9.0-12.2); WHITE BLOOD COUNT 6.7 10^3/uL (4.3-11.0)
[2022-11-03 05:44] LABS: ALBUMIN 2.5 GM/DL (3.2-4.5); POTASSIUM 4.5 MMOL/L (3.6-5.0)
[2022-11-03 05:46] LABS: CALCIUM 7.4 MG/DL (8.5-10.1)
[2022-11-03 05:49] LABS: BILIRUBIN,TOTAL 1.1 MG/DL (0.1-1.0)
[2022-11-03 05:50] LABS: CREATININE SERUM 0.74 MG/DL (0.60-1.30)
[2022-11-03 08:08] VITALS: BP 115/67
[2022-11-03] MEDS: LACTULOSE SYRUP 10GM/15ML (ENULOSE) 30ML UDC PO SCH ×3 (08:32→20:42)
[2022-11-03] MEDS: NEO/POLY/BAC (NEOSPORIN) OINT 15 GM TUBE TOP SCH ×2 (08:32→20:44)
[2022-11-03] MEDS: ACETAMINOPHEN 500 MG TAB (TYLENOL) PO PRN (09:47)
--- NOTE | 2022-11-03 10:53 | Progress Note ---
Subjective Subjective/Events-last exam Pt states he is so-so. Says he has a fever, but no fever has been recorded. States breathing feels around baseline, still on 4 lpm supplemental oxygen. Looking at NH placement. Focused Exam Time of Focused Exam: 18:15 Objective Exam Last Set of Vital Signs Vital Signs Date Time Temp Pulse Resp B/P (MAP) Pulse Ox O2 Delivery O2 Flow Rate FiO2 11/03/22 09:47 38.5 11/03/22 08:08 86 18 115/67 (83) 90 Nasal Cannula 4.00 10/29/22 21:40 32 Capillary Refill : Less Than 3 Seconds I&O Intake and Output 11/03/22 00:00 Intake Total 800 ml Output Total 2250 ml Balance -1450 ml Intake Oral 800 ml Output Urine Total 2250 ml # Bowel Movements 1 General: Alert, Oriented X3 Lungs: Other (ronchi) Heart: Regular Rate Abdomen: Normal Bowel Sounds, Soft, No Tenderness Extremities: No Edema Psych/Mental Status: Mood NL Results/Procedures Lab Laboratory Tests 11/03/22 05:11: White Blood Count 6.7, Red Blood Count 4.81, Hemoglobin 13.8, Hematocrit 42, Mean Corpuscular Volume 88, Mean Corpuscular Hemoglobin 29, Mean Corpuscular Hemoglobin Concent 33, Red Cell Distribution Width 15.4H, Platelet Count 110L, Mean Platelet Volume 10.1, Percent Immature Platelet Fraction 2.0, Sodium Level 133L, Potassium Level 4.5, Chloride Level 104, Carbon Dioxide Level 23, Anion Gap 6, Blood Urea Nitrogen 12, Creatinine 0.74, Estimat Glomerular Filtration Rate 105, BUN/Creatinine Ratio 16, Glucose Level 94, Calcium Level 7.4L, Cor rected Calcium 8.6, Total Bilirubin 1.1H, Aspartate Amino Transf (AST/SGOT) 69H, Alanine Aminotransferase (ALT/SGPT) 38, Alkaline Phosphatase 123, Total Protein 6.0L, Albumin 2.5L Microbiology 10/29/22 Blood Culture - Preliminary, Resulted No growth 10/29/22 Urine Culture - Final, Complete Staphylococcus aureus Assessment/Plan Assessment/Plan (1) COPD exacerbation Status: Acute Assessment & Plan: Improving, changed to oral prednisone. Likely to need supplemental oxygen on d/c based on history, will need stable location to deliver. Working on NH placement, anticipate d/c with supplemental oxygen when place available (2) Elevated lactic acid level Status: Resolved Assessment & Plan: No clear evidence of bacterial infection, resolved on repeat. (3) Pancytopenia Status: Chronic Assessment & Plan: Suspect secondary to liver disease, monitor. (4) Alcoholic cirrhosis of liver Status: Chronic Assessment & Plan: With history of TIPS. Continue lactulose. (5) Hypoxic brain injury Status: Chronic Assessment & Plan: History of, difficult to obtain thorough history. (6) CHRONIC LEG WOUND Status: Chronic Assessment & Plan: Appreciate wound care recommendations. (7) Hyperammonemia Status: Acute Assessment & Plan: With known liver disease, resumed lactulose. Mental status good 11/01 11/02 very drowsy this morning, nursing report he has had good mental status prior, suspect due to dilaudid, will hold. (8) Acute and chronic respiratory failure Status: Acute Assessment & Plan: Previously requiring home supplemental oxygen, wean as tolerated and anticipate need for chronic supplementation. (9) Homelessness Status: Acute Assessment & Plan: card services specialist consult. (10) Methamphetamine addiction Status: Acute Assessment & Plan: card services specialist consult. (11) DVT prophylaxis Status: Acute Assessment & Plan: Received Eliquis last night and this morning due to patient report of feeling in his right leg similar to what he had in left when he had a blood clot. Right venous ultrasound negative for DVT. Enoxaparin prophylaxis. MALACHI JETER MD November 03, 2022 10:53
[2022-11-03 16:00] VITALS: BP 138/80
[2022-11-03] MEDS: ENOXAPARIN 40 MG/0.4 ML (LOVENOX) SYR SC SCH (20:43)
[2022-11-04] VITALS: BP 130/70
[2022-11-04 06:56] LABS: HEMATOCRIT 40 % (40-54); HEMOGLOBIN 12.9 g/dL (13.3-17.7); MEAN CORPUSCULAR HEMOGLOBIN 29 pg (25-34); MEAN CORPUSCULAR HGB CONC 33 g/dL (32-36); MEAN CORPUSCULAR VOLUME 89 fL (80-99); MEAN PLATELET VOLUME 9.7 fL (9.0-12.2); PLATELET COUNT 75 10^3/uL (130-400); WHITE BLOOD COUNT 4.5 10^3/uL (4.3-11.0)
[2022-11-04 07:13] LABS: ALBUMIN 2.3 GM/DL (3.2-4.5); BILIRUBIN,TOTAL 0.9 MG/DL (0.1-1.0); CALCIUM 7.4 MG/DL (8.5-10.1); CREATININE SERUM 0.66 MG/DL (0.60-1.30); POTASSIUM 3.6 MMOL/L (3.6-5.0); TOTAL PROTEIN 5.6 GM/DL (6.4-8.2)
[2022-11-04] MEDS: predniSONE 20 MG TAB PO SCH (07:32)
[2022-11-04 08:07] VITALS: BP 112/70
[2022-11-04] MEDS: LACTULOSE SYRUP 10GM/15ML (ENULOSE) 30ML UDC PO SCH ×2 (11:38→12:01)
[2022-11-04] MEDS: NEO/POLY/BAC (NEOSPORIN) OINT 15 GM TUBE TOP SCH (11:39)
[2022-11-04] MEDS ORDERED: LACT10SO3 PO (12:18)
[2022-11-04] MEDS ORDERED: LEVE500T6 PO (12:18)
[2022-11-04] MEDS ORDERED: POTA8CAP20 PO (12:18)
[2022-11-04] MEDS ORDERED: MULT400T15 PO (12:18)
[2022-11-04] MEDS ORDERED: RT-ALBUINH INH (12:18)
[2022-11-04] MEDS ORDERED: PRD50T PO (12:18)
--- NOTE | 2022-11-04 12:21 | D/C HH Face to Face Order ---
D/C Face to Face Orders Instructions for Patient Via [facility], Patient Instructions/FollowUp: Follow up with primary within a week of discharge. Physician to follow Patient: MEGHANN Discharge Diet for Home: Regular Diet Patient Data-Allergies,Ht & Wt Patient Allergies: Coded Allergies: NSAIDS (Non-Steroidal Anti-Inflamma (Verified Allergy, Unknown, 11/28/19) aspirin (Verified Allergy, Unknown, 09/19/22) Home Health Need/Face to Face Date of Face to Face: November 04, 2022 Clinical Findings: Generalized weakness and fatigue I have seen Pt [id number]: Yes Discharged To: Home Diagnosis/Conditions: See problem list Problems/Diagnosis/Condition: (1) Cirrhosis (2) Pancytopenia (3) Hypoxic brain injury (4) Acute and chronic respiratory failure (5) COPD exacerbation (6) CHRONIC LEG WOUND Patient is Homebound due to: CognItive deficits, Cristal fall risk due to instabilty Homebound Status Due to the above stated illness, injury or surgical procedure (medical condition or diagnosis) and associated clinical findings, the patient is homebound because of his/her inability to leave home except with aid of a supportive device and/or person AND leaving the home requires a considerable and taxing effort or is medically contraindicated. Pt req the following assistanc: Aid of another person Home Health Nursing Orders Home Health Services Order: Nursing Services, Wound Care-Eval/Treat Wound dressing daily- cleanse with Vashe, apply silver alginate and cover with bordered foam dressing Home Health Infusion Therapy Line Start Date: October 29, 2022 Therapy Orders Therapy Orders: Physical Therapy Certify Stmt I certify that this patient is under my care and that I, a nurse practitioner or a physician; a faculty i on call medical assistant working with me, had a face to face encounter that - meets the physician face to face encounter requirements with this patient as dated. MALACHI JETER MD November 04, 2022 12:21
--- NOTE | 2022-11-04 12:22 | Discharge Summary ---
Discharge Summary Hospital Course Problems/Diagnosis: (1) COPD exacerbation Status: Acute Assessment & Plan: Improving, changed to oral prednisone. Likely to need fernandez pplemental oxygen on d/c based on history, will need stable location to deliver. Working on NH placement, anticipate d/c with supplemental oxygen when place available 11/04 patient declined NH, discharged to home with 4 lpm supplemental oxygen. (2) Elevated lactic acid level Status: Resolved Resolution Date/Time: 10/31/22 @ 14:37 Assessment & Plan: No clear evidence of bacterial infection, resolved on repeat. (3) Pancytopenia Status: Chronic Assessment & Plan: Suspect secondary to liver disease (4) Alcoholic cirrhosis of liver Status: Chronic Assessment & Plan: With history of TIPS. Continue lactulose. (5) Hypoxic brain injury Status: Chronic Assessment & Plan: History of, difficult to obtain thorough history. (6) CHRONIC LEG WOUND Status: Chronic Assessment & Plan: Appreciate wound care recommendations- daily dressing change with Vashe cleanse, silver alginate and cover with bordered foam dressing (7) Hyperammonemia Status: Acute Assessment & Plan: With known liver disease, resumed lactulose. Mental status normal at d/c (8) Acute and chronic respiratory failure Status: Acute Assessment & Plan: Previously requiring home supplemental oxygen, wean as tolerated and anticipate need for chronic supplementation. Qualifiers: Qualified Codes: J96.21 - Acute and chronic respiratory failure with hypoxia (9) Homelessness Status: Acute Assessment & Plan: inpatient services rn consult. (10) Methamphetamine addiction Status: Acute Assessment & Plan: inpatient services rn consult. Hospital Course Date of Admission: October 29, 2022 at 20:58 Admission Diagnosis : Family Physician/Provider: Tashia Kahn MD Date of Discharge: 11/04/22 Discharge Diagnosis: See problem list Hospital Course: See problem list Labs and Pending Lab Test: Laboratory Tests 11/04/22 04:57: White Blood Count 4.5, Red Blood Count 4.46, Hemoglobin 12.9L, Hematocrit 40, Mean Corpuscular Volume 89, Mean Corpuscular Hemoglobin 29, Mean Corpuscular Hemoglobin Concent 33, Red Cell Distribution Width 15.4H, Platelet Count 75L, Mean Platelet Volume 9.7, Sodium Level 135, Potassium Level 3.6, Chloride Level 105, Carbon Dioxide Level 23, Anion Gap 7, Blood Urea Nitrogen 11, Creatinine 0.66, Estimat Glomerular Filtration Rate 109, BUN/Creatinine Ratio 17, Glucose L evel 86, Calcium Level 7.4L, Corrected Calcium 8.8, Total Bilirubin 0.9, Aspartate Amino Transf (AST/SGOT) 62H, Alanine Aminotransferase (ALT/SGPT) 37, Alkaline Phosphatase 107, Total Protein 5.6L, Albumin 2.3L Microbiology 10/29/22 Blood Culture - Preliminary, Resulted No growth 10/29/22 Urine Culture - Final, Complete Staphylococcus aureus Home Meds Active Prednisone 50 Mg Tab 50 Mg PO DAILY Ventolin Hfa (Albuterol Sulfate) 1 Puff Puff 2 Puff INH Q4H PRN 1 PUFF = 90 MCG Tab-A-Brayan Tablet (Multivitamin with Folic Acid) 400 Mcg Tablet 400 Mcg PO DAILY PATIENT SAID THIS MED WAS STOLEN Levetiracetam 500 Mg Tablet 500 Mg PO BID PATIENT SAID THIS MED WAS STOLEN Lactulose 10 Gram/15 Ml Solution 45 Ml PO TID PATIENT SAID THIS MED WAS STOLEN Potassium Chloride 8 Meq Capsule.er 8 Meq PO DAILY PATIENT SAID THIS MED WAS STOLEN Assessment/Pt DC Instructions Follow up with primary within a week of discharge Discharge Diet: Low Sodium Diet Activity as Tolerated: Yes Discharge Physical Examination Allergies: Coded Allergies: NSAIDS (Non-Steroidal Anti-Inflamma (Verified Allergy, Unknown, 11/28/19) aspirin (Verified Allergy, Unknown, 09/19/22) General Appearance: No Apparent Distress, Chronically ill Respiratory: Lungs Clear, Normal Breath Sounds Cardiovascular: Regular Rate, Rhythm, No Murmur Gastrointestinal: Normal Bowel Sounds, Non Tender, Soft Skin: Warm/Dry Neurologic/Psychiatric: Alert, Oriented x3 MALACHI JETER MD November 04, 2022 12:22
[2022-11-04 14:23] VITALS: BP 112/70
== END 2022-11-04 14:46 | disposition home health service (06) | DRG 189 ==
LOC: EDUNIT# 16:47 → ER 16:48 → 4TH 20:58
PROVIDERS: ADMIT Internal Medicine; ATTEND Family Medicine
DX: J96.21 Acute and chronic respiratory failure with hypoxia (principal); K76.6 Portal hypertension; J44.1 Chronic obstructive pulmonary disease with (acute) exacerbation; D61.818 Other pancytopenia; E72.20 Disorder of urea cycle metabolism, unspecified; F15.20 Other stimulant dependence, uncomplicated; E46 Unspecified protein-calorie malnutrition; L97.221 Non-pressure chronic ulcer of left calf limited to breakdown of skin; F20.0 Paranoid schizophrenia; K70.30 Alcoholic cirrhosis of liver without ascites; G40.909 Epilepsy, unspecified, not intractable, without status epilepticus; Z59.00 Homelessness unspecified; Z86.11 Personal history of tuberculosis; Z99.81 Dependence on supplemental oxygen; F17.210 Nicotine dependence, cigarettes, uncomplicated; F98.8 Other specified behavioral and emotional disorders with onset usually occurring in childhood and adolescence; F90.9 Attention-deficit hyperactivity disorder, unspecified type; G89.29 Other chronic pain; M54.9 Dorsalgia, unspecified; Z20.822 Contact with and (suspected) exposure to COVID-19; Z68.25 Body mass index [BMI] 25.0-25.9, adult; Z91.199 Patient's noncompliance with other medical treatment and regimen due to unspecified reason; F32.A Depression, unspecified
CPT/HCPCS: 36415; 71045; 71275; 80048; 80053; 80306; 80320; 81000; 82140; 83605; 83735; 83880; 84484; 85007; 85025; 85027; 85379; 85610; 85730; 87040; 87077; 87088; 87186; 87636; 93005; 93041; 94761; 96361; 96374; 96375

== ENCOUNTER 2022-11-09 14:07 | Emergency (ER) | payer MEDICARE ==
[~2022-11-09] VITALS: Ht 177.8 cm; Wt 75.9 kg
[~2022-11-09 14:07] MED LIST changes: +LACT10SO3 PO; +MULT400T15 PO; +PRD50T PO; +RT-ALBUINH INH
--- NOTE | 2022-11-09 14:23 | ED Respiratory ---
General Chief Complaint: Respiratory Problems Stated Complaint: SOA Nursing Triage Note: PT TO ED BY EMS FROM HOME WITH C/O SOA. EMS REPORTS SOA BEGINNING 1330, PT TOOK ALBUTEROL INHALER AND SOA IMPROVED UPON EMS ARRIVAL. PT WEARS 4 L NC NORMALLY. PT REPORTS HE WAS SITTING ON THE COUCH WHEN SOA STARTED, BUT IS FEELING BETTER NOW. REPORTS HE HAS BEEN VOMITING 3-4 DAYS. Source: patient Exam Limitations: no limitations History of Present Illness Date Seen by Provider: November 09, 2022 Time Seen by Provider: 14:20 Initial Comments Patient is a 56-year-old male who is homeless, history of cirrhosis, dependent of cytopenia, hypoxic brain injury, COPD chronic leg wound who presents ED for shortness of breath. This started around 130 today while sitting at home. Started feeling short of breath uses albuterol inhaler with improvement of his shortness of breath. Patient wears 4 L nasal cannula daily. Patient states he was sitting on the couch during this time when he felt short of breath. Shortness of breath improved. He had no chest pain or abdominal pain. Denies of any increased leg swelling, fever, abdominal pain, back pain, dysuria, cough, decreased urine, chills. He does report a few episodes of vomiting. Denies headache, dizziness, visual changes, chest pain, headache, chest pain or dizziness. Alert and orient x3. Patient takes lactulose. Patient recently finished prednisone. Does have an albuterol inhaler. Denies of any antibiotic use. Patient on arrival currently asymptomatic. Allergies and Home Medications Allergies Coded Allergies: NSAIDS (Non-Steroidal Anti-Inflamma (Verified Allergy, Unknown, 11/28/19) aspirin (Verified Allergy, Unknown, 09/19/22) Patient Home Medication List Home Medication List Reviewed: Yes Albuterol Sulfate (Ventolin Hfa) 1 Puff Puff, 2 PUFF INH Q4H PRN for SHORTNESS OF BREATH Prescribed by: MALACHI JETER on 11/04/22 1218 Lactulose (Lactulose) 10 Gram/15 Ml Solution, 45 ML PO TID Prescribed by: MALACHI JETER on 11/04/22 1218 Levetiracetam (Levetiracetam) 500 Mg Tablet, 500 MG PO BID Prescribed by: MALACHI JETER on 11/04/22 1218 Multivitamin with Folic Acid (Tab-A-Brayan Tablet) 400 Mcg Tablet, 400 MCG PO DAILY Prescribed by: MALACHI JETER on 11/04/22 1218 Potassium Chloride (Potassium Chloride) 8 Meq Capsule.er, 8 MEQ PO DAILY Prescribed by: MALACHI JETER on 11/04/22 1218 Prednisone (Prednisone) 50 Mg Tab, 50 MG PO DAILY Prescribed by: MALACHI JETER on 11/04/22 1218 Review of Systems Review of Systems Constitutional: No chills, No diaphoresis, No fever, No malaise, No weakness Respiratory: No cough, No dyspnea on exertion; short of breath Gastrointestinal: No abdominal pain, No constipation, No diarrhea, No nausea, No vomiting Genitourinary: No decreased output, No discharge Musculoskeletal: No back pain, No joint pain Skin: No change in color All Other Systems Reviewed Negative Unless Noted: Yes Past Hdhdajp-Vwnspa-Kedeuy Hx Patient Social History Tobacco Use?: No Smoking Status: Former Smoker Use of E-Cig and/or Vaping dev: No Substance use?: No Alcohol Use?: No Pt feels they are or have been: No Immunizations Up To Date Influenza Vaccine Up-to-Date: No; Not Current First/Initial COVID19 Vaccinat: 2020 Second COVID19 Vaccination Christiano: 2020 Third COVID19 Vaccination Date: 2020 Seasonal Allergies Seasonal Allergies: Yes Past Medical History Surgery/Hospitalization HX: LIVER DISEASE, DEGINERATIVE DISK DISEASE, HEART MURMMER, CKD, COPD, SIEZURE DISORDER, DVT, STENTS Surgeries: Yes Abdominal, Adenoidectomy, Orthopedic, Tonsillectomy Respiratory: Yes COPD Currently Using CPAP: No Currently Using BIPAP: No Cardiac: Yes Chronic Edema/Swelling Neurological: Yes Seizure Disorder, Traumatic Brain Injury Genitourinary: No Gastrointestinal: Yes Liver Disease/Jaundice, Esophageal Varices, Hepatitis, Cirrhosis Musculoskeletal: Yes Degenerate Disk Disease, Chronic Back Pain, Fractures Endocrine: No HEENT: Yes Loss of Vision: Denies Hearing Impairment: Denies Cancer: No Psychosocial: Yes ADD/ADHD Integumentary: Yes Blood Disorders: No Adverse Reaction/Blood Tranf: No Family Medical History COPD SOCIAL HISTORY: -SMOKES 1 PPD -ETOH--HEAVY/DAILY USE -DRUGS--EXTENSIVE IV METH USE PSH: -ESOPAGEAL VARICES BANDING -ESOPHAGEAL STENTS X 2 -TIPS PROCEDURE -RIGHT ANKLE FX/ORIF -LEFT KNEE SURGERY X 2 -LEFT SHOULDER SURGERY X 1 -RIGHT SHOULDER SURGERY X 2 ADMITTED 12/06/21 FOR CHRONIC WOUND TO BACK OF HEAD, WITH MAGGOTS IN THE WOUND MULTIPLE ADMITS FOR ELEVATED AMMONIA LEVELS EXTENSIVE HISTORY OF NON-COMPLIANCE HX OF HEPATIC ENCEPHALOPATHY/HYPERAMMONEMIA BILAT SUBDURAL HEMATOMAS DX 01/30/22 AND TX TO [place]. NO SURGERY Physical Exam Vital Signs - First Documented Capillary Refill : Height: '" Weight: lbs. oz. 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 as tested, no motor/sensory deficits, alert, normal mood/affect, oriented x 3 Skin: warm/dry Procedures/Interventions Suture Size: 5-0 Progress/Results/Core Measures Suspected Sepsis SIRS Temperature: Pulse: 73 Respiratory Rate: 14 Blood Pressure 127 /72 Mean: 90 Results/Orders My Orders Orders - NAVID HUSSEIN PA Chest 1 View, Ap/Pa Only (11/09/22 14:17) Vital Signs/I&O 11/09/22 11/09/22 11/09/22 14:10 14:10 15:31 Temp 36.9 Pulse 73 63 Resp 14 14 B/P (MAP) 127/72 (90) 127/67 Pulse Ox 95 96 O2 Delivery Nasal Cannula Nasal Cannula Nasal Cannula O2 Flow Rate 4.00 4.00 4.00 4.00 Capillary Refill : Blood Pressure Mean: 90 Departure Communication (PCP) History of cirrhosis, COPD, chronic left leg wound presents ED for shortness of breath. Acute onset around 130. Patient uses albuterol inhaler with improvement of his shortness of breath. Currently asymptomatic. Chronically wears 4 L nasal cannula. Patient Was discharged from our facility November 05. Admitted for COPD exacerbation, hypoxia, hyperammonia, cirrhosis. Patient has no other complaints. States he has vomited a few times after being discharge however denies of any vomiting today. Denies of any specific chest pain, wheezing, cough, abdominal pain, diarrhea, dysuria, leg swelling. Chronic wound to left leg appears to be healing. No evidence of cellulitis. Vital signs stable. No evidence of respiratory distress. Patient is currently asymptomatic. Chest x-ray was ordered due to the shortness of breath which did not note any acute findings. Borderline heart size with central vascular congestion with diffuse interstitial edema versus fibrosis, the appearance has not changed compared to the prior study. No evidence of pneumonia, pneumothorax. Soft abdomen. Afebrile. Patient does take lactulose for his cirrhosis. Patient is alert and orient x3. Normal mentation. Follow-up with PCP in 2 to 3 days for reevaluation. Impression Primary Impression: Dyspnea Disposition: 01 HOME, SELF-CARE Condition: Stable Departure-Patient Inst. Decision time for Depature: 14:47 Referrals: YESSICA MONTENEGRO MD (PCP/Family) Primary Care Physician Patient Instructions: Shortness of Breath (Dyspnea) (DC) Add. Discharge Instructions: Continue with your albuterol inhaler. Follow-up your PCP in 2 to 3 days for ree valuation All discharge instructions reviewed with patient and/or family. Voiced understanding. NAVID HUSSEIN November 09, 2022 14:23
--- NOTE | 2022-11-09 14:39 | Diagnostic Imaging Report ---
INDICATION: Shortness of breath Frontal chest obtained at 0216 p.m. COMPARISON: 10/30/2022 Heart is borderline in size. There is central vascular congestion with diffuse interstitial edema versus fibrosis. There is no pneumothorax or pleural fluid or alveolar consolidation. IMPRESSION: Borderline heart size with central vascular congestion with diffuse interstitial edema versus fibrosis, the appearance has not changed compared to the prior study. There is no consolidation or pleural fluid. Dictated by: Dictated on workstation # [id number]
[2022-11-09 15:31] VITALS: BP 127/67
== END 2022-11-09 16:09 | disposition home or self-care (01) ==
LOC: EDUNIT# 14:07 → ER 14:08
DX: R06.02 Shortness of breath (principal); K74.60 Unspecified cirrhosis of liver; Z87.891 Personal history of nicotine dependence; Z99.81 Dependence on supplemental oxygen; Z79.899 Other long term (current) drug therapy
CPT/HCPCS: 71045

== ENCOUNTER → 2023-01-31 | Outpatient (CLI) | payer MEDICARE ==
--- NOTE | 2023-01-31 14:08 | Diagnostic Imaging Report ---
PROCEDURE: US Venous Lower Ext Bautista. TECHNIQUE: Multiple real-time grayscale images were obtained over the lower extremities in various projections, bilaterally. Additional duplex Doppler and color Doppler images were also obtained. INDICATION: DVT. There is no evidence of right or left lower extremity DVT. Both lower extremity deep venous systems demonstrate normal compressibility with normal response to augmentation and Valsalva. No fluid collection or mass is identified. IMPRESSION: No evidence of right or left lower extremity DVT. Dictated by: Dictated on workstation # [id number]
== END ==
LOC: RAD 12:39
PROVIDERS: ATTEND Family Medicine
DX: I82.4Z3 Acute embolism and thrombosis of unspecified deep veins of distal lower extremity, bilateral (principal)
CPT/HCPCS: 93970